=== PATIENT | male | born 1970 | race Caucasian/White ===

== ENCOUNTER 2017-08-26 10:58 | Emergency (ER) | payer OTHER, SELFPAY ==
[2017-08-26 11:01] VITALS: BP 143/86; PULSE 76; RESP 15; TEMP 36.8; O2SAT 96; BMI 33.1
--- NOTE | 2017-08-26 11:15 | EKG12_ITS ---
Test Reason : CP Blood Pressure : / mmHG Vent. Rate : 074 BPM Atrial Rate : 074 BPM P-R Int : 150 ms QRS Dur : 082 ms QT Int : 376 ms P-R-T Axes : 052 017 025 degrees QTc Int : 417 ms Normal sinus rhythm Normal ECG Confirmed by RENAE CALIXTO ([id number]), technical editor VIVIAN YAO ([id number] on 08/30/2017 1:42:37 PM Referred By: AFUA/LATRICE Confirmed By:RENAE CALIXTO
--- NOTE | 2017-08-26 11:15 | RAD_ITS ---
STUDY: X-RAY CHEST REASON FOR EXAM: Male, 47 years old. Chest pain since this morning. TECHNIQUE: PA and lateral views. COMPARISON: None. FINDINGS: The lungs are clear and expanded. There is no demonstrated pleural abnormality. Normal size heart. Normal mediastinum and cory. Normal visualized pulmonary arteries. Normal visualized aortic arch and descending thoracic aorta. Normal visualized thoracic spine. Normal visualized ribs, clavicles, and shoulders. There is no demonstrated abnormality of the visualized soft tissue structures of the upper abdomen. RAD/Chest PA and Lateral IMPRESSION: Normal x-ray examination of the chest. Electronically Signed: Parish Adames MD at 11:54 EDT , Service support ,
--- NOTE | 2017-08-26 11:18 | ED.DCSUM_ITS ---
- ER Visit Summary Date of Service: 08/26/17 Chief Complaint: Sharp anterior left chest pain History of Present Illness: The patient is a 47 M who was at work when he developed sharp anterior left chest pain that lasted 5 minutes that may or may not admit associated shortness of breath. No other associated symptoms. No radiation. No prior history of chest pain or heart problems. He has no history of PE or DVT or any risk factors. He denies any leg pain, swelling discoloration. 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 He does have history of hypertension, obstructive sleep apnea and was a smoker until one year ago. Physical Examination: Vital signs are remarkable for an elevated blood pressure 143/86. He appears in no distress. HEENT is unremarkable. Heart is regular without murmur, gallop or rub. S1 and S2 are normal. Lungs are clear to auscultation with good movement of air bilaterally. Abdomen soft nontender normal bowel sounds. There is no asymmetry, swelling, discoloration, leg vein distention, palpable cords or tenderness along the distribution of the deep venous system. Neuro exam is nonfocal. Tinel's test was negative bilaterally. Phalen's test was positive for numbness bilaterally. 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 This is been a problem for the last 1-2 months. Test Results: EKG revealed a sinus rhythm rate is 74. The EKG is normal. IA interval normal. QRS duration normal. There is no ischemic changes noted. Two -view chest x-ray interpreted by me as negative. Cardiac silhouette is normal. Mediastinum is normal. There is no abnormality of the lung parenchyma. There is no abnormality of the bone/osseous structures. There is no evidence of hiatal hernia. Troponin is less than 0.015. Emergency Department Course and Treatment: To evaluate patient's transient left sided anterior chest pain and EKG was obtained to evaluate for any evidence of ischemia. Chest x-ray to evaluate for evidence of pneumothorax or pulmonary pathology. Troponin for risk stratification using heart score. Treatment Plan: Heart score is 2 which is low risk. Patient presents with very atypical chest discomfort. Since it was transient plan is to discharge to home and follow-up with primary care physician. Disposition: Discharged to home with appropriate home-going instructions. Cock- up splint for right and left wrist to be worn at night Impression: 1. Left-sided chest pain unknown etiology 2. Carpal tunnel syndrome right and left initial encounter This note was generated with [employer] dictation software. It may contain incorrect words, spelling, and punctuation that were not noted in review of the chart prior to signing ED Disposition - Plan for ED Patient: Disposition: Home or Assisted Living Chief Complaint: Chest Pain Instructions: ED Chest Pain Atypical Unkn Cause, ED Carpal Tunnel Referrals: Contreras Bird MD [Primary Care Provider] - 1 Week if not improving Additional Instructions: Wear cockup splints at night. Take either 4 Advil every 8 hours for the next 5- 7 days or 2 Aleve every 12 hours for the next 5-7 days. If you are still experiencing tingling in your fingers follow-up with your doctor for further testing and treatment.
[2017-08-26 13:05] VITALS: BP 130/75; PULSE 74; RESP 20; O2SAT 97
== END 2017-08-26 13:06 | disposition home or self-care (01) ==
PROVIDERS: Emergency Provider Emergency Medicine; Family Provider Family Medicine; PCP Family Medicine
DX: R07.9 Chest pain, unspecified (principal); G56.03 Carpal tunnel syndrome, bilateral upper limbs; I10 Essential (primary) hypertension; G47.33 Obstructive sleep apnea (adult) (pediatric); Z79.899 Other long term (current) drug therapy; Z87.891 Personal history of nicotine dependence
CPT/HCPCS: 71046; 84484; 93005; 99284

== ENCOUNTER 2018-01-04 01:56 | Emergency (ER) | payer OTHER, SELFPAY ==
[2018-01-04 01:56] VITALS: BP 145/94; PULSE 84; RESP 18; TEMP 37.1; O2SAT 96; BMI 34.8
--- NOTE | 2018-01-04 02:18 | ED.VISSUMM ---
- ER Visit Summary Date of Service: 01/04/18 Chief Complaint: Back pain History of Present Illness: The patient is a 47 M who presents with back pain. He does have a history of prior back problems with prior discectomy. He states he was picking up a heavy piece of metal at work which weighs about 150 pounds. He felt a pop in his left lower back and had sudden pain. He went back to work and attempted to lift another piece and his pain returned. This occurred about 2-3 hours before presentation. He has not yet taken any medications. He complains of some tingling going into the left buttock and leg but no pain radiating into the leg he denies any fevers abdominal pain urinary retention fecal incontinence. There was no fall. Physical Examination: Afebrile vitals stable Patient observed ambulating without difficulty Heart regular rate and rhythm Lungs clear Patient does have left lumbar paraspinal tenderness no midline tenderness Negative straight leg raise bilaterally Easily palpable and symmetric dorsalis pedis pulses 5 out of 5 strength with dorsiflexion, plantarflexion, extensor hallucis longus Test Results: Not indicated Emergency Department Course and Treatment: History and exam are consistent with lumbosacral strain. He was given naproxen here. He was given prescriptions for naproxen and [place]. He will follow-up with [facility]. He understands to return for new or worsening symptoms and was discharged home. Treatment Plan: [] Disposition: Discharge Impression: Lumbosacral strain This note was generated with [employer] dictation software. It may contain incorrect words, spelling, and punctuation that were not noted in review of the chart prior to signing ED Disposition - Plan for ED Patient: Chief Complaint: Back Referrals: Contreras Bird MD [Primary Care Provider] -
--- NOTE | 2018-01-04 02:21 | DCINST.ED_ITS ---
ED Disposition - Plan for ED Patient: Chief Complaint: Back Instructions: ED Sprain Strain Lumbar Prescriptions: Hydrocodone Bitart/Apap 5-325 [[place] 5MG-325MG] 1 tab PO Q6H PRN PRN 3 Days #10 tab PRN Reason: Pain Naproxen [Naprosyn] 500 mg PO BID #14 tab Referrals: Contreras Bird MD [Primary Care Provider] -
[2018-01-04] MEDS: Naproxen 500 MG Tablet PO (02:38)
[2018-01-04 02:47] VITALS: RESP 16
--- NOTE | 2018-01-04 02:50 | ED.RN ---
pt is discharged but [facility] is in the room with patient.
--- OUTSIDE RECORDS SUMMARY | 2018-03-01 10:46 | XMS RPT_ITS ---
:1970 Author Organization OH[facility] Care Team Providers Name Role Phone KIRSTIN COVINGTON) Attending Unavailable JIMENA REINA Referring Unavailable KIRSTIN COVINGTON) Attending Unavailable JIMENA REINA Referring Unavailable Matt Schwab Attending Unavailable Jimena Reina Primary Care Unavailable Jimena Reina Primary Care Unavailable Keith Alvarez Attending Unavailable PROBLEMS PROBLEMS DATE TYPE CONDITION / CODE ATTENDING STATUS SOURCE 01/04/2018 Unknown S39.012A - Keith Alvarez Active Carlene Strain of [facility] muscle, fascia [facility] and tendon of Repository lower back, initial encounter / S39.012A(ICD-10) PROCEDURES PROCEDURES No Procedure Records FoundRESULTS RESULTS PROGRESS Observed: 01/06/2018 Status: COMPLETED Source: [place] 2:28 PM [facility] HNO ID: [id number] Author: Korina Covington Service: (none) Author Type: Physician Consumer Product Advisor Type: Progress Notes Filed: 01/06/2018 3:44 PM Note Text: SUBJECTIVE: Chief Complaint: Sree Torres is a 47 year old male who presents for complete physical exam. New concerns today include CPAP concerns. Patient uses his cpap daily and notices improvement however, he would like a new mask. The one he currently has, he hasn't been able to fully adjust too and finds that he's getting a dry mouth/throat with it even though it has heated humidity. No other concerns today Doing well. HEALTH MAINTENANCE Exercises regularly Minimal exercise associated with work or ADL's TWO PNEUMOVAX 5 YEARS APART PRIOR TO AGE 64(1) due on 1988 ADULT PREVNAR-13 due on 1988 PAST MEDICAL HISTORY Diagnosis Date - Hypertension - Hypogonadism in male 03/06/2015 - Leukocytosis - Smoker 03/06/2015 Started at age 23 up to 1 1/2 PPD. As of 03/06/2015 smoking 3/4 PPD. PAST SURGICAL HISTORY Procedure Laterality Date - PAST SURGICAL HISTORY OF micro discectomy L5-S1 FAMILY HISTORY Problem Relation Age of Onset - Cancer Maternal Grandmother 60 ? - Cancer Maternal Grandfather 60 ? Social History Marital status: Spouse name: Years of education: Number of children: Social History Main Topics Smoking status: Former Smoker Packs/day: 1.00 Years: 20.00 Types: Cigarettes Quit date: 05/08/2016 Smokeless tobacco: Never Used Comment: Pt will occ have a cigarette. Alcohol use: No Drug use: No Sexual activity: Yes Partners with: Female Immunization History Administered Date(s) Administered Influenza Seasonal Inj Age 3+ 11/08/2015 Influenza Seasonal Inj Quadrivalent Age 3+ 03/06/2015 Tdap (Age 7+) 03/06/2015 ACTIVE PROBLEM LIST Hypogonadism in Male Smoker Well Adult Exam Muscle Cramps Dyslipidemia Leukocytosis Timothy (Obstructive Sleep Apnea) Essential Hypertension With Goal Blood Pressure Less Than 140/90 Elevated Lfts Hematuria Gerd Without Esophagitis Fatty Liver REVIEW OF SYSTEMS General: Denies fever, chills, night sweats, or changes in weight. Dermatologic: Denies any new skin conditions, rashes or changing moles. Eyes: Denies recent visual changes. ENT: Negative for hearing loss, tinnitus, frequent URI's, sinus trouble, persistent sore throat and hoarseness Respiratory: Denies any cough, dyspnea, or wheezing. Cardiovascular: Denies any chest pain with exertion or at rest, palpitations, syncope, or edema. Gastrointestinal: Denies any nausea, vomiting, abdominal pain, worsening heartburn, changes in bowel habit, Denies melena, Denies any rectal bleeding. Genitourinary: Denies Denies dysuria, frequency, urgency, incontinence, erectile dysfunction, and hematuria., Denies problems with urinary stream. Musculoskeletal: Denies any joint swelling, crepitus, joint pain, or loss of range of motion., Denies back pain. Neurologic: Denies any headaches, tremors, dizziness, vertigo, memory loss, confusion., Positive for left hand n/t Psychiatric: Denies any sleeping problems, history of abuse, marital discord., Denies any anxiety or depression. Hematologic/Lymphatic/Immunologic: Denies anemia, bruising, bleeding abnormalities, HIV risk factors Endocrine: Denies any heat or cold intolerance, polyuria or polydipsia. OBJECTIVE: PHYSICAL EXAMINATION: BP 122/78 (BP Site: Left Arm, BP Position: Sitting, BP Cuff Size: Large Adult) Pulse 68 Resp 14 Ht 189.9 cm (6' 2.75) Wt 121.1 kg (267 lb) BMI 33.60 kg/m? Last 4 Encounter Wt Readings: Date: Wt: 01/06/2018 121.1 kg (267 lb) 12/15/2017 122.9 kg (271 lb) 05/20/2017 123.8 kg (273 lb) 04/14/2016 119.3 kg (263 lb) GENERAL APPEARANCE Obese, well appearing, alert and in no acute distress SKIN: Dark mole low back just left lateral. Not uniform with rest of nevi. About 4mm in size. Borders are uniform and symmetric. Multiple skin tags on neck. HEAD: No significant findings. EYES: PERRLA, EOMI, Fundoscopic exam benign. EARS: external ears normal, canals clear, TM's normal NOSE/SINUSES: Nares normal. Septum midline. OROPHARYNX: Lips, mucosa, and tongue normal, teeth and gums normal and oropharynx normal. NECK: Supple, full range of motion, no lymphadenopathy, normal thyroid, no carotid bruits and no JVD BACK: Back symmetric, Normal curvature, ROM normal, No CVAT. LUNGS: clear to auscultation HEART: Normal PMI, Regular rate and rhythm, Normal heart sounds, S1 and S2 and No murmurs. ABDOMEN: Soft, Non-tender, No palpable masses, Normal bowel sounds, No abdominal bruits and No hepatosplenomegaly. EXTREMTIES: extremities normal, no deformities, no skin discoloration, no edema, extremity pulses equal and symmetric NEURO: Awake, alert and oriented x 3, Cranial nerves II-XII grossly intact, Reflexes symmetrical, Normal gait, No involuntary motions. DATA REVIEWED n/a ASSESSMENT/PLAN: 1. Well adult exam - ICD9: V70.0, ICD10: Z00.00 (primary diagnosis) - Recommended regular aerobic exercise. - Check labs as ordered at previous OV 2. Essential hypertension with goal blood pressure less than 140/90 - ICD9: 401.9, ICD10: I10 - good control - Continue current medication(s) - Recommended regular aerobic exercise. - Recommend home blood pressure monitoring, to bring results in on next visit - Goal of BP <130/80 3. Carpal tunnel syndrome, left - ICD9: 354.0, ICD10: G56.02 Discussed conservative options including bracing and use of NSAIDs prn. Would consider injection in future 4. Dyslipidemia - ICD9: 272.4, ICD10: E78.5 - to be determined upon return of lab results - Continue current therapy. 5. TIMOTHY (obstructive sleep apnea) - ICD9: 327.23, ICD10: G47.33 Stable Order for new mask given - COMPOUNDED PRESCRIPTION 6. Atypical nevi - ICD9: 216.9, ICD10: D22.9 With new recommendations of biopsying nevi that are not uniform with other nevi regardless of size, I discussed possible biopsy of nevi noticed on his left lower back. At this time patient would like to continue to monitor. Keep follow up as scheduled Return sooner as needed. ARIANNA VINSONOV Observed: 01/06/2018 Status: COMPLETED Source: [place] 2:20 PM [facility] REPOSITORY Office Visit (FAMPWS) SREE TORRES ([id number]) 1970 M Date Time Provider Department 01/06/18 2:20 PM ADRIAN COVINGTON) FAMMATHEW During your visit today, we recorded the following information about you: Pulse Respiration Blood pressure Weight 68/minute 14/minute 122/78 121.1 kg Height 1.899 m KIRSTIN COVINGTON PA-C 01/06/2018 3:44 PM Signed SUBJECTIVE: Chief Complaint: Sree Torres is a 47 year old male who presents for complete physical exam. New concerns today include CPAP concerns. Patient uses his cpap daily and notices improvement however, he would like a new mask. The one he currently has, he hasn't been able to fully adjust too and finds that he's getting a dry mouth/throat with it even though it has heated humidity. No other concerns today Doing well. HEALTH MAINTENANCE Exercises regularly Minimal exercise associated with work or ADL's TWO PNEUMOVAX 5 YEARS APART PRIOR TO AGE 65(1) due on 1988 ADULT PREVNAR-13 due on 1988 PAST MEDICAL HISTORY Diagnosis Date - Hypertension - Hypogonadism in male 03/06/2015 - Leukocytosis - Smoker 03/06/2015 Started at age 23 up to 1 02/08 PPD. As of 03/06/2015 smoking 3/4 PPD. PAST SURGICAL HISTORY Procedure Laterality Date - PAST SURGICAL HISTORY OF micro discectomy L5-S1 FAMILY HISTORY Problem Relation Age of Onset - Cancer Maternal Grandmother 60 ? - Cancer Maternal Grandfather 60 ? Social History Marital status: Spouse name: Years of education: Number of children: Social History Main Topics Smoking status: Former Smoker Packs/day: 1.00 Years: 20.00 Types: Cigarettes Quit date: 05/08/2016 Smokeless tobacco: Never Used Comment: Pt will occ have a cigarette. Alcohol use: No Drug use: No Sexual activity: Yes Partners with: Female Immunization History Administered Date(s) Administered Influenza Seasonal Inj Age 3+ 11/08/2015 Influenza Seasonal Inj Quadrivalent Age 3+ 03/06/2015 Tdap (Age 7+) 03/06/2015 ACTIVE PROBLEM LIST Hypogonadism in Male Smoker Well Adult Exam Muscle Cramps Dyslipidemia Leukocytosis Timothy (Obstructive Sleep Apnea) Essential Hypertension With Goal Blood Pressure Less Than 140/90 Elevated Lfts Hematuria Gerd Without Esophagitis Fatty Liver REVIEW OF SYSTEMS General: Denies fever, chills, night sweats, or changes in weight. Dermatologic: Denies any new skin conditions, rashes or changing moles. Eyes: Denies recent visual changes. ENT: Negative for hearing loss, tinnitus, frequent URI's, sinus trouble, persistent sore throat and hoarseness Respiratory: Denies any cough, dyspnea, or wheezing. Cardiovascular: Denies any chest pain with exertion or at rest, palpitations, syncope, or edema. Gastrointestinal: Denies any nausea, vomiting, abdominal pain, worsening heartburn, changes in bowel habit, Denies melena, Denies any rectal bleeding. Genitourinary: Denies Denies dysuria, frequency, urgency, incontinence, erectile dysfunction, and hematuria., Denies problems with urinary stream. Musculoskeletal: Denies any joint swelling, crepitus, joint pain, or loss of range of motion., Denies back pain. Neurologic: Denies any headaches, tremors, dizziness, vertigo, memory loss, confusion., Positive for left hand n/t Psychiatric: Denies any sleeping problems, history of abuse, marital discord., Denies any anxiety or depression. Hematologic/Lymphatic/Immunologic: Denies anemia, bruising, bleeding abnormalities, HIV risk factors Endocrine: Denies any heat or cold intolerance, polyuria or polydipsia. OBJECTIVE: PHYSICAL EXAMINATION: BP 122/78 (BP Site: Left Arm, BP Position: Sitting, BP Cuff Size: Large Adult) Pulse 68 Resp 14 Ht 189.9 cm (6' 2.75) Wt 121.1 kg (267 lb) BMI 33.60 kg/m? Last 4 Encounter Wt Readings: Date: Wt: 01/06/2018 121.1 kg (267 lb) 12/15/2017 122.9 kg (271 lb) 05/20/2017 123.8 kg (273 lb) 04/14/2016 119.3 kg (263 lb) GENERAL APPEARANCE Obese, well appearing, alert and in no acute distress SKIN: Dark mole low back just left lateral. Not uniform with rest of nevi. About 4mm in size. Borders are uniform and symmetric. Multiple skin tags on neck. HEAD: No significant findings. EYES: PERRLA, EOMI, Fundoscopic exam benign. EARS: external ears normal, canals clear, TM's normal NOSE/SINUSES: Nares normal. Septum midline. OROPHARYNX: Lips, mucosa, and tongue normal, teeth and gums normal and oropharynx normal. NECK: Supple, full range of motion, no lymphadenopathy, normal thyroid, no carotid bruits and no JVD BACK: Back symmetric, Normal curvature, ROM normal, No CVAT. LUNGS: clear to auscultation HEART: Normal PMI, Regular rate and rhythm, Normal heart sounds, S1 and S2 and No murmurs. ABDOMEN: Soft, Non-tender, No palpable masses, Normal bowel sounds, No abdominal bruits and No hepatosplenomegaly. EXTREMTIES: extremities normal, no deformities, no skin discoloration, no edema, extremity pulses equal and symmetric NEURO: Awake, alert and oriented x 3, Cranial nerves II-XII grossly intact, Reflexes symmetrical, Normal gait, No involuntary motions. DATA REVIEWED n/a ASSESSMENT/PLAN: 1. Well adult exam - ICD9: V70.0, ICD10: Z00.00 (primary diagnosis) - Recommended regular aerobic exercise. - Check labs as ordered at previous OV 2. Essential hypertension with goal blood pressure less than 140/90 - ICD9: 401.9, ICD10: I10 - good control - Continue current medication(s) - Recommended regular aerobic exercise. - Recommend home blood pressure monitoring, to bring results in on next visit - Goal of BP <130/80 3. Carpal tunnel syndrome, left - ICD9: 354.0, ICD10: G56.02 Discussed conservative options including bracing and use of NSAIDs prn. Would consider injection in future 4. Dyslipidemia - ICD9: 272.4, ICD10: E78.5 - to be determined upon return of lab results - Continue current therapy. 5. TIMOTHY (obstructive sleep apnea) - ICD9: 327.23, ICD10: G47.33 Stable Order for new mask given - COMPOUNDED PRESCRIPTION 6. Atypical nevi - ICD9: 216.9, ICD10: D22.9 With new recommendations of biopsying nevi that are not uniform with other nevi regardless of size, I discussed possible biopsy of nevi noticed on his left lower back. At this time patient would like to continue to monitor. Keep follow up as scheduled Return sooner as needed. ARIANNA VINSON PA-C 01/06/2018 2:52 PM Signed Please get fasting labs at earliest convenience. Follow up as scheduled. Sooner as needed. Referring Provider: JIMENA REINA [[id number]] Allergies As of Date: 01/06/2018 (No Known Allergies) Date Reviewed: 01/06/2018 Reviewed by: Adrian) Adria - Fully Assessed Reason for Visit: Physical [83] Primary Visit Diagnosis:Well adult exam [Z00.00] Other Visit Diagnoses:Essential hypertension with goal blood pressure less than 140/90 [I10] Carpal tunnel syndrome, left [G56.02] Dyslipidemia [E78.5] TIMOTHY (obstructive sleep apnea) [G47.33] Atypical nevi [D22.9] Order(s):COMPOUNDED PRESCRIPTIONcpap supplies: mask, tubing, hosesDisp: 1 EachRfl: 0 Prescriptions as of 01/06/2018 Sig: LISINOPRIL 20 MG TABLET Take 1 tablet by mouth once d* COMPOUNDED PRESCRIPTION CPAP unit and supplies at 15 * COMPOUNDED PRESCRIPTION cpap supplies: mask, tubing, * ONDANSETRON 4 MG DISINTEGRATI* Take 1 tablet by mouth every * BENZONATATE 100 MG CAPSULE Take 1 capsule by mouth three* KIGKTJIRZGHXC-KFCSYLOVTNOZV-R* Take 1 Dose by mouth as direc* RANITIDINE 150 MG TABLET Take 1 tablet by mouth twice * SYRINGE WITH NEEDLE 3 ML 20 G* 0.5 mL every Tuesday. VARENICLINE 0.5 MG (11)-1 MG * Take one 0.5mg tablet by mout* VARENICLINE 1 MG TABLET Take 1 tablet by mouth twice * Problem List As Of Date 01/06/2018 Noted Resolved Hypogonadism in male [E29.1] INVALID FOR* Smoker [F17.200] INVALID FOR* More... Well adult exam [Z00.00] INVALID FOR* More... Muscle cramps [R25.2] INVALID FOR* Dyslipidemia [E78.5] INVALID FOR* Leukocytosis [D72.829] INVALID FOR* More... TIMOTHY (obstructive sleep apnea) [G47.33] INVALID FOR* More... Essential hypertension with goal blood pressure*INVALID FOR* Elevated LFTs [R94.5] INVALID FOR* Hematuria [R31.9] INVALID FOR* GERD without esophagitis [K21.9] INVALID FOR* Fatty liver [K76.0] INVALID FOR* Atypical nevi [D22.9] INVALID FOR* Other instructions from your clinician: Please get fasting labs at earliest convenience. Follow up as scheduled. Sooner as needed. Prescriptions ordered this encounter Disp Refills Start End COMPOUNDED PRESCRIPTION 1 Ea* 0 01/06/2018 Class: Print RX Sig: cpap supplies: mask, tubing, hoses Encounter Status:Closed by KIRSTIN PEDERSON on 01/06/18 DISCHARGE INSTRUCTION Observed: 01/04/2018 Status: F Source: [place] 2:21 AM [facility] HOSPITAL REPOSITORY [facility] Medical Records Department [address] [place] [address] Discharge Instruction 01/04/18219 MR#: [id number] Acct: [id number] Name: SREE TORRES Rep #: [id number] : 1970 47 From: Keith Alvarez MD PCP: Jimena Reina MD Status: PRE ER ED Disposition - Plan for ED Patient: Chief Complaint: Back Instructions: ED Sprain Strain Lumbar Prescriptions: Hydrocodone Bitart/Apap 5-325 [[place] 5MG-325MG] 1 tab PO Q6H PRN PRN 3 Days #10 tab PRN Reason: Pain Naproxen [Naprosyn] 500 mg PO BID #14 tab Referrals: Jimena Reina MD [Primary Care Provider] - What to do if you have Problems For any increased pain, shortness of breath, bleeding, nausea or vomiting, chest pain, or any unexpected problems, contact your Primary Care Provider. Call [facility] ([phone]) or report to the closest Emergency Room. Call 911 if necessary. 01/04/18220 <Electronically signed by Keith Alvarez MD> Date Keith Alvarez MD Cosigner Signature (If Indicated): Date CC: Jimena Reina MD EMERGENCY DEPARTMENT Observed: 01/04/2018 Status: F Source: [place]E SUMMARY 2:20 AM [facility] Medical Records Department [address] [place] [address] Emergency Department Summary 01/04/18217 MR#: [id number] Acct: [id number] Name: SREE TORRES Rep #: [id number] : 1970 47 From: Keith Alvarez MD PCP: Jimena Reina MD Status: PRE ER - ER Visit Summary Date of Service: 01/04/18 Chief Complaint: Back pain History of Present Illness: The patient is a 47 M who presents with back pain. He does have a history of prior back problems with prior discectomy. He states he was picking up a heavy piece of metal at work which weighs about 150 pounds. He felt a pop in his left lower back and had sudden pain. He went back to work and attempted to lift another piece and his pain returned. This occurred about 2-3 hours before presentation. He has not yet taken any medications. He complains of some tingling going into the left buttock and leg but no pain radiating into the leg he denies any fevers abdominal pain urinary retention fecal incontinence. There was no fall. Physical Examination: Afebrile vitals stable Patient observed ambulating without difficulty Heart regular rate and rhythm Lungs clear Patient does have left lumbar paraspinal tenderness no midline tenderness Negative straight leg raise bilaterally Easily palpable and symmetric dorsalis pedis pulses 5 out of 5 strength with dorsiflexion, plantarflexion, extensor hallucis longus Test Results: Not indicated Emergency Department Course and Treatment: History and exam are consistent with lumbosacral strain. He was given naproxen here. He was given prescriptions for naproxen and [place]. He will follow-up with [facility]. He understands to return for new or worsening symptoms and was discharged home. Treatment Plan: [] Disposition: Discharge Impression: Lumbosacral strain This note was generated with [employer] dictation software. It may contain incorrect words, spelling, and punctuation that were not noted in review of the chart prior to signing ED Disposition - Plan for ED Patient: Chief Complaint: Back Referrals: Jimena Reina MD [Primary Care Provider] - What to do if you have Problems For any increased pain, shortness of breath, bleeding, nausea or vomiting, chest pain, or any unexpected problems, contact your Primary Care Provider. Call [facility] ([phone]) or report to the closest Emergency Room. Call 911 if necessary. 01/04/18 0220 <Electronically signed by Keith Alvarez MD> Date Keith Alvarez MD Cosigner Signature (If Indicated): Date CC: Jimena Reina MD PROGRESS Observed: 12/15/2017 Status: COMPLETED Source: [place]MINE 12:[address] [facility] REPOSITORY HNO ID: [id number] Author: Christina Hernandez Service: (none) Author Type: Nurse Practitioner Type: Progress Notes Filed: 12/15/2017 12:44 PM Note Text: Subjective HPI Pt presents with c/o 8 hour hx nasal congestion, occasional dry, nonproductive cough, sneezing, nausea and one episode of vomiting and diarrhea this am. Denies fever, chills, dyspnea, abd pain. Decreased appetite this afternoon. Has been drinking fluids without issues. Has not taken any OTC medications. Called off work this am d/t above sx and is required to have work excuse letter. Review of Systems Constitutional: Negative for chills and fever. HENT: Positive for congestion. Negative for ear discharge, ear pain, sinus pain, sore throat and tinnitus. Respiratory: Positive for cough. Negative for sputum production, shortness of breath and wheezing. Cardiovascular: Negative for chest pain. Gastrointestinal: Positive for diarrhea, nausea and vomiting. Negative for abdominal pain, blood in stool and constipation. Skin: Negative for rash. Neurological: Negative for headaches. Objective Physical Exam Constitutional: He is oriented to person, place, and time and well-developed, well-nourished, and in no distress. No distress. HENT: Head: Normocephalic. Right Ear: Hearing, tympanic membrane, external ear and ear canal normal. Left Ear: Hearing, tympanic membrane, external ear and ear canal normal. Nose: Nose normal. Right sinus exhibits no maxillary sinus tenderness and no frontal sinus tenderness. Left sinus exhibits no maxillary sinus tenderness and no frontal sinus tenderness. Mouth/Throat: Uvula is midline, oropharynx is clear and moist and mucous membranes are normal. No oropharyngeal exudate, posterior oropharyngeal edema, posterior oropharyngeal erythema or tonsillar abscesses. Eyes: Pupils are equal, round, and reactive to light. Conjunctivae are normal. Right eye exhibits no discharge. Left eye exhibits no discharge. Neck: Neck supple. Cardiovascular: Normal rate, regular rhythm and normal heart sounds. Exam reveals no gallop and no friction rub. No murmur heard. Pulmonary/Chest: Effort normal and breath sounds normal. No accessory muscle usage. No tachypnea. No respiratory distress. He has no decreased breath sounds (CTA, good air movement throughout, no cough noted during exam.). He has no wheezes. He has no rhonchi. He has no rales. Abdominal: Soft. Bowel sounds are normal. Lymphadenopathy: He has no cervical adenopathy. Neurological: He is alert and oriented to person, place, and time. Skin: Skin is warm. He is not diaphoretic. BP 110/70 Pulse 72 Temp 36.3 ?C (97.4 ?F) (Left Tympanic) Resp 16 Wt 122.9 kg (271 lb) BMI 33.87 kg/m? .Patient presents with: Nasal Congestion Nausea AND Vomiting PAST MEDICAL HISTORY Diagnosis Date - Hypertension - Hypogonadism in male 03/06/2015 - Leukocytosis - Smoker 03/06/2015 Started at age 23 up to 1 1/2 PPD. As of 03/06/2015 smoking 3/4 PPD. PAST SURGICAL HISTORY Procedure Laterality Date - PAST SURGICAL HISTORY OF micro discectomy L5-S1 ALLERGIES Patient has no known allergies. MEDICATIONS ranitidine (ZANTAC) 150 mg tablet Take 1 tablet by mouth twice daily. lisinopril (ZESTRIL, PRINIVIL) 20 mg tablet Take 1 tablet by mouth once daily. COMPOUNDED PRESCRIPTION CPAP unit and supplies at 15 cm H2O with humidification.Dx: G47.33 ondansetron orally disintegrating (ZOFRAN ODT) 4 mg disintegrating tablet Take 1 tablet by mouth every 8 hours as needed. benzonatate (TESSALON PERLE) 100 mg capsule Take 1 capsule by mouth three times daily as needed. Hderxohhskyyw-Gvkuqzcfxsnpp-NG (TYLENOL COLD HEAD CONGEST SEVR) 5-325-200 mg tab Take 1 Dose by mouth as directed. Syringe with Needle, Disp, (BD LUER-CHER SYRINGE) 3 mL 20 gauge x 1 syrg 0.5 mL every Tuesday. Varenicline (CHANTIX) 0.5 mg (11)- 1 mg (42) tablet Take one 0.5mg tablet by mouth once daily for 3 days, then 0.5mg tablet twice daily for 3 days, then 1mg tablet twice daily. varenicline (CHANTIX CONTINUING MONTH JANELLE) 1 mg tablet Take 1 tablet by mouth twice daily. FAMILY HISTORY Problem Relation Age of Onset - Cancer Maternal Grandmother 60 ? - Cancer Maternal Grandfather 60 ? Social History Substance Use Topics - Smoking status: Former Smoker Packs/day: 1.00 Years: 20.00 Types: Cigarettes Quit date: 05/08/2016 - Smokeless tobacco: Never Used Comment: Pt will occ have a cigarette. - Alcohol use No ASSESSMENT/PLAN: 1. Viral URI with cough - ICD9: 465.9, ICD10: J06.9, B97.89 (primary diagnosis) - Discussed viral etiology and rationale for treatment. - Symptomatic treatment with prn analgesia - Supportive care with fluids and rest - BENZONATATE 100 MG CAPSULE - DGRMOSXETFTZJ-HHQMAVUMUGMWR-JQJIJCMOURU 5 MG-325 MG-200 MG TABLET 2. Nausea - ICD9: 787.02, ICD10: R11.0 - ONDANSETRON 4 MG DISINTEGRATING TABLET The patient is instructed to return or seek emergency treatment if symptoms become worse or with any acute change in condition. The patient verbalizes understanding and is in agreement with plan of care. Christina Hernandez CNP CNOV Observed: 12/15/2017 Status: COMPLETED Source: [place] 12:15 PM [facility] REPOSITORY Office Visit (WSTR) SREE TORRES ([id number]) 1970 M Date Time Provider Department 12/15/17 12:15 PM CHRISTINA HERNANDEZ [facility] During your visit today, we recorded the following information about you: Temperature Pulse Respiration Blood pressure 97.4 degrees 72/minute 16/minute 110/70 Weight 122.9 kg Christina Hernandez APRN.CNP 12/15/2017 12:44 PM Signed Subjective HPI Pt presents with c/o 8 hour hx nasal congestion, occasional dry, nonproductive cough, sneezing, nausea and one episode of vomiting and diarrhea this am. Denies fever, chills, dyspnea, abd pain. Decreased appetite this afternoon. Has been drinking fluids without issues. Has not taken any OTC medications. Called off work this am d/t above sx and is required to have work excuse letter. Review of Systems Constitutional: Negative for chills and fever. HENT: Positive for congestion. Negative for ear discharge, ear pain, sinus pain, sore throat and tinnitus. Respiratory: Positive for cough. Negative for sputum production, shortness of breath and wheezing. Cardiovascular: Negative for chest pain. Gastrointestinal: Positive for diarrhea, nausea and vomiting. Negative for abdominal pain, blood in stool and constipation. Skin: Negative for rash. Neurological: Negative for headaches. Objective Physical Exam Constitutional: He is oriented to person, place, and time and well-developed, well-nourished, and in no distress. No distress. HENT: Head: Normocephalic. Right Ear: Hearing, tympanic membrane, external ear and ear canal normal. Left Ear: Hearing, tympanic membrane, external ear and ear canal normal. Nose: Nose normal. Right sinus exhibits no maxillary sinus tenderness and no frontal sinus tenderness. Left sinus exhibits no maxillary sinus tenderness and no frontal sinus tenderness. Mouth/Throat: Uvula is midline, oropharynx is clear and moist and mucous membranes are normal. No oropharyngeal exudate, posterior oropharyngeal edema, posterior oropharyngeal erythema or tonsillar abscesses. Eyes: Pupils are equal, round, and reactive to light. Conjunctivae are normal. Right eye exhibits no discharge. Left eye exhibits no discharge. Neck: Neck supple. Cardiovascular: Normal rate, regular rhythm and normal heart sounds. Exam reveals no gallop and no friction rub. No murmur heard. Pulmonary/Chest: Effort normal and breath sounds normal. No accessory muscle usage. No tachypnea. No respiratory distress. He has no decreased breath sounds (CTA, good air movement throughout, no cough noted during exam.). He has no wheezes. He has no rhonchi. He has no rales. Abdominal: Soft. Bowel sounds are normal. Lymphadenopathy: He has no cervical adenopathy. Neurological: He is alert and oriented to person, place, and time. Skin: Skin is warm. He is not diaphoretic. BP 110/70 Pulse 72 Temp 36.3 ?C (97.4 ?F) (Left Tympanic) Resp 16 Wt 122.9 kg (271 lb) BMI 33.87 kg/m? .Patient presents with: Nasal Congestion Nausea AND Vomiting PAST MEDICAL HISTORY Diagnosis Date - Hypertension - Hypogonadism in male 03/06/2015 - Leukocytosis - Smoker 03/06/2015 Started at age 23 up to 1 1/2 PPD. As of 03/06/2015 smoking 3/4 PPD. PAST SURGICAL HISTORY Procedure Laterality Date - PAST SURGICAL HISTORY OF micro discectomy L5-S1 ALLERGIES Patient has no known allergies. MEDICATIONS ranitidine (ZANTAC) 150 mg tablet Take 1 tablet by mouth twice daily. lisinopril (ZESTRIL, PRINIVIL) 20 mg tablet Take 1 tablet by mouth once daily. COMPOUNDED PRESCRIPTION CPAP unit and supplies at 15 cm H2O with humidification.Dx: G47.33 ondansetron orally disintegrating (ZOFRAN ODT) 4 mg disintegrating tablet Take 1 tablet by mouth every 8 hours as needed. benzonatate (TESSALON PERLE) 100 mg capsule Take 1 capsule by mouth three times daily as needed. Vehvbttyzwkgf-Arwdiczserqpc-DF (TYLENOL COLD HEAD CONGEST SEVR) 5-325-200 mg tab Take 1 Dose by mouth as directed. Syringe with Needle, Disp, (BD LUER-CHER SYRINGE) 3 mL 20 gauge x 1 syrg 0.5 mL every Tuesday. Varenicline (CHANTIX) 0.5 mg (11)- 1 mg (42) tablet Take one 0.5mg tablet by mouth once daily for 3 days, then 0.5mg tablet twice daily for 3 days, then 1mg tablet twice daily. varenicline (CHANTIX CONTINUING MONTH ) 1 mg tablet Take 1 tablet by mouth twice daily. FAMILY HISTORY Problem Relation Age of Onset - Cancer Maternal Grandmother 60 ? - Cancer Maternal Grandfather 60 ? Social History Substance Use Topics - Smoking status: Former Smoker Packs/day: 1.00 Years: 20.00 Types: Cigarettes Quit date: 05/08/2016 - Smokeless tobacco: Never Used Comment: Pt will occ have a cigarette. - Alcohol use No ASSESSMENT/PLAN: 1. Viral URI with cough - ICD9: 465.9, ICD10: J06.9, B97.89 (primary diagnosis) - Discussed viral etiology and rationale for treatment. - Symptomatic treatment with prn analgesia - Supportive care with fluids and rest - BENZONATATE 100 MG CAPSULE - ZJZANVFIJBRVB-SVXRQVHJIAXDR-APNHTURZPUC 5 MG-325 MG-200 MG TABLET 2. Nausea - ICD9: 787.02, ICD10: R11.0 - ONDANSETRON 4 MG DISINTEGRATING TABLET The patient is instructed to return or seek emergency treatment if symptoms become worse or with any acute change in condition. The patient verbalizes understanding and is in agreement with plan of care. Christina Hernandez CNP Referring Provider: SELF [200] Allergies As of Date: 12/15/2017 (No Known Allergies) Date Reviewed: 12/15/2017 Reviewed by: Barbara Peres Ma - Fully Assessed Reason for Visit: Nasal Congestion [235] Nausea AND Vomiting [237] Primary Visit Diagnosis:Viral URI with cough [J06.9, B97.89] Other Visit Diagnosis:Nausea [R11.0] Order(s):ondansetron orally disintegrating (ZOFRAN ODT) 4 mg disintegrating tabletTake 1 tablet by mouth every 8 hours as needed.Disp: 12 tabletRfl: 0 benzonatate (TESSALON PERLE) 100 mg capsuleTake 1 capsule by mouth three times daily as needed.Disp: 60 capsuleRfl: 0 Ddihuidiovjxa-Lngjqanfqxbjk-GU (TYLENOL COLD HEAD CONGEST SEVR) 5-325-200 mg tabTake 1 Dose by mouth as directed.Disp: 30 tabletRfl: 0 Prescriptions as of 12/15/2017 Sig: RANITIDINE 150 MG TABLET Take 1 tablet by mouth twice * LISINOPRIL 20 MG TABLET Take 1 tablet by mouth once d* COMPOUNDED PRESCRIPTION CPAP unit and supplies at 15 * ONDANSETRON 4 MG DISINTEGRATI* Take 1 tablet by mouth every * BENZONATATE 100 MG CAPSULE Take 1 capsule by mouth three* SCLJVHCISYKLM-HBAPDPEJPVSCR-A* Take 1 Dose by mouth as direc* SYRINGE WITH NEEDLE 3 ML 20 G* 0.5 mL every Tuesday. VARENICLINE 0.5 MG (11)-1 MG * Take one 0.5mg tablet by mout* VARENICLINE 1 MG TABLET Take 1 tablet by mouth twice * Problem List As Of Date 12/15/2017 Noted Resolved Hypogonadism in male [E29.1] INVALID FOR* Priority: B Smoker [F17.200] INVALID FOR* Priority: C More... Well adult exam [Z00.00] INVALID FOR* Priority: D More... Muscle cramps [R25.2] INVALID FOR* Dyslipidemia [E78.5] INVALID FOR* Priority: A Leukocytosis [D72.829] INVALID FOR* Priority: B More... TIMOTHY (obstructive sleep apnea) [G47.33] INVALID FOR* Priority: B More... Essential hypertension with goal blood pressure*INVALID FOR* Priority: A Elevated LFTs [R94.5] INVALID FOR* Hematuria [R31.9] INVALID FOR* GERD without esophagitis [K21.9] INVALID FOR* Priority: A Fatty liver [K76.0] INVALID FOR* Priority: A Prescriptions ordered this encounter Disp Refills Start End ONDANSETRON 4 MG DISINTEGRATING TABL* 12 t* 0 12/15/2017 12/15/2017 Route: ORAL Sig: Take 1 tablet by mouth every 8 hours as needed. VHXCBACLLZZRX-OVABBABULDGNU-NSDQODSJ* 30 t* 0 12/15/2017 12/15/2017 Route: ORAL Sig: Take 1 Dose by mouth as directed. BENZONATATE 100 MG CAPSULE 40 c* 0 12/15/2017 12/15/2017 Route: ORAL Sig: Take 1 capsule by mouth three times daily as needed. ONDANSETRON 4 MG DISINTEGRATING TABL* 12 t* 0 12/15/2017 12/15/2017 Route: ORAL Sig: Take 1 tablet by mouth every 8 hours as needed. DIMENJLZZFXOH-ZIBBRXEEMSJWH-LQHXKAAU* 30 t* 0 12/15/2017 12/15/2017 Route: ORAL Sig: Take 1 Dose by mouth as directed. BENZONATATE 100 MG CAPSULE 40 c* 0 12/15/2017 12/15/2017 Route: ORAL Sig: Take 1 capsule by mouth three times daily as needed. ONDANSETRON 4 MG DISINTEGRATING TABL* 12 t* 0 12/15/2017 Route: ORAL Sig: Take 1 tablet by mouth every 8 hours as needed. BENZONATATE 100 MG CAPSULE 60 c* 0 12/15/2017 Route: ORAL Sig: Take 1 capsule by mouth three times daily as needed. MJFMXNZMSWIYH-EXKUCLIFCRNRX-MATPVDEK* 30 t* 0 12/15/2017 Route: ORAL Sig: Take 1 Dose by mouth as directed. Medications Discontinued During This Encounter ondansetron orally disintegrating (Z* 12 t* 0 12/15/2017 12/15/2017 Route: ORAL Sig: Take 1 tablet by mouth every 8 hours as needed. Disc: Reason for discontinue is not on file. ondansetron orally disintegrating (Z* 12 t* 0 12/15/2017 12/15/2017 Route: ORAL Sig: Take 1 tablet by mouth every 8 hours as needed. Disc: Reason for discontinue is not on file. benzonatate (TESSALON PERLES) 100 mg* 40 c* 0 12/15/2017 12/15/2017 Route: ORAL Sig: Take 1 capsule by mouth three times daily as needed. Disc: Reason for discontinue is not on file. benzonatate (TESSALON PERLES) 100 mg* 40 c* 0 12/15/2017 12/15/2017 Route: ORAL Sig: Take 1 capsule by mouth three times daily as needed. Disc: Reason for discontinue is not on file. Vkwiusdlywyma-Cgaguvwsqfbuj-EO (TYLE* 30 t* 0 12/15/2017 12/15/2017 Route: ORAL Sig: Take 1 Dose by mouth as directed. Disc: Reason for discontinue is not on file. Mrrcfevqxjjof-Quqaldlamjccz-QG (TYLE* 30 t* 0 12/15/2017 12/15/2017 Route: ORAL Sig: Take 1 Dose by mouth as directed. Disc: Reason for discontinue is not on file. Letter Text Christina Hernandez APRN.CNP Urgent Care [address] [facility] [address] Dept: [phone] 12/15/2017 Sree Torres [address] [facility] [address] To Whom it May Concern: This is to certify that Sree Torres was seen at our office for medical care. If you have any questions please feel free to call. Sincerely: Christina Hernandez APRN.CNP Encounter Status:Closed by CHRISTINA HERNANDEZ CNP on 12/15/17 12 LEAD ELECTROCARDIOGRAM Observed: 08/30/2017 Status: F Source: [place] 1:43 PM [facility] Cardiovascular Services [address] [place] [address] 12 Lead EKG 08/26/17 1058 MR#: [id number] Acct: [id number] Name: SREE TORRES Rep #: [id number] : 1970 47 From: Jerrell Calixto MD Attending Dr: Status: DEP ER Ordering Dr: Matt Schwab MD Date: 08/26/17 Location: ED Sex: M C Admitted: Test Reason : CP Blood Pressure : / mmHG Vent. Rate : 074 BPM Atrial Rate : 074 BPM P-R Int : 150 ms QRS Dur : 082 ms QT Int : 376 ms P-R-T Axes : 052 017 025 degrees QTc Int : 417 ms Normal sinus rhythm Normal ECG Confirmed by JERRELL CALIXTO ([id number]), publication editor VIVIAN YAO ([id number]) on 08/30/2017 1:42:37 PM Referred By: JOSEPH Confirmed By:JERRELL CALIXTO 08/30/17 1342 Date Jerrell Calixto MD CC: Jimena Reina MD; Matt Schwab MD Signed EMERGENCY DEPARTMENT Observed: 08/26/2017 Status: F Source: [place] SUMMARY 12:21 PM [facility] Medical Records Department [address] [place] [address] Emergency Department Summary 08/26/17 1116 MR#: [id number] Acct: [id number] Name: SREE TORRES Rep #: [id number] : 1970 47 From: Matt Schwab MD PCP: Jimena Reina MD Status: REG ER - ER Visit Summary Date of Service: 08/26/17 Chief Complaint: Sharp anterior left chest pain History of Present Illness: The patient is a 47 M who was at work when he developed sharp anterior left chest pain that lasted 5 minutes that may or may not admit associated shortness of breath. No other associated symptoms. No radiation. No prior history of chest pain or heart problems. He has no history of PE or DVT or any risk factors. He denies any leg pain, swelling discoloration. 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 He does have history of hypertension, obstructive sleep apnea and was a smoker until one year ago. Physical Examination: Vital signs are remarkable for an elevated blood pressure 143/86. He appears in no distress. HEENT is unremarkable. Heart is regular without murmur, gallop or rub. S1 and S2 are normal. Lungs are clear to auscultation with good movement of air bilaterally. Abdomen soft nontender normal bowel sounds. There is no asymmetry, swelling, discoloration, leg vein distention, palpable cords or tenderness along the distribution of the deep venous system. Neuro exam is nonfocal. Tinel's test was negative bilaterally. Phalen's test was positive for numbness bilaterally. 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 This is been a problem for the last 1-2 months. Test Results: EKG revealed a sinus rhythm rate is 74. The EKG is normal. MD interval normal. QRS duration normal. There is no ischemic changes noted. Two-view chest x-ray interpreted by me as negative. Cardiac silhouette is normal. Mediastinum is normal. There is no abnormality of the lung parenchyma. There is no abnormality of the bone/osseous structures. There is no evidence of hiatal hernia. Troponin is less than 0.015. Emergency Department Course and Treatment: To evaluate patient's transient left sided anterior chest pain and EKG was obtained to evaluate for any evidence of ischemia. Chest x-ray to evaluate for evidence of pneumothorax or pulmonary pathology. Troponin for risk stratification using heart score. Treatment Plan: Heart score is 2 which is low risk. Patient presents with very atypical chest discomfort. Since it was transient plan is to discharge to home and follow-up with primary care physician. Disposition: Discharged to home with appropriate home-going instructions. Cock-up splint for right and left wrist to be worn at night Impression: 1. Left-sided chest pain unknown etiology 2. Carpal tunnel syndrome right and left initial encounter This note was generated with Iunika dictation software. It may contain incorrect words, spelling, and punctuation that were not noted in review of the chart prior to signing ED Disposition - Plan for ED Patient: Disposition: Home or Assisted Living Chief Complaint: Chest Pain Instructions: ED Chest Pain Atypical Unkn Cause, ED Carpal Tunnel Referrals: Jimena Reina MD [Primary Care Provider] - 1 Week if not improving Additional Instructions: Wear cockup splints at night. Take either 4 Advil every 8 hours for the next 5-7 days or 2 Aleve every 12 hours for the next 5-7 days. If you are still experiencing tingling in your fingers follow-up with your doctor for further testing and treatment. What to do if you have Problems For any increased pain, shortness of breath, bleeding, nausea or vomiting, chest pain, or any unexpected problems, contact your Primary Care Provider. Call [facility] ([phone]) or report to the closest Emergency Room. Call 911 if necessary. 08/26/17 1221 <Electronically signed by Matt Schwab MD> Date Matt Schwab MD Cosigner Signature (If Indicated): Date CC: Jimena Reina MD CHEST PA AND LATERAL Observed: 08/26/2017 Status: F Source: [place] 11:16 AM [facility] Imaging Services [address] [place] [address] Chest PA and Lateral MR#: [id number] Acct: [id number] Name: SREE TORRES Rep #: [id number] : 1970 M 47 From: Parish Adames MD PCP: Jimena Reina MD Status: REG ER Study: Chest PA and Lateral Date of Exam: 08/26/17 Exam# [id number] Ordering Dr: Matt Schwab MD STUDY: X-RAY CHEST REASON FOR EXAM: Male, 47 years old. Chest pain since this morning. TECHNIQUE: PA and lateral views. COMPARISON: None. FINDINGS: The lungs are clear and expanded. There is no demonstrated pleural abnormality. Normal size heart. Normal mediastinum and cory. Normal visualized pulmonary arteries. Normal visualized aortic arch and descending thoracic aorta. Normal visualized thoracic spine. Normal visualized ribs, clavicles, and shoulders. There is no demonstrated abnormality of the visualized soft tissue structures of the upper abdomen. RAD/Chest PA and Lateral IMPRESSION: Normal x-ray examination of the chest. Electronically Signed: Parish Adames MD at 11:54 EDT , Service support , CC: Jimena Reina MD; Matt Schwab MD Carpenter Assistant: Signed TROPONIN-I Collected: 08/26/2017 Status: F Source: [place] 11:02 AM [facility] TYPE CODE TESTS RESULT OUT OF RANGE REFERENCE UNITS LAB L501.4010 <0.045 ng/mL Normal < 0.015 TROPONIN-I Result Comment: TROPONIN-I EXPECTED VALUES <0.045 Negative 0.045 - 0.590 Consistent with Cardiac Damage > OR = 0.600 Critical Value Not every elevated troponin is indicative of TX. These values should be used with clinical judgement in examining the patient's clinical picture for diagnosis. To establish a diagnosis of TX versus myocardial injury, there must be a demonstrated rise and/or fall in the troponin values, in addition to ischemic symptoms, EKG changes, new regional wall motion abnormality, and/or angiographical evidence. PLEASE NOTE: REFERENCE RANGES EDITED 17 Performed By: #### L501.4010 #### [facility] [address] [place], [address] PROGRESS Observed: 05/20/2017 Status: COMPLETED Source: [place] 3:[address] [facility] REPOSITORY HNO ID: [id number] Author: Kirstin Covington ([place]) Service: (none) Author Type: Physician Consumer Product Advisor Type: Progress Notes Filed: 05/20/2017 3:28 PM Note Text: Chief Complaint Patient presents with: Recheck HPI Sree Torres is a 46 year old male who presents here today for Chronic Medical Conditions.. HTN: Mr. Torres indicates that he is feeling well and denies any symptoms referable to elevated blood pressure. Specifically denies headache, chest pain, palpitations, dyspnea and peripheral edema. Patient denies any side effects of his medication(s) and is compliant with their regimen. He does check BP's away from this office with average BP's in the 130/85 or lower. Sree gets minimal exercise. He watches his diet for sodium, low fat and low cholesterol generally not very much. Last 3 Encounter BP Readings: Date: BP: 05/20/2017 130/88 04/14/2016 130/84 06/19/2015 110/74 Last 3 Encounter Wt Readings: Date: Wt: 05/20/2017 123.8 kg (273 lb) 04/14/2016 119.3 kg (263 lb) 06/19/2015 117.9 kg (260 lb) Patient quit smoking last year but has since gained some weight. Is currently eating out daily due to current living situation in which kitchen is being remodeled and they are living with their son while looking for new home. GERD: Zantac works well. Takes it BID and when he misses a dose he does notice a difference. TIMOTHY: Has CPAP. Will be contacting [facility] for new equipment. S States he tries to sleep with it every night but some nights he will take it off in the middle of the night. Past medical history, appointments, medications, allergies reviewed. Previous Medical History PAST MEDICAL HISTORY Diagnosis Date - Hypertension - Hypogonadism in male 03/06/2015 - Leukocytosis - Smoker 03/06/2015 Started at age 23 up to 1 1/2 PPD. As of 03/06/2015 smoking 3/4 PPD. Previous Surgical History PAST SURGICAL HISTORY Procedure Laterality Date - PAST SURGICAL HISTORY OF micro discectomy L5-S1 Family History FAMILY HISTORY Problem Relation Age of Onset - Cancer Maternal Grandmother 60 ? - Cancer Maternal Grandfather 60 ? Patient Allergies ALLERGIES No Known Allergies Current Medications Current Outpatient Prescriptions on File Prior to Visit: ranitidine (ZANTAC) 150 mg tablet TAKE 1 TABLET BY MOUTH TWICE A DAY lisinopril (ZESTRIL, PRINIVIL) 20 mg tablet TAKE 1 TABLET EVERY DAY Syringe with Needle, Disp, (BD LUER-CHER SYRINGE) 3 mL 20 gauge x 1 syrg 0.5 mL every Tuesday. COMPOUNDED PRESCRIPTION CPAP unit and supplies at 15 cm H2O with humidification.Dx: G47.33 Varenicline (CHANTIX) 0.5 mg (11)- 1 mg (42) tablet Take one 0.5mg tablet by mouth once daily for 3 days, then 0.5mg tablet twice daily for 3 days, then 1mg tablet twice daily. varenicline (CHANTIX CONTINUING MONTH JANELLE) 1 mg tablet Take 1 tablet by mouth twice daily. No current facility-administered medications on file prior to visit. Social History Social History Marital status: Spouse name: Years of education: Number of children: Social History Main Topics Smoking status: Former Smoker Packs/day: 1.00 Years: 20.00 Types: Cigarettes Quit date: 04/23/2015 Smokeless status: Never Used Comment: Pt will occ have a cigarette. Alcohol use: No Drug use: No Sexual activity: Yes Partners with: Female Review of Symptoms REVIEW OF SYSTEMS GENERAL: No weight loss, malaise or fevers NECK: Negative for lumps, goiter, pain and significant neck swelling RESPIRATORY: Negative for cough, hemoptysis, wheezing, COPD, dyspnea or shortness of breath CARDIOVASCULAR: Negative for chest pain, leg swelling, CHF or palpitations GI: No nausea, vomiting, or diarrhea, No heartburn or reflux symptoms and no constipation or blood in the stool HEMATOLOGY/LYMPHOLOGY: Negative for prolonged bleeding, bruising easily or swollen nodes ENDOCRINE: Negative for cold or heat intolerance, polyuria, polydipsia and goiter NEURO: No history of headaches, syncope, paralysis, seizures or tremors EXAM: BP 130/88 (BP Site: Right Arm, BP Position: Sitting, BP Cuff Size: Large Adult) Pulse 72 Resp 14 Wt 123.8 kg (273 lb) BMI 34.12 kg/m2 General Appearance: Well appearing, alert, in no acute distress, well-hydrated, well nourished.. Neck: Supple, no adenopathy; thyroid symmetric, normal size, no bruits. Lungs: Lungs clear to auscultation. No wheezing, rhonchi, rales. Heart: RRR without murmur, gallop, or rubs. No ectopy. Extremities: No deformities, edema, skin discoloration, clubbing or cyanosis. Peripheral Pulses: Normal. Neuro: Reflexes equal b/l. Sensation intact. CN 2-12 grossly intact Health Maintenance List TWO PNEUMOVAX 5 YEARS APART PRIOR TO AGE 65(1) due on 1988 ADULT PREVNAR-13 due on 1988 INFLUENZA(Season Ended) due on 10/08/2017 DIABETES SCREEN due on 04/11/2019 LIPID SCREEN due on 04/10/2021 TETANUS due on 03/06/2025 ASSESSMENT/PLAN: 1. Essential hypertension with goal blood pressure less than 140/90 - ICD9: 401.9, ICD10: I10 (primary diagnosis) - good control - Continue current medication(s) - Recommended regular aerobic exercise. - Recommend home blood pressure monitoring, to bring results in on next visit - Goal of BP <130/80 - LISINOPRIL 20 MG TABLET - COMP METABOLIC PANEL - CBC + DIFF - URINALYSIS WITH MICROSCOPIC 2. GERD without esophagitis - ICD9: 530.81, ICD10: K21.9 - Continue treatment with Zantac 150 mg BID - RANITIDINE 150 MG TABLET - COMP METABOLIC PANEL 3. TIMOTHY (obstructive sleep apnea) - ICD9: 327.23, ICD10: G47.33 Stable. Patient will let us know if he needs orders for CPAP supplies once he talks to [facility] - COMP METABOLIC PANEL - CBC + DIFF 4. Dyslipidemia - ICD9: 272.4, ICD10: E78.5 - to be determined upon return of lab results - Encouraged following a low fat, low cholesterol diet. - COMP METABOLIC PANEL - LIPID PANEL BASIC 5. Fatty liver - ICD9: 571.8, ICD10: K76.0 See above - COMP METABOLIC PANEL - LIPID PANEL BASIC 6. Leukocytosis, unspecified type - ICD9: 288.60, ICD10: D72.829 Check: - COMP METABOLIC PANEL - CBC + DIFF Routine follow up in 6 months. Sooner as needed. EDDIE VINSON CNOV Observed: 05/20/2017 Status: COMPLETED Source: [place] 3:00 PM [facility] REPOSITORY Office Visit (FAMPWS) SREE TORRES ([id number]) 1970 M Date Time Provider Department 05/20/17 3:00 PM KIRSTIN COVINGTON ([place]) During your visit today, we recorded the following information about you: Pulse Respiration Blood pressure Weight 72/minute 14/minute 130/88 123.8 kg EDDIE VINSON 05/20/2017 3:28 PM Signed Chief Complaint Patient presents with: Recheck HPI Sree Torres is a 46 year old male who presents here today for Chronic Medical Conditions.. HTN: Mr. Torres indicates that he is feeling well and denies any symptoms referable to elevated blood pressure. Specifically denies headache, chest pain, palpitations, dyspnea and peripheral edema. Patient denies any side effects of his medication(s) and is compliant with their regimen. He does check BP's away from this office with average BP's in the 130/85 or lower. Sree gets minimal exercise. He watches his diet for sodium, low fat and low cholesterol generally not very much. Last 3 Encounter BP Readings: Date: BP: 05/20/2017 130/88 04/14/2016 130/84 06/19/2015 110/74 Last 3 Encounter Wt Readings: Date: Wt: 05/20/2017 123.8 kg (273 lb) 04/14/2016 119.3 kg (263 lb) 06/19/2015 117.9 kg (260 lb) Patient quit smoking last year but has since gained some weight. Is currently eating out daily due to current living situation in which kitchen is being remodeled and they are living with their son while looking for new home. GERD: Zantac works well. Takes it BID and when he misses a dose he does notice a difference. TIMOTHY: Has CPAP. Will be contacting [facility] for new equipment. S States he tries to sleep with it every night but some nights he will take it off in the middle of the night. Past medical history, appointments, medications, allergies reviewed. Previous Medical History PAST MEDICAL HISTORY Diagnosis Date - Hypertension - Hypogonadism in male 03/06/2015 - Leukocytosis - Smoker 03/06/2015 Started at age 23 up to 1 1 PPD. As of 03/06/2015 smoking 3/4 PPD. Previous Surgical History PAST SURGICAL HISTORY Procedure Laterality Date - PAST SURGICAL HISTORY OF micro discectomy L5-S1 Family History FAMILY HISTORY Problem Relation Age of Onset - Cancer Maternal Grandmother 60 ? - Cancer Maternal Grandfather 60 ? Patient Allergies ALLERGIES No Known Allergies Current Medications Current Outpatient Prescriptions on File Prior to Visit: ranitidine (ZANTAC) 150 mg tablet TAKE 1 TABLET BY MOUTH TWICE A DAY lisinopril (ZESTRIL, PRINIVIL) 20 mg tablet TAKE 1 TABLET EVERY DAY Syringe with Needle, Disp, (BD LUER-CHER SYRINGE) 3 mL 20 gauge x 1ANDquot; syrg 0.5 mL every Tuesday. COMPOUNDED PRESCRIPTION CPAP unit and supplies at 15 cm H2O with humidification.Dx: G47.33 Varenicline (CHANTIX) 0.5 mg (11)- 1 mg (42) tablet Take one 0.5mg tablet by mouth once daily for 3 days, then 0.5mg tablet twice daily for 3 days, then 1mg tablet twice daily. varenicline (CHANTIX CONTINUING MONTH JANELLE) 1 mg tablet Take 1 tablet by mouth twice daily. No current facility-administered medications on file prior to visit. Social History Social History Marital status: Spouse name: Years of education: Number of children: Social History Main Topics Smoking status: Former Smoker Packs/day: 1.00 Years: 20.00 Types: Cigarettes Quit date: 04/23/2015 Smokeless status: Never Used Comment: Pt will occ have a cigarette. Alcohol use: No Drug use: No Sexual activity: Yes Partners with: Female Review of Symptoms REVIEW OF SYSTEMS GENERAL: No weight loss, malaise or fevers NECK: Negative for lumps, goiter, pain and significant neck swelling RESPIRATORY: Negative for cough, hemoptysis, wheezing, COPD, dyspnea or shortness of breath CARDIOVASCULAR: Negative for chest pain, leg swelling, CHF or palpitations GI: No nausea, vomiting, or diarrhea, No heartburn or reflux symptoms and no constipation or blood in the stool HEMATOLOGY/LYMPHOLOGY: Negative for prolonged bleeding, bruising easily or swollen nodes ENDOCRINE: Negative for cold or heat intolerance, polyuria, polydipsia and goiter NEURO: No history of headaches, syncope, paralysis, seizures or tremors EXAM: BP 130/88 (BP Site: Right Arm, BP Position: Sitting, BP Cuff Size: Large Adult) Pulse 72 Resp 14 Wt 123.8 kg (273 lb) BMI 34.12 kg/m2 General Appearance: Well appearing, alert, in no acute distress, well-hydrated, well nourished.. Neck: Supple, no adenopathy; thyroid symmetric, normal size, no bruits. Lungs: Lungs clear to auscultation. No wheezing, rhonchi, rales. Heart: RRR without murmur, gallop, or rubs. No ectopy. Extremities: No deformities, edema, skin discoloration, clubbing or cyanosis. Peripheral Pulses: Normal. Neuro: Reflexes equal b/l. Sensation intact. CN 2-12 grossly intact Health Maintenance List TWO PNEUMOVAX 5 YEARS APART PRIOR TO AGE 65(1) due on 1988 ADULT PREVNAR-13 due on 1988 INFLUENZA(Season Ended) due on 10/08/2017 DIABETES SCREEN due on 04/11/2019 LIPID SCREEN due on 04/10/2021 TETANUS due on 03/06/2025 ASSESSMENT/PLAN: 1. Essential hypertension with goal blood pressure less than 140/90 - ICD9: 401.9, ICD10: I10 (primary diagnosis) - good control - Continue current medication(s) - Recommended regular aerobic exercise. - Recommend home blood pressure monitoring, to bring results in on next visit - Goal of BP ANDlt;130/80 - LISINOPRIL 20 MG TABLET - COMP METABOLIC PANEL - CBC + DIFF - URINALYSIS WITH MICROSCOPIC 2. GERD without esophagitis - ICD9: 530.81, ICD10: K21.9 - Continue treatment with Zantac 150 mg BID - RANITIDINE 150 MG TABLET - COMP METABOLIC PANEL 3. TIMOTHY (obstructive sleep apnea) - ICD9: 327.23, ICD10: G47.33 Stable. Patient will let us know if he needs orders for CPAP supplies once he talks to [facility] - COMP METABOLIC PANEL - CBC + DIFF 4. Dyslipidemia - ICD9: 272.4, ICD10: E78.5 - to be determined upon return of lab results - Encouraged following a low fat, low cholesterol diet. - COMP METABOLIC PANEL - LIPID PANEL BASIC 5. Fatty liver - ICD9: 571.8, ICD10: K76.0 See above - COMP METABOLIC PANEL - LIPID PANEL BASIC 6. Leukocytosis, unspecified type - ICD9: 288.60, ICD10: D72.829 Check: - COMP METABOLIC PANEL - CBC + DIFF Routine follow up in 6 months. Sooner as needed. EDDIE VINSON Referring Provider: JIMENA REINA [[id number]] Allergies As of Date: 05/20/2017 (No Known Allergies) Date Reviewed: 05/20/2017 Reviewed by: Kirstin Covington (Pa) - Fully Assessed Reason for Visit: Recheck [92] Primary Visit Diagnosis:Essential hypertension with goal blood pressure less than 140/90 [I10] Other Visit Diagnoses:GERD without esophagitis [K21.9] TIMOTHY (obstructive sleep apnea) [G47.33] Dyslipidemia [E78.5] Fatty liver [K76.0] Leukocytosis, unspecified type [D72.829] Order(s):ranitidine (ZANTAC) 150 mg tabletTake 1 tablet by mouth twice daily.Disp: 60 tabletRfl: 5 lisinopril (ZESTRIL, PRINIVIL) 20 mg tabletTake 1 tablet by mouth once daily.Disp: 90 tabletRfl: 3 COMP METABOLIC PANEL [SQCMP] Order #: [id number] FUTURE LIPID PANEL BASIC [SQLIPB] Order #: [id number] FUTURE CBC + DIFF [SQCBCDIF] Order #: [id number] FUTURE URINALYSIS WITH MICROSCOPIC [SQUAWMIC] Order #: [id number] FUTURE Prescriptions as of 05/20/2017 Sig: RANITIDINE 150 MG TABLET Take 1 tablet by mouth twice * LISINOPRIL 20 MG TABLET Take 1 tablet by mouth once d* SYRINGE WITH NEEDLE 3 ML 20 G* 0.5 mL every Tuesday. COMPOUNDED PRESCRIPTION CPAP unit and supplies at 15 * VARENICLINE 0.5 MG (11)-1 MG * Take one 0.5mg tablet by mout* VARENICLINE 1 MG TABLET Take 1 tablet by mouth twice * Problem List As Of Date 05/20/2017 Noted Resolved Hypogonadism in male [E29.1] INVALID FOR* Priority: B Smoker [F17.200] INVALID FOR* Priority: C More... Well adult exam [Z00.00] INVALID FOR* Priority: D More... Muscle cramps [R25.2] INVALID FOR* Dyslipidemia [E78.5] INVALID FOR* Priority: A Leukocytosis [D72.829] INVALID FOR* Priority: B More... TIMOTHY (obstructive sleep apnea) [G47.33] INVALID FOR* Priority: B More... Essential hypertension with goal blood pressure*INVALID FOR* Priority: A Elevated LFTs [R79.89] INVALID FOR* Hematuria [R31.9] INVALID FOR* GERD without esophagitis [K21.9] INVALID FOR* Priority: A Fatty liver [K76.0] INVALID FOR* Priority: A Prescriptions ordered this encounter Disp Refills Start End RANITIDINE 150 MG TABLET 60 t* 5 05/20/2017 Route: ORAL Sig: Take 1 tablet by mouth twice daily. LISINOPRIL 20 MG TABLET 90 t* 3 05/20/2017 Route: ORAL Sig: Take 1 tablet by mouth once daily. Medications Discontinued During This Encounter ranitidine (ZANTAC) 150 mg tablet 60 t* 5 10/06/2016 05/20/2017 Sig: TAKE 1 TABLET BY MOUTH TWICE A DAY Disc: Reason for discontinue is not on file. lisinopril (ZESTRIL, PRINIVIL) 20 mg* 90 t* 3 05/18/2016 05/20/2017 Sig: TAKE 1 TABLET EVERY DAY Disc: Reason for discontinue is not on file. Disposition: Return in about 6 months (around 11/19/2017). Follow-up and Disposition History Recorded Encounter Status:Closed by KIRSTIN COVINGTON on 05/20/17 ALLERGIES ALLERGIES DATE TYPE / CODE NAME / CODE REACTION SEVERITY SOURCE 01/04/2018 Drug No Known Unknown [facility] Allergy/416 Allergies/L28393 Hospital 104888(SNOM 0388(RXNORM) Repository ED CT) Drug NO KNOWN [facility] Class/37420 ALLERGIES [facility] [place] 1003(SNOMED Repository CT) ENCOUNTERS ENCOUNTERS ADMIT/DISCHARGE ACCOUNT ADMITTING ENCOUNTER LOCATION SOURCE NUMBER CLASS 01/06/2018/01/10/20 [id number] Ambulatory [address] Repository 01/04/2018/01/05/20 [id number] Emergency [address] ing:ED Repository 12/15/2017/12/17/19 [id number] Ambulatory [address] Repository 08/26/2017/08/27/19 [id number] Emergency [address] ing:ED Repository 05/20/2017/05/25/19 [id number] Ambulatory [address] Repository PAYERS PAYERS ENCOUNTER GUARANTOR PAYER SUBSCRIBER SOURCE 01/04/2018 SREE WOODS4 Primary SREE TORRESDOB: Carlene ASIF, Insurance:SELF INS [id number] [facility] [address]Lio: [facility]ly [facility] Number: Repository () [id number] Date:[id number] [facility]ER [facility] [address] [place] [address] 17414UO: 01/04/2018 Secondary NOT GIVENUNK [place] Insurance:SELF PAY [facility] Number: Effective Repository Date:2018-01-04 08/26/2017 SREE TORRES2564 Primary Insurance:UMR SREE ELLISB: Carlene ASIF EDI [id number] [facility] [address]Ght: Number: [facility] [id number] Repository () Date:[id number] [address] [address] [address]YV: 08/26/2017 Secondary NOT GIVENUNK [place] Insurance:SELF PAY [facility] Number: Effective Repository Date:2017-08-26
== END 2018-01-04 03:55 | disposition home or self-care (01) ==
LOC: ED 02:56
PROVIDERS: Emergency Provider Emergency Medicine; Family Provider Family Medicine; PCP Family Medicine
DX: S39.012A Strain of muscle, fascia and tendon of lower back, initial encounter (principal); R20.2 Paresthesia of skin; X50.0XXA Overexertion from strenuous movement or load, initial encounter; Y93.89 Activity, other specified; Y92.89 Other specified places as the place of occurrence of the external cause; Y99.0 Civilian activity done for income or pay; I10 Essential (primary) hypertension; Z79.899 Other long term (current) drug therapy
CPT/HCPCS: 99283

== ENCOUNTER 2018-06-30 19:02 | Emergency (ER) | payer OTHER, SELFPAY ==
[2018-06-30 19:03] VITALS: BP 162/91; PULSE 85; RESP 18; TEMP 36.2; O2SAT 96; BMI 30.7
--- NOTE | 2018-06-30 19:15 | RAD_ITS ---
STUDY: X-RAY - RIGHT ANKLE REASON FOR EXAM: Male, 48 years old. patient felt a pop in ankle while pushing a cart, states he now has numbness of toes TECHNIQUE: 3 view(s) of the ankle. COMPARISON: None. FINDINGS: Normal visualized distal tibia and fibula. Normal medial and lateral malleoli. Normal tibiotalar articulation and ankle mortise. Normal visualized talus and calcaneus. Enthesophyte is seen in association with the Achilles tendon insertion upon the posterior superior calcaneus. The visualized subtalar, talonavicular, calcaneocuboid and tarsal articulations are normal. There is no demonstrated fracture. The soft tissue structures are unremarkable. RAD/Ankle min 3 Views IMPRESSION: Normal x-ray examination of the ankle. No acute abnormality. Electronically Signed: Carissa Shelby MD at 19:44 EDT , Service support ,
--- NOTE | 2018-06-30 20:54 | ED.DCSUM_ITS ---
- ER Visit Summary Date of Service: 06/30/18 Chief Complaint: [Injury to right ankle] History of Present Illness: The patient is a 48 M [presents the emergency department with injury to the right ankle that occurred today while at work. Patient states that he was pushing a heavy cart when his right ankle popped. Patient is able to continue walking but developed aggressively worsening pain and discomfort. Patient has no medical history.] Physical Examination: [HEENT-PERRLA, EOMI. Cranial nerves II through XII grossly intact. TMs clear. Mucous membranes moist. No adenopathy. Cardiovascular-regular rate and rhythm without murmur or ectopy Lungs-clear to auscultation, chest wall stable without crepitus or subcu emphysema Abdomen-normoactive bowel sounds, soft, nontender, no rebound or rigidity, no peritoneal signs. Extremities-intact ?4, normal range of motion, normal pulses. Right ankle- patient has some soft tissue swelling to the mid Achilles tendon and tenderness to palpation of this area. There is no obvious defect that I can palpate. Patient has a normal Bañuelos's test. No real bony tenderness on exam.] Test Results: [X-rays of the right ankle were ordered by nursing via protocol which were normal.] Emergency Department Course and Treatment: [She was placed in a posterior splint and given crutches. Patient will be given work restrictions.] Treatment Plan: [She will be given referral to orthopedics for follow-up. Patient understands he may need further imaging such as MRI to evaluate the Achilles tendon fully. I suspect patient may have a partial tear in the tendon.] Disposition: [Discharged home in stable condition] Impression: [Right ankle sprain with Achilles tendon injury] This note was generated with [employer] dictation software. It may contain incorrect words, spelling, and punctuation that were not noted in review of the chart prior to signing ED Disposition - Plan for ED Patient: Referrals: Contreras Bird MD [Primary Care Provider] -
--- NOTE | 2018-06-30 20:54 | ED.DEP ---
ED Disposition - Plan for ED Patient: Instructions: Achilles Tendon Rupture Prescriptions: Hydrocodone Bitart/Apap 5-325 [[place] 5MG-325MG] 1 tab PO Q4H PRN PRN 2 Days #20 tab PRN Reason: Pain Referrals: Contreras Bird MD [Primary Care Provider] - Noé Carr DO [STAFF PHYSICIAN] - 3-5 Days
[2018-06-30] MEDS: HYDROcodone Bitartrate/Apap 5/325 Tablet PO ×2 (21:14→21:15)
[2018-06-30 21:25] VITALS: PULSE 80; RESP 18; O2SAT 97
== END 2018-06-30 21:26 | disposition home or self-care (01) ==
LOC: ED 20:29
PROVIDERS: Emergency Provider Emergency Medicine; Family Provider Family Medicine; PCP Family Medicine
DX: S93.401A Sprain of unspecified ligament of right ankle, initial encounter (principal); S86.001A Unspecified injury of right Achilles tendon, initial encounter; X50.9XXA Other and unspecified overexertion or strenuous movements or postures, initial encounter; Y93.9 Activity, unspecified; Y92.89 Other specified places as the place of occurrence of the external cause; Y99.0 Civilian activity done for income or pay; Z79.899 Other long term (current) drug therapy
CPT/HCPCS: 73610; 99284

== ENCOUNTER → 2019-02-01 16:25 | Outpatient (CLI) | payer OTHER, SELFPAY ==
[2019-02-01 16:10] VITALS: BMI 30.7
--- NOTE | 2019-02-01 16:28 | RAD_ITS ---
STUDY: X-RAY - LEFT FOOT CLINICAL: Male, 48 years old. Patient dropped something on foot. Foot and ankle pain. TECHNIQUE: 3 view(s) of the foot. COMPARISON: None. FINDINGS: Normal talus, calcaneus, and tarsal bones. Normal visualized subtalar, talonavicular, calcaneocuboid, tarsal and tarsometatarsal articulations. Normal metatarsi. Mild arthrosis of the MTP and IP joints. Hammertoe deformities. The soft tissue structures are unremarkable. RAD/Foot min 3 Views IMPRESSION: Osteoarthritic changes. No acute finding. Electronically Signed: Saroj Scherer MD at 16:55 EST , Service support ,
--- NOTE | 2019-02-01 16:28 | RAD_ITS ---
STUDY: X-RAY - LEFT ANKLE REASON FOR EXAM: Male, 48 years old. Trauma something on foot. Ankle and foot pain. TECHNIQUE: 3 view(s) of the ankle. COMPARISON: None. FINDINGS: Normal visualized distal tibia and fibula. Normal medial and lateral malleoli. Normal tibiotalar articulation and ankle mortise. Normal visualized talus and calcaneus. The visualized subtalar, talonavicular, calcaneocuboid and tarsal articulations are normal. The soft tissue structures are unremarkable. RAD/Ankle min 3 Views IMPRESSION: Normal x-ray examination of the ankle. Electronically Signed: Saroj Scherer MD at 16:54 EST , Service support ,
== END ==
PROVIDERS: Family Provider Family Medicine; PCP Family Medicine; Referring Provider Physician Assistant; Visit Provider Physician Assistant
DX: S99.912A Unspecified injury of left ankle, initial encounter (principal); S99.922A Unspecified injury of left foot, initial encounter
CPT/HCPCS: 73610; 73630

== ENCOUNTER → 2019-11-23 17:39 | Outpatient (CLI) | payer BC, SELFPAY ==
[2019-02-01 16:45] VITALS: BMI 30.7
== END ==
PROVIDERS: PCP Family Medicine
DX: Z20.828 Contact with and (suspected) exposure to other viral communicable diseases (principal); J06.9 Acute upper respiratory infection, unspecified
CPT/HCPCS: 87635; C9803; U0003

== ENCOUNTER → 2021-09-06 | Outpatient (CLI) | payer BC, SELFPAY | END | disposition home or self-care (01) | PROVIDERS: PCP Family Medicine; Visit Provider Physician Assistant | DX: J02.9 Acute pharyngitis, unspecified (principal) | CPT/HCPCS: 87081 ==

== ENCOUNTER 2023-08-18 22:46 | Emergency (ER) | payer OTHER, SELFPAY ==
[2023-08-18 22:47] VITALS: BP 149/87; PULSE 71; RESP 18; TEMP 36.1; O2SAT 98; BMI 32.8
--- NOTE | 2023-08-18 23:42 | RAD_ITS ---
INDICATION: laceration EXAMINATION/TECHNIQUE: X-RAY - LEFT XR Tibia/Fibula 2 Views COMPARISON: None. FINDINGS: No acute fracture or malalignment. No blastic or lytic lesions. Mild scattered degenerative changes. The soft tissues are unremarkable. RAD/Tibia & Fibula 2 Views IMPRESSION: No acute radiographic abnormalities. Electronically Signed: Diogenes Richardson MD at 1:41 EDT ,
[2023-08-19] MEDS: HYDROcodone Bitartrate/Apap 5/325 Tablet PO (00:26)
[2023-08-19] MEDS: Lidocaine 1% /Epi 1:100 (20ml) 20 ML Vial 30 ML INFILT (00:26)
--- NOTE | 2023-08-19 01:07 | EDS_ITS ---
HPI History of Present Illness Chief Complaint: Laceration Narrative Narrative: 53-year-old male with laceration to the left yao. He states that a metal object cut his yao while he was walking at work. Last tetanus 2 or 3 years ago. Patient able to ambulate. Patient unsure if the piece of metal hit bone. Denies any numbness or tingling. Bleeding was controlled at the scene. [facility] Medical History Shoulder pain Arthritis Hypertension Home Medications ?Medication ?Instructions ?Recorded ?Last Taken ?Type lisinopril 10 mg tablet 10 mg PO DAILY 08/26/17 08/26/17 History alprazolam 0.5 mg tablet 0.5 mg PO BID PRN PRN anxiety 08/18/23 Unknown History duloxetine 30 mg capsule,delayed 30 mg PO DAILY 08/18/23 Unknown History release omeprazole 20 mg capsule,delayed 20 mg PO DAILY 08/18/23 Unknown History release zolpidem 10 mg tablet 10 mg PO QHS PRN 08/18/23 Unknown History Allergy/AdvReac Type Severity Reaction Status Date / Time No Known Allergies Allergy Verified 08/18/23 22:47 Surgical History History of back surgery Social History Smoking Status: Current every day smoker tobacco type: cigarettes EXAM Physical Exam Const Vital Signs: 08/18/23 22:47 Temperature 97 F L Temperature Source Temporal Pulse Rate 71 Respiratory Rate 18 Blood Pressure 149/87 H Blood Pressure Mean 107 Pulse Ox 98 Oxygen Delivery Method Room Air HEENT Reports moist mucous membranes Eyes PERRL and EOMs intact bilaterally Neck supple Resp normal respiratory effort Cardio regular rate and regular rhythm GI Palpation: soft Narrative: Deferred Extremity normal to inspection Extremity Narrative: 5 cm linear laceration in the vertical lie overlying the tibia. Bleeding well- controlled. Neuro oriented x3 and CN's II-XII intact bilaterally Sensorium / Orientation: alert Motor Exam: strength 5/5 throughout Psych mental status grossly normal Attitude: No agitated MDM MDM MDM Narrative Medical decision making narrative: Patient sustained laceration. I obtained a x-ray of the tibia and on my interpretation is no acute bony involvement or fracture. Patient's wound was sutured. Please see procedure note. Patient tolerated procedure well. Worker's Comp. paperwork was filled out. Work restrictions were given. Wound care and return precautions discussed. Impression: 1. 5 cm left yao laceration Lab Data Attestation: I reviewed the patient's lab results. Procedures Lacerations left yao: Length: 2 in Depth: Skin Shape: Linear Prep: Sterile Conditions and Chlorhexadine Laceration repair: Lidocaine with epi (3cc) and Wound explored Irrigated (ml): 500 Number of Sutures/Venancio: 5 Suture Information: Simple Discharge Plan Triage Chief Complaint: Laceration ED Provider: Guillermo Melissa Dx/Rx/DC Orders Prescriptions: No Action lisinopril 10 MG tablet 10 mg PO DAILY omeprazole 20 mg capsule,delayed release(DR/EC) 20 mg PO DAILY zolpidem 10 mg tablet 10 mg PO QHS PRN alprazolam 0.5 mg tablet 0.5 mg PO BID PRN PRN (Reason: anxiety) duloxetine 30 mg capsule,delayed release(DR/EC) 30 mg PO DAILY Primary Care Provider: Allie Shields NP Referrals: Allie Shields NP, EDUCATION ADMINISTRATIVE ASSISTANT-C [Primary Care Provider] - Print Language: Lithuanian
[2023-08-19 01:34] VITALS: BP 128/93; PULSE 61; RESP 16; TEMP 37.1; O2SAT 97
== END 2023-08-19 01:35 | disposition home or self-care (01) ==
PROVIDERS: Emergency Provider Student in an Organized Health Care Education/Training Program; PCP Nurse Practitioner Family; Visit Provider Student in an Organized Health Care Education/Training Program
DX: S81.812A Laceration without foreign body, left lower leg, initial encounter (principal); W26.8XXA Contact with other sharp object(s), not elsewhere classified, initial encounter; Y99.0 Civilian activity done for income or pay; I10 Essential (primary) hypertension; F17.210 Nicotine dependence, cigarettes, uncomplicated; Z79.899 Other long term (current) drug therapy
CPT/HCPCS: 12002; 73590; 99282

== ENCOUNTER 2023-10-27 19:51 | Emergency (ER) | payer BC, OTHER, SELFPAY ==
[2023-10-27 19:52] VITALS: PULSE 82; RESP 18; TEMP 36.2; O2SAT 98; BMI 32.1
--- NOTE | 2023-10-27 19:56 | EKG12_ITS ---
Test Reason : DYSRHYTHMIA Blood Pressure : / mmHG Vent. Rate : 072 BPM Atrial Rate : 072 BPM P-R Int : 164 ms QRS Dur : 086 ms QT Int : 388 ms P-R-T Axes : 016 -20 015 degrees QTc Int : 424 ms Normal sinus rhythm Normal ECG Confirmed by Noé Sargent ([id number]), video news editor PAPI MARCUM ([id number]) on 10/31/2023 10:48:14 AM Referred By: Confirmed By:Noé Sargent
--- NOTE | 2023-10-27 19:57 | ED.RN ---
parag rt notified of ekg need.
--- NOTE | 2023-10-27 20:00 | RAD_ITS ---
STUDY: X-RAY - RIGHT ELBOW REASON FOR EXAM: Male, 53 years old. fall TECHNIQUE: 3 view(s) of the elbow. COMPARISON: None. FINDINGS: Normal visualized humerus, radius and ulna. Normal radiocapitellar and ulnotrochlear articulations. The soft tissue structures are unremarkable. RAD/Elbow min 3 Views IMPRESSION: Normal x-ray examination of the elbow. Electronically Signed: Contreras Soares MD at 20:36 EDT ,
[2023-10-27 21:13] VITALS: O2SAT 95
--- NOTE | 2023-10-27 21:47 | CT_ITS ---
STUDY: CT BRAIN WITHOUT CONTRAST REASON FOR EXAM: Male, 53 years old. SYNCOPE AT WORK RADIATION DOSAGE (If Supplied By Facility): CTDIvol = ( 44.99 ) mGy, DLP = ( 863.60 ) mGycm TECHNIQUE: Transaxial CT imaging of the brain was performed without administration of intravenous contrast material. Individualized dose optimization techniques were used for this CT. COMPARISON: No relevant priors. FINDINGS: Normal soft tissue structures. Normal calvarium. Normal size ventricles and extra-axial spaces for the patient''s age. Normal white matter tracts of the cerebral hemispheres. Normal basal ganglia and thalami. Normal brainstem. Normal cerebellum. There is no intracranial hemorrhage. There are no findings of an acute ischemic infarction. Normal visualized paranasal sinuses. CT/Brain/Head without Contrast IMPRESSION: Normal unenhanced CT scan of the brain. Electronically Signed: Contreras Soares MD at 22:34 EDT ,
--- NOTE | 2023-10-27 21:47 | CT_ITS ---
STUDY: CT CERVICAL SPINE WITHOUT CONTRAST REASON FOR EXAM: Male, 53 years old. [employer]NCOPE AT WORK RADIATION DOSAGE (If Supplied By Facility): CTDIvol = ( 28.99 ) mGy, DLP = ( 730.54 ) mGycm TECHNIQUE: High resolution transaxial imaging was performed without contrast material. Sagittal and coronal images were reconstructed. Individualized dose optimization techniques were used for this CT. COMPARISON: None FINDINGS: Normal craniovertebral junction. Normal anterior atlantoaxial articulation. Normal odontoid process. Straightening of normal lordotic curvature possibly due to muscle spasm or positioning artifact. Normal vertebral bodies and posterior osseous elements. C2-3: Normal endplates. Normal disc height and morphology. Normal central canal and intervertebral neuroforamina. C3-4: Normal endplates. Normal disc height and morphology. Normal central canal and intervertebral neuroforamina. C4-5: Minor anterior endplate spurring. Normal disc height and morphology. Normal central canal and intervertebral neuroforamina. C5-6: Minor anterior endplate spurring. Normal disc height and morphology. Normal central canal and intervertebral neuroforamina. C6-7: Normal endplates. Normal disc height and morphology. Normal central canal and intervertebral neuroforamina. C7-T1: Normal endplates. Normal disc height and morphology. Normal central canal and intervertebral neuroforamina. Normal visualized soft tissue structures. CT/Spine Cervical without Contras IMPRESSION: Early spondylotic changes. No acute fracture or other significant abnormality Electronically Signed: Contreras Soares MD at 22:36 EDT ,
--- NOTE | 2023-10-27 21:49 | EDS_ITS ---
HPI History of Present Illness Chief Complaint: Head Injury Narrative Narrative: Chief complaint and HPI: Head injury. 53-year-old male presents for evaluation of head injury after a mechanical fall at work. Patient states he was at work when he lost his balance, fell, and hit his head on a machine. He had LOC. He denies any vision changes, nausea, vomiting, chest pain, shortness of breath, abdominal pain. Patient endorses pain in his left elbow, left shoulder, and left scalp where he hit the machine. Has not ambulated since the fall. Denies any neck pain or numbness/tingling. Not on blood thinners. Review of systems: See HPI Medications: As listed on the chart Allergies: As listed on the chart PFSH: Per chart Vital signs: As listed on the chart. Reviewed. Physical exam: Gen: A&O x3, NAD Head: Normocephalic, small hematoma/ecchymosis to the left scalp Eyes: No sclera icterus, conjunctiva clear, PERRL, EOMI ENT: TMs clear BL, moist mucous membranes, no swelling/lacerations/blood in the mouth or the nares, No nasal septal hematoma, no facial tenderness Neck: Trachea midline, No JVD, Nontender CV: RRR, no murmurs, no chest wall TTP Resp: Lungs CTA BL, no w/r/c GI: Abd soft, non-distended, non-tender, no r/r/g Musc: Limited range of motion of the left shoulder secondary to pain, endorses pain with palpation of the left elbow, no obvious deformity, no spinal TTP, no mara step-offs Skin: Warm, dry Neuro: Alert, oriented, grossly intact, sensation intact, GCS 15 Psych: Cooperative, appropriate mood and affect [facility] Medical History (Updated 10/28/23 @ 00:[address] Tristin Giles, ) Shoulder pain Arthritis Hypertension Home Medications ?Medication ?Instructions ?Recorded ?Last Taken ?Type lisinopril 10 mg tablet 10 mg PO DAILY 08/26/17 08/26/17 History alprazolam 0.5 mg tablet 0.5 mg PO BID PRN PRN anxiety 08/18/23 Unknown History duloxetine 30 mg capsule,delayed 30 mg PO DAILY 08/18/23 Unknown History release omeprazole 20 mg capsule,delayed 20 mg PO DAILY 08/18/23 Unknown History release zolpidem 10 mg tablet 10 mg PO QHS PRN 08/18/23 Unknown History Allergy/AdvReac Type Severity Reaction Status Date / Time No Known Allergies Allergy Verified 10/27/23 19:55 Surgical History History of back surgery Social History Smoking Status: Current every day smoker tobacco type: cigarettes EXAM Physical Exam Const Vital Signs: 10/27/23 19:52 10/27/23 21:11 10/27/23 21:11 Temperature 97.1 F L Temperature Source Temporal Pulse Rate 82 Pulse Rate [Lying] Pulse Rate [Sitting (for 1 minute prior to obtaining)] Pulse Rate [Standing (for 1 minute prior to obtaining)] Respiratory Rate 18 Respiratory Effort Normal Respiratory Depth Respiratory Pattern Normal Blood Pressure Blood Pressure [Lying] Blood Pressure [Sitting (for 1 minute prior to obtaining)] Blood Pressure [Standing (for 1 minute prior to obtaining)] Blood Pressure Mean Blood Pressure Mean [Lying] Blood Pressure Mean [Sitting (for 1 minute prior to obtaining)] Blood Pressure Mean [Standing (for 1 minute prior to obtaining)] Pulse Ox 98 Oxygen Delivery Method Room Air Room Air 10/27/23 21:13 10/27/23 21:51 10/27/23 23:00 Temperature Temperature Source Pulse Rate 71 77 Pulse Rate [Lying] Pulse Rate [Sitting (for 1 minute prior to obtaining)] Pulse Rate [Standing (for 1 minute prior to obtaining)] Respiratory Rate 19 H 19 H Respiratory Effort Normal Respiratory Depth Normal Respiratory Pattern Normal Blood Pressure 131/79 H 139/94 H Blood Pressure [Lying] Blood Pressure [Sitting (for 1 minute prior to obtaining)] Blood Pressure [Standing (for 1 minute prior to obtaining)] Blood Pressure Mean 96 109 Blood Pressure Mean [Lying] Blood Pressure Mean [Sitting (for 1 minute prior to obtaining)] Blood Pressure Mean [Standing (for 1 minute prior to obtaining)] Pulse Ox 95 100 95 Oxygen Delivery Method Room Air Room Air Room Air 10/28/23 00:03 10/28/23 00:10 Temperature 98.4 F Temperature Source Pulse Rate 75 Pulse Rate [Lying] 77 Pulse Rate [Sitting (for 1 minute prior to obtaining)] 84 Pulse Rate [Standing (for 1 minute prior to obtaining)] 71 Respiratory Rate 18 Respiratory Effort Respiratory Depth Respiratory Pattern Blood Pressure 149/102 H Blood Pressure [Lying] 142/88 H Blood Pressure [Sitting (for 1 minute prior to obtaining)] 158/106 H Blood Pressure [Standing (for 1 minute prior to obtaining)] 149/102 H Blood Pressure Mean 117 Blood Pressure Mean [Lying] 106 Blood Pressure Mean [Sitting (for 1 minute prior to obtaining)] 123 Blood Pressure Mean [Standing (for 1 minute prior to obtaining)] 117 Pulse Ox 98 Oxygen Delivery Method MDM MDM MDM Narrative Medical decision making narrative: 53-year-old male presents for evaluation of head injury after a mechanical fall at work. He is using Worker's Comp. Patient had LOC. Complains of left shoulder as well as left elbow pain. GCS 15 and not on blood thinners. Differential diagnosis includes but is not limited to closed head injury, contusion, intracranial bleed, fracture, concussion. CT head and neck ordered given mechanism of fall and LOC. X-ray of the left elbow and shoulder ordered. 3 view x-ray of the elbow as well as 3 view x-ray of the shoulder without fracture or dislocation. This was interpreted by me, EM physician as well as radiology. CT of the head and C-spine without acute traumatic injury. Patient was able to ambulate in the emergency room without any difficulty. Patient was educated on his results and findings. He was educated that although there is no acute traumatic injury seen on imaging I cannot rule out a concussion. He was educated on concussion symptoms and told to monitor for these findings. He was educated that he needs to follow-up with our Worker's Comp. clinic. Patient is to refrain from operating heavy machinery or heights until medically cleared by the Worker's Comp. clinic as to decrease the chances of recurrent head trauma. He confirmed understanding of the plan. Motrin and Tylenol as needed for pain. EKG: Interpreted by me/EM physician: EKG shows normal sinus rhythm with a heart rate of 72. No acute ischemic changes. Diagnostic: Interpreted by me/EM physician: X-rays reviewed without fracture or dislocation. CT head without any acute traumatic injury. Impression: 1. Closed head injury 2. LOC 3. Left shoulder contusion 4. Left elbow contusion 5. Mechanical fall Radiography Diagnostic Testing: Clinical Impression(s) from Imaging Studies Elbow X-Ray 10/27/23 20:00 IMPRESSION: Normal x-ray examination of the elbow. Electronically Signed: Contreras Soares MD at 20:36 EDT , Brain CT 10/27/23 21:47 IMPRESSION: Normal unenhanced CT scan of the brain. Electronically Signed: Contreras Soares MD at 22:34 EDT , Cervical Spine CT 10/27/23 21:47 IMPRESSION: Early spondylotic changes. No acute fracture or other significant abnormality Electronically Signed: Contreras Soares MD at 22:36 EDT , Discharge Plan Triage Chief Complaint: Head Injury ED Provider: Tristin Giles Dx/Rx/DC Orders Clinical Impression: Closed head injury, Contusion of left shoulder, Contusion of left elbow Instructions: ED Concussion, ED Head Injury (Adult) Prescriptions: No Action lisinopril 10 MG tablet 10 mg PO DAILY omeprazole 20 mg capsule,delayed release(DR/EC) 20 mg PO DAILY zolpidem 10 mg tablet 10 mg PO QHS PRN alprazolam 0.5 mg tablet 0.5 mg PO BID PRN PRN (Reason: anxiety) duloxetine 30 mg capsule,delayed release(DR/EC) 30 mg PO DAILY Primary Care Provider: Allie Shields NP Referrals: [facility] [Group of Physicians] - 3-5 Days Allie Shields NP, [facility] [Primary Care Provider] - 3-5 Days Print Language: Mohawk Disposition Disposition: Home, Self Care Discharge Date/Time: 10/28/23 00:12
[2023-10-27 21:51] VITALS: BP 131/79; PULSE 71; RESP 19; O2SAT 100
--- NOTE | 2023-10-27 22:14 | RAD_ITS ---
STUDY: X-RAY - RIGHT SHOULDER REASON FOR EXAM: Male, 53 years old. FALL TECHNIQUE: 4 view(s) of the shoulder. COMPARISON: None. FINDINGS: Narrowed glenohumeral articulation. Narrowed acromioclavicular joint. Normal acromion. Normal humeral head and visualized proximal humerus. The soft tissue structures are unremarkable. Normal visualized pulmonary apex. RAD/Shoulder min 2 Views IMPRESSION: Degenerative changes. No acute fracture or dislocation. Electronically Signed: Contreras Soares MD at 22:37 EDT ,
[2023-10-27 23:00] VITALS: BP 139/94; PULSE 77; RESP 19; O2SAT 95
[2023-10-28 00:03] VITALS: BP 142/88; BP 149/102; BP 158/106; PULSE 71; PULSE 77; PULSE 84
[2023-10-28 00:10] VITALS: BP 149/102; PULSE 75; RESP 18; TEMP 36.9; O2SAT 98
== END 2023-10-28 00:12 | disposition home or self-care (01) ==
PROVIDERS: Emergency Provider Surgery; PCP Nurse Practitioner Family; Visit Provider Surgery
DX: S06.9X9A Unspecified intracranial injury with loss of consciousness of unspecified duration, initial encounter (principal); R40.2412 Glasgow coma scale score 13-15, at arrival to emergency department; S50.02XA Contusion of left elbow, initial encounter; S40.012A Contusion of left shoulder, initial encounter; W01.111A Fall on same level from slipping, tripping and stumbling with subsequent striking against power tool or machine, initial encounter; Y99.0 Civilian activity done for income or pay; I10 Essential (primary) hypertension; M19.90 Unspecified osteoarthritis, unspecified site; F17.210 Nicotine dependence, cigarettes, uncomplicated; Z79.899 Other long term (current) drug therapy
CPT/HCPCS: 70450; 72125; 73030; 73080; 93005; 99285

== ENCOUNTER 2024-01-16 07:27 | Inpatient (IN) | payer BC, SELFPAY ==
[2024-01-16] VITALS (8 sets, daily range): BP systolic 128–163; BP diastolic 76–102; PULSE 74–115; RESP 14–18; TEMP 36.7–37.2; O2SAT 96–99; BMI 32.6; BMI 32.3
--- NOTE | 2024-01-16 07:56 | CT_ITS ---
STUDY: CT ABDOMEN AND PELVIS WITH CONTRAST REASON FOR EXAM: Male, 53 years old. LLQ pain, -- dx descending diverticulitis 4 days ago RADIATION DOSAGE (If Supplied By Facility): CTDIvol = ( 15.23 ) mGy, DLP = ( 1277.06 ) mGycm TECHNIQUE: Transaxial images were obtained from the dome of the diaphragm to the symphysis pubis without oral contrast. IV 100mL Isovue-300 was administered. Sagittal and coronal images were reconstructed. Individualized dose optimization techniques were used for this CT. COMPARISON: None. FINDINGS: Mild degree of increased markings at the lung bases suggestive of bibasilar atelectasis. Minimal coronary artery calcification. There is decreased attenuation of the liver consistent with steatosis. Normal gallbladder and extrahepatic biliary system. Normal spleen. Normal pancreas. Normal bilateral adrenal glands. Normal right kidney. Normal left kidney. Normal visualized stomach. Normal small intestine. There are scattered colonic diverticula consistent with diverticulosis. Mild degree of the inflammatory changes in the descending colon. . Fluid is seen in the rectosigmoid junction. The appendix is visualized and appears normal. There is scattered atherosclerotic calcification of the abdominal aorta, without a demonstrated aneurysm. Normal inferior vena cava. Normal retroperitoneum. Normal urinary bladder. Normal abdominal wall. Disc space narrowing and degeneration at the L5-S1 level. CT/Abdomen/Pelvis W IV Cont ONLY IMPRESSION: Scattered sigmoid diverticula. Inflammatory changes surrounding the distal portion of the descending colon suggestive of mild diverticulitis. Fluid is seen within the rectosigmoid colon. Fatty infiltration of liver. Electronically Signed: Mario Molina MD at 9:17 EST ,
--- NOTE | 2024-01-16 07:58 | ED.VIS.GI ---
HPI HPI - GI History of Present Illness Chief Complaint: Abd Pain Informant: patient Narrative Narrative: 5 days left lower quadrant abdominal pain. Patient seen 4 days ago outside Emergency Department in [place] diagnosed with uncomplicated descending colon diverticulitis. He has been on cefdinir Flagyl for 4 days has been using his Percocet. Pain has been worsening, today bloody diarrhea. Nausea and vomiting due to pain. No fevers. This is his first bout of diverticulitis. He had a colonoscopy a year ago due to positive Cologuard had 3 polypectomies. Prior similar symptoms: Yes PFSH PFSH Medical History Contusion of right elbow Contusion of right shoulder Shoulder pain Arthritis Hypertension Home Medications ?Medication ?Instructions ?Recorded ?Last Taken ?Type alprazolam 0.5 mg tablet 0.5 mg PO BID PRN PRN anxiety 08/18/23 01/15/24 History duloxetine 30 mg capsule,delayed 30 mg PO DAILY 08/18/23 01/15/24 History release omeprazole 20 mg capsule,delayed 20 mg PO DAILY 08/18/23 01/15/24 History release cefdinir 300 mg capsule 300 mg PO BID 01/16/24 01/15/24 History lisinopril 20 mg tablet 20 mg PO DAILY 01/16/24 01/15/24 History meloxicam 15 mg tablet 15 mg PO DAILY 01/16/24 01/15/24 History metronidazole 500 mg tablet 500 mg PO Q8 01/16/24 01/15/24 History oxycodone-acetaminophen 5 mg-325 1 tab PO Q6H PRN PRN pain 01/16/24 01/15/24 History mg tablet trazodone 50 mg tablet 50 mg PO QHS 01/16/24 01/12/24 History Allergy/AdvReac Type Severity Reaction Status Date / Time No Known Allergies Allergy Verified 01/16/24 07:28 Surgical History History of back surgery Social History Smoking Status: Former smoker ROS ROS ED Constitutional Constitutional ED: Denies chills, fever(s) or sweats Eyes Eyes: Denies change in vision ENT ENT ED: Denies dysphagia or sore throat Cardiovascular Cardiovascular: Denies chest pain, leg edema, palpitations or racing heartbeat Respiratory/Chest Respiratory/Chest: Denies cough, dyspnea or dyspnea on exertion Gastrointestinal Gastrointestinal: Reports abdominal pain, diarrhea, nausea, vomiting and other Details: Bloody stools Genitourinary Genitourinary ED: Denies dysuria, hematuria or urinary frequency Musculoskeletal Musculoskeletal: Denies back pain, extremity pain or neck pain Integumentary Denies rash or wounds Neurologic Neurologic: Denies headache(s), paresthesias or weakness EXAM Physical Exam Const Vital Signs: 01/16/24 07:28 01/16/24 08:31 01/16/24 09:00 Temperature 98.4 F 98.4 F 98.2 F Temperature Source Temporal Oral Oral Pulse Rate 115 H 88 89 Respiratory Rate 18 18 16 Blood Pressure 138/102 H 163/78 H 160/76 H Blood Pressure Mean 114 106 104 Pulse Ox 98 98 98 Oxygen Delivery Method Room Air Room Air Room Air Positive well nourished and well developed Constitutional Narrative: Uncomfortable nontoxic General Appearance ED: well developed HEENT Reports dry mucous membranes normocephalic and atraumatic Mouth ED: Yes dry mucous membranes Mouth: dry mucous membranes Eyes EOMs intact bilaterally and conjunctivae normal General Eye ED: Yes normal appearance of both eyes Neck no lymphadenopathy and supple General: Negative for tenderness Chest Wall Chest: Negative for tenderness Resp normal respiratory effort and normal air movement Effort and Inspection: symmetric chest movement; Negative for respiratory distress Cardio regular rhythm and no murmurs Rate: tachycardic Peripheral Pulses: pulses 2+ throughout GI GI Narrative: Tender palpation left lower abdomen. Back/Spine no CVA tenderness and no thoracic nor lumbar tenderness Extremity normal to inspection General Extremety ED: Negative for edema or tenderness General Extremity: Negative for edema Neuro oriented x3 and no sensory deficits noted Sensorium / Orientation: awake and alert Skin no rashes or lesions noted and no wounds Sepsis Attestation Sepsis Attestation: Sepsis Ruled Out (lactic acid 1.9) MDM MDM MDM Narrative Medical decision making narrative: Interventions / MDM: Differential diagnosis: Diverticulitis, rectal bleed, will outpatient therapy, dehydration, electrolyte abnormalities Diagnosis considered but do not suspect: Complicated diverticulitis however CT normal. My EKG interpretation: N/A Imaging independently reviewed and interpreted by myself: CT abdomen pelvis IV contrast: Mild sigmoid diverticulitis no perforations or abscess. Also read by radiology. External documents reviewed: N/A Test considered but not ordered:N/A ED course: Known uncomplicated diverticulitis 4 days ago symptoms worsened with no bloody stools today. Will check labs, IV established for fluids nausea and pain control. Will reCTs to rule out any complications. 0840: White count returned at 21.6. Tachycardic. [address] is pending. I will add blood cultures. Known diverticulitis with potential complication. Zosyn IV ordered. 0900: Pain controlled at this time. Review of his MyChart labs his white count 19.44 days ago. Discussed with patient symptoms worsening with his antibiotics or for failing outpatient therapy. Awaiting final read of CT. Will plan on admission. Additional labs creatinine 1.46 today, from his my chart review was 1.2 to 4 days ago. Clinical dehydration with renal insufficiency. I discussed with hospitalist Dr. Anna Caputo for admission. Re-evaluation: stable Disposition discussed with patient/family/significant other: Patient significant other Case discussed with consulting clinician: Hospitalist This note was generated with CPXi dictation software. It may contain incorrect words, spelling, and punctuation that were not noted in checking the note before signing. Lab Data Attestation: I reviewed the patient's lab results. Labs: Laboratory Results - last 24 hr 01/16/24 07:54 WBC 21.6 H RBC 6.22 H Hgb 16.7 H Hct 49.9 MCV 80.2 MCH 26.8 L MCHC 33.5 RDW Std Deviation 39.0 RDW Coeff of Liz 13.6 Plt Count 394 MPV 9.8 Immature Gran % (Auto) 0.800 Neut % (Auto) 91.8 H Lymph % (Auto) 3.3 L Dodge % (Auto) 3.7 Eos % (Auto) 0.1 Baso % (Auto) 0.3 Absolute Neuts (auto) 19.8 H Absolute Lymphs (auto) 0.71 L Nucleated RBC % 0 PT 13.8 INR 1.1 APTT 23.7 L Sodium 141 Potassium 4.6 Chloride 107 Carbon Dioxide 26.0 Anion Gap 8 BUN 25 H Creatinine 1.46 H Estim Creat Clear Calc 82.45 Est GFR (MDRD) Af Amer 65 Est GFR (MDRD) Non-Af 53 L BUN/Creatinine Ratio 17.1 Glucose 158 H Lactic Acid 1.9 Calcium 9.9 Total Bilirubin 1.10 H AST 31 ALT 55 Alkaline Phosphatase 60 Total Protein 8.4 H Albumin 4.1 Globulin 4.3 H Albumin/Globulin Ratio 1.0 Radiography Diagnostic Testing: Clinical Impression(s) from Imaging Studies Abdomen/Pelvis CT 01/16/24 07:56 IMPRESSION: Scattered sigmoid diverticula. Inflammatory changes surrounding the distal portion of the descending colon suggestive of mild diverticulitis. Fluid is seen within the rectosigmoid colon. Fatty infiltration of liver. Electronically Signed: Mario Molina MD at 9:17 EST , Discharge Plan Dx/Rx/DC Orders Clinical Impression: Acute diverticulitis of intestine, Failure of outpatient treatment, Bloody stool, Dehydration, Acute renal insufficiency Disposition Disposition: Acute Care Hospital [facility] Discharge Date/Time: 01/16/24 10:06
[2024-01-16] MEDS: 0.9% Normal Saline (1000mL) 1,000 ML 999 ML IV (08:06)
[2024-01-16] MEDS: Ondansetron 4 MG/2 ML Vial IV (08:06)
[2024-01-16] MEDS: Morphine 4 MG/ML Syringe IV ×3 (08:07→21:59)
[2024-01-16 08:22] LABS: Absolute Lymphocyte Count 0.71 X10^3/uL (0.83-4.51); Absolute Neutrophil Count 19.8 X10^3/uL (2.0-7.7); Basophil# 0.06 X10^3/uL; Basophil% 0.3 % (0-1); Eosinophil# 0.03 X10^3/uL; Eosinophils% 0.1 % (0-5); Hematocrit 49.9 % (40-54); Hemoglobin 16.7 g/dL (13.0-16.5); Lymphocyte # 0.71 X10^3/ul (0.83-4.51); Lymphocyte % 3.3 % (19-41); Mean Corp Hgb Conc 33.5 g/dL (32-36); Mean Corpuscular Hgb 26.8 pg (27.0-32.0); Mean Corpuscular Volume 80.2 fL (80-94); Mean Platelet Vol. 9.8 fl (6.2-12.0); Monocyte% 3.7 % (0-10); NRBC Flagged by Analyzer 0 % (0-5); Neutrophil # 19.78 X10^3/uL (2.7-7.7); Neutrophil % 91.8 % (47-70); Platelet Count 394 K/mm3 (150-450); RBC Distribution Width CV 13.6 % (11.6-14.6); Red Blood Count 6.22 M/mm3 (4.6-6.2); White Blood Count 21.6 K/mm3 (4.4-11.0)
[2024-01-16 08:41] LABS: International Normalized Ratio 1.1; Prothrombin Time (Protime)PT. 13.8 SECONDS (11.7-14.9)
[2024-01-16 08:42] LABS: Partial Thromboplast Time 23.7 Seconds (24.1-36.2)
[2024-01-16 08:47] LABS: AST(SGOT) 31 U/L (15-37); Alanine Aminotransfer ALT/SGPT 55 U/L (16-61); Albumin, Serum 4.1 g/dL (3.2-5.0); Alkaline Phosphatase 60 U/L (45-117); Anion Gap 8 (5-15); BUN 25 mg/dL (7-18); BUN/Creat Ratio 17.1 RATIO (10-20); Calcium,Total 9.9 mg/dL (8.5-10.1); Chloride 107 mmol/L (98-107); Creatinine, Serum 1.46 mg/dL (0.70-1.30); EST Glomerular Filtration Rate 53 mL/min (>60); Est Glom Filt Rate - Afr Amer 65 mL/min (>60); Estimated Creatinine Clearance 82.45 ml/min; Globulin 4.3 g/dL (2.2-4.2); Glucose 158 mg/dL (74-106); Potassium 4.6 mmol/L (3.5-5.1); Protein, Total 8.4 g/dL (6.4-8.2); Sodium Level 141 mmol/L (136-145)
[2024-01-16 08:48] LABS: Lactic Acid 1.9 mmol/L (0.4-1.9)
[2024-01-16] MEDS: Piperacil/Tazobactam 4.5 GM in 0.9% Normal Saline (100mL MB+) 100 ML IV (09:06)
--- NOTE | 2024-01-16 09:47 | HP.PCM.HOS_ITS ---
HPI - General General Date of Admission: 01/16/24 Date of Service: 01/16/24 Chief Complaint: Abdominal Pain HPI Narrative GLENNY TORRES, is a 53 M who presented to the emergency department [facility] on 01/16/2024 with a chief complaint of left lower quadrant abdominal pain. Patient was seen 4 days ago at [facility] at which time he was diagnosed with uncomplicated descending colon diverticulitis and was placed on cefdinir and Flagyl. He has been compliant with his medication and using as needed Percocet for pain. 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 He denied chills but no fevers. He stated he would break out in sweats periodically. He had a colonoscopy done 1 to 2 years ago due to a positive Cologuard test and had 3 polypectomies. This is the first time he is ever had diverticulitis. Vital signs on presentation showed temperature of 98.4, heart rate 115, respiratory rate 18, blood pressure is 138/102 and pulse ox was 98% on room air. CBC showed a leukocytosis with a white count of 21.6, hemoglobin was elevated at 16.7 and platelet count was normal at this time. He had a marked left shift with a 91.8% neutrophilia. Coags were unremarkable. Chemistry panel consistent with SANDIP. Creatinine 1.46. He had mild hyperbilirubinemia with a bilirubin of 1.1 LFTs were otherwise unremarkable. CT of the abdomen pelvis showed scattered sigmoid diverticuli, inflammatory changes surrounding the distal portion of the descending colon suggestive of mild diverticulitis and fluid seen in the rectosigmoid colon as well as fatty infiltration. He was given IV antibiotics in the emergency department and request for admission was made. [facility] Medical History Contusion of right elbow Contusion of right shoulder Shoulder pain Arthritis Hypertension Home Medications ?Medication ?Instructions ?Recorded ?Last Taken ?Type alprazolam 0.5 mg tablet 0.5 mg PO BID PRN PRN anxiety 08/18/23 01/15/24 History duloxetine 30 mg capsule,delayed 30 mg PO DAILY 08/18/23 01/15/24 History release omeprazole 20 mg capsule,delayed 20 mg PO DAILY 08/18/23 01/15/24 History release cefdinir 300 mg capsule 300 mg PO BID 01/16/24 01/15/24 History lisinopril 20 mg tablet 20 mg PO DAILY 01/16/24 01/15/24 History meloxicam 15 mg tablet 15 mg PO DAILY 01/16/24 01/15/24 History metronidazole 500 mg tablet 500 mg PO Q8 01/16/24 01/15/24 History oxycodone-acetaminophen 5 mg-325 1 tab PO Q6H PRN PRN pain 01/16/24 01/15/24 History mg tablet trazodone 50 mg tablet 50 mg PO QHS 01/16/24 01/12/24 History Allergy/AdvReac Type Severity Reaction Status Date / Time No Known Allergies Allergy Verified 01/16/24 07:28 no significant family history Surgical History History of back surgery Social History (Updated 01/16/24 @ 18:[address] Anna Caputo DO) household members: spouse housing: house current occupational status: employed Smoking Status: Former smoker alcohol intake: never substance use type: does not use ROS Constitutional Constitutional: Reports anorexia and chills; Denies change in weight, fatigue, fever(s), malaise, night sweats, weakness or other Eyes Eyes: Denies blurry vision, change in eye color, change in vision, discharge from eye(s), double vision, erythema, eye pain, loss of vision or other ENT HEENT: Denies abnormal hearing, dysphagia, ear pain, epistaxis, headache(s), hearing loss, nasal congestion, nasal discharge, post nasal drip, sinus pressure, sore throat or other Cardiovascular Cardiovascular: Denies chest pain, claudication, dyspnea on exertion, edema, lightheadedness, orthopnea, palpitations, paroxysmal nocturnal dyspnea, rapid heart rate, syncope or other Respiratory/Chest Respiratory/Chest: Denies cough, dyspnea, excessive phlegm production, hemoptysis, productive cough, shortness of breath at rest, shortness of breath with exertion, wheezing or other Gastrointestinal Gastrointestinal: Reports abdominal pain, diarrhea, nausea and vomiting; Denies coffee ground emesis, constipation, dyspepsia, hematemesis, hematochezia, loose stools, melena or other Genitourinary Genitourinary: Denies burning urination, difficulty urinating, dysuria, hematuria, nocturia, urinary frequency, urinary hesitancy, urinary incontinence, urinary urgency or other Musculoskeletal Musculoskeletal: Denies arthralgias, back pain, joint pain, joint stiffness, joint swelling, myalgias, neck pain or other Neurologic Neurologic: Denies abnormal gait, abnormal speech, confusion, disequilibrium, dizziness, focal weakness, headache(s), numbness, paresthesias, seizure-like activity, seizures, syncope, tingling, tremor(s) or other Psychiatric Psychiatric: Denies anxiety, depression, homicidal ideation, suicidal ideation or other Endocrine Endocrinology: Denies change in body appearance, cold intolerance, excessive sweating, heat intolerance, polydipsia, polyuria or other Hematologic/Lymphatic Hematologic/Lymphatic: Denies anemia, easy bleeding, easy bruising, lymphadenopathy or other Allergic/Immunologic Allergic/Immunologic: Denies rhinitis, hives, eczemia, asthma or other Vital Signs Vital Signs Vital Signs: 01/16/24 07:28 01/16/24 08:31 01/16/24 09:00 Temperature 98.4 F 98.4 F 98.2 F Temperature Source Temporal Oral Oral Pulse Rate 115 H 88 89 Respiratory Rate 18 18 16 Blood Pressure 138/102 H 163/78 H 160/76 H Blood Pressure Mean 114 106 104 Pulse Ox 98 98 98 Oxygen Delivery Method Room Air Room Air Room Air Weight Weight: 121.744 kg Body Mass Index (BMI) 32.6 Physical Exam Const alert, oriented x3, no apparent distress and well nourished; Negative for average body habitus Constitutional Narrative: Obese, middle-aged, white male, sitting up in bed, appears comfortable currently, at bedside, nursing at bedside, does not appear toxic General Appearance: cooperative HEENT normocephalic, head/scalp atraumatic and hearing grossly normal bilaterally HEENT Narrative: Mallampati 3, mucous membranes appear to be slightly dry, no thrush Neck no lymphadenopathy and supple Neck Narrative: Trachea midline, no thyroid enlargement Resp normal respiratory effort, no retractions, no use of accessory muscles and clear to auscultation bilaterally Auscultation: Negative for rales, rhonchi or wheezes Cardio regular rate, regular rhythm, S1 normal heart sound, S2 normal heart sound, no murmurs, no rub, no gallops and no clicks GI normal to inspection, nondistended, normoactive bowel sounds and soft to palpation; Negative for non-tender GI Narrative: Tenderness in the left lower quadrant with no significant rebound tenderness or signs of peritonitis however he does have some guarding Extremity no clubbing, cyanosis or edema Extremity Narrative: 2+ pedal and radial pulses Neuro oriented x3, moves all extremities and no focal motor deficits Speech: speech normal Psych affect normal Psych Narrative: Very pleasant, interacts appropriately Results Lab / Micro Data 01/16/24 07:54 01/16/24 07:54 Labs: Laboratory Results - last 24 hr 01/16/24 07:54: WBC 21.6 H, RBC 6.22 H, Hgb 16.7 H, Hct 49.9, MCV 80.2, MCH 26.8 L, MCHC 33.5, RDW Std Deviation 39.0, RDW Coeff of Liz 13.6, Plt Count 394, MPV 9.8, Immature Gran % (Auto) 0.800, Neut % (Auto) 91.8 H, Lymph % (Auto) 3.3 L, [place] % (Auto) 3.7, Eos % (Auto) 0.1, Baso % (Auto) 0.3, Absolute Neuts (auto) 19.8 H, Absolute Lymphs (auto) 0.71 L, Nucleated RBC % 0, PT 13.8, INR 1.1, APTT 23.7 L, Sodium 141, Potassium 4.6, Chloride 107, Carbon Dioxide 26.0, Anion Gap 8, BUN 25 H, Creatinine 1.46 H, Estim Creat Clear Calc 82.45, Est GFR (MDRD) Af Amer 65, Est GFR (MDRD) Non-Af 53 L, BUN/Creatinine Ratio 17.1, Glucose 158 H, Lactic Acid 1.9, Calcium 9.9, Total Bilirubin 1.10 H, AST 31, ALT 55, Alkaline Phosphatase 60, Total Protein 8.4 H, Albumin 4.1, Globulin 4.3 H, Albumin/Globulin Ratio 1.0 Imaging Radiology Impression Abdomen/Pelvis CT 01/16/24 07:56 IMPRESSION: Scattered sigmoid diverticula. Inflammatory changes surrounding the distal portion of the descending colon suggestive of mild diverticulitis. Fluid is seen within the rectosigmoid colon. Fatty infiltration of liver. Electronically Signed: Mario Molina MD at 9:17 EST , Assessment & Plan Assessment/Plan (1) Acute diverticulitis: (2) Failure of outpatient treatment: (3) Elevated serum creatinine: (4) Leukocytosis: (5) Erythrocytosis: PLAN: Plan Acute descending colon diverticulitis with failure of outpatient treatment -Allow for clear liquid diet -IV fluids at 100 cc/h x 3 L -Antibiotics with Zosyn -As needed pain medication -As needed antiemetics Leukocytosis -Suspect some component of hemoconcentration as patient does appear to be dehydrated -Antibiotics as above -Repeat lab in a.m. Erythrocytosis -Highly suspect this is related to hemoconcentration -IV fluids as noted above -Repeat lab in a.m. Elevated serum creatinine -Highly suspect SANDIP but baseline is unknown -Serum creatinine admission was 1.46 -IV fluids as noted above -Hold home meloxicam -Repeat in a.m. Essential hypertension -Continue home lisinopril GERD -Continue home PPI Anxiety/depression -Continue home Xanax as needed -Continue home duloxetine History of tobacco abuse -Remote Obesity -Complicates treatment, prognosis, outcomes next-BMI 32.3 next-recommend weight loss DVT prophylaxis -Subcu Lovenox daily CODE STATUS -full code Charges/Coding Visit Charges Inpatient E&M: 45252 Init Hosp L2
[2024-01-16] MEDS: Lactated Ringers 1,000 ML 100 ML IV ×2 (10:24→21:08)
[2024-01-16] MEDS: Lisinopril 20 MG Tablet PO (10:50)
[2024-01-16] MEDS: Ketorolac 15 MG/ML Vial IV ×2 (10:51→17:08)
[2024-01-16] MEDS: Enoxaparin 40 MG/0.4 ML Syringe SC (11:13)
[2024-01-16] MEDS: DULoxetine Hcl 30 MG Capsule PO (11:13)
[2024-01-16] MEDS: 0.9% Saline Lock 10 ML Syringe IV ×2 (14:06→17:08)
[2024-01-16] MEDS: Piperacil/Tazobactam 3.375 GM in 0.9% Normal Saline (50mL MB+) 50 ML IV ×2 (14:07→21:55)
[2024-01-16] MEDS: traZODone 50 MG Tablet PO (21:55)
[2024-01-17] MEDS: Ketorolac 15 MG/ML Vial IV ×3 (00:01→10:51)
[2024-01-17] MEDS: Piperacil/Tazobactam 3.375 GM in 0.9% Normal Saline (50mL MB+) 50 ML IV ×3 (05:51→21:51)
[2024-01-17 05:57] VITALS: BP 116/68; PULSE 70; RESP 16; TEMP 36.7; O2SAT 96
[2024-01-17 07:30] LABS: Absolute Neutrophil Count 4.6 X10^3/uL (2.0-7.7); Basophil# 0.02 X10^3/uL; Basophil% 0.3 % (0-1); Eosinophil# 0.16 X10^3/uL; Eosinophils% 2.2 % (0-5); Hematocrit 42.5 % (40-54); Hemoglobin 13.7 g/dL (13.0-16.5); Lymphocyte % 16.7 % (19-41); Mean Corp Hgb Conc 32.2 g/dL (32-36); Mean Corpuscular Hgb 26.4 pg (27.0-32.0); Mean Corpuscular Volume 81.9 fL (80-94); Mean Platelet Vol. 9.5 fl (6.2-12.0); Monocyte# 1.23 X10^3/uL; Monocyte% 17.1 % (0-10); NRBC Flagged by Analyzer 0 % (0-5); Neutrophil # 4.55 X10^3/uL (2.7-7.7); Neutrophil % 63.3 % (47-70); Platelet Count 243 K/mm3 (150-450); RBC Distribution Width CV 13.9 % (11.6-14.6); RBC Distribution Width SD 40.9 fl (35.1-43.9); Red Blood Count 5.19 M/mm3 (4.6-6.2); White Blood Count 7.2 K/mm3 (4.4-11.0)
[2024-01-17 08:14] LABS: ALB/GLOB Ratio 0.9 RATIO (0.9-2.4); AST(SGOT) 30 U/L (15-37); Alanine Aminotransfer ALT/SGPT 45 U/L (16-61); Albumin, Serum 2.9 g/dL (3.2-5.0); Alkaline Phosphatase 41 U/L (45-117); Anion Gap 3 (5-15); BUN 23 mg/dL (7-18); BUN/Creat Ratio 18.5 RATIO (10-20); Calcium,Total 8.3 mg/dL (8.5-10.1); Chloride 108 mmol/L (98-107); Creatinine, Serum 1.24 mg/dL (0.70-1.30); EST Glomerular Filtration Rate 64 mL/min (>60); Est Glom Filt Rate - Afr Amer 78 mL/min (>60); Globulin 3.3 g/dL (2.2-4.2); Glucose 120 mg/dL (74-106); Magnesium 1.9 mg/dL (1.6-2.6); Potassium 3.9 mmol/L (3.5-5.1); Protein, Total 6.2 g/dL (6.4-8.2); Sodium Level 139 mmol/L (136-145)
[2024-01-17] MEDS: Lactated Ringers 1,000 ML 100 ML IV (08:42)
[2024-01-17] MEDS: 0.9% Saline Lock 10 ML Syringe IV ×2 (08:42→10:51)
[2024-01-17] MEDS: FLU VACC 2024-25(6MOS UP)/PF 45 MCG/0.5 ML SYRINGE IM (08:46)
[2024-01-17] MEDS: Pantoprazole Sodium 20 MG Tablet PO (08:48)
[2024-01-17] MEDS: DULoxetine Hcl 30 MG Capsule PO (08:48)
[2024-01-17] MEDS: Enoxaparin 40 MG/0.4 ML Syringe SC (08:48)
[2024-01-17] MEDS: Lisinopril 20 MG Tablet PO (08:48)
[2024-01-17 08:59] VITALS: BP 126/81; PULSE 62; RESP 14; TEMP 36.7; O2SAT 97
--- NOTE | 2024-01-17 12:40 | CASEMGMT ---
JOEL ALCARAZ Assessment: Face to Face with pt for initial transition planning/care coordination assessment. JOEL ALCARAZ introduced self and role at [facility], pt voices understanding and consents to assessment. Pt is A&O x4 and answers all questions appropriately at this time. Pt lying in bed in no distress. Care providers, pharmacy, and demographics verified/updated. 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 Pt reports he is I in ADLs/IADLs and denies concerns at home. Transportation: Pt drives self and denies concerns with transportation. DME:Denies HHC/SNF: Denies hx of Pt states no concerns with going home at time of dc. Pt states no further concerns/needs. CM to follow. Advised pt to ask CM if any further question/concerns/needs arise, voices understanding. Pt Goal: Home Plan: Home Asad MALDONADO CM
[2024-01-17 16:00] VITALS: BP 151/90; PULSE 71; RESP 14; TEMP 36.9; O2SAT 96
--- NOTE | 2024-01-17 17:44 | PCM.PN.HOSP ---
Reason for Visit Reason for Visit: Abdominal pain/nausea/vomiting/diarrhea Subjective Subjective Patient states he is feeling much better today. Much less tenderness in the left lower quadrant. Tolerating liquid without any difficulty and is willing to try regular food. We did discuss that if he continues to feel better today and tolerates regular diet without difficulty probable discharge home tomorrow with a change in his oral antibiotics to complete his course. Objective Data Objective Data Vital Signs: Vital Signs Temp Pulse Resp BP Pulse Ox O2 Del Method 98.1 F 62 14 126/81 H 97 Room Air 01/17/24 08:59 01/17/24 08:59 01/17/24 08:59 01/17/24 08:59 01/17/24 08:59 01/17/24 08:59 Oxygen Delivery Method Room Air Weight: 120.259 kg Body Mass Index (BMI) 32.3 Intake & Output: Intake and Output for Last 24 Hours 01/15/24 01/16/24 01/17/24 23:59 23:59 23:59 Intake Total 2150 / 2150 1900 / 1900 Balance 2150 / 2150 1900 / 1900 Lab / Micro Data 01/17/24 06:51 01/17/24 06:51 Labs: Laboratory Results - last 24 hr 01/17/24 06:51: WBC 7.2, RBC 5.19, Hgb 13.7, Hct 42.5, MCV 81.9, MCH 26.4 L, MCHC 32.2, RDW Std Deviation 40.9, RDW Coeff of Liz 13.9, Plt Count 243, MPV 9.5, Immature Gran % (Auto) 0.400, Neut % (Auto) 63.3, Lymph % (Auto) 16.7 L, [place] % (Auto) 17.1 H, Eos % (Auto) 2.2, Baso % (Auto) 0.3, Absolute Neuts (auto) 4.6, Absolute Lymphs (auto) 1.20, Nucleated RBC % 0, Sodium 139, Potassium 3.9, Chloride 108 H, Carbon Dioxide 28.0, Anion Gap 3 L, BUN 23 H, Creatinine 1.24, Estim Creat Clear Calc 96.50, Est GFR (MDRD) Af Amer 78, Est GFR (MDRD) Non-Af 64, BUN/Creatinine Ratio 18.5, Glucose 120 H, Calcium 8.3 L, Phosphorus 3.0, Magnesium 1.9, Total Bilirubin 0.80, AST 30, ALT 45, Alkaline Phosphatase 41 L, Total Protein 6.2 L, Albumin 2.9 L, Globulin 3.3, Albumin/Globulin Ratio 0.9 Physical Exam Const alert, oriented x3, no apparent distress, healthy appearing and well nourished; Negative for average body habitus Constitutional Narrative: Obese, middle-aged, white male, sitting up in bed, appears comfortable, nontoxic General Appearance: cooperative HEENT normocephalic, head/scalp atraumatic and hearing grossly normal bilaterally HEENT Narrative: Mallampati 3, no thrush Resp normal respiratory effort, no retractions, no use of accessory muscles and clear to auscultation bilaterally Auscultation: Negative for rales, rhonchi or wheezes Cardio regular rate, regular rhythm, S1 normal heart sound, S2 normal heart sound, no murmurs, no rub, no gallops and no clicks GI normal to inspection, nondistended, normoactive bowel sounds, soft to palpation and non-tender GI Narrative: Tenderness is markedly improved with no appreciable provocation of pain at this time Extremity no clubbing, cyanosis or edema Extremity Narrative: 2+ pedal and radial pulses Neuro oriented x3, moves all extremities and no focal motor deficits Speech: speech normal Psych affect normal Psych Narrative: Very pleasant, interacts appropriately Assessment & Plan Assessment/Plan (1) Acute diverticulitis: (2) Failure of outpatient treatment: (3) Elevated serum creatinine: (4) Leukocytosis: (5) Erythrocytosis: PLAN: Plan Acute descending colon diverticulitis with failure of outpatient treatment -Advance diet to regular food -No further need for IV fluids -Continue Zosyn -Continue as needed pain medication but transition from IV to oral -As needed antiemetics available next-patient seems to be clinically improving dramatically anticipate discharge tomorrow on oral antibiotics with Cipro and Flagyl Leukocytosis -Resolved Erythrocytosis -Resolved Elevated serum creatinine -Resolved Essential hypertension -Continue home lisinopril GERD -Continue home PPI Anxiety/depression -Continue home Xanax as needed -Continue home duloxetine History of tobacco abuse -Remote Obesity -Complicates treatment, prognosis, outcomes -BMI 32.3 -recommend weight loss DVT prophylaxis -Subcu Lovenox daily CODE STATUS -full code Charges/Coding Visit Charges Inpatient E&M: 06922 Subs Hosp L2
[2024-01-17] MEDS: traZODone 50 MG Tablet PO (20:18)
[2024-01-17 21:02] VITALS: BP 146/76; PULSE 65; RESP 16; TEMP 37.2; O2SAT 97
[2024-01-18 02:41] VITALS: BP 127/59; PULSE 64; RESP 16; TEMP 36.8; O2SAT 95
[2024-01-18] MEDS: Piperacil/Tazobactam 3.375 GM in 0.9% Normal Saline (50mL MB+) 50 ML IV (05:20)
[2024-01-18 08:14] VITALS: BP 129/91; PULSE 52; RESP 16; TEMP 37.1; O2SAT 96
[2024-01-18] MEDS: Enoxaparin 40 MG/0.4 ML Syringe SC (08:15)
[2024-01-18] MEDS: DULoxetine Hcl 30 MG Capsule PO (08:16)
[2024-01-18] MEDS: Pantoprazole Sodium 20 MG Tablet PO (08:16)
[2024-01-18] MEDS: Lisinopril 20 MG Tablet PO (08:16)
--- NOTE | 2024-01-18 08:43 | DS.PCM_ITS ---
Providers Date of Admission: 01/16/24 Date of Discharge: 01/18/24 Primary Care Physician: MARGARET Bragg Reason For Visit: ACUTE DIVERTICULITIS Diagnosis Discharge Diagnosis (1) Acute diverticulitis: Status: Acute Code(s): K57.92 - Diverticulitis of intestine, part unspecified, without perforation or abscess without bleeding (2) Failure of outpatient treatment: Status: Acute Code(s): Z78.9 - Other specified health status (3) Elevated serum creatinine: Status: Acute Code(s): R79.89 - Other specified abnormal findings of blood chemistry (4) Leukocytosis: Status: Acute Code(s): D72.829 - Elevated white blood cell count, unspecified (5) Erythrocytosis: Status: Acute Code(s): D75.1 - Secondary polycythemia Medications at Discharge Home Medications alprazolam 0.5 mg tablet 0.5 mg PO BID PRN PRN anxiety 08/18/23 duloxetine 30 mg capsule,delayed release 30 mg PO DAILY 08/18/23 omeprazole 20 mg capsule,delayed release 20 mg PO DAILY 08/18/23 lisinopril 20 mg tablet 20 mg PO DAILY 01/16/24 meloxicam 15 mg tablet 15 mg PO DAILY 01/16/24 oxycodone-acetaminophen 5 mg-325 mg tablet 1 tab PO Q6H PRN PRN pain 01/16/24 trazodone 50 mg tablet 50 mg PO QHS 01/16/24 ciprofloxacin HCl 500 mg tablet (Cipro) 500 mg PO BID #16 tabs 01/18/24 metronidazole 500 mg tablet 500 mg PO Q8 #24 tabs 01/18/24 Hospital Course Operations None Procedures - (CT abdomen pelvis) Summary of Care Provided Minutes Spent on Discharge: 30 Hospital Course: Mr. Torres is a 53 M who presented to the emergency department [facility] on 01/16/2024 with a chief complaint of left lower quadrant abdominal pain. Patient was seen 4 days ago at [facility] at which time he was diagnosed with uncomplicated descending colon diverticulitis and was placed on cefdinir and Flagyl. He has been compliant with his medication and using as needed Percocet for pain. 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 He denied chills but no fevers. He stated he would break out in sweats periodically. He had a colonoscopy done 1 to 2 years ago due to a positive Cologuard test and had 3 polypectomies. This is the first time he is ever had diverticulitis. Vital signs on presentation showed temperature of 98.4, heart rate 115, respiratory rate 18, blood pressure is 138/102 and pulse ox was 98% on room air. CBC showed a leukocytosis with a white count of 21.6, hemoglobin was elevated at 16.7 and platelet count was normal at this time. He had a marked left shift with a 91.8% neutrophilia. Coags were unremarkable. Chemistry panel consistent with SANDIP. Creatinine 1.46. He had mild hyperbilirubinemia with a bilirubin of 1.1 LFTs were otherwise unremarkable. CT of the abdomen pelvis showed scattered sigmoid diverticuli, inflammatory changes surrounding the distal portion of the descending colon suggestive of mild diverticulitis and fluid seen in the rectosigmoid colon as well as fatty infiltration. Since he had failed outpatient oral antibiotics admission was requested and he was started on IV antibiotics by the emergency department. He was admitted to the medical floor. Placed on clear liquid diet, IV fluids, antiemetics, as needed pain medication and Zosyn. 24 hours after admission he was feeling much better having decreased pain and resolution of his nausea and vomiting. He still reported he had some intermittent loose stool however it is different than previous. I suspect this may be antibiotic related. I do not have concern for C. difficile at this point. We advance his diet which he tolerated well and by the a.m. of 01/18/2024 he was feeling much better and anxious to go home. Given the fact he was having a significantly reduced pain with resolution of his nausea and vomiting and tolerating normal diet without difficulty we did discharge him. He will complete a total of a 10-day course of antibiotics and will be discharged on Cipro and Flagyl to complete antibiotic course. He already has a follow-up to schedule appointment with his primary care physician and encouraged him to keep this. No follow-up labs recommended at this point. Patient was able to be discharged home in stable condition on 01/18/2024. Prescription for antibiotics were sent to local pharmacy. Discharge diagnoses: Acute descending colon diverticulitis Failure of outpatient treatment Leukocytosis-resolved Erythrocytosis-resolved Elevated serum creatinine-resolved Essential hypertension GERD Anxiety Depression History of tobacco abuse Obesity Physical Exam Const alert, oriented x3, no apparent distress, no limitations, healthy appearing and well nourished; Negative for average body habitus Constitutional Narrative: Obese, middle-aged, white male, sitting up in bed, watching television, appears comfortable, nontoxic, nursing at bedside General Appearance: cooperative, comfortable, well kempt and well developed Orientation / Consciousness: awake, oriented to person, oriented to place and oriented to time Exam Limitations: no limitations Nutritional Appearance: obese HEENT normocephalic, head/scalp atraumatic, hearing grossly normal bilaterally and moist oral mucous membranes HEENT Narrative: Mallampati 3, no thrush Resp normal respiratory effort, no retractions, no use of accessory muscles and clear to auscultation bilaterally Auscultation: Negative for rales, rhonchi or wheezes Cardio regular rate, regular rhythm, S1 normal heart sound, S2 normal heart sound, no murmurs, no rub, no gallops and no clicks GI normal to inspection, nondistended, normoactive bowel sounds, soft to palpation and non-tender GI Narrative: Very minimal tenderness in the left lower quadrant with very minimal Angel Rito do not say anything provocation of pain with palpation Extremity no clubbing, cyanosis or edema Extremity Narrative: 2+ pedal and radial pulses Neuro oriented x3, moves all extremities and no focal motor deficits Speech: speech normal Psych affect normal Psych Narrative: Very pleasant, interacts appropriately Weight / BMI Weight Weight: 120.259 kg Body Mass Index (BMI) 32.3 ABG / Lab / Microbiology Data 01/17/24 06:51 01/17/24 06:51 Microbiology: Microbiology 01/16/24 08:50 Blood Culture (Wb) - Anticubital Left Blood Culture - Preliminary No growth in 48 hours. D/C Instructions Discharge Diet: [place] diet (Advance as tolerated) Discharge Activity: Return to Normal Activity Return to work on: 01/23/24 DC O2, CPAP, BIPAP Needs Additional Home O2 Discharge instructions: No DC home with Oxygen: No Meaningful Use Info Meaningful Use Meaningful Use Diagnoses (Choose all that apply): None applicable Ischemic Stroke Statin Dosing Therapy Reference: STATIN DOSE THERAPY REFERENCE: * Patients > 75 years receive moderate or high dose statin therapy. * Patients 75 years or YOUNGER should receive HIGH intensity statin dose unless contraindicated. You will be required to document reason for non-treatment if statin daily dose does not meet guidelines. HIGH DOSE STATIN THERAPY DAILY Atorvastatin > than or = to 40 mg Rosuvastatin > than or = to 20 mg Amlodipine + Atorvastatin > than or = to 2.5/40 mg Ezetimibe + Simvastatin 10/80 mg Simvastatin 80mg Discharge Plan Admission Admit Date/Time: 01/16/24 09:42 Primary Reason for Your Visit: Abdominal pain/vomiting/nausea/diarrhea Attending Provider: Anna Caputo Primary Care Provider: Allie Shields NP Instructions Forms: Work Excuse Patient Instructions: Diverticulosis and Diverticulitis, Diverticulitis Dc Discharge Orders/Prescriptions Prescriptions: New ciprofloxacin HCl [Cipro] 500 mg tablet 500 mg PO BID Qty: 16 0RF Continued omeprazole 20 mg capsule,delayed release(DR/EC) 20 mg PO DAILY alprazolam 0.5 mg tablet 0.5 mg PO BID PRN PRN (Reason: anxiety) duloxetine 30 mg capsule,delayed release(DR/EC) 30 mg PO DAILY trazodone 50 mg tablet 50 mg PO QHS meloxicam 15 mg tablet 15 mg PO DAILY lisinopril 20 mg tablet 20 mg PO DAILY oxycodone-acetaminophen 5-325 mg tablet 1 tab PO Q6H PRN PRN (Reason: pain) metronidazole 500 mg tablet 500 mg PO Q8 Qty: 24 0RF Discontinued cefdinir 300 mg capsule 300 mg PO BID Referrals / Follow Up: Allie Shields NP, [employer] [Primary Care Provider] - See Referral Note (As scheduled) Disposition Disposition (needs filled in before D/C Order can be placed): Home, Self Care Charges/Coding Visit Charges Inpatient E&M: 60898 Disch Hosp
[2024-01-18 11:00] VITALS: BP 133/84; PULSE 61; RESP 18; TEMP 36.8; O2SAT 98
== END 2024-01-18 11:05 | disposition home or self-care (01) | DRG 378 ==
LOC: ED 08:55 → MS3 10:08
PROVIDERS: Admitting Provider Internal Medicine; Emergency Provider Emergency Medicine; PCP Nurse Practitioner Family; Visit Provider Internal Medicine
DX: K57.31 Diverticulosis of large intestine without perforation or abscess with bleeding (principal); K52.1 Toxic gastroenteritis and colitis; I10 Essential (primary) hypertension; F32.A Depression, unspecified; E66.9 Obesity, unspecified; D72.829 Elevated white blood cell count, unspecified; K21.9 Gastro-esophageal reflux disease without esophagitis; E86.0 Dehydration; F41.9 Anxiety disorder, unspecified; D75.1 Secondary polycythemia; E80.7 Disorder of bilirubin metabolism, unspecified; R79.89 Other specified abnormal findings of blood chemistry; T36.95XA Adverse effect of unspecified systemic antibiotic, initial encounter; Z23 Encounter for immunization; Z68.32 Body mass index [BMI] 32.0-32.9, adult; Z79.1 Long term (current) use of non-steroidal anti-inflammatories (NSAID); Z79.899 Other long term (current) drug therapy; Z87.891 Personal history of nicotine dependence
CPT/HCPCS: 36415; 74177; 80053; 83605; 83735; 84100; 85025; 85610; 85730; 87040; 90656; 94668; 99284; J7030; J7050; J7120; Q9967; A4216; J2405

== ENCOUNTER 2024-09-18 22:28 | Emergency (ER) | payer BC, SELFPAY ==
[2024-09-18 22:28] VITALS: BP 128/114; PULSE 85; RESP 16; TEMP 37.4; O2SAT 95; BMI 31.1
[2024-09-18 22:46] VITALS: BP 134/65; PULSE 85; RESP 14; TEMP 37.1; O2SAT 94
--- OUTSIDE RECORDS SUMMARY | 2024-09-18 22:58 | XMS RPT_ITS | CCD ---
Author Organization [facility] Care Team Providers Care Manager Social Services Name Role Phone SYDNI, ELEAZAR E Unavailable Unavailable SYDNI, ELEAZAR E Unavailable Unavailable SYDNI, ELEAZAR E Unavailable Unavailable NO, DOCTOR ON Unavailable Unavailable NO, DOCTOR ON Unavailable Unavailable CHINCHILLA, JACOB C Unavailable Unavailable CHINCHILLA, JACOB C Unavailable Unavailable CHINCHILLA, JACOB C Unavailable Unavailable NO, DOCTOR ON Unavailable Unavailable Provider, None Primary Care Provider Unavailisak Oropeza SURGICAL PRODUCT SALES CONSULTANT.PHARMACIST AIDE, [facility] Primary Care Provider Dr. Contreras Bird Primary Care Provider Dr. Contreras Bird Referring Provider EDDIE Hebert Attending Provider Provider, None Primary Care Provider Unavailisak Oropeza SURGICAL PRODUCT SALES CONSULTANT.VICKEY, [facility] Primary Care Provider Johnna SURGICAL PRODUCT SALES CONSULTANT.[facility] Primary Care Provider Chelsey Oropezaah Primary Care Provider Johnna SURGICAL PRODUCT SALES CONSULTANT.[facility] Primary Care Provider BRYCE YAO Attending Unavailable DAYTON GAONA Primary Care Unavailisak Berg SURGICAL PRODUCT SALES CONSULTANT.PHARMACIST AIDE, Samina Aldana Unavailable Jose Kang DO Unavailable Jimenez SURGICAL PRODUCT SALES CONSULTANT-[facility] Primary Care Prov ider Stan Oropeza Primary Care Unavailable Anna Caputo Admitting Unavailable Anna Caputo Consulting Unavailable Anna Caputo Attending Unavailable JohnnaChelseyah Primary Care Unavailable Guillermo Melissa Attending Unavailable Johnna, Stan Primary Care Unavailable Tristni Giles Attending Unavailabl e Johnna, Stan Primary Care Unavailable Anna Caputo Attending Unavailable Anna Caputo Admitting Unavailable Johnna, Stan Primary Care Unavailable Johnna, Stan Referring Unavailable Eitan Beebe Attending Unavailable JOHNNA, STAN Primary Care Unavailable JOHNNA, STAN Attending Unavailable ADALBERTO GOMEZ Referring Unavailable JOHNNA, STAN Primary Care Unavailable ADALBERTO GOMEZ Attending Unavailable JOHNNA, STAN Primary Care Unavailable ADALBERTO GOMEZ Attending Unavailable ADALBERTO GOMEZ Referring Unavailable JOHNNA, STAN Primary Care Unavailable JOHNNA, STAN Attending Unavailable JOHNNA, STAN Primary Care Unavailable SAMINA BERG Attending Unavailabl e JOHNNA, STAN Primary Care Unavailable YOHANA CREWS Attending Unavailable JOHNNA, STAN Primary Care Unavailable YOHANA CREWS Attending Unavailable ESTEBANTOBENJA HELMA Referring Unavailable JOHNNA, STAN Primary Care Unavailable SAMINA BERG Attending Unavailabl e JOHNNA, STAN Primary Care Unavailable JOHNNA, STAN Primary Care Unavailable ADALBERTO GOMEZ Attending Unavailable JOHNNA, STAN Referring Unavailable JOHNNA, STAN Primary Care Unavailable JOHNNA, STAN Attending Unavailable SAMINA BERG Referring Unavailabl e JOHNNA, STAN Primary Care Unavailable SAMINA BERG Referring UnavailADALBERTO Coronel Attending Unavailable JOHNNA, STAN Primary Care Unavailable SAMINA BERG Referring Unavailabl e JOHNNA, STAN Primary Care Unavailable YOHANA CREWS Attending Unavailable DEVIN CREWSDRA Referring Unavailable JOHNNA, STAN Primary Care Unavailable YOHANA CREWS Attending Unavailable ESTEBANTODEVIN HELMDRA Referring Unavailable JOHNNA, STAN Primary Care Unavailable Medications Current Medications Medication Drug Class(es) Dates Sig (Normalized) Sig (Original) acetaminophen 500 mg oral tablet (8 sources) Start: 09-20-2022 End: 09-30-2022 take 2 tablets by mouth every six hours as needed for pain acetaminophen (Tylenol) 500 MG tablet Take 2 tablets (1,000 mg) by mouth every 6 hours as needed for mild pain (1-3) for up to 10 days. 30 tablet 0 09/20/2022 09/30/2022 Active Start: 09-19-2022 End: 09-20-2022 acetaminophen (Tylenol) tabl et 1,000 mg Start: 10-13-2021 End: 10-13-2021 acetaminophen (TYLENOL) tabl et 1,000 mg acetaminophen 325 mg / HYDROcodone bitartrate 7.5 mg oral tablet (6 sources) Opioid Agonist Start: 10-06-2023 End: 10-11-2023 take 1 tablet by mouth every six hours as needed for pain HYDROcodone-Acetaminophen (NORCO) 7.5-325 mg per tablet Indications: Injury of right shoulder, subsequent encounter , Acute pain of right shoulder Take 1 tablet by mouth every 6 hours as needed for pain for up to 5 days. 20 tablet 10/06/2023 10/11/2023 Active Start: 01-05-2023 End: 01-15-2023 take 1 tablet by mouth every six hours as needed for pain HYDROcodone-Acetaminophen (NORCO) 7.5-32 5 mg per tablet Indications: Neck pain on right side , Cervical radiculopathy , Insomnia secondary to chronic pain Take 1 tablet by mouth every 6 hours as needed for pain for up to 7 days. 28 tablet 01/05/2023 01/15/2023 Discontinued Start: 07-04-2018 End: 02-01-2019 Hydrocodone-Acetaminophen Di scontinued PO 27 05July 04, 2018 12:00am February 01, 2019 5:43pm Start: 06-30-2018 End: 07-02-2018 take 1 tablet by mouth every four hours as needed Hydrocodone-Acetaminophen Discontinued 1 TABLET PO EVERY 4 HOURS NEEDED 29 03June 30, 2018 12:00am July 02, 2018 12:07am Start: 01-04-2018 End: 01-07-2018 take 1 tablet by mouth every six hours as needed Hydrocodone-Acetaminophen Discontinued 1 TABLET PO EVERY 6 HOURS NEEDED 11 09January 04, 2018 1:00am January 07, 2018 1:14am Comment on above: Take 1 tablet by miladis every 6 hours as needed for pain for up to 7 days. acetaminophen 325 mg / oxyCODONE hydrochloride 5 mg oral tablet (10 sources) Opioid Agonist Start: 10-13-2021 End: 10-20-2021 oxyCODONE-acetaminoph en (PERCOCET) 5-325 MG per tablet Indications: Tarsal tunnel syndrome of right side Take 1 tablet by mouth every 6 hours as needed for Pain for up to 7 days. Intended supply: 7 days. Take lowest dose possible to manage pain 28 tablet 0 10/13/2021 10/20/2021 Active oxyCODONE-acetam inophen (Percocet) 5-325 MG tablet Active ALPRAZolam 0.5 mg oral tablet (20 sources) Benzodiazepine Start: 09-20-2022 End: 09-11-2024 take 1 tablet by mouth twice daily as needed ALPRAZolam (XANAX) 0.5 mg tablet Indications: Situational mixed anxiety and depressive disorder , Agoraphobia with panic attacks Take 1 tablet by mouth two times a day as needed for up to 90 days. 60 tablet 2 06/13/2024 09/11/2024 Active Start: 10-13-2021 ALPRAZolam (NI RAVAM) dissolvable tablet 0.25 mg Start: 07-01-2021 End: 07-31-2021 take 1 tablet by mouth twice daily as needed ALPRAZolam (XANAX) 0.5 mg tablet Indications: Situational mixed anxiety and depressive disorder Take 1 tablet by mouth twice daily as needed for up to 30 days. 60 tablet 1 07/01/2021 07/31/2021 Active Comment on above: Take 1 tablet by miladis th twice daily as needed for up to 30 days. Take 1 tablet by miladis th two times a day as needed for up to 30 days. aspirin 81 mg delayed release oral tablet (16 sources) Platelet Aggregation Inhibitor, Nonsteroidal Anti-inflammatory Drug Start: 10-14-19 End: 10-14-19 take 1 tablet by mouth once daily aspirin 81 MG EC tablet Take 1 tablet by mouth daily. 10/13/2021 Active azithromycin 250 mg oral tablet (1 source) Macrolide Antimicrobial Start: 09-07-19 take 2 tablets by mouth once daily, then take 1 tablet by mouth once daily Azithromycin Active 250 MG PO DAILY 12 17September 06, 2021 12:00am Take 2 tab P0 QD x 1 day then 1 tab PO QD x 9 days benzonatate 200 mg oral capsule (1 source) Non-narcotic Antitussive Start: 09-07-19 Benzonatate Active 200 MG PO 2 to 3 times per day 14 September 06, 2021 12:00am calcium chloride 0.0014 meq/ml / potassium chloride 0.004 meq/ml / sodium chloride 0.103 meq/ml / sodium lactate 0.028 meq/ml injectable solution (2 sources) Start: 10-14-19 lactated ringers infusion cefdinir 300 mg oral capsule (1 source) Cephalosporin Antibacterial Start: 01-12-20 End: 01-19-20 take 1 capsule by mouth twice daily cefdinir (OMNICEF) 300 mg capsule Take 1 capsule by mouth two times a day for 7 days. 14 capsule 01/12/2024 01/19/2024 Active cholecalciferol 0.05 mg oral capsule (20 sources) Vitamin D Start: 04-07-19 End: 04-06-19 take 1 capsule by mouth once daily Cholecalciferol, Vitamin D3, 50 mcg (2,000 unit) cap Indications: Vitamin D deficiency Take 1 capsule by mouth once daily. 90 capsule 3 04/07/2023 Active Comment on above: Take 1 capsule by [facility] once daily. COMPOUNDED PRESCRIPTION (4 sources) Start: 01-07-20 End: 07-02-19 COMPOUNDED PRESCRIPTION Indications: TIMOTHY (obstructive sleep apnea) cpap supplies: mask, tubing, hoses 1 Each 0 01/06/2018 07/01/2021 Discontinued Start: 01-06-2018 COMPOUNDED PRE SCRIPTION Indications: TIMOTHY (obstructive sleep apnea) cpap supplies: mask, tubing, hoses 1 Each 0 01/06/2018 Active Start: 04-24-2015 End: 07-01-2021 COMPOUNDED PRESCRIPTION CPAP unit and supplies at 15 cm H2O with humidification. Dx: G47.33 1 Device 0 04/24/2015 07/01/2021 Discontinued Start: 04-24-2015 COMPOUNDED PRE SCRIPTION CPAP unit and supplies at 15 cm H2O with humidification. Dx: G47.33 1 Device 0 04/24/2015 Active Comment on above: CPAP unit and suppli es at 15 cm H2O with humidification. Dx: G47.33 cpap supplies: mask, tubing, hoses cyclobenzaprine hydrochloride 10 mg oral tablet (5 sources) Muscle Relaxant Start: 024 End: take 1 tablet by mouth three times daily as needed for muscle spasms cyclobenzaprine (FLEXERIL) 10 mg tablet Indications: Injury of right shoulder, subsequent encounter , Acute pain of right shoulder Take 1 tablet by mouth three times a day as needed for muscle spasm. 30 tablet 1 10/06/2023 11/05/2023 Active diclofenac sodium 75 mg delayed release oral tablet (17 sources) Nonsteroidal Anti-inflammatory Drug Start: 025 End: take 1 tablet by mouth twice daily for pain diclofenac, EC, (VOLTAREN) 75 mg EC tablet Take 1 tablet by mouth two times a day. FOR PAIN 60 tablet 2 06/13/2024 09/11/2024 Active Start: 12-28-2022 End: 01-07-2023 Diclofenac Sodium (Voltaren) 1 % gel APPLY 2 G TOPICALLY 2 TIMES DAILY FOR 10 DAYS. 100 g 0 12/28/2022 01/07/2023 Active Start: 12-06-2022 End: 12-16-2022 Diclofenac Sodium (Voltaren) 1 % gel Indications: Right cervical radiculopathy Apply 2 g topically 2 times daily for 10 days. 40 g 0 12/06/2022 12/16/2022 Active 1 ml diphenhydrAMINE hydrochloride 50 mg/ml cartridge (1 source) Histamine-1 Receptor Antagonist Start: 10-13-2021 End: 10-13-2021 diphenhydrAMINE (BENADRYL) injection 12.5 mg ergocalciferol 1.25 mg oral capsule (3 sources) Provitamin D2 Compound Start: 12-06-2022 End: 01-11-2023 take 1 capsule by mouth every week ergocalciferol (Vitamin D2) 1.25 MG (80164 UT) capsule Indications: Vitamin D deficiency Take 1 capsule (1.25 mg) by mouth 1 (one) time per week for 6 doses. 6 capsule 0 12/06/2022 01/11/2023 Active etodolac 400 mg oral tablet (1 source) Nonsteroidal Anti-inflammatory Drug Start: 10-01-2023 End: 10-08-2023 take 1 tablet by mouth twice daily etodolac (Lodine) 400 mg tablet Indications: Shoulder injury, right, initial encounter Take 1 tablet (400 mg) by mouth 2 times a day for 7 days. 14 tablet 10/01/2023 10/08/2023 Active 2 ml fentaNYL 0.05 mg/ml injection (2 sources) Opioid Agonist Start: 10-13-2021 fentaNYL (SUBLIMAZE) injection 50 mcg Start: 10-13-2021 fentaNYL (SUBL IMAZE) injection 25 mcg labetalol (NORMODYNE;TRANDATE) injection 5 mg (1 source) Start: 10-13-2021 labetalol (NORMODYNE;TRANDATE) injection 5 mg lisinopril 20 mg oral tablet (20 sources) Angiotensin Converting Enzyme Inhibitor Start: 04-03-2021 End: 08-07-2024 lisinopril (ZESTRIL) 20 mg tablet Indications: HTN, goal below 130/80 , Essential hypertension with goal blood pressure less than 140/90 Take 1 tablet by mouth once daily. 90 tablet 1 02/09/2024 08/07/2024 Active Start: 08-26-2017 take 10 mg by mouth once daily Lisinopril Active 10 MG PO DAILY August 26, 2017 12:00am Comment on above: Take 1 tablet by miladis th once daily. TAKE 1 TABLET BY MILADIS TH EVERY DAY 1 ml LORazepam 2 mg/ml injection (1 source) Benzodiazepine Start: End: LORazepam (ATIVAN) injection 0.5 mg meloxicam 15 mg oral tablet (20 sources) Nonsteroidal Anti-inflammatory Drug Start: End: take 1 tablet by mouth once daily meloxicam (MOBIC) 15 mg tablet TAKE 1 TABLET BY MOUTH EVERY DAY 30 tablet 1 03/12/2024 05/28/2024 Discontinued 1 ml meperidine hydrochloride 25 mg/ml cartridge (1 source) Opioid Agonist Start: meperidine (DEMEROL) injection 12.5 mg metroNIDAZOLE 500 mg oral tablet (1 source) Nitroimidazole Antimicrobial Start: End: take 1 tablet by mouth every eight hours metroNIDAZOLE (FLAGYL) 500 mg tablet Take 1 tablet by mouth every 8 hours for 7 days. 21 tablet 01/12/2024 01/19/2024 Active omeprazole 20 mg delayed release oral capsule (20 sources) Proton Pump Inhibitor Start: End: take 1 capsule by mouth once daily, then take 1 capsule by mouth once daily before breakfast omeprazole (PRILOSEC) 20 mg capsule Indications: GERD without esophagitis Take 1 capsule by mouth once daily. TAKE 1 TABLET BY MOUTH DAILY BEFORE BREAKFAST. 1/2 HR BEFORE MEAL. 90 capsule 1 06/13/2024 Active Start: 02-10-2021 End: 08-15-2023 take 1 capsule by mouth once daily, then take 1 capsule by mouth once daily before breakfast omeprazole (PRILOSEC) 20 mg capsule Indications: GERD without esophagitis Take 1 capsule by mouth once daily. TAKE 1 TABLET BY MOUTH DAILY BEFORE BREAKFAST. 1/2 HR BEFORE MEAL. 90 capsule 1 08/17/2023 Active Comment on above: TAKE 1 TABLET BY MILADIS TH DAILY BEFORE BREAKFAST. 1/2 HR BEFORE MEAL. Take [address] [facility] once daily. TAKE 1 TABLET BY MOUTH DAILY BEFORE BREAKFAST. 1/2 HR BEFORE MEAL. 2 ml ondansetron 2 mg/ml injection (8 sources) Serotonin-3 Receptor Antagonist Start: 10-13-2021 End: 10-13-2021 ondansetron (ZOFRAN) injection 4 mg Start: 10-13-2021 End: 10-13-2022 take 1 tablet by mouth three times daily as needed for nausea ondansetron ODT (Zofran-ODT) 4 MG disintegrating tablet TAKE 1 TABLET BY MOUTH 3 TIMES DAILY NEEDED FOR NAUSEA OR VOMITING 21 tablet 0 10/13/2021 10/13/2022 Active 5 ml sodium chloride 9 mg/ml injection (9 sources) Start: 10-13-2021 sodium chlorid e flush 0.9 % injection 5-40 mL Start: 10-13-2021 sodium chlorid e flush 0.9 % injection 5-40 mL Start: 10-13-2021 sodium chlorid e flush 0.9 % injection 5-40 mL Start: 10-13-2021 0.9 % sodium c hloride bolus Start: 10-13-2021 0.9 % sodium c hloride infusion Start: 10-13-2021 sodium chlorid e flush 0.9 % injection 5-40 mL tiZANidine 2 mg oral tablet (9 sources) Central alpha-2 Adrenergic Agonist Start: 12-06-2022 End: 12-27-2022 take 1 tablet by mouth once daily tiZANidine (Zanaflex) 2 MG tablet Indications: Right cervical radiculopathy Take 1 tablet (2 mg) by mouth Nightly for 21 days. 21 tablet 12/06/2022 Active traZODone hydrochloride 50 mg oral tablet (20 sources) Serotonin Reuptake Inhibitor Start: 01-06-2024 End: 07-19-2024 traZODone (DESYREL) 50 mg tablet Indications: Insomnia secondary to chronic pain TAKE 2-3 TABLETS BY MOUTH NEEDED AT BEDTIME. 270 tablet 1 07/19/2024 Active Completed/Discontinued Medications Medication Drug Class(es) Dates Sig (Normalized) Sig (Original) betamethasone 3 mg/ml / betamethasone acetate 3 mg/ml injectable suspension (12 sources) Corticosteroid Start: 07-23-2024 End: 07-23-2024 betamethasone acetate-betamethason e sodium phosphate 6 mg injection (CELESTONE) Start: 07-23-2024 End: 07-23-2024 6 mg, Injection - FOR ORTHO USE ONLY, ONCE, 1 dose, Starting on Tue07/23/24 at 0814, Until Tue07/23/24 at 0814 Start: 05-28-2024 End: 05-28-2024 betamethasone acetate-betame thasone sodium phosphate 6 mg injection (CELESTONE) Start: 05-28-2024 End: 05-28-2024 6 mg, Injection - FOR ORTHO USE ONLY, ONCE, 1 dose, Starting on Tue05/28/24 at 0800, Until Tue05/28/24 at 0800 Start: 02-27-2024 End: 02-27-2024 betamethasone acetate-betame thasone sodium phosphate 6 mg injection (CELESTONE) Start: 02-27-2024 End: 02-27-2024 6 mg, Injection - FOR ORTHO USE ONLY, ONCE, 1 dose, Starting on 02/27/24 at 1019, Until Tue02/27/24 at 1019 Start: 12-19-2023 End: 12-19-2023 betamethasone acetate-betame thasone sodium phosphate 6 mg injection (CELESTONE) Start: 12-19-2023 End: 12-19-2023 6 mg, Injection - FOR ORTHO USE ONLY, ONCE, 1 dose, Starting on Tue12/19/23 at 0812, Until Tue12/19/23 at 0812 ceFAZolin 2000 mg injection (1 source) Cephalosporin Antibacterial Start: 10-13-2021 End: 10-13-2021 ceFAZolin (ANCEF) 2000 mg in dextrose 4 % 100 mL IVPB (premix) celecoxib 400 mg oral capsule (1 source) Nonsteroidal Anti-inflammatory Drug Start: 10-13-2021 End: 10-13-2021 celecoxib (CELEBREX) capsule 400 mg Start: 10-13-2021 End: 10-13-2021 celecoxib (CELEBREX) capsule 400 mg citric acid 75 mg/ml / magnesium oxide 21.9 mg/ml / picosulfate sodium 0.0625 mg/ml oral solution (9 sources) Calculi Dissolution Agent, Anti-coagulant Start: 08-17-2021 End: 09-20-2022 CLENPIQ 10 mg-3.5 gram -12 gram/160 mL soln Refer to instructions given by your provider. 320 mL 0 08/17/2021 09/20/2022 Discontinued Comment on above: Refer to instruction s given by your provider. DULoxetine 60 mg delayed release oral capsule (20 sources) Serotonin and Norepinephrine Reuptake Inhibitor Start: 10-06-2023 End: 02-09-2024 take 1 capsule by mouth once daily DULoxetine (CYMBALTA) 60 mg capsule Indications: Situational mixed anxiety and depressive disorder , Agoraphobia with panic attacks , Moderate episode of recurrent major depressive disorder (HCC) Take 1 capsule by mouth once daily. 30 capsule 2 10/06/2023 02/09/2024 Discontinued Start: 04-03-2021 End: 10-06-2023 take 1 capsule by mouth once daily DULoxetine (Cymbalta) [address] capsule Take 30 mg by mouth daily. 09/20/2022 Active Comment on above: Take 1 capsule by [facility] once daily. famotidine 20 mg oral tablet (1 source) Histamine-2 Receptor Antagonist Start: 10-13-2021 End: 10-13-2021 famotidine (PEPCID) tablet 20 mg Start: 10-13-2021 End: 10-13-2021 famotidine (PEPCID) tablet 2 0 mg 2 ml sodium hyaluronate 10 m g/ml prefilled syringe (6 sources) Start: 08-06-2024 End: 08-06-2024 sodium hyaluronate 20 mg injection (EUFLEXXA) Start: 08-06-2024 End: 08-06-2024 20 mg, Injection - FOR ORTHO USE ONLY, ONCE, 1 dose, Starting on Tue08/06/24 at 0750, Until Tue08/06/24 at 0750 Start: 07-30-2024 End: 07-30-2024 sodium hyaluronate 20 mg inj ection (EUFLEXXA) Start: 07-30-2024 End: 07-30-2024 20 mg, Injection - FOR ORTHO USE ONLY, ONCE, 1 dose, Starting on Tue07/30/24 at 1138, Until Tue07/30/24 at 1138 Start: 07-23-2024 End: 07-23-2024 sodium hyaluronate 20 mg inj ection (EUFLEXXA) Start: 07-23-2024 End: 07-23-2024 20 mg, Injection - FOR ORTHO USE ONLY, ONCE, 1 dose, Starting on Tue07/23/24 at 0814, Until Tue07/23/24 at 0814 1 ml ketorolac tromethamine 30 mg/ml injection (7 sources) Nonsteroidal Anti-inflammatory Drug, Cyclooxygenase Inhibitor Start: 10-01-2023 End: 10-01-2023 inject 15 mg by intramuscular injection once 15 mg, intramuscular, Once, On 10/01/23 at 1000, For 1 dose Start: 09-20-2022 End: 09-25-2022 take 1 tablet by mouth every six hours as needed for pain ketorolac (Toradol) 10 MG tablet Take 1 tablet (10 mg) by mouth every 6 hours as needed for moderate pain (4-6) for up to 5 days. 20 tablet 0 09/20/2022 09/25/2022 Active Start: 09-19-2022 End: 09-20-2022 ketorolac (Toradol) injectio n 30 mg 10 ml lidocaine hydrochloride 10 mg/ml injection (15 sources) Antiarrhythmic, Amide Local Anesthetic Start: 07-23-2024 End: 07-23-2024 lidocaine (PF) 10 mg/mL (1 %) 5 mL injection (XYLOCAINE) Start: 07-23-2024 End: 07-23-2024 5 mL, Injection - FOR ORTHO USE ONLY, ONCE, 1 dose, Starting on Tue07/23/24 at 0814, Until Tue07/23/24 at 0814 Start: 05-28-2024 End: 05-28-2024 lidocaine (PF) 10 mg/mL (1 % ) 5 mL injection (XYLOCAINE) Start: 05-28-2024 End: 05-28-2024 5 mL, Injection - FOR ORTHO USE ONLY, ONCE, 1 dose, Starting on Tue05/28/24 at 0800, Until Tue05/28/24 at 0800 Start: 02-27-2024 End: 02-27-2024 lidocaine (PF) 10 mg/mL (1 % ) 5 mL injection (XYLOCAINE) Start: 02-27-2024 End: 02-27-2024 5 mL, Injection - FOR ORTHO USE ONLY, ONCE, 1 dose, Starting on Tue02/27/24 at 1019, Until Tue02/27/24 at 1019 Start: 12-19-2023 End: 12-19-2023 lidocaine (PF) 10 mg/mL (1 % ) 5 mL injection (XYLOCAINE) Start: 12-19-2023 End: 12-19-2023 4 mL, Injection - FOR ORTHO USE ONLY, ONCE, 1 dose, Starting on Tue12/19/23 at 0812, Until Tue12/19/23 at 0812 Start: 09-19-2022 End: 09-20-2022 Lidocaine 4 % patch 1 patch Start: 10-13-2021 End: 10-13-2021 lidocaine 1 % injection 1 mL predniSONE 10 mg oral tablet (4 sources) Start: 01-05-2023 End: 01-14-2023 predniSONE (DELTASONE) 10 mg tablet Indications: Neck pain on right side , Cervical radiculopathy , Insomnia secondary to chronic pain Take 4 tabs daily for 3 days, then 2 tabs daily for 3 days, then 1 tab daily for 3 days with food. 21 tablet 01/05/2023 01/14/2023 Start: 04-03-2021 End: 10-05-2021 predniSONE (DELTASONE) 10 MG tablet TAKE 4 TABS DAILY FOR 3 DAYS, THEN 2 TABS DAILY FOR 3 DAYS, THEN 1 TAB DAILY FOR 3 DAYS WITH FOOD. 0 04/03/2021 10/05/2021 Discontinued (LIST CLEANUP) Comment on above: Take 4 tabs daily fo r 3 days, then 2 tabs daily for 3 days, then 1 tab daily for 3 days with food. sildenafil 20 mg oral tablet (15 sources) Phosphodiesterase 5 Inhibitor Start: 022 End: take 3 tablets by mouth every hour as needed sildenafil (REVATIO) 20 mg tablet Take 3 tablets by mouth one hour prior to sex as needed. 20 tablet 2 04/03/2021 09/20/2022 Discontinued Comment on above: Take [address] [facility] one hour prior to sex as needed. 1 ml triamcinolone acetonide 40 mg/ml injection (1 source) Corticosteroid Start: End: triamcinolone acetonide 40 mg injection (KeNALog 40) zolpidem tartrate 10 mg oral tablet (20 sources) gamma-Aminobutyric Acid-ergic Agonist Start: 025 End: take 1 tablet by mouth at bedtime as needed zolpidem (AMBIEN) 10 mg Indications: Insomnia secondary to chronic pain Take 1 tablet by mouth at bedtime as needed (insomnia) for up to 120 days. 30 tablet 3 06/13/2024 07/06/2024 Discontinued (Cost of medication) Start: 07-15-2023 End: 02-09-2024 take 1 tablet by mouth at bedtime as needed zolpidem (AMBIEN) 10 mg Indications: Insomnia secondary to chronic pain Take 1 tablet by mouth at bedtime as needed (insomnia) for up to 120 days. 30 tablet 3 10/06/2023 02/09/2024 Discontinued Start: 01-05-2023 End: 07-15-2023 take 1 tablet by mouth every 30 days at bedtime as needed zolpidem (AMBIEN) 10 mg Indications: Insomnia secondary to chronic pain Take 1 tablet by mouth at bedtime as needed (insomnia) for up to 30 days. 30 tablet 01/05/2023 01/15/2023 Discontinued Comment on above: Take 1 tablet by miladis th at bedtime as needed (insomnia) for up to 30 days. Problems Active Problems Problem Classification Problem Date Documented Da te Episodic/Chronic Adjustment disorders (20 sources) Mixed anxiety and depressive disorder; Translations: [Adjustment disorder with mixed anxiety and depressed mood] Onset: 0 09-12-2019 Chronic Anxiety disorders (9 sources) Agoraphobia with panic attacks; Translations: [Agoraphobia with panic disorder] Onset: 5 09-20-2022 Chronic Diseases of white blood cells (20 sources) Leukocytosis; Translations: [Elevated white blood cell count, unspecified] Onset: 6 02-02-2021 Chronic Disorders of lipid metabolism (20 sources) Dyslipidemia; Translations: [Hyperlipidemia, unspecified] Onset: 6 03-19-2015 Chronic Diverticulosis and diverticulitis (4 sources) Diverticulitis; Translations: [Diverticulitis of intestine, part unspecified, without perforation or abscess without bleeding] Onset: 4 01-20-2024 Chronic Esophageal disorders (20 sources) Gastroesophageal reflux disease without esophagitis; Translations: [Gastro-esophageal reflux disease without esophagitis] Onset: 7 04-14-2016 Chronic Essential hypertension (20 sources) Essential hypertension; Translations: [Essential (primary) hypertension] Onset: Chronic Fracture of lower limb (1 source) Closed fracture of second metatarsal bone; Translations: [Displaced fracture of second metatarsal bone, right foot, subsequent encounter for fracture with routine healing] 10-25-2022 Episodic Mood disorders (3 sources) Recurrent major depressive episodes, moderate ; Translations: [Major depressive disorder, recurrent, moderate] 10-06-2023 Chronic Nutritional deficiencies (6 sources) Vitamin D deficiency; Translations: [Vitamin D deficiency, unspecified] 12-06-2022 Chronic Osteoarthritis (5 sources) Unilateral post-traumatic osteoarthritis, left knee; Translations: [Osteoarthrosis, localized, secondary, lower leg] Onset: 5 05-28-2024 Chronic Other aftercare (1 source) Post-discharge follow-up; Translations: [Encounter for follow-up examination after completed treatment for conditions other than malignant neoplasm] 01-20-2024 Episodic Other connective tissue disease (2 sources) Chronic pain of right foot; Translations: [Pain in right foot] 09-20-2022 Episodic Other connective tissue disease (2 sources) Pain in right foot; Translations: [Pain in right foot] 12-06-2022 Episodic Other connective tissue disease (1 source) Spasm of cervical paraspinous muscle; Translations: [Other muscle spasm] 12-06-2022 Episodic Other endocrine disorders (20 sources) Male hypogonadism; Translations: [Testicular hypofunction] Onset: 6 03-14-2019 Chronic Other gastrointestinal disorders (2 sources) Stool DNA-based colorectal cancer screening positive; Translations: [Other fecal abnormalities] Episodic Other gastrointestinal disorders (1 source) Diarrhea; Translations: [Diarrhea, unspecified] 01-20-2024 Episodic Other hematologic conditions (1 source) Secondary polycythemia; Translations: [Secondary polycythemia] Onset: 4 Episodic Other injuries and conditions due to external causes (5 sources) Unspecified injury of right shoulder and upper arm, initial encounter; Translations: [Unspecified injury of right shoulder and upper arm, initial encounter] Onset: 7 Episodic Other injuries and conditions due to external causes (3 sources) Injury of right shoulder; Translations: [Unspecified injury of right shoulder and upper arm, subsequent encounter] 10-06-2023 Episodic Other injuries and conditions due to external causes (1 source) Unspecified injury of head, initial encounter; Translations: [Unspecified injury of head, initial encounter] Onset: 4 Episodic Other liver diseases (20 sources) Steatosis of liver; Translations: [Fatty (change of) liver, not elsewhere classified] Onset: 7 03-14-2019 Chronic Other nervous system disorders (20 sources) Right tarsal tunnel syndrome; Translations: [Tarsal tunnel syndrome, right lower limb] Onset: 2 04-17-2021 Chronic Other nervous system disorders (17 sources) Insomnia co-occurrent and due to medical condition; Translations: [Other chronic pain] 01-05-2023 Chronic Other nervous system disorders (1 source) Other chronic pain; Translations: [Insomnia secondary to chronic pain] Onset: 5 Chronic Other non-traumatic joint disorders (4 sources) Pain in right shoulder; Translations: [Pain in joint, shoulder region] 10-06-2023 Episodic Other non-traumatic joint disorders (2 sources) Disorder of shoulder; Translations: [Other specified joint disorders, unspecified shoulder] 12-19-2023 Episodic Other nutritional; endocrine; and metabolic disorders (20 sources) Obesity; Translations: [Obesity, unspecified] 04-22-2023 Chronic Residual codes; unclassified (20 sources) Obstructive sleep apnea syndrome; Translations: [Obstructive sleep apnea (adult) (pediatric)] Onset: 6 03-14-2019 Chronic Residual codes; unclassified (1 source) Insomnia due to medical condition; Translations: [Insomnia secondary to chronic pain] Onset: 5 Chronic Residual codes; unclassified (1 source) Other specified health status; Translations: [Other specified health status] Onset: 4 Episodic Spondylosis; intervertebral disc disorders; other back problems (5 sources) Right cervical root neuropathy; Translations: [Radiculopathy, cervical region] 12-06-2022 Episodic Sprains and strains (4 sources) Strain of muscle(s) and tendon(s) of the rotator cuff of right shoulder, initial encounter; Translations: [Rotator cuff (capsule) sprain] Onset: 5 11-08-2023 Episodic Past or Other Problems Problem Classification Problem Date Documented Da te Episodic/Chronic Genitourinary symptoms and ill-defined conditions (20 sources) Blood in urine; Translations: [Hematuria, unspecified] Onset: 04-14-2016 04-14-2016 Episodic Open wounds of extremities (1 source) Laceration without foreign body, left lower leg, initial encounter; Translations: [Laceration without foreign body, left lower leg, initial encounter] Onset: 09-12-2023 Episodic Other aftercare (1 source) Encounter for follow-up examination after completed treatment for conditions other than malignant neoplasm; Translations: [Hospital discharge follow-up] Onset: 01-20-2024 Episodic Other and unspecified benign neoplasm (20 sources) Dysplastic nevus of skin; Translations: [Melanocytic nevi, unspecified] Onset: 01-06-2018 01-06-2018 Episodic Other connective tissue disease (20 sources) Cramp; Translations: [Cramp and spasm] Onset: 03-06-2015 03-14-2019 Episodic Other gastrointestinal disorders (1 source) Diarrhea, unspecified; Translations: [Diarrhea, unspecified type] Onset: 01-20-2024 Episodic Other lower respiratory disease (12 sources) Cough; Translations: [Cough] Onset: 12-06-2022 12-06-2022 Episodic Other non-traumatic joint disorders (8 sources) Pain in left knee; Translations: [Pain in joint, lower leg] Onset: 02-23-2024 02-09-2024 Episodic Other screening for suspected conditions (not mental disorders or infectious disease) (20 sources) Other specified abnormal findings of blood chemistry; Translations: [Other abnormal blood chemistry] Onset: 04-14-2016 Resolved: 04-22-2023 03-14-2019 Episodic Other upper respiratory disease (12 sources) Nasal congestion; Translations: [Nasal congestion] Onset: 12-06-2022 12-06-2022 Episodic Other upper respiratory infections (14 sources) Pharyngitis; Translations: [Acute pharyngitis, unspecified] Onset: 12-06-2022 Episodic Screening and history of mental health and substance abuse codes (20 sources) Ex-smoker; Translations: [Personal history of nicotine dependence] Onset: 03-06-2015 03-14-2019 Episodic Superficial injury; contusion (15 sources) Contusion of left ankle; Translations: [Contusion of left ankle, initial encounter] Onset: 12-06-2022 12-06-2022 Episodic Results Test Name Value Interpretation Reference Range Facility [facility] 08-06-2024 CNOV Office Visit (DAHLIA ) SREE TORRES ([id number]) 1970 M Date Time Provider Department 08/06/24 7:30 AM YOHANA CREWS During your visit today, we recorded the following information about you: Lizbeth Porter MA 08/06/2024 7:50 AM Signed Patient presents with: Left Knee - Injections: Euflexxa injection # 3 left knee AMB ROOMING INTAKE FLOWSHEET DATA Patient denies any pain. Here for Euflexxa injection #3 left knee LOT # [id number] EXP 06/11/2025 BRANDON Mendoza Sondra, PA-C 08/06/2024 7:50 AM Signed Large Joint Arthro/Inj: L knee joint 08/06/2024 7:50 AM The procedure site was prepped in the usual sterile fashion. Site: L knee joint Medications: 20 mg sodium hyaluronate 10 mg/mL(mw 2.4 -3.6 million) Outcome: Tolerated well, no immediate complications Post-injection instructions were reviewed with the patient and the patient voiced understanding of these instructions. Informed Consent Consent Obtained: Verbal [place] Protocol A moment to CARE was completed. SIGN IN Sign in communication not applicable due to emergent procedure. Personnel directly involved with the procedure wore the appropriate PPE. Special Equipment: N/A Patient/Surrogate Stated/Verified: Patient name, Date of , Relevant allergies and Intended procedure TIME OUT Relevant labs, photos, and/or imaging studies have been reviewed. Consent documented and matches the intended procedure. Correct side/site marked and visible. Medications required for procedure verified. No fire risk assessment and interventions applicable. No implant(s) inserted. SIGN OUT No specimen collected. No post-procedure POC communication to the patient's multidisciplinary team (including the bedside nurse for hospitalized patients) applicable. Referring Provider: YOHANA CREWS [[id number]] Allergies As of Date: 08/06/2024 (No Known Allergies) Date Reviewed: 08/06/2024 Reviewed by: Lizbeth Porter MA - Fully Assessed Reason for Visit: Injections [199] Cmt: Euflexxa injection # 3 left knee Primary Visit Diagnosis:Post-traumati c osteoarthritis of left knee [M17.32] Order(s):Large Joint Arthro/Inj: L knee joint [UDY737] Order #: [id number] [] sodium hyaluronate 20 mg injection (EUFLEXXA)Disp: Rfl: Prescriptions as of 08/06/2024 - traZODone (DESYREL) 50 mg tablet TAKE 2-3 TABLETS BY MOUTH NEEDED AT BEDTIME. - ALPRAZolam (XANAX) 0.5 mg tablet Take 1 tablet by mouth two times a day as needed for up to 90 days. - omeprazole (PRILOSEC) 20 mg capsule Take 1 capsule by mouth once daily. TAKE 1 TABLET BY MOUTH DAILY BEFORE BREAKFAST. 1/2 HR BEFORE MEAL. - diclofenac, EC, (VOLTAREN) 75 mg EC tablet Take 1 tablet by mouth two times a day. FOR PAIN - lisinopril (ZESTRIL) 20 mg tablet Take 1 tablet by mouth once daily. - Cholecalciferol, Vitamin D3, 50 mcg (2,000 unit) cap Take 1 capsule by mouth once daily. Problem List As Of Date 08/06/2024 Noted Resolved Hypogonadism in male [E29.1] 03/06/2015 Ex-smoker [Z87.891] 03/06/2015 Well adult exam [Z00.00] 03/06/2015 04/22/2023 Muscle cramps [R25.2] 03/06/2015 Dyslipidemia [E78.5] 03/19/2015 Leukocytosis [D72.829] 03/19/2015 TIMOTHY (obstructive sleep apnea) [G47.33] 03/31/2015 Essential hypertension with goal blood pressure*06/19/2015 Elevated LFTs [R79.89] 04/14/2016 04/22/2023 Hematuria [R31.9] 04/14/2016 GERD without esophagitis [K21.9] 04/14/2016 Fatty liver [K76.0] 04/21/2016 Atypical nevi [D22.9] 01/06/2018 Encounter for screening for diabetes mellitus [*12/13/2018 Situational mixed anxiety and depressive disord*05/18/2019 Obese [E66.9] Prescriptions ordered this encounter Disp Refills Start End SODIUM HYALURONATE 10 MG/ML(MW 2.4-3* 08/06/2024 08/06/2024 Route: Inj-ORTHO Encounter Status:Closed by YOHANA CREWS on 08/06/24 [facility] Large Joint Arthro/Inj: L kn ee jointon 08-06-2024 Yohana Crews PA -C 08/06/2024 7:51 AM Large Joint Arthro/Inj: L knee joint 08/06/2024 7:50 AM The procedure site was prepped in the usual sterile fashion. Site: L knee joint Medications: 20 mg sodium hyaluronate 10 mg/mL(mw 2.4 -3.6 million) Outcome: Tolerated well, no immediate complications Post-injection instructions were reviewed with the patient and the patient voiced understanding of these instructions. Informed Consent Consent Obtained: Verbal [place] Protocol A moment to CARE was completed. SIGN IN Sign in communication not applicable due to emergent procedure. Personnel directly involved with the procedure wore the appropriate PPE. Special Equipment: N/A Patient/Surrogate Stated/Verified: Patient name, Date of , Relevant allergies and Intended procedure TIME OUT Relevant labs, photos, and/or imaging studies have been reviewed. Consent documented and matches the intended procedure. Correct side/site marked and visible. Medications required for procedure verified. No fire risk assessment and interventions applicable. No implant(s) inserted. SIGN OUT No specimen collected. No post-procedure POC communication to the patient's multidisciplinary team (including the bedside nurse for hospitalized patients) applicable. [facility] ic CNOVon 07-30-2024 CNOV Office Visit (ORTHWS ) SREE TORRES ([id number]) 1970 M Date Time Provider Department 07/30/24 11:45 AM YOHANA CREWS During your visit today, we recorded the following information about you: Gris Pina MA 07/30/2024 11:38 AM Signed AMB ROOMING INTAKE FLOWSHEET DATA Euflexxa injection # 2 into left knee. LOT # [id number] EXP 01/27/2025 BRANDON Moore Sondra, PA-C 07/30/2024 11:38 AM Signed Large Joint Arthro/Inj: L knee joint 07/30/2024 11:38 AM The procedure site was prepped in the usual sterile fashion. Site: L knee joint Medications: 20 mg sodium hyaluronate 10 mg/mL(mw 2.4 -3.6 million) Outcome: Tolerated well, no immediate complications Post-injection instructions were reviewed with the patient and the patient voiced understanding of these instructions. Informed Consent Consent Obtained: Verbal [place] Protocol A moment to CARE was completed. SIGN IN Sign in communication not applicable due to emergent procedure. Personnel directly involved with the procedure wore the appropriate PPE. Special Equipment: N/A Patient/Surrogate Stated/Verified: Patient name, Date of , Relevant allergies and Intended procedure TIME OUT Relevant labs, photos, and/or imaging studies have been reviewed. Consent documented and matches the intended procedure. Correct side/site marked and visible. Medications required for procedure verified. No fire risk assessment and interventions applicable. No implant(s) inserted. SIGN OUT No specimen collected. No post-procedure POC communication to the patient's multidisciplinary team (including the bedside nurse for hospitalized patients) applicable. Referring Provider: YOHANA CREWS [[id number]] Allergies As of Date: 07/30/2024 (No Known Allergies) Date Reviewed: 07/30/2024 Reviewed by: Gris Pina MA - Fully Assessed Reason for Visit: Injections [199] Primary Visit Diagnosis:Post-traumati c osteoarthritis of left knee [M17.32] Order(s):Large Joint Arthro/Inj: L knee joint [[id number]] Order #: [id number] [] sodium hyaluronate 20 mg injection (EUFLEXXA)Disp: Rfl: Prescriptions as of 07/30/2024 - traZODone (DESYREL) 50 mg tablet TAKE 2-3 TABLETS BY MOUTH NEEDED AT BEDTIME. - ALPRAZolam (XANAX) 0.5 mg tablet Take 1 tablet by mouth two times a day as needed for up to 90 days. - omeprazole (PRILOSEC) 20 mg capsule Take 1 capsule by mouth once daily. TAKE 1 TABLET BY MOUTH DAILY BEFORE BREAKFAST. 1/2 HR BEFORE MEAL. - diclofenac, EC, (VOLTAREN) 75 mg EC tablet Take 1 tablet by mouth two times a day. FOR PAIN - lisinopril (ZESTRIL) 20 mg tablet Take 1 tablet by mouth once daily. - Cholecalciferol, Vitamin D3, 50 mcg (2,000 unit) cap Take 1 capsule by mouth once daily. Problem List As Of Date 07/30/2024 Noted Resolved Hypogonadism in male [E29.1] 03/06/2015 Ex-smoker [Z87.891] 03/06/2015 Well adult exam [Z00.00] 03/06/2015 04/22/2023 Muscle cramps [R25.2] 03/06/2015 Dyslipidemia [E78.5] 03/19/2015 Leukocytosis [D72.829] 03/19/2015 TIMOTHY (obstructive sleep apnea) [G47.33] 03/31/2015 Essential hypertension with goal blood pressure*06/19/2015 Elevated LFTs [R79.89] 04/14/2016 04/22/2023 Hematuria [R31.9] 04/14/2016 GERD without esophagitis [K21.9] 04/14/2016 Fatty liver [K76.0] 04/21/2016 Atypical nevi [D22.9] 01/06/2018 Encounter for screening for diabetes mellitus [*12/13/2018 Situational mixed anxiety and depressive disord*05/18/2019 Obese [E66.9] Prescriptions ordered this encounter Disp Refills Start End SODIUM HYALURONATE 10 MG/ML(MW 2.4-3* 07/30/2024 07/30/2024 Route: Inj-ORTHO Encounter Status:Closed by YOHANA CREWS on 07/30/24 [facility] Large Joint Arthro/Inj: L kn ee jointon 07-30-2024 Yohana Crews PA -C 07/30/2024 11:38 AM Large Joint Arthro/Inj: L knee joint 07/30/2024 11:38 AM The procedure site was prepped in the usual sterile fashion. Site: L knee joint Medications: 20 mg sodium hyaluronate 10 mg/mL(mw 2.4 -3.6 million) Outcome: Tolerated well, no immediate complications Post-injection instructions were reviewed with the patient and the patient voiced understanding of these instructions. Informed Consent Consent Obtained: Verbal [place] Protocol A moment to CARE was completed. SIGN IN Sign in communication not applicable due to emergent procedure. Personnel directly involved with the procedure wore the appropriate PPE. Special Equipment: N/A Patient/Surrogate Stated/Verified: Patient name, Date of , Relevant allergies and Intended procedure TIME OUT Relevant labs, photos, and/or imaging studies have been reviewed. Consent documented and matches the intended procedure. Correct side/site marked and visible. Medications required for procedure verified. No fire risk assessment and interventions applicable. No implant(s) inserted. SIGN OUT No specimen collected. No post-procedure POC communication to the patient's multidisciplinary team (including the bedside nurse for hospitalized patients) applicable. [facility] ic CNOVon 07-23-2024 CNOV Office Visit (ORTHWS ) BRIANSREE Collins ([id number]) 1970 M Date Time Provider Department 07/23/24 7:30 AM YOHANA CREWS During your visit today, we recorded the following information about you: Lizbeth Porter MA 07/23/2024 8:15 AM Signed Patient presents with: Left Knee - Injections: Euflexxa injection left knee and wants injection Right shoulder AMB ROOMING INTAKE FLOWSHEET DATA Pain Pain Level: 4 Pain Location: Knee-Left Description: Aching, Throbbing Frequency: Intermittent Intervention/Comfort measure: Medication, Relaxation, Positioning Patient states he is taking Diclofenac for the pain and is helping. Here for Euflexxa injection # 1 left knee. Patient would like injection in his right shoulder today as well. LOT # [id number] EXP 01/27/25 BRANDON Mendoza Sondra, PA-C 07/23/2024 8:15 AM Signed Large Joint Arthro/Inj: L knee joint 07/23/2024 8:14 AM The procedure site was prepped in the usual sterile fashion. Site: L knee joint Medications: 20 mg sodium hyaluronate 10 mg/mL(mw 2.4 -3.6 million) Outcome: Tolerated well, no immediate complications Post-injection instructions were reviewed with the patient and the patient voiced understanding of these instructions. Informed Consent Consent Obtained: Verbal [place] Protocol A moment to CARE was completed. SIGN IN Sign in communication not applicable due to emergent procedure. Personnel directly involved with the procedure wore the appropriate PPE. Special Equipment: N/A Patient/Surrogate Stated/Verified: Patient name, Date of , Relevant allergies and Intended procedure TIME OUT Relevant labs, photos, and/or imaging studies have been reviewed. Consent documented and matches the intended procedure. Correct side/site marked and visible. Medications required for procedure verified. No fire risk assessment and interventions applicable. No implant(s) inserted. SIGN OUT No specimen collected. No post-procedure POC communication to the patient's multidisciplinary team (including the bedside nurse for hospitalized patients) applicable. Large Joint Arthro/Inj: R subacromial bursa 07/23/2024 8:14 AM The procedure site was prepped in the usual sterile fashion. Site: R subacromial bursa Medications: 6 mg betamethasone acetate-betamethasone sodium phosphate 6 mg/mL Anesthetics: 5 mL lidocaine (PF) 10 mg/mL (1 %) Outcome: Tolerated well, no immediate complications Post-injection instructions were reviewed with the patient and the patient voiced understanding of these instructions. Informed Consent Consent Obtained: Verbal [place] Protocol A moment to CARE was completed. SIGN IN Sign in communication not applicable due to emergent procedure. Personnel directly involved with the procedure wore the appropriate PPE. Special Equipment: N/A Patient/Surrogate Stated/Verified: Patient name, Date of , Relevant allergies and Intended procedure TIME OUT Relevant labs, photos, and/or imaging studies have been reviewed. Consent documented and matches the intended procedure. Correct side/site marked and visible. Medications required for procedure verified. No fire risk assessment and interventions applicable. No implant(s) inserted. SIGN OUT No specimen collected. All instruments, equipment, possible retained foreign bodies accounted for. No post-procedure POC communication to the patient's multidisciplinary team (including the bedside nurse for hospitalized patients) applicable. Referring Provider: YOHANA CREWS [[id number]] Allergies As of Date: 07/23/2024 (No Known Allergies) Date Reviewed: 06/13/2024 Reviewed by: Stan Oropeza APRN.PHARMACIST AIDE - Fully Assessed Reason for Visit: Injections [199] Cmt: Euflexxa injection left knee and wants injection Right shoulder Primary Visit Diagnosis:Traumatic tear of right rotator cuff, unspecified tear extent, initial encounter [S46.011A] Other Visit Diagnosis:Post-traumati c osteoarthritis of left knee [M17.32] Order(s):Large Joint Arthro/Inj: L knee joint [FCQ777] Order #: [id number] Large Joint Arthro/Inj: R subacromial bursa [RJC877] Order #: [id number] [] sodium hyaluronate 20 mg injection (EUFLEXXA)Disp: Rfl: [] betamethasone acetate-betamethasone sodium phosphate 6 mg injection (CELESTONE)Disp: Rfl: [] lidocaine (PF) 10 mg/mL (1 %) 5 mL injection (XYLOCAINE)Disp: Rfl: Prescriptions as of 07/23/2024 - traZODone (DESYREL) 50 mg tablet TAKE 2-3 TABLETS BY MOUTH NEEDED AT BEDTIME. - ALPRAZolam (XANAX) 0.5 mg tablet Take 1 tablet by mouth two times a day as needed for up to 90 days. - omeprazole (PRILOSEC) 20 mg capsule Take 1 capsule by mouth once daily. TAKE 1 TABLET BY MOUTH DAILY BEFORE BREAKFAST. 1/2 HR BEFORE MEAL. - diclofenac, EC, (VOLTAREN) 75 mg EC tablet Take 1 tablet by mouth two times a (more content not included)... Normal [facility] Large Joint Arthro/Inj: L kn ee jointon 07-23-2024 Yohana Crews PA -C 07/23/2024 8:15 AM Large Joint Arthro/Inj: L knee joint 07/23/2024 8:14 AM The procedure site was prepped in the usual sterile fashion. Site: L knee joint Medications: 20 mg sodium hyaluronate 10 mg/mL(mw 2.4 -3.6 million) Outcome: Tolerated well, no immediate complications Post-injection instructions were reviewed with the patient and the patient voiced understanding of these instructions. Informed Consent Consent Obtained: Verbal [place] Protocol A moment to CARE was completed. SIGN IN Sign in communication not applicable due to emergent procedure. Personnel directly involved with the procedure wore the appropriate PPE. Special Equipment: N/A Patient/Surrogate Stated/Verified: Patient name, Date of , Relevant allergies and Intended procedure TIME OUT Relevant labs, photos, and/or imaging studies have been reviewed. Consent documented and matches the intended procedure. Correct side/site marked and visible. Medications required for procedure verified. No fire risk assessment and interventions applicable. No implant(s) inserted. SIGN OUT No specimen collected. No post-procedure POC communication to the patient's multidisciplinary team (including the bedside nurse for hospitalized patients) applicable. [facility] Large Joint Arthro/Inj: R hernandez bacromial bursaon 07-23-2024 Yohana Crews PA -C 07/23/2024 8:15 AM Large Joint Arthro/Inj: R subacromial bursa 07/23/2024 8:14 AM The procedure site was prepped in the usual sterile fashion. Site: R subacromial bursa Medications: 6 mg betamethasone acetate-betamethasone sodium phosphate 6 mg/mL Anesthetics: 5 mL lidocaine (PF) 10 mg/mL (1 %) Outcome: Tolerated well, no immediate complications Post-injection instructions were reviewed with the patient and the patient voiced understanding of these instructions. Informed Consent Consent Obtained: Verbal [place] Protocol A moment to CARE was completed. SIGN IN Sign in communication not applicable due to emergent procedure. Personnel directly involved with the procedure wore the appropriate PPE. Special Equipment: N/A Patient/Surrogate Stated/Verified: Patient name, Date of , Relevant allergies and Intended procedure TIME OUT Relevant labs, photos, and/or imaging studies have been reviewed. Consent documented and matches the intended procedure. Correct side/site marked and visible. Medications required for procedure verified. No fire risk assessment and interventions applicable. No implant(s) inserted. SIGN OUT No specimen collected. All instruments, equipment, possible retained foreign bodies accounted for. No post-procedure POC communication to the patient's multidisciplinary team (including the bedside nurse for hospitalized patients) applicable. [facility] Jim 07-06-2024 CNPN Telephone (KATIEWS) SREE TORRES ([id number]) 1970 M Date Time Provider Department 07/06/24 JANETT PADGETT During your visit today, we recorded the following information about you: Allergies As of Date: 07/06/2024 (No Known Allergies) Date Reviewed: 06/13/2024 Reviewed by: Stan Oropeza APRN.PHARMACIST AIDE - Fully Assessed Visit Diagnosis:Insomnia secondary to chronic pain [G89.29, G47.01] Order(s):traZODone (DESYREL) 50 mg tabletTake 2-3 tablets as needed at bedtime.Disp: 90 tabletRfl: 1 Prescriptions as of 07/06/2024 - traZODone (DESYREL) 50 mg tablet Take 2-3 tablets as needed at bedtime. - ALPRAZolam (XANAX) 0.5 mg tablet Take 1 tablet by mouth two times a day as needed for up to 90 days. - omeprazole (PRILOSEC) 20 mg capsule Take 1 capsule by mouth once daily. TAKE 1 TABLET BY MOUTH DAILY BEFORE BREAKFAST. 1/2 HR BEFORE MEAL. - diclofenac, EC, (VOLTAREN) 75 mg EC tablet Take 1 tablet by mouth two times a day. FOR PAIN - lisinopril (ZESTRIL) 20 mg tablet Take 1 tablet by mouth once daily. - Cholecalciferol, Vitamin D3, 50 mcg (2,000 unit) cap Take 1 capsule by mouth once daily. Problem List As Of Date 07/06/2024 Noted Resolved Hypogonadism in male [E29.1] 03/06/2015 Ex-smoker [Z87.891] 03/06/2015 Well adult exam [Z00.00] 03/06/2015 04/22/2023 Muscle cramps [R25.2] 03/06/2015 Dyslipidemia [E78.5] 03/19/2015 Leukocytosis [D72.829] 03/19/2015 TIMOTHY (obstructive sleep apnea) [G47.33] 03/31/2015 Essential hypertension with goal blood pressure*06/19/2015 Elevated LFTs [R79.89] 04/14/2016 04/22/2023 Hematuria [R31.9] 04/14/2016 GERD without esophagitis [K21.9] 04/14/2016 Fatty liver [K76.0] 04/21/2016 Atypical nevi [D22.9] 01/06/2018 Encounter for screening for diabetes mellitus [*12/13/2018 Situational mixed anxiety and depressive disord*05/18/2019 Obese [E66.9] Prescriptions ordered this encounter Disp Refills Start End TRAZODONE 50 MG TABLET 90 t* 1 07/06/2024 Sig: Take 2-3 tablets as needed at bedtime. Medications Discontinued During This Encounter Prescriptions - zolpidem (AMBIEN) 10 mg (Discontinued) Take 1 tablet by mouth at bedtime as needed (insomnia) for up to 120 days. - traZODone (DESYREL) 50 mg tablet (Discontinued) Take 2-3 tablets as needed at bedtime. Encounter Status:Closed by JANETT PADGTET on 07/06/24 Normal [facility] CNOVon 06-13-2024 CNOV Office Visit (FAMPWS ) BRIANSREE Karina ([id number]) 1970 M Date Time Provider Department 06/13/24 7:40 AM STAN OROPEZA During your visit today, we recorded the following information about you: Pulse Blood pressure Weight 71/minute 118/76 125.4 kg Stan Oropeza APRN.PHARMACIST AIDE 06/13/2024 6:01 PM Signed 06/13/2024 Recording using [employer] software for draft documentation of the visit was discussed with the patient/authorized nutrition representative; all questions welcomed and answered. Patient/authorized nutrition representative agreed to proceed HPI: Sree is a 54-year-old male with a history of insomnia and knee pain, presenting for follow-up. Insomnia: - Currently taking trazodone 2-3 tablets nightly; reports drowsiness with 3 tablets. - Previously on Ambien; discontinued due to 's concerns. - Uses Xanax PRN to help calm down before sleep. - Describes sleep as broken, with frequent awakenings to use the bathroom and let dogs out. - Struggles to achieve 8 hours of uninterrupted sleep. 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 - Sleep disrupted on weekends due to family activities and work schedule. Knee Pain: - Diagnosed with a torn meniscus, arthritis under the patella, and scar tissue from a torn ACL and MCL. - Sree disagrees desires surgical intervention and requesting assistance to get the ball rolling with this. - Received three cortisone injections; first provided relief, but subsequent injections less effective. - Experiencing severe pain as cortisone effects wear off; describes pain as 15 on a scale of 1-10. - Insurance does not cover recommended gel injections; Sree concerned about managing pain between cortisone injections. - Pain interferes with sleep, especially when lying on the affected side. - Reports swelling and fluid buildup behind the knee. Depression and Anxiety: - Reports significant stress and anxiety related to home life and work. - Describes home environment as stressful due to relationship issues with . - Feels trapped in current living situation; reports frequent arguments and tension. - Uses Xanax to manage anxiety and help with sleep. - Expresses feelings of depression, describing life as work to live instead of living to work. PAST MEDICAL HISTORY Diagnosis Date Dyslipidemia 03/19/2015 Elevated LFTs 04/14/2016 Essential hypertension with goal blood pressure less than 140/90 06/19/2015 Ex-smoker 03/06/2015 Started at age 23 up to 1 02/08 PPD. Quit smoking May 08 2016 Fatty liver 04/21/2016 GERD without esophagitis 04/14/2016 Hypogonadism in male 03/06/2015 Leukocytosis Muscle cramps 03/06/2015 TIMOTHY (obstructive sleep apnea) 03/31/2015 Sleep study 03/2015: sever. Not able to tolerate CPAP Situational mixed anxiety and depressive disorder 05/18/2019 secodary to Covid 19 Current Outpatient Medications on File Prior to Visit Medication Sig traZODone (DESYREL) 50 mg tablet Take 2-3 tablets as needed at bedtime. lisinopril (ZESTRIL) 20 mg tablet Take 1 tablet by mouth once daily. Cholecalciferol, Vitamin D3, 50 mcg (2,000 unit) cap Take 1 capsule by mouth once daily. No current facility-administered medications on file prior to visit. Review of Systems: Constitutional: (+) sleep disturbance Musculoskeletal: (+) knee pain, (+) difficulty ambulating Psychiatric: (+) depressed mood, (+) anxiety Physical Exam: BP 118/76 (BP Site: Left Arm, BP Position: Sitting, BP Cuff Size: Large Adult) Pulse 71 Wt 125.4 kg (276 lb 6.4 oz) SpO2 98% BMI 34.55 kg/m? GENERAL: NAD, alert and oriented LUNGS: Clear to auscultation bilaterally, no wheezes/rhonchi/rales. HEART: Regular rate and rhythm, no murmurs. No ectopy. EXTREMITIES: Normal, no deformities, no skin discoloration, no edema. NEURO: Awake, alert and oriented x3, cranial nerves II-XII grossly intact, normal gait, no involuntary motions PSYCHIATRIC: pleasanat, cooperative, no SI/HI Diagnostics Reviewed: Imaging reviewed: - MRI of the knee: Torn meniscus, patellofemoral osteoarthritic changes, and scar tissue consistent with prior ACL and MCL tears. Assessment/Plan: 1. Situational mixed anxiety and depressive disorder (F43.23) 2. 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 - Continue Xanax as needed for acute anxiety management; prescription refilled. - Discussed potential benefits of Ambien for improved sleep quality; prescription initiated. - Scheduled follow-up in 4 months to reassess mental health status and medication efficacy. 3. GERD without esophagitis (K21.9) 4. 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 - Initiated (more content not included)... Normal [facility] SREE TORRES ([id number]) 1970 M Date Time Provider Department 06/04/24 YOHANA CREWS [facility] During your visit today, we recorded the following information about you: Molly Hagan MA 06/04/2024 10:24 AM Signed Additional Clinical Information Request Please reply all to this email Please provide the following information to facilitate or complete the prior authorization Clinical Information - See Comments Sign OV Notes Clarify Information Updated / Correct Insurance Updated diagnosis code on order and or office note Medical Necessity Not Met Per Payer Guidelines Payer Request Additional Information x Other (must complete Comment section) Patient Name: Sree torres Appt Date: HCPCS code(s) AND drug name(s): [id number] euflexxa Comments: Non covered service per payer Yohana Crwes PA-C 06/04/2024 10:44 AM Signed Can we please inform the patient that unfortunately it looks like his insurance does not cover viscosupplementation. Viktoriya Armenta, RN 06/04/2024 5:42 PM Signed Sade with [facility] Authorization Department called in and reports Pt called them and said the gel injections Ortho had order had been denied by his insurance. Sade said they hadn't received any forms at [facility] about this procedure. I let her know I would send providers office a message about this and gave her the phone number to call for Donna the financial planning consultant that had sent the Pt a message reporting that his procedure had been denied. Please call back and advise. Gris Pina MA 06/06/2024 9:38 AM Signed Patient has been notified as he sent in a [employer] message asking for appeal, which is not available as his plan does not cover the service for any member. His only option is to go through his pharmaceutical benefits, if he has any. Interview Rocket reply has been sent back to the patient about this. Allergies As of Date: 06/04/2024 (No Known Allergies) Date Reviewed: 05/28/2024 Reviewed by: Gris Pina MA - Fully Assessed Reason for Visit: Insurance Authorization [[id number]] Cmt: Prior Auth Denied: NonCovered Benefit (Drug Name) Prescriptions as of 06/06/2024 - diclofenac, EC, (VOLTAREN) 75 mg EC tablet Take 1 tablet by mouth two times a day. FOR PAIN - ALPRAZolam (XANAX) 0.5 mg tablet Take 1 tablet by mouth two times a day as needed for up to 30 days. - traZODone (DESYREL) 50 mg tablet Take 2-3 tablets as needed at bedtime. - lisinopril (ZESTRIL) 20 mg tablet Take 1 tablet by mouth once daily. - omeprazole (PRILOSEC) 20 mg capsule Take 1 capsule by mouth once daily. TAKE 1 TABLET BY MOUTH DAILY BEFORE BREAKFAST. 1/2 HR BEFORE MEAL. - Cholecalciferol, Vitamin D3, 50 mcg (2,000 unit) cap Take 1 capsule by mouth once daily. Problem List As Of Date 06/04/2024 Noted Resolved Hypogonadism in male [E29.1] 03/06/2015 Ex-smoker [Z87.891] 03/06/2015 Well adult exam [Z00.00] 03/06/2015 04/22/2023 Muscle cramps [R25.2] 03/06/2015 Dyslipidemia [E78.5] 03/19/2015 Leukocytosis [D72.829] 03/19/2015 TIMOTHY (obstructive sleep apnea) [G47.33] 03/31/2015 Essential hypertension with goal blood pressure*06/19/2015 Elevated LFTs [R79.89] 04/14/2016 04/22/2023 Hematuria [R31.9] 04/14/2016 GERD without esophagitis [K21.9] 04/14/2016 Fatty liver [K76.0] 04/21/2016 Atypical nevi [D22.9] 01/06/2018 Encounter for screening for diabetes mellitus [*12/13/2018 Situational mixed anxiety and depressive disord*05/18/2019 Obese [E66.9] Encounter Status:Closed by GRIS PINA on 06/06/24 [facility] 05-28-2024 CNOV Office Visit (DAHLIA ) SREE TORRES ([id number]) 1970 [place] Date Time Provider Department 05/28/24 7:30 AM YOHANA CREWS During your visit today, we recorded the following information about you: YovaniGris villalobos MA 05/28/2024 8:02 AM Signed AMB ROOMING INTAKE FLOWSHEET DATA Pain Pain Level: 9 Pain Location: Knee-Left Description: Aching, Burning, Sharp, Stabbing, Throbbing Duration Amount of Time: 24 Duration Units: Hours Frequency: Continuous Intervention/Comfort measure: Medication, Reposition, Relaxation, Positioning Yohana Crews PA-C 05/28/2024 8:02 AM Signed Yohana Crews PA-C Department of Orthopaedics [facility] [address] [facility] [address] Dept: [phone] Dept May 28, 2024 CHIEF COMPLAINT: Established Patient and Injections of the Left Knee. ASSESSMENT: M17.32 Post-traumatic osteoarthritis of left knee (primary encounter diagnosis) SUMMARY/PLAN: Patient presents for a repeat left knee corticosteroid injection, left knee injection was almost beneficial for the full 91 days. Patient does not believe that the meloxicam is beneficial, we discussed switching him to some diclofenac. He is also interested in trying viscosupplementation, we will submit a prior authorization. Large Joint Arthro/Inj: L knee joint 05/28/2024 8:00 AM The procedure site was prepped in the usual sterile fashion. Site: L knee joint Medications: 6 mg betamethasone acetate-betamethasone sodium phosphate 6 mg/mL Anesthetics: 5 mL lidocaine (PF) 10 mg/mL (1 %) Outcome: Tolerated well, no immediate complications Post-injection instructions were reviewed with the patient and the patient voiced understanding of these instructions. Informed Consent Consent Obtained: Verbal [place] Protocol A moment to CARE was completed. SIGN IN Sign in communication not applicable due to emergent procedure. Personnel directly involved with the procedure wore the appropriate PPE. Special Equipment: N/A Patient/Surrogate Stated/Verified: Patient name, Date of , Relevant allergies and Intended procedure TIME OUT Relevant labs, photos, and/or imaging studies have been reviewed. Consent documented and matches the intended procedure. Correct side/site marked and visible. Medications required for procedure verified. No fire risk assessment and interventions applicable. No implant(s) inserted. SIGN OUT No specimen collected. All instruments, equipment, possible retained foreign bodies accounted for. Rationale for Viscosupplementation: Initial Request As a part of a multimodal treatment plan, we are requesting authorization of hyaluronic acid viscosupplementation injections for the improvement of symptoms related to osteoarthritis. Authorization is being requested for treatment of the Left knee. Rationale for authorization of these injections is based on the following elements: Signs and Symptoms Length of symptoms > 3 months Pain interferes with ADLs? Yes Radiographic evidence of OA? Yes Previous Treatments Bracing attempted? No Formal Physical Therapy (PT)/ Home Exercise Program (HEP) attempted? Patient completed a comprehensive PT program with compliance to HEP NSAID medication attempted? Yes Corticosteroid injection attempted? Weight management attempted? No (Normal BMI) Patient is no longer symptomatic following the above treatments Requested Viscosupplementation Preferred product: Euflexxa Alternative product: Durolane or payor preferred Mr. Sree Torres was advised as to contrast therapies and/or to take analgesics/anti-inflamm atories as needed and all contraindications were reviewed. Supporting Information Below: Medications: Current Outpatient Medications Medication Sig ALPRAZolam (XANAX) 0.5 mg tablet Take 1 tablet by mouth two times a day as needed for up to 30 days. traZODone (DESYREL) 50 mg tablet Take 2-3 tablets as needed at bedtime. lisinopril (ZESTRIL) 20 mg tablet Take 1 tablet by mouth once daily. omeprazole (PRILOSEC) 20 mg capsule Take 1 capsule by mouth once daily. TAKE 1 TABLET BY MOUTH DAILY BEFORE BREAKFAST. 1/2 HR BEFORE MEAL. Cholecalciferol, Vitamin D3, 50 mcg (2,000 unit) cap Take 1 capsule by mouth once daily. diclofenac, EC, (VOLTAREN) 75 mg EC tablet Take 1 tablet by mouth two times a day. FOR PAIN No current facility-administered medications for this visit. Allergies: Patient has no known allergies. This note was partially generated using [employer] voice recognition system, and there may be some incorrect words, spellings, and punctuation that were not noted in checking the note before saving. EDDIE Ramirez-Polly Allergies As of Date: 05/28/2024 (No Known Allergies) Date Reviewed: 05/28/2024 Reviewed by: Gris Pina MA - Fully Assessed Reason for Visit: Established Patient [1 (more content not included)... Normal [facility] Large Joint Arthro/Inj: L kn ee jointon 05-28-2024 Yohana Crews PA -C 05/28/2024 8:02 AM Large Joint Arthro/Inj: L knee joint 05/28/2024 8:00 AM The procedure site was prepped in the usual sterile fashion. Site: L knee joint Medications: 6 mg betamethasone acetate-betamethasone sodium phosphate 6 mg/mL Anesthetics: 5 mL lidocaine (PF) 10 mg/mL (1 %) Outcome: Tolerated well, no immediate complications Post-injection instructions were reviewed with the patient and the patient voiced understanding of these instructions. Informed Consent Consent Obtained: Verbal [place] Protocol A moment to CARE was completed. SIGN IN Sign in communication not applicable due to emergent procedure. Personnel directly involved with the procedure wore the appropriate PPE. Special Equipment: N/A Patient/Surrogate Stated/Verified: Patient name, Date of , Relevant allergies and Intended procedure TIME OUT Relevant labs, photos, and/or imaging studies have been reviewed. Consent documented and matches the intended procedure. Correct side/site marked and visible. Medications required for procedure verified. No fire risk assessment and interventions applicable. No implant(s) inserted. SIGN OUT No specimen collected. All instruments, equipment, possible retained foreign bodies accounted for. [facility] 05-22-2024 36 Called and left a VM that he would need an updated appointment then can submit after that [address] 05-11-2024 36 Workers comp will ne ed current notes. Can someone make him an appt? Thanks [facility] 36 I see no record of orthotics being ordered in 2022, last available record of orthotics being submitted under [facility] claim is from 2021 (found through [facility] link in [email or web address]) through encounter on 05/29/21. I would assume [facility] would need another visit to approve orthotics since he has not been seen in over a year [address] 05-10-2024 36 I do not see a previ ous C9 for the insoles that this pt is asking for in his media. We havent seen this pt since 2022. Should I send a C9 for these? If so, is there a code or some sort of description I should put on the C9? [place] [address] 05-09-2024 36 Name of caller: Bran booth Contact phone number: [phone] Relationship to Patient: patient Provider: Practice: Ortho Chief Complaint/Reason for Call: Patient states he had insoles for his shoes ordered by [facility] last time he saw him and would like to know if he can get a new order for those due to his wearing out. Please advise Best time of day caller can be reached: Any Patient advised that office/PCP has 24-48 business hours to return their call: Yes Normal [facility] CNOVon 02-27-2024 CNOV Office Visit (ORTHWS ) SREE TORRES ([id number]) 1970 M Date Time Provider Department 02/27/24 9:15 AM ADALBERTO GOMEZ During your visit today, we recorded the following information about you: Adalberto Gomez MD 03/19/2024 12:47 PM Signed Adalberto Gomez MD Department of Orthopaedics Orthopaedics [address] [facility] [address] Dept: [phone] Dept February 27, 2024 CHIEF COMPLAINT: Established Patient and Pain of the Left Knee HPI Patient here today for left knee pain. Pain started a couple of weeks ago. He denies recent injury. 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 The right shoulder continues to give him some troubles. ASSESSMENT: M25.819 Shoulder impingement (primary encounter diagnosis) M25.562 Acute pain of left knee PLAN: Based on his MRI findings for the knee, he has a couple of different issues with the knee, yet he does not feel the need or wish to pursue any kind of surgical intervention at this time. He like to try a cortisone injection which we will provide him today. In addition, he would like a cortisone injection for the right shoulder as well. His injections for the shoulder did seem to help him back in December will continue observation for now. Future discussions if needed. OBJECTIVE: Mr. Sree Torres is a pleasant 53 year old in no apparent distress. Gen:There were no vitals taken for this visit. nl development, non obese, no deformities ENT: Normocephalic, normal hearing, moist mucosa CV: Pulses:Radial= 2+ and symmetric, capillary refill < 2 secs, no peripheral edema/varicosities Skin: no rash, bruising or lesions. Good turgor. Psych: cooperative and appropriate, alert and oriented x 3, good mood and affect. Musculoskeletal: Stable exam for both issues Large Joint Arthro/Inj: L knee joint Informed Consent Consent Obtained: Verbal [place] Protocol A moment to CARE was completed. SIGN IN Sign in communication not applicable due to emergent procedure. Personnel directly involved with the procedure wore the appropriate PPE. Special Equipment: N/A Patient/Surrogate Stated/Verified: Patient name, Date of , Relevant allergies and Intended procedure TIME OUT Relevant labs, photos, and/or imaging studies have been reviewed. Intended patient and procedure match the source document(s). Consent documented and matches the intended procedure. Correct side/site marked and visible. Medications required for procedure verified. No fire risk assessment and interventions applicable. No implant(s) inserted.02/27/2024 10:19 AM The procedure site was prepped in the usual sterile fashion. Site: L knee joint Medications: 6 mg betamethasone acetate-betamethasone sodium phosphate 6 mg/mL Anesthetics: 5 mL lidocaine (PF) 10 mg/mL (1 %) Outcome: Tolerated well, no immediate complications Post-injection instructions were reviewed with the patient and the patient voiced understanding of these instructions. SIGN OUT No specimen collected. No instruments, equipment or retained foreign bodies applicable. Post-procedure follow-up management communicated and Plan of Care Visit completed when applicable Large Joint Arthro/Inj: R subacromial bursa Informed Consent Consent Obtained: Verbal [place] Protocol A moment to CARE was completed. SIGN IN Sign in communication not applicable due to emergent procedure. Personnel directly involved with the procedure wore the appropriate PPE. Special Equipment: N/A Patient/Surrogate Stated/Verified: Patient name, Date of , Relevant allergies and Intended procedure TIME OUT Relevant labs, photos, and/or imaging studies have been reviewed. Intended patient and procedure match the source document(s). Consent documented and matches the intended procedure. Correct side/site marked and visible. Medications required for procedure verified. No fire risk assessment and interventions applicable. No implant(s) inserted.02/27/2024 10:19 AM The procedure site was prepped in the usual sterile fashion. Site: R subacromial bursa Medications: 6 mg betamethasone acetate-betamethasone sodium phosphate 6 mg/mL Anesthetics: 5 mL lidocaine (PF) 10 mg/mL (1 %) Outcome: Tolerated well, no immediate complications Post-injection instructions were reviewed with the patient and the patient voiced understanding of these instructions. SIGN OUT No specimen collected. No instruments, equipment or retained foreign bodies applicable. Post-procedure follow-up management communicated and Plan of Care Visit completed when applicable Imaging: IMPRESSION: MEDIAL MENISCUS TEAR. MILD TO MODERATE DEGENERATIVE CHONDRAL CHANGES. REMOTE MCL AND ACL INJURIES. Rotary Cutter Feeder: FRANCES Transcribe Date/Time: Feb 23 2024 10:02A Dictated by : BALAJI MENDES MD This examination was (more content not included)... Normal [facility] Large Joint Arthro/Inj: L kn ee jointon 02-27-2024 Adalberto Gomez MD 03/19/2024 12:47 PM Large Joint Arthro/Inj: L knee joint Informed Consent Consent Obtained: Verbal [place] Protocol A moment to CARE was completed. SIGN IN Sign in communication not applicable due to emergent procedure. Personnel directly involved with the procedure wore the appropriate PPE. Special Equipment: N/A Patient/Surrogate Stated/Verified: Patient name, Date of , Relevant allergies and Intended procedure TIME OUT Relevant labs, photos, and/or imaging studies have been reviewed. Intended patient and procedure match the source document(s). Consent documented and matches the intended procedure. Correct side/site marked and visible. Medications required for procedure verified. No fire risk assessment and interventions applicable. No implant(s) inserted.02/27/2024 10:19 AM The procedure site was prepped in the usual sterile fashion. Site: L knee joint Medications: 6 mg betamethasone acetate-betamethasone sodium phosphate 6 mg/mL Anesthetics: 5 mL lidocaine (PF) 10 mg/mL (1 %) Outcome: Tolerated well, no immediate complications Post-injection instructions were reviewed with the patient and the patient voiced understanding of these instructions. SIGN OUT No specimen collected. No instruments, equipment or retained foreign bodies applicable. Post-procedure follow-up management communicated and Plan of Care Visit completed when applicable [facility] Large Joint Arthro/Inj: R hernandez bacromial bursaon 02-27-2024 Adalberto Gomez MD 03/19/2024 12:47 PM Large Joint Arthro/Inj: R subacromial bursa Informed Consent Consent Obtained: Verbal [place] Protocol A moment to CARE was completed. SIGN IN Sign in communication not applicable due to emergent procedure. Personnel directly involved with the procedure wore the appropriate PPE. Special Equipment: N/A Patient/Surrogate Stated/Verified: Patient name, Date of , Relevant allergies and Intended procedure TIME OUT Relevant labs, photos, and/or imaging studies have been reviewed. Intended patient and procedure match the source document(s). Consent documented and matches the intended procedure. Correct side/site marked and visible. Medications required for procedure verified. No fire risk assessment and interventions applicable. No implant(s) inserted.02/27/2024 10:19 AM The procedure site was prepped in the usual sterile fashion. Site: R subacromial bursa Medications: 6 mg betamethasone acetate-betamethasone sodium phosphate 6 mg/mL Anesthetics: 5 mL lidocaine (PF) 10 mg/mL (1 %) Outcome: Tolerated well, no immediate complications Post-injection instructions were reviewed with the patient and the patient voiced understanding of these instructions. SIGN OUT No specimen collected. No instruments, equipment or retained foreign bodies applicable. Post-procedure follow-up management communicated and Plan of Care Visit completed when applicable [facility] XR KNEE 4V AP/PA BOTH+LAT/ME R LTon 02-27-2024 XR KNEE 4V AP/PA BOTH+LAT/HAIDER LT * * *Final Report* * * DATE OF EXAM: Feb 27 2024 8:57AM WRX [id number] - XR KNEE 4V AP/PA BOTH+LAT/HAIDER LT / PROCEDURE REASON: Left knee pain, unspecified chronicity * * * * Physician Interpretation * * * * EXAMINATION: XR KNEE 4V AP/PA BOTH+LAT/HAIDER LT PATIENT/TECHNOLOGIST PROVIDED HISTORY: PT STATES LEFT KNEE PAIN AND SWELLING. SEE MRI CLINICAL INFORMATION: 53 years old Male with Left knee pain, unspecified chronicity TECHNIQUE: XR KNEE 4V AP/PA BOTH+LAT/HAIDER LT Laterality: LEFT Number of different views (projections): 4 COMPARISON: Radiographs 02/20/2004, LEFT knee MR 02/23/2024 RESULT: No acute fracture. Joint spaces are maintained. Small joint effusion. IMPRESSION: No acute osseous abnormality. Rotary Cutter Feeder: FRANCES Transcribe Date/Time: Feb 29 2024 9:09A Dictated by : NENA DORANTES DO This examination was interpreted and the report reviewed and electronically signed by: NENA DORANTES DO on Feb 29 2024 9:11AM EST [id number] Normal [facility] Telephone (FAMPWS) SREE TORRES ([id number]) 1970 M Date Time Provider Department 02/23/24 [facility] During your visit today, we recorded the following information about you: Samina Berg APRN.PHARMACIST AIDE 02/23/2024 10:52 AM Signed Please call patient and let him know that MRI of knee does show meniscus tear with ACL and MCL injury. I see he has appointment with Ortho on Tuesday. Make sure he keeps this to. Thank you, Samina Berg APRN.Lizbeth Rocha LPN 02/23/2024 11:00 AM Signed Spoke with pt gave information provided. Pt voices understanding. Allergies As of Date: 02/23/2024 (No Known Allergies) Date Reviewed: 02/09/2024 Reviewed by: Samina Berg APRN.PHARMACIST AIDE - Fully Assessed Prescriptions as of 02/23/2024 - traZODone (DESYREL) 50 mg tablet Take 2-3 tablets as needed at bedtime. - lisinopril (ZESTRIL) 20 mg tablet Take 1 tablet by mouth once daily. - meloxicam (MOBIC) 15 mg tablet TAKE 1 TABLET BY MOUTH EVERY DAY - omeprazole (PRILOSEC) 20 mg capsule Take 1 capsule by mouth once daily. TAKE 1 TABLET BY MOUTH DAILY BEFORE BREAKFAST. 1/2 HR BEFORE MEAL. - Cholecalciferol, Vitamin D3, 50 mcg (2,000 unit) cap Take 1 capsule by mouth once daily. Problem List As Of Date 02/23/2024 Noted Resolved Hypogonadism in male [E29.1] 03/06/2015 Ex-smoker [Z87.891] 03/06/2015 Well adult exam [Z00.00] 03/06/2015 04/22/2023 Muscle cramps [R25.2] 03/06/2015 Dyslipidemia [E78.5] 03/19/2015 Leukocytosis [D72.829] 03/19/2015 TIMOTHY (obstructive sleep apnea) [G47.33] 03/31/2015 Essential hypertension with goal blood pressure*06/19/2015 Elevated LFTs [R79.89] 04/14/2016 04/22/2023 Hematuria [R31.9] 04/14/2016 GERD without esophagitis [K21.9] 04/14/2016 Fatty liver [K76.0] 04/21/2016 Atypical nevi [D22.9] 01/06/2018 Encounter for screening for diabetes mellitus [*12/13/2018 Situational mixed anxiety and depressive disord*05/18/2019 Obese [E66.9] Encounter Status:Closed by LIZBETH BEJARANO on 02/23/24 Normal [facility] MR Knee - left WO contraston 02-23-2024 IMPRESSION: MEDIAL MENISCUS TEAR. MILD TO MODERATE DEGENERATIVE CHONDRAL CHANGES. REMOTE MCL AND ACL INJURIES. Rotary Cutter Feeder: PSCB Transcribe Date/Time: Feb 23 2024 10:02A Dictated by : BALAJI MENDES MD This examination was interpreted and the report reviewed and electronically signed by: BALAJI MENDES MD on Feb 23 2024 10:13AM [facility] DIVISION OF RADIOLOGY * * *Final Report* * * DATE OF EXAM: Feb 23 2024 8:35AM [facility] 0212 - MRI KNEE WO IVCON LT / PROCEDURE REASON: Acute pain of left knee * * * * Physician Interpretation * * * * EXAMINATION: MRI LEFT KNEE WITHOUT CONTRAST CLINICAL HISTORY: Acute pain of left knee TECHNIQUE: Routine non-contrast MRI of the knee MQ: MRK_2B COMPARISON: None RESULT: MENISCI: Medial Meniscus: Tear complex but predominantly horizontal tearing in the posterior horn. Lateral Meniscus: Degenerative changes without a tear LIGAMENTS: ACL: Remote tear PCL: Intact MCL: Remote injury LCL Complex: Intact CARTILAGE: Medial Femoral Condyle: Moderate sized area(s) of predominantly low grade (less than 50% thickness) cartilage loss and or fissuring with smaller area(s) of high grade (greater than 50% thickness) cartilage loss and or fissuring Medial Tibial Plateau: Small area(s) of high grade (greater than 50% thickness) partial thickness cartilage loss and or fissuring Lateral Femoral Condyle: Small area(s) of low grade (less than 50% thickness) partial thickness cartilage loss and or fissuring Lateral Tibial Plateau: Moderate sized area(s) of predominantly low grade (less than 50% thickness) cartilage loss and or fissuring with smaller area(s) of high grade (greater than 50% thickness) cartilage loss and or fissuring Patella: Small area(s) of low grade (less than 50% thickness) partial thickness cartilage loss and or fissuring Trochlea: Small areas(s) of predominantly high grade (greater than 50% thickness) cartilage loss and or fissuring with smaller area(s) of full thickness cartilage loss and or fissuring TENDONS: The distal quadriceps and patellar tendons are intact. The popliteus tendon is intact. BONES AND MARROW: No evidence of fracture or bone marrow replacing process. MUSCLES: Muscle bulk and signal intensity are normal. JOINT FLUID AND SYNOVIUM: Moderate joint effusion. Mild synovitis. No Barbosa's cyst. OTHER: No other significant abnormality identified. Localizer images: Unremarkable. DIVISION OF RADIOLOGY Provider, [facility] - 02/23/2024 * * *Final Report* * * DATE OF EXAM: Feb 23 2024 8:35AM [facility] 0212 - MRI KNEE WO IVCON LT / PROCEDURE REASON: Acute pain of left knee * * * * Physician Interpretation * * * * EXAMINATION: MRI LEFT KNEE WITHOUT CONTRAST CLINICAL HISTORY: Acute pain of left knee TECHNIQUE: Routine non-contrast MRI of the knee MQ: MRK_2B COMPARISON: None RESULT: MENISCI: Medial Meniscus: Tear complex but predominantly horizontal tearing in the posterior horn. Lateral Meniscus: Degenerative changes without a tear LIGAMENTS: ACL: Remote tear PCL: Intact MCL: Remote injury LCL Complex: Intact CARTILAGE: Medial Femoral Condyle: Moderate sized area(s) of predominantly low grade (less than 50% thickness) cartilage loss and or fissuring with smaller area(s) of high grade (greater than 50% thickness) cartilage loss and or fissuring Medial Tibial Plateau: Small area(s) of high grade (greater than 50% thickness) partial thickness cartilage loss and or fissuring Lateral Femoral Condyle: Small area(s) of low grade (less than 50% thickness) partial thickness cartilage loss and or fissuring Lateral Tibial Plateau: Moderate sized area(s) of predominantly low grade (less than 50% thickness) cartilage loss and or fissuring with smaller area(s) of high grade (greater than 50% thickness) cartilage loss and or fissuring Patella: Small area(s) of low grade (less than 50% thickness) partial thickness cartilage loss and or fissuring Trochlea: Small areas(s) of predominantly high grade (greater than 50% thickness) cartilage loss and or fissuring with smaller area(s) of full thickness cartilage loss and or fissuring TENDONS: The distal quadriceps and patellar tendons are intact. The popliteus tendon is intact. BONES AND MARROW: No evidence of fracture or bone marrow replacing process. MUSCLES: Muscle bulk and signal intensity are normal. JOINT FLUID AND SYNOVIUM: Moderate joint effusion. Mild synovitis. No Barbosa's cyst. OTHER: No other significant abnormality identified. Localizer images: Unremarkable. IMPRESSION IMPRESSION: MEDIAL MENISCUS TEAR. MILD TO MODERATE DEGENERATIVE CHONDRAL CHANGES. REMOTE MCL AND ACL INJURIES. Rotary Cutter Feeder: FRANCES Transcribe Date/Time: Feb 23 2024 10:02A Dictated by : BALAJI MENDES MD This examination was interpreted and the report reviewed and electronically signed by: BALAJI MENDES MD on Feb 23 2024 10:13AM EST [facility] Radiology Study observation (narrative) [facility] MR Knee - left WO contrastOr dered By: [facility] Provider on 02-23-2024 [facility] MRI KNEE WO IVCON LTon 02-22 MRI KNEE WO IVCON LT * * *Final Report* * * DATE OF EXAM: Feb 23 2024 8:35AM [facility] 0212 - MRI KNEE WO SRINATH LT / PROCEDURE REASON: Acute pain of left knee * * * * Physician Interpretation * * * * EXAMINATION: MRI LEFT KNEE WITHOUT CONTRAST CLINICAL HISTORY: Acute pain of left knee TECHNIQUE: Routine non-contrast MRI of the knee MQ: MRK_2B COMPARISON: None RESULT: MENISCI: Medial Meniscus: Tear complex but predominantly horizontal tearing in the posterior horn. Lateral Meniscus: Degenerative changes without a tear LIGAMENTS: ACL: Remote tear PCL: Intact MCL: Remote injury LCL Complex: Intact CARTILAGE: Medial Femoral Condyle: Moderate sized area(s) of predominantly low grade (less than 50% thickness) cartilage loss and or fissuring with smaller area(s) of high grade (greater than 50% thickness) cartilage loss and or fissuring Medial Tibial Plateau: Small area(s) of high grade (greater than 50% thickness) partial thickness cartilage loss and or fissuring Lateral Femoral Condyle: Small area(s) of low grade (less than 50% thickness) partial thickness cartilage loss and or fissuring Lateral Tibial Plateau: Moderate sized area(s) of predominantly low grade (less than 50% thickness) cartilage loss and or fissuring with smaller area(s) of high grade (greater than 50% thickness) cartilage loss and or fissuring Patella: Small area(s) of low grade (less than 50% thickness) partial thickness cartilage loss and or fissuring Trochlea: Small areas(s) of predominantly high grade (greater than 50% thickness) cartilage loss and or fissuring with smaller area(s) of full thickness cartilage loss and or fissuring TENDONS: The distal quadriceps and patellar tendons are intact. The popliteus tendon is intact. BONES AND MARROW: No evidence of fracture or bone marrow replacing process. MUSCLES: Muscle bulk and signal intensity are normal. JOINT FLUID AND SYNOVIUM: Moderate joint effusion. Mild synovitis. No Barbosa's cyst. OTHER: No other significant abnormality identified. Localizer images: Unremarkable. IMPRESSION: MEDIAL MENISCUS TEAR. MILD TO MODERATE DEGENERATIVE CHONDRAL CHANGES. REMOTE MCL AND ACL INJURIES. Rotary Cutter Feeder: FRANCES Transcribe Date/Time: Feb 23 2024 10:02A Dictated by : BALAJI MENDES MD This examination was interpreted and the report reviewed and electronically signed by: BALAJI MENDES MD on Feb 23 2024 10:13AM EST [id number] Normal [facility] CNOVon 02-09-2024 CNOV Office Visit (FAMPWS ) SREE TORRES ([id number]) 1970 M Date Time Provider Department 02/09/24 8:20 AM SAMINA BERG FAMPWS During your visit today, we recorded the following information about you: Pulse Respiration Blood pressure Weight 64/minute 14/minute 122/64 122.1 kg Samina Berg APRN.PHARMACIST AIDE 02/09/2024 10:44 AM Signed Chief Complaint Patient presents with: f/up meds HPI Sree Karina Torres is a 53 year old male who presents here today for Above Complaints. Sree is an established patient of Arash Oropeza CNP. Concerns today... Sleep -- Was taking ambien for sleep disturbances but wanted to try to come off of this d/t it being a controlled substance and fear of getting addicted. Was started on trazodone 50 mg. Reports this does help some but not as well as ambien. Reports recently moved out and will be from her. Reports she was the one making him get off the ambien. Pt is hoping trazodone works but if not, willing to restart ambien if needed. Pt reports mood is stable despite big changes in relationship status. Not taking Cymbalta anymore -- feels good without this. Utilizing xanax prn as needed -- takes occasionally/rarely, does not need routinely or daily. Last refilled in November. Does report R knee pain restarting x 3 weeks. Gait instability intermittently. Reports hx of MCL/ACL tear back in his 20s. Had MRI and known tear but never had surgery to fix this d/t no insurance. Pain was minimal and bearable until recently. Asking to have this looked at again. No new injury or fall. No record of prior MRI of tear. Does not want to complete physical therapy, has done this in the past. No other concerns or complaints today. Past medical history, appointments, medications, allergies reviewed. Previous Medical History PAST MEDICAL HISTORY Diagnosis Date Dyslipidemia 03/19/2015 Elevated LFTs 04/14/2016 Essential hypertension with goal blood pressure less than 140/90 06/19/2015 Ex-smoker 03/06/2015 Started at age 23 up to 1 /2 PPD. Quit smoking May 08 2016 Fatty liver 04/21/2016 GERD without esophagitis 04/14/2016 Hypogonadism in male 03/06/2015 Leukocytosis Muscle cramps 03/06/2015 TIMOTHY (obstructive sleep apnea) 03/31/2015 Sleep study 03/2015: sever. Not able to tolerate CPAP Situational mixed anxiety and depressive disorder 05/18/2019 secodary to Covid 19 Previous Surgical History PAST SURGICAL HISTORY Procedure Laterality Date BACK SURGERY HX micro discectomy L5-S1 COLONOSCOPY 09/04/2021 repeat in 3 years FECAL OCCULT BLOOD TEST 09/12/2019 negative FOOT SURGERY HX Right Family History FAMILY HISTORY Problem Relation Age of Onset Hypertension Mother Diabetes Mother Psychiatry Mother rash and anxiety Cancer Maternal Grandmother 60 ? Cancer Maternal Grandfather 60 ? Alzheimer's Disease No Family History Colon Cancer No Family History Prostate Cancer No Family History Breast Cancer No Family History Ovarian cancer No Family History Coronary Artery Disease No Family History Kidney Disease No Family History Seizures No Family History Stroke No Family History Thyroid No Family History Anesthesia Problems No Family History Patient Allergies ALLERGIES No Known Allergies Current Medications Current Outpatient Medications on File Prior to Visit Medication Sig traZODone (DESYREL) 50 mg tablet Take 1 tablet by mouth daily at bedtime. meloxicam (MOBIC) 15 mg tablet TAKE 1 TABLET BY MOUTH EVERY DAY omeprazole (PRILOSEC) 20 mg capsule Take 1 capsule by mouth once daily. TAKE 1 TABLET BY MOUTH DAILY BEFORE BREAKFAST. 1/2 HR BEFORE MEAL. Cholecalciferol, Vitamin D3, 50 mcg (2,000 unit) cap Take 1 capsule by mouth once daily. DULoxetine (CYMBALTA) 60 mg capsule Take 1 capsule by mouth once daily. zolpidem (AMBIEN) 10 mg Take 1 tablet by mouth at bedtime as needed (insomnia) for up to 120 days. lisinopril (ZESTRIL) 20 mg tablet Take 1 tablet by mouth once daily. No current facility-administered medications on file prior to visit. Social History Social History Tobacco Use Smoking status: Former Current packs/day: 0.00 Average packs/day: 1 pack/day for 20.0 years (20.0 ttl pk-yrs) Types: Cigarettes Start date: 05/08/1996 Quit date: 05/08/2016 Years since quittin.7 Smokeless tobacco: Never Tobacco comments: none x 4 years Vaping Use Vaping status: Never Used Substance Use Topics Alcohol use: No Drug use: No REVIEW OF SYSTEMS: as above Reviewed relevant PMHx, PSHx, Social Hx, current medications and allergies. Review of Symptoms REVIEW OF SYSTEMS See HPI EXAM: BP 122/64 (BP Site: Left Arm, BP Position: Sitting, BP Cuff Size: Large Adult) Pulse 64 Resp 14 Wt 122.1 kg (269 lb 3.2 oz) BMI 33.65 kg/m? General Appearance: Well appearing, alert, in no acute distress, well-hydrated, well no (more content not included)... [facility] Tele[facility] (FAMMelinaWS) SREE TORRES ([id number]) 1970 M Date Time Provider Department 01/23/24 [facility] During your visit today, we recorded the following information about you: Samina Berg APRN.PHARMACIST AIDE 01/23/2024 7:57 AM Signed Please call patient and let him know that lab work results look good. WBC is back to normal and kidney function is WNL. Thank you, Samina Berg APRN.Lizbeth Rocha LPN 01/23/2024 9:07 AM Signed Left message to return call. Maria Luz Pham RN 01/23/2024 4:28 PM Signed Patient notified of results. Patient verbalizes understanding. Maria Luz Pham RN Allergies As of Date: 01/23/2024 (No Known Allergies) Date Reviewed: 01/20/2024 Reviewed by: Samina Berg APRN.PHARMACIST AIDE - Fully Assessed Reason for Visit: Results [95] Prescriptions as of 01/23/2024 - traZODone (DESYREL) 50 mg tablet Take 1 tablet by mouth daily at bedtime. - meloxicam (MOBIC) 15 mg tablet TAKE 1 TABLET BY MOUTH EVERY DAY - DULoxetine (CYMBALTA) 60 mg capsule Take 1 capsule by mouth once daily. - zolpidem (AMBIEN) 10 mg Take 1 tablet by mouth at bedtime as needed (insomnia) for up to 120 days. - omeprazole (PRILOSEC) 20 mg capsule Take 1 capsule by mouth once daily. TAKE 1 TABLET BY MOUTH DAILY BEFORE BREAKFAST. 1/2 HR BEFORE MEAL. - lisinopril (ZESTRIL) 20 mg tablet Take 1 tablet by mouth once daily. - Cholecalciferol, Vitamin D3, 50 mcg (2,000 unit) cap Take 1 capsule by mouth once daily. Problem List As Of Date 01/23/2024 Noted Resolved Hypogonadism in male [E29.1] 03/06/2015 Ex-smoker [Z87.891] 03/06/2015 Well adult exam [Z00.00] 03/06/2015 04/22/2023 Muscle cramps [R25.2] 03/06/2015 Dyslipidemia [E78.5] 03/19/2015 Leukocytosis [D72.829] 03/19/2015 TIMOTHY (obstructive sleep apnea) [G47.33] 03/31/2015 Essential hypertension with goal blood pressure*06/19/2015 Elevated LFTs [R79.89] 04/14/2016 04/22/2023 Hematuria [R31.9] 04/14/2016 GERD without esophagitis [K21.9] 04/14/2016 Fatty liver [K76.0] 04/21/2016 Atypical nevi [D22.9] 01/06/2018 Encounter for screening for diabetes mellitus [*12/13/2018 Situational mixed anxiety and depressive disord*05/18/2019 Obese [E66.9] Encounter Status:Closed by MARIA LUZ PHAM on 01/23/24 Normal [facility] Culture, Blood (WB)on 2023 CUB Blood cultures x2 fr om two different sites No growth in 5 days. Normal [facility] Comment on above: Performed By: #### M 200.1000 ####[facility] [id number] [place], [address] CBC W Auto Differential pane l (Bld)on 01-20-2024 Basophils (Bld) [#/Vol] 0.05 10*3/uL Normal <0.11 [facility] Comment on above: Order Comment: Speci men Type: BLOOD SPECIMENOrdering Facility: [facility] Address: [address] [place] [address] Performed By: #### 5 7021-8 ####[facility] LABCLIA [id number] [place] [address] [place] Basophils/100 WBC (Bld) 0.5 % Normal [facility] Comment on above: Order Comment: Speci men Type: BLOOD SPECIMENOrdering Facility: [facility] Address: [address] [place] [address] Performed By: #### 5 7021-8 ####[facility] LABCLIA [id number] [place] [address] [place] Differential cell count method Nom (Bld) Auto Normal [facility] Comment on above: Order Comment: Speci men Type: BLOOD SPECIMENOrdering Facility: [facility] Address: [address] [place] [address] Performed By: #### 5 7021-8 ####[facility] LABCLIA [id number] [place] [address] [place] Eosinophils (Bld) [#/Vol] 0.09 10*3/uL Normal <0.46 [facility] Comment on above: Order Comment: Speci men Type: BLOOD SPECIMENOrdering Facility: [facility] Address: [address] [place] [address] Performed By: #### 5 7021-8 ####[facility] LABCLIA [id number] [place] [address] [place] Eosinophils/100 WBC (Bld) 0.9 % Normal [facility] Comment on above: Order Comment: Speci men Type: BLOOD SPECIMENOrdering Facility: [facility] Address: [address] [place] [address] Performed By: #### 5 7021-8 ####[facility] LABIA [id number] [place] [address] [place] Erythrocyte distribution width (RBC) [Ratio] 13.6 % Normal 11.5-15.0 [facility] Comment on above: Order Comment: Speci men Type: BLOOD SPECIMENOrdering Facility: [facility] Address: [address] [place] [address] Performed By: #### 5 7021-8 ####[facility] LABIA [id number] [place] [address] [place] Hematocrit (Bld) [Volume fraction] 50.9 % Normal 39.0-51.0 [facility] Comment on above: Order Comment: Speci men Type: BLOOD SPECIMENOrdering Facility: [facility] Address: [address] [place] [address] Performed By: #### 5 7021-8 ####[facility] LABIA [id number] [place] [address] [place] Hemoglobin (Bld) [Mass/Vol] 16.2 g/dL Normal 13.0-17.0 [facility] Comment on above: Order Comment: Speci men Type: BLOOD SPECIMENOrdering Facility: [facility] Address: [address] [place] [address] Performed By: #### 5 7021-8 ####[facility] LABCLIA [id number] [place] [address] [place] Immature granulocytes (Bld) [#/Vol] 0.03 10*3/uL Normal <0.10 [facility] Comment on above: Order Comment: Speci men Type: BLOOD SPECIMENOrdering Facility: [facility] Address: [address] [place] [address] Performed By: #### 5 7021-8 ####[facility] LABCLIA [id number] [place] [address] [place] Immature granulocytes/100 WBC (Bld) 0.3 % Normal [facility] Comment on above: Order Comment: Speci men Type: BLOOD SPECIMENOrdering Facility: [facility] Address: [address] [place] [address] Performed By: #### 5 7021-8 ####[facility] LABCLIA [id number] [place] [address] [place] Lymphocytes (Bld) [#/Vol] 2.00 10*3/uL Normal 1.00-4.00 [facility] Comment on above: Order Comment: Speci men Type: BLOOD SPECIMENOrdering Facility: [facility] Address: [address] [place] [address] Performed By: #### 5 7021-8 ####[facility] LABCLIA [id number] [place] [address] [place] Lymphocytes/100 WBC (Bld) 21.0 % Normal [facility] Comment on above: Order Comment: Speci men Type: BLOOD SPECIMENOrdering Facility: [facility] Address: [address] [place] [address] Performed By: #### 5 7021-8 ####[facility] LABCLIA [id number] [place] [address] [place] MCH (RBC) [Entitic mass] 26.0 pg Normal 26.0-34.0 [facility] Comment on above: Order Comment: Speci men Type: BLOOD SPECIMENOrdering Facility: [facility] Address: [address] [place] [address] Performed By: #### 5 7021-8 ####[facility] LABCLIA [id number] [place] [address] [place] MCHC (RBC) [Mass/Vol] 31.8 g/dL Normal 30.5-36.0 [facility] Comment on above: Order Comment: Speci men Type: BLOOD SPECIMENOrdering Facility: [facility] Address: [address] [place] [address] Performed By: #### 5 7021-8 ####[facility] LABCLIA [id number] [place] [address] [place] MCV (RBC) [Entitic vol] 81.8 fL Normal 80.0-100.0 [facility] Comment on above: Order Comment: Speci men Type: BLOOD SPECIMENOrdering Facility: [facility] Address: [address] [place] [address] Performed By: #### 5 7021-8 ####[facility] LABIA [id number] [place] [address] [place] Monocytes (Bld) [#/Vol] 0.77 10*3/uL Normal <0.87 [facility] Comment on above: Order Comment: Speci men Type: BLOOD SPECIMENOrdering Facility: [facility] Address: [address] [place] [address] Performed By: #### 5 7021-8 ####[facility] LABIA [id number] [place] [address] [place] Monocytes/100 WBC (Bld) 8.1 % Normal [facility] Comment on above: Order Comment: Speci men Type: BLOOD SPECIMENOrdering Facility: [facility] Address: [address] [place] [address] Performed By: #### 5 7021-8 ####[facility] LABCLIA [id number] [place] [address] [place] Neutrophils (Bld) [#/Vol] 6.57 10*3/uL Normal 1.45-7.50 [facility] Comment on above: Order Comment: Speci men Type: BLOOD SPECIMENOrdering Facility: [facility] Address: [address] [place] [address] Performed By: #### 5 7021-8 ####[facility] LABIA [id number] [place] [address] [place] Neutrophils/100 WBC (Bld) 69.2 % Normal [facility] Comment on above: Order Comment: Speci men Type: BLOOD SPECIMENOrdering Facility: [facility] Address: [address] [place] [address] Performed By: #### 5 7021-8 ####[facility] LABIA [id number] [place] [address] [place] Nucleated RBC (Bld) [#/Vol] 10*3/uL Normal <0.01 [facility] Comment on above: Order Comment: Speci men Type: BLOOD SPECIMENOrdering Facility: [facility] Address: [address] [place] [address] Performed By: #### 5 7021-8 ####[facility] LABIA [id number] [place] [address] [place] Nucleated RBC/100 WBC (Bld) [Ratio] 0.0 /[address] [facility] Comment on above: Order Comment: Speci men Type: BLOOD SPECIMENOrdering Facility: [facility] Address: [address] [place] [address] Performed By: #### 5 7021-8 ####[facility] LABIA [id number] [place] [address] [place] Platelet mean volume (Bld) [Entitic vol] 9.6 fL Normal 9.0-12.7 [facility] Comment on above: Order Comment: Speci men Type: BLOOD SPECIMENOrdering Facility: [facility] Address: [address] [place] [address] Performed By: #### 5 7021-8 ####[facility] LABIA [id number] [place] [address] [place] Platelets (Bld) [#/Vol] 330 10*3/uL Normal 150-400 [facility] Comment on above: Order Comment: Speci men Type: BLOOD SPECIMENOrdering Facility: [facility] Address: [address] [place] [address] Performed By: #### 5 7021-8 ####[facility] LABIA [id number] [place] [address] [place] RBC (Bld) [#/Vol] 6.22 10*6/uL High 4.20-6.00 [facility] Comment on above: Order Comment: Speci men Type: BLOOD SPECIMENOrdering Facility: [facility] Address: [address] [place] [address] Performed By: #### 5 7021-8 ####[facility] [id number] [place] [address] [place] WBC (Bld) [#/Vol] 9.51 10*3/uL Normal 3.70-11.00 [facility] Comment on above: Order Comment: Speci men Type: BLOOD SPECIMENOrdering Facility: [facility] Address: [address] [place] [address] Performed By: #### 5 7021-8 ####[facility] [id number] [place] [address] [place] CNOVon 01-20-2024 CNOV Office Visit (FAMPWS ) SREE TORRES ([id number]) 1970 M Date Time Provider Department 01/20/24 8:00 AM SAMINA BERG During your visit today, we recorded the following information about you: Pulse Blood pressure Weight 61/minute 140/80 119.8 kg Samina Berg APRN.CNP 01/20/2024 8:48 AM Signed Chief Complaint Patient presents with: diverticulitis hospt, f/up HPI Sree Torres is a 53 year old male who presents here today for Above Complaints. Sree is an established patient of Arash Oropeza CNP. Concerns today... Hospital follow-up -- Was first seen in [facility] ER on 01/11 d/t L flank pain. CT had showed diverticulitis. Pt sent home on PO flagyl and cefdinir. Given percocet as needed for significant pain. A few days later, pt then went to [facility] ER on 01/15 d/t worsen LLQ pain, n/v, and bloody diarrhea. Lab work showed SANDIP. Repeat CT scan showed mild diverticulitis remained. Pt was then admitted for IV antibotic regimen d/t failed PO regimen. After one day on IV antibiotics, symptoms resolved. Pt was then discharged home on 01/17 with Cipro and Flagyl. WBC 21.6 while in the hospital. In office today... Pt reports feeling much better than ER visits. Very scared/nervous to eat much food d/t concern that pain is going to return. When he does eat, food goes right through him. Still having diarrhea with very bad odor. Taking antibiotic as prescribed, has 6 days left. Returning back to work on Tuesday. May need [facility] paperwork filled out for the week he was having symptoms and hospitalized. Increase stressors d/t discussions with about her leaving him/moving out. Managing/handling this well for the time being. Past medical history, appointments, medications, allergies reviewed. Previous Medical History PAST MEDICAL HISTORY Diagnosis Date Dyslipidemia 03/19/2015 Elevated LFTs 04/14/2016 Essential hypertension with goal blood pressure less than 140/90 06/19/2015 Ex-smoker 03/06/2015 Started at age 23 up to 1 02/08 PPD. Quit smoking May 08 2016 Fatty liver 04/21/2016 GERD without esophagitis 04/14/2016 Hypogonadism in male 03/06/2015 Leukocytosis Muscle cramps 03/06/2015 TIMOTHY (obstructive sleep apnea) 03/31/2015 Sleep study 03/2015: sever. Not able to tolerate CPAP Situational mixed anxiety and depressive disorder 05/18/2019 secodary to Covid 19 Previous Surgical History PAST SURGICAL HISTORY Procedure Laterality Date BACK SURGERY HX micro discectomy L5-S1 COLONOSCOPY 09/04/2021 repeat in 3 years FECAL OCCULT BLOOD TEST 09/12/2019 negative FOOT SURGERY HX Right Family History FAMILY HISTORY Problem Relation Age of Onset Hypertension Mother Diabetes Mother Psychiatry Mother rash and anxiety Cancer Maternal Grandmother 60 ? Cancer Maternal Grandfather 60 ? Alzheimer's Disease No Family History Colon Cancer No Family History Prostate Cancer No Family History Breast Cancer No Family History Ovarian cancer No Family History Coronary Artery Disease No Family History Kidney Disease No Family History Seizures No Family History Stroke No Family History Thyroid No Family History Anesthesia Problems No Family History Patient Allergies ALLERGIES No Known Allergies Current Medications Current Outpatient Medications on File Prior to Visit Medication Sig traZODone (DESYREL) 50 mg tablet Take 1 tablet by mouth daily at bedtime. meloxicam (MOBIC) 15 mg tablet TAKE 1 TABLET BY MOUTH EVERY DAY DULoxetine (CYMBALTA) 60 mg capsule Take 1 capsule by mouth once daily. zolpidem (AMBIEN) 10 mg Take 1 tablet by mouth at bedtime as needed (insomnia) for up to 120 days. omeprazole (PRILOSEC) 20 mg capsule Take 1 capsule by mouth once daily. TAKE 1 TABLET BY MOUTH DAILY BEFORE BREAKFAST. 1/2 HR BEFORE MEAL. lisinopril (ZESTRIL) 20 mg tablet Take 1 tablet by mouth once daily. Cholecalciferol, Vitamin D3, 50 mcg (2,000 unit) cap Take 1 capsule by mouth once daily. No current facility-administered medications on file prior to visit. Social History Social History Tobacco Use Smoking status: Former Current packs/day: 0.00 Average packs/day: 1 pack/day for 20.0 years (20.0 ttl pk-yrs) Types: Cigarettes Start date: 05/08/1996 Quit date: 05/08/2016 Years since quittin.7 Smokeless tobacco: Never Tobacco comments: none x 4 years Vaping Use Vaping status: Never Used Substance Use Topics Alcohol use: No Drug use: No REVIEW OF SYSTEMS: as above Reviewed relevant PMHx, PSHx, Social Hx, current medications and allergies. Review of Symptoms REVIEW OF SYSTEMS See HPI. EXAM: BP 140/80 (BP Site: Left Arm, BP Position: Sitting, BP Cuff Size: Large Adult) Pulse 61 Wt 119.8 kg (264 lb 3.2 oz) SpO2 98% BMI 33.02 kg/m? General Appearance: Well appearing, alert, in no acute distress, well-hydrated, well nourished.. (more content not included)... Normal [facility] Comprehensive metabolic 2000 panelon 01-20-2024 Albumin [Mass/Vol] 4.4 g/dL Normal 3.9-4.9 [facility] Comment on above: Order Comment: Speci men Type: BLOOD SPECIMENOrdering Facility: [facility] Address: [address] [place] [address] Performed By: #### 2 4323-8 ####[facility] LABIA [id number] [place] [address] [place] ALP [Catalytic activity/Vol] 56 U/L Normal 38-113 [facility] Comment on above: Order Comment: Speci men Type: BLOOD SPECIMENOrdering Facility: [facility] Address: [address] [place] [address] Performed By: #### 2 4323-8 ####[facility] LABCLIA [id number] [place] [address] [place] ALT [Catalytic activity/Vol] 76 U/L High 10-54 [facility] Comment on above: Order Comment: Speci men Type: BLOOD SPECIMENOrdering Facility: [facility] Address: [address] [place] [address] Performed By: #### 2 4323-8 ####[facility] LABIA [id number] [place] [address] [place] Anion gap [Moles/Vol] 11 mmol/L Normal 8-15 [facility] Comment on above: Order Comment: Speci men Type: BLOOD SPECIMENOrdering Facility: [facility] Address: [address] [place] [address] Performed By: #### 2 4323-8 ####[facility] LABCLIA [id number] [place] [address] [place] AST [Catalytic activity/Vol] 60 U/L High 14-40 [facility] Comment on above: Order Comment: Speci men Type: BLOOD SPECIMENOrdering Facility: [facility] Address: [address] [place] [address] Performed By: #### 2 4323-8 ####[facility] LABCLIA [id number] [place] [address] [place] Bilirubin [Mass/Vol] 0.4 mg/dL Normal 0.2-1.3 [facility] Comment on above: Order Comment: Speci men Type: BLOOD SPECIMENOrdering Facility: [facility] Address: [address] [place] [address] Performed By: #### 2 4323-8 ####[facility] LABCLIA [id number] [place] [address] [place] Calcium [Mass/Vol] 9.6 mg/dL Normal 8.5-10.2 [facility] Comment on above: Order Comment: Speci men Type: BLOOD SPECIMENOrdering Facility: [facility] Address: [address] [place] [address] Performed By: #### 2 4323-8 ####[facility] LABCLIA [id number] [place] [address] [place] Chloride [Moles/Vol] 102 mmol/L Normal 98-107 [facility] Comment on above: Order Comment: Speci men Type: BLOOD SPECIMENOrdering Facility: [facility] Address: [address] [place] [address] Performed By: #### 2 4323-8 ####[facility] LABCLIA [id number] [place] [address] [place] CO2 [Moles/Vol] 27 mmol/L Normal 22-30 [facility] Comment on above: Order Comment: Speci men Type: BLOOD SPECIMENOrdering Facility: [facility] Address: [address] [place] [address] Performed By: #### 2 4323-8 ####[facility] LABIA [id number] [place] [address] [place] Creatinine [Mass/Vol] 1.19 mg/dL Normal 0.73-1.22 [facility] Comment on above: Order Comment: Speci men Type: BLOOD SPECIMENOrdering Facility: [facility] Address: [address] [place] [address] Performed By: #### 2 4323-8 ####[facility] LABIA [id number] [place] [address] [place] Creatinine and Glomerular filtration rate.predicted panel (S/P/Bld) 73 mL/min/1.73m??? Normal >=60 [facility] Comment on above: Order Comment: Speci men Type: BLOOD SPECIMENOrdering Facility: [facility] Address: [address] [place] [address] Result Comment: Veronika mated Glomerular Filtration Rate (eGFR) is calculated using the 2020 CKD-EPI creatinine equation. This equation utilizes serum creatinine, sex, and age as parameters. The creatinine assay has traceable calibration to isotope dilution-mass spectrometry. Refer to KDIGO guidelines for clinical interpretation. In patients with unstable renal function, e.g. those with acute kidney injury, the eGFR may not accurately reflect actual GFR. Performed By: #### 2 4323-8 ####[facility] LABIA [id number] [place] [address] [place] Glucose [Mass/Vol] 115 mg/dL High 74-99 [facility] Comment on above: Order Comment: Speci men Type: BLOOD SPECIMENOrdering Facility: [facility] Address: [address] [place] [address] Result Comment: The [place] [employer] (ADA) provides guidance for cutoff values for fasting glucose and random glucose. The ADA defines fasting as no caloric intake for at least 8 hours. Fasting plasma glucose results between 100 to 125 mg/dL indicate increased risk for diabetes (prediabetes). Fasting plasma glucose results greater than or equal to 126 mg/dL meet the criteria for diagnosis of diabetes. In the absence of unequivocal hyperglycemia, results should be confirmed by repeat testing. In a patient with classic symptoms of hyperglycemia or hyperglycemic crisis, random plasma glucose results greater than or equal to 200 mg/dL meet the criteria for diagnosis of diabetes. Reference: Standards of Medical Care in Diabetes 2016, [place] [employer]. Diabetes Care. 2016.39(Suppl 1). Performed By: #### 2 4323-8 ####[facility] LABCLIA [id number] [place] [address] [place] Potassium [Moles/Vol] 4.9 mmol/L Normal 3.7-5.1 [facility] Comment on above: Order Comment: Speci men Type: BLOOD SPECIMENOrdering Facility: [facility] Address: [address] [place] [address] Performed By: #### 2 4323-8 ####[facility] LABCLIA [id number] [place] [address] [place] Protein [Mass/Vol] 7.9 g/dL Normal 6.3-8.0 [facility] Comment on above: Order Comment: Speci men Type: BLOOD SPECIMENOrdering Facility: [facility] Address: [address] [place] [address] Performed By: #### 2 4323-8 ####[facility] LABCLIA [id number] [place] [address] [place] Sodium [Moles/Vol] 140 mmol/L Normal 136-144 [facility] Comment on above: Order Comment: Speci men Type: BLOOD SPECIMENOrdering Facility: [facility] Address: [address] [place] [address] Performed By: #### 2 4323-8 ####[facility] LABCLIA [id number] [address] [address] [place] Urea nitrogen [Mass/Vol] 18 mg/dL Normal 9-24 [facility] Comment on above: Order Comment: Speci men Type: BLOOD SPECIMENOrdering Facility: [facility] Address: [address] [place] [address] Performed By: #### 2 4323-8 ####[facility] LABCLIA [id number] [place] [id number] [place] CBC W/Diff, Automatedon 12-1 0-2023 Absolute Lymph 1.20 X10 3/uL Normal 0.83-4.51 [facility] Comment on above: Performed By: #### L 100.0100, L500.4050, L501.5200, L501.2300 #### [facility] [address] [place], [address] Absolute Neut 4.6 X10 3/uL Normal 2.0-7.7 [facility] Comment on above: Performed By: #### L 100.0100, L500.4050, L501.5200, L501.2300 #### [facility] [address] [place], [address] Basophils/100 WBC (Bld) 0.3 % Normal 0-1 [facility] Comment on above: Performed By: #### L 100.0100, L500.4050, L501.5200, L501.2300 #### [facility] [address] [place], [address] Eosinophils/100 WBC (Bld) 2.2 % Normal 0-5 [facility] Comment on above: Performed By: #### L 100.0100, L500.4050, L501.5200, L501.2300 #### [facility] [address] [place], [address] Erythrocyte distribution width (RBC) [Ratio] 13.9 % Normal 11.6-14.6 [facility] Comment on above: Performed By: #### L 100.0100, L500.4050, L501.5200, L501.2300 #### [facility] [address] [place], [address] Hematocrit (Bld) [Volume fraction] 42.5 % Normal 40-54 [facility] Comment on above: Performed By: #### L 100.0100, L500.4050, L501.5200, L501.2300 #### [facility] [address] [place], [address] Hemoglobin (Bld) [Mass/Vol] 13.7 g/dL Normal 13.0-16.5 [facility] Comment on above: Performed By: #### L 100.0100, L500.4050, L501.5200, L501.2300 #### [facility] [address] [place], [address] IG% 0.400 Normal 0.0-0.9 [facility] Comment on above: Result Comment: IG% - Immature Granulocytes (promyelocytes, myelocytes and metamyelocytes) > 1% indicates that a LEFT SHIFT is Present. Performed By: #### L 100.0100, L500.4050, L501.5200, L501.2300 #### [facility] [address] [place], [address] Lymphocytes/100 WBC (Bld) 16.7 % Low 19-41 [facility] Comment on above: Performed By: #### L 100.0100, L500.4050, L501.5200, L501.2300 #### [facility] [address] [place], [address] MCH (RBC) [Entitic mass] 26.4 pg Low 27.0-32.0 [facility] Comment on above: Performed By: #### L 100.0100, L500.4050, L501.5200, L501.2300 #### [facility] [address] [place], [address] MCHC (RBC) [Mass/Vol] 32.2 g/dL Normal 32-36 [facility] Comment on above: Performed By: #### L 100.0100, L500.4050, L501.5200, L501.2300 #### [facility] [address] [place], [address] MCV (RBC) [Entitic vol] 81.9 fL Normal 80-94 [facility] Comment on above: Performed By: #### L 100.0100, L500.4050, L501.5200, L501.2300 #### [facility] [address] [place], [address] Monocytes/100 WBC (Bld) 17.1 % High 0-10 [facility] Comment on above: Performed By: #### L 100.0100, L500.4050, L501.5200, L501.2300 #### [facility] [address] [place], [address] Neutrophils/100 WBC (Bld) 63.3 % Normal 47-70 [facility] Comment on above: Performed By: #### L 100.0100, L500.4050, L501.5200, L501.2300 #### [facility] [address] [place], [address] Nucleated RBC (Bld) [#/Vol] 0 10*3/uL Normal 0-5 [facility] Comment on above: Performed By: #### L 100.0100, L500.4050, L501.5200, L501.2300 #### [facility] [address] [place], [address] Platelet mean volume (Bld) [Entitic vol] 9.5 fL Normal 6.2-12.0 [facility] Comment on above: Performed By: #### L 100.0100, L500.4050, L501.5200, L501.2300 #### [facility] [address] [place], [address] Platelets (Bld) [#/Vol] 243 10*3/uL Normal 150-450 [facility] Comment on above: Performed By: #### L 100.0100, L500.4050, L501.5200, L501.2300 #### [facility] [address] [place], [address] RBC (Bld) [#/Vol] 5.19 10*6/uL Normal 4.6-6.2 [facility] Comment on above: Performed By: #### L 100.0100, L500.4050, L501.5200, L501.2300 #### [facility] [address] [place], [address] RDW SD 40.9 fl Normal 35.1-43.9 [facility] Comment on above: Performed By: #### L 100.0100, L500.4050, L501.5200, L501.2300 #### [facility] [address] [place], [address] WBC (Bld) [#/Vol] 7.2 10*3/uL Normal 4.4-11.0 [facility] Comment on above: Performed By: #### L 100.0100, L500.4050, L501.5200, L501.2300 #### [facility] [address] [place], [address] Comprehensive Metabolic Prof ilon 01-17-2024 Albumin [Mass/Vol] 2.9 g/dL Low 3.2-5.0 [facility] Comment on above: Performed By: #### L 100.0100, L500.4050, L501.5200, L501.2300 #### [facility] [address] [place], [address] Albumin/Globulin [Mass ratio] 0.9 {ratio} Normal 0.9-2.4 [facility] Comment on above: Performed By: #### L 100.0100, L500.4050, L501.5200, L501.2300 #### [facility] [address] [place], [address] ALK P 41 U/L Low 45-117 [facility] Comment on above: Performed By: #### L 100.0100, L500.4050, L501.5200, L501.2300 #### [facility] [address] [place], [address] ALT [Catalytic activity/Vol] 45 U/L Normal 16-61 [facility] Comment on above: Performed By: #### L 100.0100, L500.4050, L501.5200, L501.2300 #### [facility] [address] [place], [address] AST [Catalytic activity/Vol] 30 U/L Normal 15-37 [facility] Comment on above: Performed By: #### L 100.0100, L500.4050, L501.5200, L501.2300 #### [facility] [address] [place], [address] Bilirubin [Mass/Vol] 0.80 mg/dL Normal 0.20-1.00 [facility] Comment on above: Result Comment: For patients on eltrombopag therapy, use of Dimension [place] TBIL is not recommended. Performed By: #### L 100.0100, L500.4050, L501.5200, L501.2300 #### [facility] [address] [place], [address] BUN/CRE 18.5 RATIO Normal 10-20 [facility] Comment on above: Performed By: #### L 100.0100, L500.4050, L501.5200, L501.2300 #### [facility] [address] [place], [address] CA,Total 8.3 mg/dL Low 8.5-10.1 [facility] Comment on above: Performed By: #### L 100.0100, L500.4050, L501.5200, L501.2300 #### [facility] [address] [place], [address] Chloride [Moles/Vol] 108 mmol/L High 98-107 [facility] Comment on above: Performed By: #### L 100.0100, L500.4050, L501.5200, L501.2300 #### [facility] [address] [place], [address] CO2 [Moles/Vol] 28.0 mmol/L Normal 21.0-32.0 [facility] Comment on above: Performed By: #### L 100.0100, L500.4050, L501.5200, L501.2300 #### [facility] [address] [place], [address] Creatinine [Mass/Vol] 1.24 mg/dL Normal 0.70-1.30 [facility] Comment on above: Result Comment: The validity of the calculated GFR GFRAA in patients over 70 years has not been determined. Clinical correlation is essential. Performed By: #### L 100.0100, L500.4050, L501.5200, L501.2300 #### [facility] [address] [place], [address] ECRCL 96.50 ml/min Normal [facility] Comment on above: Performed By: #### L 100.0100, L500.4050, L501.5200, L501.2300 #### [facility] [address] [place], [address] EST GFR - AA 78 mL/min Normal >60 [facility] Comment on above: Result Comment: Afri can [place] GFR Calc Performed By: #### L 100.0100, L500.4050, L501.5200, L501.2300 #### [facility] [address] [place], [address] GAP 3 Low 5-15 [facility] Comment on above: Performed By: #### L 100.0100, L500.4050, L501.5200, L501.2300 #### [facility] [address] [place], [address] GFR/1.73 sq M.predicted among non-blacks MDRD (S/P/Bld) [Vol rate/Area] 64 mL/min/{1.73_m2} Normal >60 [facility] [facility] Comment on above: Result Comment: Non- GFR Calc Performed By: #### L 100.0100, L500.4050, L501.5200, L501.2300 #### [facility] [address] [place], [address] Globulin (S) [Mass/Vol] 3.3 g/dL Normal 2.2-4.2 [facility] Comment on above: Performed By: #### L 100.0100, L500.4050, L501.5200, L501.2300 #### [facility] [address] [place], [address] Glucose [Mass/Vol] 120 mg/dL High 74-106 [facility] Comment on above: Result Comment: Fast ing Glucose result from 100 to 125 mg/dL suggests IMPAIRED HOMEOSTASIS per A.D.A. criteria. Performed By: #### L 100.0100, L500.4050, L501.5200, L501.2300 #### [facility] [address] [place], [address] Potassium [Moles/Vol] 3.9 mmol/L Normal 3.5-5.1 [facility] Comment on above: Performed By: #### L 100.0100, L500.4050, L501.5200, L501.2300 #### [facility] [address] [place], [address] Sodium [Moles/Vol] 139 mmol/L Normal 136-145 [facility] Comment on above: Performed By: #### L 100.0100, L500.4050, L501.5200, L501.2300 #### [facility] [address] [place], [address] T PROT 6.2 g/dL Low 6.4-8.2 [facility] Comment on above: Performed By: #### L 100.0100, L500.4050, L501.5200, L501.2300 #### [facility] [address] [place], [address] Urea nitrogen [Mass/Vol] 23 mg/dL High 7-18 [facility] Comment on above: Performed By: #### L 100.0100, L500.4050, L501.5200, L501.2300 #### [facility] [address] [place], [address] Magnesiumon 01-17-2024 Magnesium [Mass/Vol] 1.9 mg/dL Normal 1.6-2.6 [facility] Comment on above: Performed By: #### L 100.0100, L500.4050, L501.5200, L501.2300 #### [facility] [address] [place], [address] Phosphoruson 01-17-2024 Phosphate [Mass/Vol] 3.0 mg/dL Normal 2.5-4.9 [facility] Comment on above: Performed By: #### L 100.0100, L500.4050, L501.5200, L501.2300 #### [facility] [address] [place], [address] Abdomen/Pelvis W IV Cont ONL Yon 01-16-2024 Abdomen/Pelvis W IV Cont ONLY [facility] [address] [address] Abdomen/Pelvis W IV Cont ONLY MR#: [id number] Acct: [id number] Name: SREE TORRES Rep #: [id number] : 1970 M 53 From: Mario collins MD PCP: MARGARET Bragg Status: REG ER Study: Abdomen/Pelvis W IV Cont ONLY Date of Exam: Exam# [id number] Ordering Dr: [place] [id number] STUDY: CT ABDOMEN AND PELVIS WITH CONTRAST REASON FOR EXAM: Male, 53 years old. LLQ pain, -- dx descending diverticulitis 4 days ago RADIATION DOSAGE (If Supplied By Facility): CTDIvol = ( 15.23 ) mGy, DLP = ( 1277.06 ) mGycm TECHNIQUE: Transaxial images were obtained from the dome of the diaphragm to the symphysis pubis without oral contrast. IV 100mL Isovue-300 was administered. Sagittal and coronal images were reconstructed. Individualized dose optimization techniques were used for this CT. COMPARISON: None. FINDINGS: Mild degree of increased markings at the lung bases suggestive of bibasilar atelectasis. Minimal coronary artery calcification. There is decreased attenuation of the liver consistent with steatosis. Normal gallbladder and extrahepatic biliary system. Normal spleen. Normal pancreas. Normal bilateral adrenal glands. Normal right kidney. Normal left kidney. Normal visualized stomach. Normal small intestine. There are scattered colonic diverticula consistent with diverticulosis. Mild degree of the inflammatory changes in the descending colon. . Fluid is seen in the rectosigmoid junction. The appendix is visualized and appears normal. There is scattered atherosclerotic calcification of the abdominal aorta, without a demonstrated aneurysm. Normal inferior vena cava. Normal retroperitoneum. Normal urinary bladder. Normal abdominal wall. Disc space narrowing and degeneration at the L5-S1 level. CT/Abdomen/Pelvis W IV Cont ONLY IMPRESSION: Scattered sigmoid diverticula. Inflammatory changes surrounding the distal portion of the descending colon suggestive of mild diverticulitis. Fluid is seen within the rectosigmoid colon. Fatty infiltration of liver. Electronically Signed: Mario Molina MD at 9:17 EST , CC: MARGARET Oropeza; Dr. Juan Luis Sweeney DO [employer] Feeder: Signed Normal [facility] CBC W/Diff, Automatedon 12-0 Absolute Lymph 0.71 X10 3/uL Low 0.83-4.51 [facility] Comment on above: Performed By: #### L 100.0100 #### [facility] [address] [place], [address] Absolute Neut 19.8 X10 3/uL High 2.0-7.7 [facility] Comment on above: Performed By: #### L 100.0100 #### [facility] [address] [place], [address] Basophils/100 WBC (Bld) 0.3 % Normal 0-1 [facility] Comment on above: Performed By: #### L 100.0100 #### [facility] [address] [place], [address] Eosinophils/100 WBC (Bld) 0.1 % Normal 0-5 [facility] Comment on above: Performed By: #### L 100.0100 #### [facility] [address] [place], [address] Erythrocyte distribution width (RBC) [Ratio] 13.6 % Normal 11.6-14.6 [facility] Comment on above: Performed By: #### L 100.0100 #### [facility] [address] [place], [address] Hematocrit (Bld) [Volume fraction] 49.9 % Normal 40-54 [facility] Comment on above: Performed By: #### L 100.0100 #### [facility] [address] [place], [address] Hemoglobin (Bld) [Mass/Vol] 16.7 g/dL High 13.0-16.5 [facility] Comment on above: Performed By: #### L 100.0100 #### [facility] [address] [place], [address] IG% 0.800 Normal 0.0-0.9 [facility] Comment on above: Result Comment: IG% - Immature Granulocytes (promyelocytes, myelocytes and metamyelocytes) > 1% indicates that a LEFT SHIFT is Present. Performed By: #### L 100.0100 #### [facility] [address] [place], [address] Lymphocytes/100 WBC (Bld) 3.3 % Low 19-41 [facility] Comment on above: Performed By: #### L 100.0100 #### [facility] [address] [place], [address] MCH (RBC) [Entitic mass] 26.8 pg Low 27.0-32.0 [facility] Comment on above: Performed By: #### L 100.0100 #### [facility] [address] [place], [address] MCHC (RBC) [Mass/Vol] 33.5 g/dL Normal 32-36 [facility] Comment on above: Performed By: #### L 100.0100 #### [facility] [address] [place], [address] MCV (RBC) [Entitic vol] 80.2 fL Normal 80-94 [facility] Comment on above: Performed By: #### L 100.0100 #### [facility] [address] [place], [address] Monocytes/100 WBC (Bld) 3.7 % Normal 0-10 [facility] Comment on above: Performed By: #### L 100.0100 #### [facility] [address] [place], [address] Neutrophils/100 WBC (Bld) 91.8 % High 47-70 [facility] Comment on above: Performed By: #### L 100.0100 #### [facility] [address] [place], [address] Nucleated RBC (Bld) [#/Vol] 0 10*3/uL Normal 0-5 [facility] Comment on above: Performed By: #### L 100.0100 #### [facility] [address] [place], [address] Platelet mean volume (Bld) [Entitic vol] 9.8 fL Normal 6.2-12.0 [facility] Comment on above: Performed By: #### L 100.0100 #### [facility] [address] [place], [address] Platelets (Bld) [#/Vol] 394 10*3/uL Normal 150-450 [facility] Comment on above: Performed By: #### L 100.0100 #### [facility] [address] [place], [address] RBC (Bld) [#/Vol] 6.22 10*6/uL High 4.6-6.2 [facility] Comment on above: Performed By: #### L 100.0100 #### [facility] [address] [place], [address] RDW SD 39.0 fl Normal 35.1-43.9 [facility] Comment on above: Performed By: #### L 100.0100 #### [facility] [address] [place], [address] WBC (Bld) [#/Vol] 21.6 10*3/uL High 4.4-11.0 [facility] Comment on above: Performed By: #### L 100.0100 #### [facility] [address] [place], [address] Comprehensive Metabolic Prof ilon 01-16-2024 Albumin [Mass/Vol] 4.1 g/dL Normal 3.2-5.0 [facility] Comment on above: Performed By: #### L 503.6005, L300.4310, L300.3900, L500.4050 ####[facility] [address] [place], [address] Albumin/Globulin [Mass ratio] 1.0 {ratio} Normal 0.9-2.4 [facility] Comment on above: Performed By: #### L 503.6005, L300.4310, L300.3900, L500.4050 ####[facility] [address] [place], [address] ALK P 60 U/L Normal 45-117 [facility] Comment on above: Performed By: #### L 503.6005, L300.4310, L300.3900, L500.4050 ####[facility] [address] [place], [address] ALT [Catalytic activity/Vol] 55 U/L Normal 16-61 [facility] Comment on above: Performed By: #### L 503.6005, L300.4310, L300.3900, L500.4050 ####[facility] [address] [place], [address] AST [Catalytic activity/Vol] 31 U/L Normal 15-37 [facility] Comment on above: Performed By: #### L 503.6005, L300.4310, L300.3900, L500.4050 ####[facility] [address] [place], [address] Bilirubin [Mass/Vol] 1.10 mg/dL High 0.20-1.00 [facility] Comment on above: Result Comment: For patients on eltrombopag therapy, use of Dimension [place] TBIL is not recommended. Performed By: #### L 503.6005, L300.4310, L300.3900, L500.4050 ####[facility] [address] [place], [address] BUN/CRE 17.1 RATIO Normal 10-20 [facility] Comment on above: Performed By: #### L 503.6005, L300.4310, L300.3900, L500.4050 ####[facility] [address] [place], [address] CA,Total 9.9 mg/dL Normal 8.5-10.1 [facility] Comment on above: Performed By: #### L 503.6005, L300.4310, L300.3900, L500.4050 ####[facility] [address] [place], [address] Chloride [Moles/Vol] 107 mmol/L Normal 98-107 [facility] Comment on above: Performed By: #### L 503.6005, L300.4310, L300.3900, L500.4050 ####[facility] [address] [place], [address] CO2 [Moles/Vol] 26.0 mmol/L Normal 21.0-32.0 [facility] Comment on above: Performed By: #### L 503.6005, L300.4310, L300.3900, L500.4050 ####[facility] [address] [place], [address] Creatinine [Mass/Vol] 1.46 mg/dL High 0.70-1.30 [facility] Comment on above: Result Comment: The validity of the calculated GFR GFRAA in patients over 70 years has not been determined. Clinical correlation is essential. Performed By: #### L 503.6005, L300.4310, L300.3900, L500.4050 ####[facility] [address] [place], [address] ECRCL 82.45 ml/min Normal [facility] Comment on above: Performed By: #### L 503.6005, L300.4310, L300.3900, L500.4050 ####[facility] [address] [place], [address] EST GFR - AA 65 mL/min Normal >60 [facility] Comment on above: Result Comment: Afri can [place] GFR Calc Performed By: #### L 503.6005, L300.4310, L300.3900, L500.4050 ####[facility] [address] [place], [address] GAP 8 Normal 5-15 [facility] Comment on above: Performed By: #### L 503.6005, L300.4310, L300.3900, L500.4050 ####[facility] [address] [place], [address] GFR/1.73 sq M.predicted among non-blacks MDRD (S/P/Bld) [Vol rate/Area] 53 mL/min/{1.73_m2} Low >60 [facility] Comment on above: Result Comment: Non- GFR Calc Performed By: #### L 503.6005, L300.4310, L300.3900, L500.4050 ####[facility] [address] [place], [address] Globulin (S) [Mass/Vol] 4.3 g/dL High 2.2-4.2 [facility] Comment on above: Performed By: #### L 503.6005, L300.4310, L300.3900, L500.4050 ####[facility] [address] [place], [address] Glucose [Mass/Vol] 158 mg/dL High 74-106 [facility] Comment on above: Result Comment: Fast ing Glucose result greater than or equal to 126 mg/dL suggests DIABETES MELLITUS per A.D.A. criteria. Performed By: #### L 503.6005, L300.4310, L300.3900, L500.4050 ####[facility] [address] [place], [address] Potassium [Moles/Vol] 4.6 mmol/L Normal 3.5-5.1 [facility] Comment on above: Performed By: #### L 503.6005, L300.4310, L300.3900, L500.4050 ####[facility] [address] [place], [address] Sodium [Moles/Vol] 141 mmol/L Normal 136-145 [facility] Comment on above: Performed By: #### L 503.6005, L300.4310, L300.3900, L500.4050 ####[facility] [address] [place], [address] T PROT 8.4 g/dL High 6.4-8.2 [facility] Comment on above: Performed By: #### L 503.6005, L300.4310, L300.3900, L500.4050 ####[facility] [address] [place], [address] Urea nitrogen [Mass/Vol] 25 mg/dL High 7-18 [facility] Comment on above: Performed By: #### L 503.9918, L300.4310, L300.3900, L500.4050 ####[facility] [address] [place], [address] Emergency Department Summary on 01-16-2024 Emergency Department Summary [facility] Medical Records Department [address] [place] [address] Emergency Department Summary 01/16/24 MR#: [id number] Acct: [id number] Name: SREE TORRES Rep #: [id number] : 1970 53 From: Juan Luis Groves PCP: MARGARET Bragg Status:ADM IN [place] [facility] [id number] HPI HPI - GI History of Present Illness Chief Complaint: Abd Pain Informant: patient Narrative Narrative: 5 days left lower quadrant abdominal pain. Patient seen 4 days ago outside Emergency Department in [place] diagnosed with uncomplicated descending colon diverticulitis. He has been on cefdinir Flagyl for 4 days has been using his Percocet. Pain has been worsening, today bloody diarrhea. Nausea and vomiting due to pain. No fevers. This is his first bout of diverticulitis. He had a colonoscopy a year ago due to positive Cologuard had 3 polypectomies. Prior similar symptoms: Yes PFSH PFSH Medical History Contusion of right elbow Contusion of right shoulder Shoulder pain Arthritis Hypertension Home Medications ???Medication ???Instructions ???Recorded ???Last Taken ???Type alprazolam 0.5 mg tablet 0.5 mg PO BID PRN PRN anxiety 08/18/23 01/15/24 History duloxetine 30 mg capsule,delayed 30 mg PO DAILY 08/18/23 01/15/24 History release omeprazole 20 mg capsule,delayed 20 mg PO DAILY 08/18/23 01/15/24 History release cefdinir 300 mg capsule 300 mg PO BID 01/16/24 01/15/24 History lisinopril 20 mg tablet 20 mg PO DAILY 01/16/24 01/15/24 History meloxicam 15 mg tablet 15 mg PO DAILY 01/16/24 01/15/24 History metronidazole 500 mg tablet 500 mg PO Q8 01/16/24 01/15/24 History oxycodone-acetaminophen 5 mg-325 1 tab PO Q6H PRN PRN pain 01/16/24 01/15/24 History mg tablet trazodone 50 mg tablet 50 mg PO QHS 01/16/24 01/12/24 History Allergy/AdvReac Type Severity Reaction Status Date / Time No Known Allergies Allergy Verified 01/16/24 07:28 Surgical History History of back surgery Social History Smoking Status: Former smoker ROS ROS ED Constitutional Constitutional ED: Denies chills, fever(s) or sweats Eyes Eyes: Denies change in vision ENT ENT ED: Denies dysphagia or sore throat Cardiovascular Cardiovascular: Denies chest pain, leg edema, palpitations or racing heartbeat Respiratory/Chest Respiratory/Chest: Denies cough, dyspnea or dyspnea on exertion Gastrointestinal Gastrointestinal: Reports abdominal pain, diarrhea, nausea, vomiting and other Details: Bloody stools Genitourinary Genitourinary ED: Denies dysuria, hematuria or urinary frequency Musculoskeletal Musculoskeletal: Denies back pain, extremity pain or neck pain Integumentary Denies rash or wounds Neurologic Neurologic: Denies headache(s), paresthesias or weakness EXAM Physical Exam Const Vital Signs: 01/16/24 07:28 01/16/24 08:31 01/16/24 09:00 Temperature 98.4 F 98.4 F 98.2 F Temperature Source Temporal Oral Oral Pulse Rate 115 H 88 89 Respiratory Rate 18 18 16 Blood Pressure 138/102 H 163/78 H 160/76 H Blood Pressure Mean 114 106 104 Pulse Ox 98 98 98 Oxygen Delivery Method Room Air Room Air Room Air Positive well nourished and well developed Constitutional Narrative: Uncomfortable nontoxic General Appearance ED: well developed HEENT Reports dry mucous membranes normocephalic and atraumatic Mouth ED: Yes dry mucous membranes Mouth: dry mucous membranes Eyes EOMs intact bilaterally and conjunctivae normal General Eye ED: Yes normal appearance of both eyes Neck no lymphadenopathy and supple General: Negative for tenderness Chest Wall Chest: Negative for tenderness Resp normal respiratory effort and normal air movement Effort and Inspection: symmetric chest movement; Negative for respiratory distress Cardio regular rhythm and no murmurs Rate: tachycardic Peripheral Pulses: pulses 2+ throughout GI GI Narrative: Tender palpation left lower abdomen. Back/Spine no CVA tenderness and no thoracic nor lumbar tenderness Extremity normal to inspection General Extremety ED: Negative for edema or tenderness General Extremity: Negative for edema Neuro oriented x3 and no sensory deficits noted Sensorium / Orientation: awake and alert Skin no rashes or lesions noted and no wounds Sepsis Attestation Sepsis Attestation: Sepsis Ruled Out (lactic acid 1.9) MDM MDM MDM Narrative Medical decision making narrative: Interventions / MDM: Differential diagnosis: Diverticulitis, rectal bleed, will outpatient therapy, dehydration, electrolyte abnormalities Diagnosis considered but do not suspect: Complicated diverticulitis however CT normal. (more content not included)... Normal [facility] H AND P Exam - [facility] 01-16-2024 H&P Exam - Hospitalist [facility] Medical Records Department [address] [place] [address] H P Exam - Hospitalist 01/16/24 0947 MR#: [id number] Acct: [id number] Name: SREE TORRES Rep #: [id number] : 1970 53 From: Anna Caputo DO PCP: MARGARET Bragg Status:ADM IN [place] [facility] [id number] HPI - General General Date of Admission: 01/16/24 Date of Service: 01/16/24 Chief Complaint: Abdominal Pain HPI Narrative SREE TORRES, is a 53 M who presented to the emergency department [facility] on 01/16/2024 with a chief complaint of left lower quadrant abdominal pain. Patient was seen 4 days ago at [facility] at which time he was diagnosed with uncomplicated descending colon diverticulitis and was placed on cefdinir and Flagyl. He has been compliant with his medication and using as needed Percocet for pain. 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 He denied chills but no fevers. He stated he would break out in sweats periodically. He had a colonoscopy done 1 to 2 years ago due to a positive Cologuard test and had 3 polypectomies. This is the first time he is ever had diverticulitis. Vital signs on presentation showed temperature of 98.4, heart rate 115, respiratory rate 18, blood pressure is 138/102 and pulse ox was 98% on room air. CBC showed a leukocytosis with a white count of 21.6, hemoglobin was elevated at 16.7 and platelet count was normal at this time. He had a marked left shift with a 91.8% neutrophilia. Coags were unremarkable. Chemistry panel consistent with SANDIP. Creatinine 1.46. He had mild hyperbilirubinemia with a bilirubin of 1.1 LFTs were otherwise unremarkable. CT of the abdomen pelvis showed scattered sigmoid diverticuli, inflammatory changes surrounding the distal portion of the descending colon suggestive of mild diverticulitis and fluid seen in the rectosigmoid colon as well as fatty infiltration. He was given IV antibiotics in the emergency department and request for admission was made. [facility] Medical History Contusion of right elbow Contusion of right shoulder Shoulder pain Arthritis Hypertension Home Medications ???Medication ???Instructions ???Recorded ???Last Taken ???Type alprazolam 0.5 mg tablet 0.5 mg PO BID PRN PRN anxiety 08/18/23 01/15/24 History duloxetine 30 mg capsule,delayed 30 mg PO DAILY 08/18/23 01/15/24 History release omeprazole 20 mg capsule,delayed 20 mg PO DAILY 08/18/23 01/15/24 History release cefdinir 300 mg capsule 300 mg PO BID 01/16/24 01/15/24 History lisinopril 20 mg tablet 20 mg PO DAILY 01/16/24 01/15/24 History meloxicam 15 mg tablet 15 mg PO DAILY 01/16/24 01/15/24 History metronidazole 500 mg tablet 500 mg PO Q8 01/16/24 01/15/24 History oxycodone-acetaminophen 5 mg-325 1 tab PO Q6H PRN PRN pain 01/16/24 01/15/24 History mg tablet trazodone 50 mg tablet 50 mg PO QHS 01/16/24 01/12/24 History Allergy/AdvReac Type Severity Reaction Status Date / Time No Known Allergies Allergy Verified 01/16/24 07:28 no significant family history Surgical History History of back surgery Social History (Updated 01/16/24 @ 18:[address] Anna Caputo DO) household members: spouse housing: house current occupational status: employed Smoking Status: Former smoker alcohol intake: never substance use type: does not use ROS Constitutional Constitutional: Reports anorexia and chills; Denies change in weight, fatigue, fever(s), malaise, night sweats, weakness or other Eyes Eyes: Denies blurry vision, change in eye color, change in vision, discharge from eye(s), double vision, erythema, eye pain, loss of vision or other ENT HEENT: Denies abnormal hearing, dysphagia, ear pain, epistaxis, headache(s), hearing loss, nasal congestion, nasal discharge, post nasal drip, sinus pressure, sore throat or other Cardiovascular Cardiovascular: Denies chest pain, claudication, dyspnea on exertion, edema, lightheadedness, orthopnea, palpitations, paroxysmal nocturnal dyspnea, rapid heart rate, syncope or other Respiratory/Chest Respiratory/Chest: Denies cough, dyspnea, excessive phlegm production, hemoptysis, productive cough, shortness of breath at rest, shortness of breath with exertion, wheezing or other Gastrointestinal Gastrointestinal: Reports abdominal pain, diarrhea, nausea and vomiting; Denies coffee ground emesis, constipation, dyspepsia, hematemesis, hematochezia, loose stools, melena or other Genitourinary Genitourinary: Denies burning urination, difficulty urinating, dysuria, hematuria, nocturia, urinary frequency, urinary hesitancy, urinary incontinence, urinary urgency or other Musculoskeletal Musculoskeletal: Denies arth (more content not included)... Normal [facility] Lactic Acidon 01-16-2024 Lactate [Moles/Vol] 1.9 mmol/L Normal 0.4-1.9 [facility] Comment on above: Order Comment: Y Performed By: #### L 503.8175, L300.4310, L300.3900, L500.4050 ####[facility] [address] [place], [address] Partial Thromboplast Timeon 01-16-2024 aPTT Coag (Bld) [Time] 23.7 s Low 24.1-36.2 [facility] Comment on above: Performed By: #### L 503.6005, L300.4310, L300.3900, L500.4050 ####[facility] [address] [place], [place], [address] Prothrombin Time w/INRon INR Coag (PPP) [Relative time] 1.1 {INR} Normal [facility] Comment on above: Performed By: #### L 503.6005, L300.4310, L300.3900, L500.4050 #### [facility] [address] [place], [address] PT Coag (PPP) [Time] 13.8 s Normal 11.7-14.9 [facility] Comment on above: Performed By: #### L 503.6005, L300.4310, L300.3900, L500.4050 #### [facility] [address] [place], [place], [id number] CNOVon 12-19-2023 CNOV Office Visit (DAHLIA ) SREE TORRES ([id number]) 1970 M Date Time Provider Department 12/19/23 8:00 AM ADALBERTO GOMEZ During your visit today, we recorded the following information about you: Adalberto Gomez MD 12/19/2023 8:13 AM Signed Adalberto Gomez MD Department of Orthopaedics Orthopaedics [address] [facility] [address] Dept: [phone] Dept December 19, 2023 CHIEF COMPLAINT: Established Patient and Injections of the Right Shoulder HPI Patient here today for 5 weeks 6 days post visit right rotator cuff tear. Injection into right shoulder. ASSESSMENT: M25.819 Shoulder impingement (primary encounter diagnosis) M25.511 Acute pain of right shoulder PLAN: Pt presents today for cortisone injection(s) for the right shoulder after we reviewed his MRI findings on the phone last week. No surgical tear in the shoulder. Large Joint Arthro/Inj: R glenohumeral Informed Consent Consent Obtained: Verbal [place] Protocol A moment to CARE was completed. SIGN IN Personnel directly involved with the procedure wore the appropriate PPE. Special Equipment: N/A Patient/Surrogate Stated/Verified: Patient name, Date of , Relevant allergies and Intended procedure TIME OUT Intended patient and procedure match the source document(s). Consent documented and matches the intended procedure. Relevant labs, photos, and/or imaging studies have been reviewed. Correct side/site marked and visible. Medications required for procedure verified. No fire risk assessment and interventions applicable. No implant(s) inserted. 12/19/2023 8:12 AM The procedure site was prepped in the usual sterile fashion. Site: R glenohumeral Medications: 6 mg betamethasone acetate-betamethasone sodium phosphate 6 mg/mL Anesthetics: 4 mL lidocaine (PF) 10 mg/mL (1 %) Outcome: Tolerated well, no immediate complications Post-injection instructions were reviewed with the patient and the patient voiced understanding of these instructions. SIGN OUT No specimen collected. No instruments, equipment or retained foreign bodies applicable. Post-procedure follow-up management communicated and Plan of Care Visit completed when applicable Large Joint Arthro/Inj: R subacromial bursa Informed Consent Consent Obtained: Verbal [place] Protocol A moment to CARE was completed. SIGN IN Sign in communication not applicable due to emergent procedure. Personnel directly involved with the procedure wore the appropriate PPE. Special Equipment: N/A Patient/Surrogate Stated/Verified: Patient name, Date of , Relevant allergies and Intended procedure TIME OUT Intended patient and procedure match the source document(s). Consent documented and matches the intended procedure. Relevant labs, photos, and/or imaging studies have been reviewed. Correct side/site marked and visible. Medications required for procedure verified. No fire risk assessment and interventions applicable. No implant(s) inserted. 12/19/2023 8:12 AM The procedure site was prepped in the usual sterile fashion. Site: R subacromial bursa Medications: 6 mg betamethasone acetate-betamethasone sodium phosphate 6 mg/mL Anesthetics: 5 mL lidocaine (PF) 10 mg/mL (1 %) Outcome: Tolerated well, no immediate complications Post-injection instructions were reviewed with the patient and the patient voiced understanding of these instructions. SIGN OUT No specimen collected. No instruments, equipment or retained foreign bodies applicable. Post-procedure follow-up management communicated and Plan of Care Visit completed when applicable Supporting Subjective Information Below: Past Surgical History: PAST SURGICAL HISTORY Procedure Laterality Date BACK SURGERY HX micro discectomy L5-S1 COLONOSCOPY 09/04/2021 repeat in 3 years FECAL OCCULT BLOOD TEST 09/12/2019 negative FOOT SURGERY HX Right Medications: Current Outpatient Medications Medication Sig meloxicam (MOBIC) 15 mg tablet Take 1 tablet by mouth once daily. DULoxetine (CYMBALTA) 60 mg capsule Take 1 capsule by mouth once daily. zolpidem (AMBIEN) 10 mg Take 1 tablet by mouth at bedtime as needed (insomnia) for up to 120 days. omeprazole (PRILOSEC) 20 mg capsule Take 1 capsule by mouth once daily. TAKE 1 TABLET BY MOUTH DAILY BEFORE BREAKFAST. 1/2 HR BEFORE MEAL. lisinopril (ZESTRIL) 20 mg tablet Take 1 tablet by mouth once daily. Cholecalciferol, Vitamin D3, 50 mcg (2,000 unit) cap Take 1 capsule by mouth once daily. No current facility-administered medications for this visit. Allergies: Patient has no known allergies. ROS: General (negative for fatigue, malaise, weight loss/gain) HEENT (negative for headache, earache, recent vision changes, sinus pain, sore throat) Respiratory (no recent shortness of breath, hemoptysis) CV (negative f (more content not included)... Normal [facility] Large Joint Arthro/Inj: R mickey quesada 12-19-2023 Adalberto Gomez MD 12/19/2023 8:13 AM Large Joint Arthro/Inj: R glenohumeral Informed Consent Consent Obtained: Verbal [place] Protocol A moment to CARE was completed. SIGN IN Personnel directly involved with the procedure wore the appropriate PPE. Special Equipment: N/A Patient/Surrogate Stated/Verified: Patient name, Date of , Relevant allergies and Intended procedure TIME OUT Intended patient and procedure match the source document(s). Consent documented and matches the intended procedure. Relevant labs, photos, and/or imaging studies have been reviewed. Correct side/site marked and visible. Medications required for procedure verified. No fire risk assessment and interventions applicable. No implant(s) inserted. 12/19/2023 8:12 AM The procedure site was prepped in the usual sterile fashion. Site: R glenohumeral Medications: 6 mg betamethasone acetate-betamethasone sodium phosphate 6 mg/mL Anesthetics: 4 mL lidocaine (PF) 10 mg/mL (1 %) Outcome: Tolerated well, no immediate complications Post-injection instructions were reviewed with the patient and the patient voiced understanding of these instructions. SIGN OUT No specimen collected. No instruments, equipment or retained foreign bodies applicable. Post-procedure follow-up management communicated and Plan of Care Visit completed when applicable [facility] Large Joint Arthro/Inj: R hernandez bacromial bursaon 12-19-2023 Adalberto Gomez MD 12/19/2023 8:13 AM Large Joint Arthro/Inj: R subacromial bursa Informed Consent Consent Obtained: Verbal [place] Protocol A moment to CARE was completed. SIGN IN Sign in communication not applicable due to emergent procedure. Personnel directly involved with the procedure wore the appropriate PPE. Special Equipment: N/A Patient/Surrogate Stated/Verified: Patient name, Date of , Relevant allergies and Intended procedure TIME OUT Intended patient and procedure match the source document(s). Consent documented and matches the intended procedure. Relevant labs, photos, and/or imaging studies have been reviewed. Correct side/site marked and visible. Medications required for procedure verified. No fire risk assessment and interventions applicable. No implant(s) inserted. 12/19/2023 8:12 AM The procedure site was prepped in the usual sterile fashion. Site: R subacromial bursa Medications: 6 mg betamethasone acetate-betamethasone sodium phosphate 6 mg/mL Anesthetics: 5 mL lidocaine (PF) 10 mg/mL (1 %) Outcome: Tolerated well, no immediate complications Post-injection instructions were reviewed with the patient and the patient voiced understanding of these instructions. SIGN OUT No specimen collected. No instruments, equipment or retained foreign bodies applicable. Post-procedure follow-up management communicated and Plan of Care Visit completed when applicable [facility] CNPNon 11-29-2023 CNPN Telephone (ORTHWS) SREE TORRES ([id number]) 1970 M Date Time Provider Department 11/29/23 ADALBERTO GOMEZ During your visit today, we recorded the following information about you: Gris Pina MA 11/29/2023 4:33 PM Signed Patient called in asking if Dr. Gomez was able to review his MRI images of the right shoulder? Patient also concerned that he had to pay a $50 copay when he did virtual appointment with Dr. Gomez on 11/24/2023 and nothing really was done at the virtual appointment because the images could not be viewed. He is asking for a phone call so that he does not have to pay another $50 copay. Patient can be reached back at [phone]. Gris Pina MA 11/30/2023 1:16 PM Signed Adalberto Gomez MD You; [facility]opa[facility] Pool23 minutes ago (12:46 PM) Yes, any correspondence can be done over the phone. A $50 copay for that is ridiculous. I'll call him to discuss things as soon as we get his radiology report. I am able to see the MRI now, so that is good. Gris Bowden MA 11/30/2023 1:16 PM Signed I called and left a detailed message for the patient with the message below. Patient did mention to me yesterday that he had a copy of the report so I asked him to drop that off in the office or fax a copy over for Dr. Gomez to review it. Gladis Olivares LPN 12/02/2023 2:55 PM Signed Patient called in to let you know he had the radiology report faxed over and if you need anything else feel free to call him. NIKKI Vences Amy M MA 12/05/2023 8:43 AM Signed No report received in office. I called and left another message for the patient with that information. Asked him to stop by the office and drop off a copy of those results. Lizbeth Porter MA 12/06/2023 9:16 AM Signed Received MRI results Gris Pina MA 12/07/2023 10:35 AM Signed Results scanned into the chart under scanned documents. Please contact the patient. Gris Pina MA 12/13/2023 8:12 AM Signed Patient called in asking for results again. 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 Gris Pina MA 12/13/2023 8:33 AM Signed Patient has spoke with physician and he has been scheduled to come to the office on 12/19/2023 at 8 am for bilateral shoulder injections. Allergies As of Date: 11/29/2023 (No Known Allergies) Date Reviewed: 11/08/2023 Reviewed by: Adalberto Gomez MD - Fully Assessed Reason for Visit: Results - Mri [[id number]] Prescriptions as of 12/13/2023 - meloxicam (MOBIC) 15 mg tablet Take 1 tablet by mouth once daily. - DULoxetine (CYMBALTA) 60 mg capsule Take 1 capsule by mouth once daily. - zolpidem (AMBIEN) 10 mg Take 1 tablet by mouth at bedtime as needed (insomnia) for up to 120 days. - omeprazole (PRILOSEC) 20 mg capsule Take 1 capsule by mouth once daily. TAKE 1 TABLET BY MOUTH DAILY BEFORE BREAKFAST. 1/2 HR BEFORE MEAL. - lisinopril (ZESTRIL) 20 mg tablet Take 1 tablet by mouth once daily. - Cholecalciferol, Vitamin D3, 50 mcg (2,000 unit) cap Take 1 capsule by mouth once daily. Problem List As Of Date 11/29/2023 Noted Resolved Hypogonadism in male [E29.1] 03/06/2015 Ex-smoker [Z87.891] 03/06/2015 Well adult exam [Z00.00] 03/06/2015 04/22/2023 Muscle cramps [R25.2] 03/06/2015 Dyslipidemia [E78.5] 03/19/2015 Leukocytosis [D72.829] 03/19/2015 TIMOTHY (obstructive sleep apnea) [G47.33] 03/31/2015 Essential hypertension with goal blood pressure*06/19/2015 Elevated LFTs [R79.89] 04/14/2016 04/22/2023 Hematuria [R31.9] 04/14/2016 GERD without esophagitis [K21.9] 04/14/2016 Fatty liver [K76.0] 04/21/2016 Atypical nevi [D22.9] 01/06/2018 Encounter for screening for diabetes mellitus [*12/13/2018 Situational mixed anxiety and depressive disord*05/18/2019 Obese [E66.9] Encounter Status:Closed by GLADIS OLIVARES on 12/02/23 [facility] CNOVon 11-08-2023 CNOV Office Visit (ORMDNA ) SREE TORRES ([id number]) 1970 M Date Time Provider Department 11/08/23 9:00 AM ADALBERTO GOMEZ During your visit today, we recorded the following information about you: Adalberto Gomez MD 11/08/2023 10:03 AM Signed Adalberto Gomez MD Department of Orthopaedics Orthopaedics [address] [place] [address] Dept: [phone] November 08, 2023 CHIEF COMPLAINT: New and Pain of the Right Shoulder and Referred by Stan Oropeza HPI Patient here for evaluation right shoulder pain. 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 Then 2 weeks ago he tripped over a cart and landed on his right shoulder. He is having difficulty raising his arm upward and behind his back. He sleeps with his arms above head and has been unable to due to the pain. 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 Taking Aspirin for the pain and does not help. He did have x-ray done at on 10/01/23. ASSESSMENT: S46.011A Traumatic tear of right rotator cuff, unspecified tear extent, initial encounter (primary encounter diagnosis) M25.511 Acute pain of right shoulder PLAN: With not 1 but 2 acute injuries to the right shoulder, functional weakness in the arm, pain not controlled by some prescription medications, I recommend an MRI to evaluate his rotator cuff. Certainly, physical therapy program would be indicated if no cuff damage, though with his young age and weakness in the arm, evaluation of the rotator cuff would be most appropriate at this time. FOLLOW UP INSTRUCTIONS: See him back after imaging and formulate further plan of care at that time. OBJECTIVE: Mr. Sree Torres is a pleasant 53 year old in no apparent distress. Gen:There were no vitals taken for this visit. nl development, non obese, no deformities ENT: Normocephalic, normal hearing, moist mucosa CV: Pulses:Radial= 2+ and symmetric, capillary refill < 2 secs, no peripheral edema/varicosities Skin: no rash, bruising or lesions. Good turgor. Psych: cooperative and appropriate, alert and oriented x 3, good mood and affect. Musculoskeletal: Supple range of motion of the cervical spine without pain. Spurling signs are negative. No atrophy of the deltoid and shoulder musculature. Right shoulder is nontender to palpation over the SC joint, clavicle and AC joint. No tenderness to palpation over the posterior shoulder, positive tenderness palpation over the anterior lateral corner of the shoulder and greater tuberosity. Nonpainful at the bicipital groove and coracoid. Active range of motion is 160 degrees of forward elevation with increased pain from 90-1 20, 50 degrees external rotation, and internal rotation to the low lumbar spine. Passive range of motion is symmetrical, limited by pain, respectively. No laxity with anterior and posterior stress. Positive Neer and Cooley impingement signs. 3+/5 strength with supraspinatus, 4/5 infraspinatus and 5/5 subscapularis. Sensation is intact in the axillary, radial, median and ulnar nerve distribution IMAGIN views right shoulder from an outside facility report no acute injury, no arthritic changes. Recommendation for MRI to evaluate for internal derangement if clinically correlated. Supporting Subjective Information Below: Past Medical History: PAST MEDICAL HISTORY Diagnosis Date Dyslipidemia 03/19/2015 Elevated LFTs 04/14/2016 Essential hypertension with goal blood pressure less than 140/90 06/19/2015 Ex-smoker 03/06/2015 Started at age 23 up to 1 1/2 PPD. Quit smoking May 08 2016 Fatty liver 04/21/2016 GERD without esophagitis 04/14/2016 Hypogonadism in male 03/06/2015 Leukocytosis Muscle cramps 03/06/2015 TIMOTHY (obstructive sleep apnea) 03/31/2015 Sleep study 03/2015: sever. Not able to tolerate CPAP Situational mixed anxiety and depressive disorder 05/18/2019 secodary to Covid 19 Past Surgical History: PAST SURGICAL HISTORY Procedure Laterality Date BACK SURGERY HX micro discectomy L5-S1 COLONOSCOPY 09/04/2021 repeat in 3 years FECAL OCCULT BLOOD TEST 09/12/2019 negative FOOT SURGERY HX Right Family History: FAMILY HISTORY Problem Relation Age of Onset Hypertension Mother Diabetes Mother Psychiatry Mother rash and anxiety Cancer Maternal Grandmother 60 ? Cancer Maternal Grandfather 60 ? Alzheimer's Disease No Family History Colon Cancer No Family History Prostate Cancer No Family History Breast Cancer No Family History Ovarian cancer No Family History Coronary Artery Disease No Family History Kidney Disease No Family History Seizures No Family History Stroke No Family History Thyroid No Family History Anesthesia Problems No Family History Social History: Social History Tobacco Use Smoking status: Former Current packs/day: (more content not included)... Normal [facility] 11-04-2023 [facility] SREE [facility]ORRES ([id number]) 1970 M Date Time Provider Department 11/04/23 [facility] During your visit today, we recorded the following information about you: Stan Oropeza APRN.CNP 11/04/2023 1:07 PM Signed Please assist patient to schedule with Dr. Gomez for his shoulder. He was scheduled previously but unable to make the appointment. Stan Oropeza APRN.VICKEY Allergies As of Date: 11/04/2023 (No Known Allergies) Date Reviewed: 11/02/2023 Reviewed by: Stan Oropeza APRN.VICKEY - Fully Assessed Reason for Visit: Appointment [[id number]] Prescriptions as of 11/10/2023 - meloxicam (MOBIC) 15 mg tablet Take 1 tablet by mouth once daily. - DULoxetine (CYMBALTA) 60 mg capsule Take 1 capsule by mouth once daily. - zolpidem (AMBIEN) 10 mg Take 1 tablet by mouth at bedtime as needed (insomnia) for up to 120 days. - omeprazole (PRILOSEC) 20 mg capsule Take 1 capsule by mouth once daily. TAKE 1 TABLET BY MOUTH DAILY BEFORE BREAKFAST. 1/2 HR BEFORE MEAL. - lisinopril (ZESTRIL) 20 mg tablet Take 1 tablet by mouth once daily. - Cholecalciferol, Vitamin D3, 50 mcg (2,000 unit) cap Take 1 capsule by mouth once daily. Problem List As Of Date 11/04/2023 Noted Resolved Hypogonadism in male [E29.1] 03/06/2015 Ex-smoker [Z87.891] 03/06/2015 Well adult exam [Z00.00] 03/06/2015 04/22/2023 Muscle cramps [R25.2] 03/06/2015 Dyslipidemia [E78.5] 03/19/2015 Leukocytosis [D72.829] 03/19/2015 TIMOTHY (obstructive sleep apnea) [G47.33] 03/31/2015 Essential hypertension with goal blood pressure*06/19/2015 Elevated LFTs [R79.89] 04/14/2016 04/22/2023 Hematuria [R31.9] 04/14/2016 GERD without esophagitis [K21.9] 04/14/2016 Fatty liver [K76.0] 04/21/2016 Atypical nevi [D22.9] 01/06/2018 Encounter for screening for diabetes mellitus [*12/13/2018 Situational mixed anxiety and depressive disord*05/18/2019 Obese [E66.9] Encounter Status:Closed by STAN OROPEZA on 11/10/23 [facility] CNOVon 11-02-2023 CNOV Office Visit (FAMPWS ) SREE TORRES ([id number]) 1970 M Date Time Provider Department 11/02/23 7:20 AM [facility]OPE[facility] During your visit today, we recorded the following information about you: Pulse Respiration Blood pressure Weight 68/minute 16/minute 126/80 121.7 kg Stan Oropeza APRN.PHARMACIST AIDE 11/04/2023 1:07 PM Signed Chief Complaint Patient presents with: Follow Up: Injury of right shoulder, Needs sooner appt with ortho, anxiety. HPI Sree Torres is a 53 year old male who presents here today for Above Complaints.. Right shoulder-needs to get in with ortho and having difficulty getting scheduled. Requesting some assistance. Fall at work on 10/26. [place] a little lightheaded, turned around and tripped over a skid, fell on his right side, hit his head, was knocked out-unknown how long. Was taken to [facility] via squad. Dx with concussion. Suspected dehydration. Is currently on a paid suspension from work due to + drug test for either the Xanax or [place]. Saw grandkids while he has been off work over the weekend and they've commented how much better he has been and available he's been. Knows things are going to get worse when he goes back. Past medical history, appointments, medications, allergies reviewed. Previous Medical History PAST MEDICAL HISTORY Diagnosis Date Dyslipidemia 03/19/2015 Elevated LFTs 04/14/2016 Essential hypertension with goal blood pressure less than 140/90 06/19/2015 Ex-smoker 03/06/2015 Started at age 23 up to 1 02/08 PPD. Quit smoking May 08 2016 Fatty liver 04/21/2016 GERD without esophagitis 04/14/2016 Hypogonadism in male 03/06/2015 Leukocytosis Muscle cramps 03/06/2015 TIMOTHY (obstructive sleep apnea) 03/31/2015 Sleep study 03/2015: sever. Not able to tolerate CPAP Situational mixed anxiety and depressive disorder 05/18/2019 secodary to Covid 19 Previous Surgical History PAST SURGICAL HISTORY Procedure Laterality Date BACK SURGERY HX micro discectomy L5-S1 COLONOSCOPY 09/04/2021 repeat in 3 years FECAL OCCULT BLOOD TEST 09/12/2019 negative FOOT SURGERY HX Right Family History FAMILY HISTORY Problem Relation Age of Onset Diabetes Mother Psychiatry Mother rash and anxiety Cancer Maternal Grandmother 60 ? Cancer Maternal Grandfather 60 ? Alzheimer's Disease No Family History Colon Cancer No Family History Prostate Cancer No Family History Breast Cancer No Family History Ovarian cancer No Family History Coronary Artery Disease No Family History Hypertension No Family History Hyperlipidemia No Family History Kidney Disease No Family History Seizures No Family History Stroke No Family History Thyroid No Family History Anesthesia Problems No Family History Patient Allergies ALLERGIES No Known Allergies Current Medications Current Outpatient Medications on File Prior to Visit Medication Sig ALPRAZolam (XANAX) 0.5 mg tablet Take 1 tablet by mouth two times a day as needed for up to 30 days. cyclobenzaprine (FLEXERIL) 10 mg tablet Take 1 tablet by mouth three times a day as needed for muscle spasm. DULoxetine (CYMBALTA) 60 mg capsule Take 1 capsule by mouth once daily. zolpidem (AMBIEN) 10 mg Take 1 tablet by mouth at bedtime as needed (insomnia) for up to 120 days. omeprazole (PRILOSEC) 20 mg capsule Take 1 capsule by mouth once daily. TAKE 1 TABLET BY MOUTH DAILY BEFORE BREAKFAST. 1/2 HR BEFORE MEAL. lisinopril (ZESTRIL) 20 mg tablet Take 1 tablet by mouth once daily. Cholecalciferol, Vitamin D3, 50 mcg (2,000 unit) cap Take 1 capsule by mouth once daily. No current facility-administered medications on file prior to visit. Social History Social History Tobacco Use Smoking status: Former Current packs/day: 0.00 Average packs/day: 1 pack/day for 20.0 years (20.0 ttl pk-yrs) Types: Cigarettes Start date: 05/08/1996 Quit date: 05/08/2016 Years since quittin.4 Smokeless tobacco: Never Tobacco comments: none x 4 years Vaping Use Vaping status: Never Used Substance Use Topics Alcohol use: No Drug use: No Review of Symptoms REVIEW OF SYSTEMS See HPI, otherwise negative EXAM: BP 126/80 (BP Site: Left Arm, BP Position: Sitting, BP Cuff Size: Regular Adult) Pulse 68 Resp 16 Wt 121.7 kg (268 lb 4.8 oz) SpO2 97% BMI 32.66 kg/m? General Appearance: Well appearing, alert, in no acute distress, well-hydrated, well nourished.. Lungs: Lungs clear to auscultation. No wheezing, rhonchi, rales.. Heart: RRR without murmur, gallop, or rubs. No ectopy. Psychiatric: pleasant, cooperative. Health Maintenance List Lung Cancer Screening Never done Shingrix Vaccine(1 of 2) Never done Covid-19 Vaccine(2023- season) due on 10/09/2023 Influenza Vaccine(1) due on 10/09/2023 Hepatitis B Vaccine(1 of 3 - 19+ 3-dose series) due on 04/01/2024 HIV Screening due on 04/01/2024 Colorectal (more content not included)... Normal [facility] Urgent Care Visit Reporton 0 10-31-2023 Urgent Care Visit Report [facility] [address] [place] [address] OFFICE VISIT Date of Service: 10/31/23 MR#: [id number] Acct: [id number] Name: SREE TORRES Rep #: [id number] : 1970 Provider: EDDIE Chew Age/Sex: 53/M Location: [email or web address] Status: Signed Intake Vital Signs 10/27/23 19:52 10/31/23 08:13 Height 6 ft 4 in 6 ft 4 in Weight: 264 lb BMI 32.1 BP 148/86 H Blood Pressure Location Lt brachial Position Sitting Respiration 16 Pulse 79 Pulse Source Monitor Temp 98.0 F Temp Source Temporal Pulse Oximetry (%) 97 Oxygen Delivery Method room air Intake Visit Reasons: 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/ 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 Chief Complaint: 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 Accompanied by: Self Is patient in pain?: No Allergies No Known Allergies Allergy (Verified 10/31/23 08:14) Medications ???Medication ???Instructions ???Recorded ???Confirmed ???Type lisinopril 10 mg tablet 10 mg PO DAILY 08/26/17 10/31/23 History alprazolam 0.5 mg tablet 0.5 mg PO BID PRN PRN anxiety 08/18/23 10/31/23 History duloxetine 30 mg capsule,delayed 30 mg PO DAILY 08/18/23 10/31/23 History release omeprazole 20 mg capsule,delayed 20 mg PO DAILY 08/18/23 10/31/23 History release zolpidem 10 mg tablet 10 mg PO QHS PRN 08/18/23 10/31/23 History [facility] Medical History (Updated 10/31/23 @ 11:21 by Eitan MORGAN, PA) Contusion of right elbow Contusion of right shoulder Shoulder pain Arthritis Hypertension Surgical History History of back surgery Social History Smoking Status: Current every day smoker tobacco type: cigarettes HPI HPI Chief Complaint: 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 Details: SREE TORRES, is a 53 M who presents to the office today for follow-up status post incident which occurred at work on 10/27/2023. Patient reported to [facility] ED on date of injury, stating position change caused him to become lightheaded and dizzy therefore tripping over a pallet after the fact. Head and neck CT as well as right shoulder/elbow x-rays were all unremarkable he was treated and released the same day. Patient notes since the date of the injury his headache has continued to improve without recurring LOC and right shoulder/elbow have improved as well, noting no loss of range of motion or sensation or strength at injury sites or distal to describing only mild tolerable aching discomfort of the same. He has been working without restrictions without difficulty. No other complaints at this time. ROS Const Constitutional: No other (As above) Exam Const General: cooperative, healthy appearing and no acute distress Orientation: alert and awake [facility] Head: normal to inspection, no palpable skull fracture and normocephalic Ears: hearing grossly normal bilaterally, external ears normal, TM's normal bilaterally and EAC's normal Nose: external nose normal and no nasal discharge Face and sinus: normal facial exam and face symmetric Neck Neck: normal visual inspection, full ROM and no meningeal signs Chest Chest palpation inspection: normal inspection of the chest Resp Effort Inspection: normal respiratory effort and able to speak in complete sentences Cardio Rate: regular rate Pulses: radial pulses present Skin General: no rashes or lesions noted Neuro General: patient alert, patient awake and patient oriented x3 Cognition: normal cognition Speech: speech normal Extrem General: normal to inspection, full ROM (Right shoulder and right elbow) and capillary refill normal Psych Appearance: grossly normal Mental Status: mental status grossly normal Mood: congruent mood Affect: normal affect Speech and Movement: speech and movement normal Attitude: cooperative Coding Level of Care Code Off vis,est,level 2 Diagnoses Closed head injury S09.90XA Contusion of right shoulder S40.011A Contusion of right elbow S50.01XA Assessment and Plan Assessment and Plan (1) Closed head injury: Status: Acute (2) Contusion of right shoulder: Status: Acute (3) Contusion of right elbow: Status: Acute Plan: Considering the incident as described however think this is likely not work-related. Patient states he has been working without restrictions and is tolerating well, therefore released at this time and recommend following up ease PCP should symptoms recur, or ED sooner should symptoms only worsen or any other concerns develop. Patient states acknowledging understanding all the above. This note was generated with [employer] dictation software. It may contain incorrect words, spelling, and punctuation that were not noted in checking the note before signing. 10/31/23 1123 Date ____ (more content not included)... Normal [facility] 10-28-2023 [facility] Telephone (KATIEWS) SREE TORRES ([id number]) 1970 M Date Time Provider Department 10/28/23 STAN OROPEZA [facility] During your visit today, we recorded the following information about you: Zelda Macias RN 10/28/2023 10:19 AM Signed Spouse calls to report that patient had an ER visit last night after getting dizzy at work and tripping over a skid. Patient was seen at [facility] ER. She reports he has a concussion. Spouse reports that she is concerned that patients depression is worsening. Patient has reported to her that he feels like he is in a very dark place. She is aware of recent appointment and medication changes and wanted to let Lydia know of her concerns since appointment she feels that patient is in an even darker place with work and home life. She reports that patient is currently sleeping but it was ok to leave a message for patient to call back and speak to a nurse for further information as he will get message when he wakes. Message left for patient to follow up on symptoms and medications as ordered at appointment. Patient scheduled to see Lydia on 11/08/2023 for 1 month follow up previously. Has sooner availability if patient desires. JOEL Cárdenas Sherrie, RN 10/28/2023 11:24 AM Signed Patient calling in. ER Follow-Up appt made for patient for 11/03/23 with Stan, as patient prefers to see her only. 11/08/23 appt cancelled. Patient denies any current concerns, questions or needs. Will send this encounter to Stan for update. JOEL Ramsey Rebekah, APRN.VICKEY 10/28/2023 11:52 AM Signed Noted, thank you. Stan Oropeza APRN.VICKEY Allergies As of Date: 10/28/2023 (No Known Allergies) Date Reviewed: 10/06/2023 Reviewed by: Stan Oropeza APRN.PHARMACIST AIDE - Fully Assessed Reason for Visit: Patient Update [1234] Prescriptions as of 10/28/2023 - ALPRAZolam (XANAX) 0.5 mg tablet Take 1 tablet by mouth two times a day as needed for up to 30 days. - cyclobenzaprine (FLEXERIL) 10 mg tablet Take 1 tablet by mouth three times a day as needed for muscle spasm. - DULoxetine (CYMBALTA) 60 mg capsule Take 1 capsule by mouth once daily. - zolpidem (AMBIEN) 10 mg Take 1 tablet by mouth at bedtime as needed (insomnia) for up to 120 days. - omeprazole (PRILOSEC) 20 mg capsule Take 1 capsule by mouth once daily. TAKE 1 TABLET BY MOUTH DAILY BEFORE BREAKFAST. 1/2 HR BEFORE MEAL. - lisinopril (ZESTRIL) 20 mg tablet Take 1 tablet by mouth once daily. - Cholecalciferol, Vitamin D3, 50 mcg (2,000 unit) cap Take 1 capsule by mouth once daily. Problem List As Of Date 10/28/2023 Noted Resolved Hypogonadism in male [E29.1] 03/06/2015 Ex-smoker [Z87.891] 03/06/2015 Well adult exam [Z00.00] 03/06/2015 04/22/2023 Muscle cramps [R25.2] 03/06/2015 Dyslipidemia [E78.5] 03/19/2015 Leukocytosis [D72.829] 03/19/2015 TIMOTHY (obstructive sleep apnea) [G47.33] 03/31/2015 Essential hypertension with goal blood pressure*06/19/2015 Elevated LFTs [R79.89] 04/14/2016 04/22/2023 Hematuria [R31.9] 04/14/2016 GERD without esophagitis [K21.9] 04/14/2016 Fatty liver [K76.0] 04/21/2016 Atypical nevi [D22.9] 01/06/2018 Encounter for screening for diabetes mellitus [*12/13/2018 Situational mixed anxiety and depressive disord*05/18/2019 Obese [E66.9] Encounter Status:Closed by STAN OROPEZA on 10/28/23 Normal [facility] 12 Lead EKGon 10-27-2023 12 Lead EKG [facility] Cardiovascular Services [address] [place] [address] 12 Lead EKG 10/27/232055 MR#: [id number] Acct: [id number] Name: SREE TORRES Rep #: [id number] : 1970 53 From: Balaji Sargent MD Attending Dr: Status: DEP ER Ordering Dr: Tristin Giles DO Date: 4 Location: ED Sex: M C Admitted: Test Reason : DYSRHYTHMIA Blood Pressure : / mmHG Vent. Rate : 072 BPM Atrial Rate : 072 BPM P-R Int : 164 ms QRS Dur : 086 ms QT Int : 388 ms P-R-T Axes : 016 -20 015 degrees QTc Int : 424 ms Normal sinus rhythm Normal ECG Confirmed by Balaji Sargent ([id number]), publications editor VIKTORIYA MARCUM ([id number]) on 10/31/2023 10:48:14 AM Referred By: Confirmed By:Balaji Sargent 10/31/23 1048 Date Balaji Sargent MD CC: SOLE LAYER-C Stan Oropeza; Dr. Tristin Giles DO Signed Normal [facility] Brain/Head without Contrasto n 10-27-2023 Brain/Head without Contrast [facility] Imaging Services [address] [place], [place] [address] [address] Brain/Head without Contrast MR#: [id number] Acct: [id number] Name: SREE TORRES Rep #: [id number] : 1970 M 53 From: Contreras Soares MD PCP: MARGARET Bragg Status: DEP ER Study: Brain/Head without Contrast Date of Exam: 10/08 10/31 Exam# [id number] Ordering Dr: [place] [id number] STUDY: CT BRAIN WITHOUT CONTRAST REASON FOR EXAM: Male, 53 years old. SYNCOPE AT WORK RADIATION DOSAGE (If Supplied By Facility): CTDIvol = ( 44.99 ) mGy, DLP = ( 863.60 ) mGycm TECHNIQUE: Transaxial CT imaging of the brain was performed without administration of intravenous contrast material. Individualized dose optimization techniques were used for this CT. COMPARISON: No relevant priors. FINDINGS: Normal soft tissue structures. Normal calvarium. Normal size ventricles and extra-axial spaces for the patient''s age. Normal white matter tracts of the cerebral hemispheres. Normal basal ganglia and thalami. Normal brainstem. Normal cerebellum. There is no intracranial hemorrhage. There are no findings of an acute ischemic infarction. Normal visualized paranasal sinuses. CT/Brain/Head without Contrast IMPRESSION: Normal unenhanced CT scan of the brain. Electronically Signed: Contreras Soares MD at 22:34 EDT , CC: MARGARET Oropeza; Dr. Tristin Giles DO Rotary Cutter Feeder: Signed Normal [facility] Elbow min 3 Viewson 10-27-19 Elbow min 3 Views [facility] Imaging Services [address] [place] [address] [id number] Elbow min 3 Views MR#: [id number] Acct: [id number] Name: SREE TORRES Rep #: [id number] : 1970 M 53 From: Contreras Soares MD PCP: MARGARET Bragg Status: PRE ER Study: Elbow min 3 Views Date of Exam: 10/27/23 Exam# [id number] Ordering Dr: Harjit Coy [id number] STUDY: X-RAY - RIGHT ELBOW REASON FOR EXAM: Male, 53 years old. fall TECHNIQUE: 3 view(s) of the elbow. COMPARISON: None. FINDINGS: Normal visualized humerus, radius and ulna. Normal radiocapitellar and ulnotrochlear articulations. The soft tissue structures are unremarkable. RAD/Elbow min 3 Views IMPRESSION: Normal x-ray examination of the elbow. Electronically Signed: Contreras Soares MD at 20:36 EDT , CC: MARGARET Oropeza; ED PHYSICIAN PROVIDER Rotary Cutter Feeder: Signed Normal [facility] Emergency Department Summary on 10-27-2023 Emergency Department Summary [facility] Medical Records Department [address] [place] [address] Emergency Department Summary 10/27/23 MR#: [id number] Acct: [id number] Name: SREE TORRES Rep #: [id number] : 1970 53 From: Tristin Giles DO PCP: MARGARET Bragg Status:DEP ER Location: ED HPI History of Present Illness Chief Complaint: Head Injury Narrative Narrative: Chief complaint and HPI: Head injury. 53-year-old male presents for evaluation of head injury after a mechanical fall at work. Patient states he was at work when he lost his balance, fell, and hit his head on a machine. He had LOC. He denies any vision changes, nausea, vomiting, chest pain, shortness of breath, abdominal pain. Patient endorses pain in his left elbow, left shoulder, and left scalp where he hit the machine. Has not ambulated since the fall. Denies any neck pain or numbness/tingling. Not on blood thinners. Review of systems: See HPI Medications: As listed on the chart Allergies: As listed on the chart PFSH: Per chart Vital signs: As listed on the chart. Reviewed. Physical exam: Gen: A O x3, NAD Head: Normocephalic, small hematoma/ecchymosis to the left scalp Eyes: No sclera icterus, conjunctiva clear, PERRL, EOMI ENT: TMs clear BL, moist mucous membranes, no swelling/lacerations/bl ood in the mouth or the nares, No nasal septal hematoma, no facial tenderness Neck: Trachea midline, No JVD, Nontender CV: RRR, no murmurs, no chest wall TTP Resp: Lungs CTA BL, no w/r/c GI: Abd soft, non-distended, non-tender, no r/r/g Musc: Limited range of motion of the left shoulder secondary to pain, endorses pain with palpation of the left elbow, no obvious deformity, no spinal TTP, no mara step-offs Skin: Warm, dry Neuro: Alert, oriented, grossly intact, sensation intact, GCS 15 Psych: Cooperative, appropriate mood and affect [facility] Medical History (Updated 10/28/23 @ 00:[address] Tristin Giles, DO) Shoulder pain Arthritis Hypertension Home Medications ???Medication ???Instructions ???Recorded ???Last Taken ???Type lisinopril 10 mg tablet 10 mg PO DAILY 08/26/17 08/26/17 History alprazolam 0.5 mg tablet 0.5 mg PO BID PRN PRN anxiety 08/18/23 Unknown History duloxetine 30 mg capsule,delayed 30 mg PO DAILY 08/18/23 Unknown History release omeprazole 20 mg capsule,delayed 20 mg PO DAILY 08/18/23 Unknown History release zolpidem 10 mg tablet 10 mg PO QHS PRN 08/18/23 Unknown History Allergy/AdvReac Type Severity Reaction Status Date / Time No Known Allergies Allergy Verified 10/27/23 19:55 Surgical History History of back surgery Social History Smoking Status: Current every day smoker tobacco type: cigarettes EXAM Physical Exam Const Vital Signs: 10/27/23 19:52 10/27/23 21:11 10/27/23 21:11 Temperature 97.1 F L Temperature Source Temporal Pulse Rate 82 Pulse Rate [Lying] Pulse Rate [Sitting (for 1 minute prior to obtaining)] Pulse Rate [Standing (for 1 minute prior to obtaining)] Respiratory Rate 18 Respiratory Effort Normal Respiratory Depth Respiratory Pattern Normal Blood Pressure Blood Pressure [Lying] Blood Pressure [Sitting (for 1 minute prior to obtaining)] Blood Pressure [Standing (for 1 minute prior to obtaining)] Blood Pressure Mean Blood Pressure Mean [Lying] Blood Pressure Mean [Sitting (for 1 minute prior to obtaining)] Blood Pressure Mean [Standing (for 1 minute prior to obtaining)] Pulse Ox 98 Oxygen Delivery Method Room Air Room Air 10/27/23 21:13 10/27/23 21:51 10/27/23 23:00 Temperature Temperature Source Pulse Rate 71 77 Pulse Rate [Lying] Pulse Rate [Sitting (for 1 minute prior to obtaining)] Pulse Rate [Standing (for 1 minute prior to obtaining)] Respiratory Rate 19 H 19 H Respiratory Effort Normal Respiratory Depth Normal Respiratory Pattern Normal Blood Pressure 131/79 H 139/94 H Blood Pressure [Lying] Blood Pressure [Sitting (for 1 minute prior to obtaining)] Blood Pressure [Standing (for 1 minute prior to obtaining)] Blood Pressure Mean 96 109 Blood Pressure Mean [Lying] Blood Pressure Mean [Sitting (for 1 minute prior to obtaining)] Blood Pressure Mean [Standing (for 1 minute prior to obtaining)] Pulse Ox 95 100 95 Oxygen Delivery Method Room Air Room Air Room Air 10/28/23 00:03 10/28/23 00:10 Temperature 98.4 F Temperature Source Pulse Rate 75 Pulse Rate [Lying] 77 Pulse Rate [Sitting (for 1 minute prior to obtaining)] 84 Pulse Rate [Standing (for 1 minute prior to obtaining)] 71 Respiratory Rate 18 Respiratory Effort Respiratory Depth Res (more content not included)... Normal [facility] Shoulder min 2 Viewson 10-26 Shoulder min 2 Views [facility] Imaging Services [address] [place] [address] Shoulder min 2 Views MR#: [id number] Acct: [id number] Name: SREE TORRES Rep #: [id number] : 1970 M 53 From: Contreras Soares MD PCP: MARGARET Bragg Status: [facility] Study: Shoulder min 2 Views Date of Exam: 10/27/23 Exam# [id number] Ordering Dr: [place] [id number] STUDY: X-RAY - RIGHT SHOULDER REASON FOR EXAM: Male, 53 years old. FALL TECHNIQUE: 4 view(s) of the shoulder. COMPARISON: None. FINDINGS: Narrowed glenohumeral articulation. Narrowed acromioclavicular joint. Normal acromion. Normal humeral head and visualized proximal humerus. The soft tissue structures are unremarkable. Normal visualized pulmonary apex. RAD/Shoulder min 2 Views IMPRESSION: Degenerative changes. No acute fracture or dislocation. Electronically Signed: Contreras Soares MD at 22:37 EDT Reading Location ID and State: [facility] [place] Tel , Service support , CC: SOLE LAYERAlan Oropeza; Dr. Tristin Giles DO Rotary Cutter Feeder: Signed Normal [facility] Spine Cervical without Contr ason 10-27-2023 Spine Cervical without Contras [facility] Imaging Services [address] [place], [place] [address] Spine Cervical without Contras MR#: [id number] Acct: [id number] Name: SREE TORRES Rep #: [id number] : 1970 M 53 From: Contreras Soares MD PCP: MARGARET Bragg Status: DEP ER Study: Spine Cervical without Contras Date of Exam: 0 10/27/23 Exam# [id number] Ordering Dr: [place] [id number] STUDY: CT CERVICAL SPINE WITHOUT CONTRAST REASON FOR EXAM: Male, 53 years old. [employer]NCOPE AT WORK RADIATION DOSAGE (If Supplied By Facility): CTDIvol = ( 28.99 ) mGy, DLP = ( 730.54 ) mGycm TECHNIQUE: High resolution transaxial imaging was performed without contrast material. Sagittal and coronal images were reconstructed. Individualized dose optimization techniques were used for this CT. COMPARISON: None FINDINGS: Normal craniovertebral junction. Normal anterior atlantoaxial articulation. Normal odontoid process. Straightening of normal lordotic curvature possibly due to muscle spasm or positioning artifact. Normal vertebral bodies and posterior osseous elements. C2-3: Normal endplates. Normal disc height and morphology. Normal central canal and intervertebral neuroforamina. C3-4: Normal endplates. Normal disc height and morphology. Normal central canal and intervertebral neuroforamina. C4-5: Minor anterior endplate spurring. Normal disc height and morphology. Normal central canal and intervertebral neuroforamina. C5-6: Minor anterior endplate spurring. Normal disc height and morphology. Normal central canal and intervertebral neuroforamina. C6-7: Normal endplates. Normal disc height and morphology. Normal central canal and intervertebral neuroforamina. C7-T1: Normal endplates. Normal disc height and morphology. Normal central canal and intervertebral neuroforamina. Normal visualized soft tissue structures. CT/Spine Cervical without Contras IMPRESSION: Early spondylotic changes. No acute fracture or other significant abnormality Electronically Signed: Contreras Soares MD at 22:36 EDT , CC: MARGARET Oropeza; Dr. Tristin Giles DO Rotary Cutter Feeder: Signed [facility] 10-20-2023 [facility] Telephone (DAHLIA) SREE TORRES ([id number]) 1970 M Date Time Provider Department 10/20/23 ADALBERTO GOMEZ During your visit today, we recorded the following information about you: Lizbeth Poretr MA 10/20/2023 5:08 PM Signed Patient has appointment with Dr. Gomez on Tuesday 10/24 at the [place] office. Patient had x-rays done at on 09/30. Left message for patient to get a copy of x-rays on a CD to bring to appointment. Patient is to call the office if any questions. Lizbeth Porter MA 10/25/2023 7:37 AM Signed Patient canceled appointment and did not reschedule. Allergies As of Date: 10/20/2023 (No Known Allergies) Date Reviewed: 10/06/2023 Reviewed by: Stan Oropeza APRN.PHARMACIST AIDE - Fully Assessed Reason for Visit: Chart prep - X-rays [Other] Prescriptions as of 10/25/2023 - ALPRAZolam (XANAX) 0.5 mg tablet Take 1 tablet by mouth two times a day as needed for up to 30 days. - cyclobenzaprine (FLEXERIL) 10 mg tablet Take 1 tablet by mouth three times a day as needed for muscle spasm. - DULoxetine (CYMBALTA) 60 mg capsule Take 1 capsule by mouth once daily. - zolpidem (AMBIEN) 10 mg Take 1 tablet by mouth at bedtime as needed (insomnia) for up to 120 days. - omeprazole (PRILOSEC) 20 mg capsule Take 1 capsule by mouth once daily. TAKE 1 TABLET BY MOUTH DAILY BEFORE BREAKFAST. 1/2 HR BEFORE MEAL. - lisinopril (ZESTRIL) 20 mg tablet Take 1 tablet by mouth once daily. - Cholecalciferol, Vitamin D3, 50 mcg (2,000 unit) cap Take 1 capsule by mouth once daily. Problem List As Of Date 10/20/2023 Noted Resolved Hypogonadism in male [E29.1] 03/06/2015 Ex-smoker [Z87.891] 03/06/2015 Well adult exam [Z00.00] 03/06/2015 04/22/2023 Muscle cramps [R25.2] 03/06/2015 Dyslipidemia [E78.5] 03/19/2015 Leukocytosis [D72.829] 03/19/2015 TIMOTHY (obstructive sleep apnea) [G47.33] 03/31/2015 Essential hypertension with goal blood pressure*06/19/2015 Elevated LFTs [R79.89] 04/14/2016 04/22/2023 Hematuria [R31.9] 04/14/2016 GERD without esophagitis [K21.9] 04/14/2016 Fatty liver [K76.0] 04/21/2016 Atypical nevi [D22.9] 01/06/2018 Encounter for screening for diabetes mellitus [*12/13/2018 Situational mixed anxiety and depressive disord*05/18/2019 Obese [E66.9] Encounter Status:Closed by LIZBETH PORTER on 10/25/23 [facility] CNOVon 10-06-2023 CNOV Office Visit (FAMPWS ) SREE TORRES ([id number]) 1970 M Date Time Provider Department 10/06/23 7:20 AM STAN OROPEZA During your visit today, we recorded the following information about you: Pulse Respiration Blood pressure Weight 70/minute 16/minute 122/78 121.4 kg Stan Oropeza, KVNG.PHARMACIST AIDE 10/06/2023 4:19 PM Signed Chief Complaint Patient presents with: Depression: Discuss med options Pain (Shoulder Pain): R x 1 week due to injury. Was seen in ER 09/30 and was told to follow up with ortho for possible torn rotator cuff. ELIANE Balbuena Karina Torres is a 53 year old male who presents here today for Above Complaints.. 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 Does have some occasional thoughts that things would be better of not being here-but more just frustrated and depressed, would never do anything about it. This is affecting his relationship with his . Has panic attacks when getting ready to go to work. Cymbalta-hasn't helped at all. 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 [place] the pain immediately, but over the next 2 days got pretty severe. Ended up going to [facility]-they did an xray-was told no bone issues. Was given shot of Toradol. Gave him an NSAID for pain. Pain is slightly better but still very painful. ROM is terrible, can't lift anything. Is left handed. Difficulty sleeping r/t the pain-already has some sleeping issues anyway-Ambien has been helping-is not dependent on it-but wondering if possibly could be increased. Past medical history, appointments, medications, allergies reviewed. Previous Medical History PAST MEDICAL HISTORY 03/19/2015: Dyslipidemia 04/14/2016: Elevated LFTs 06/19/2015: Essential hypertension with goal blood pressure less than 140/90 03/06/2015: Ex-smoker Comment: Started at age 23 up to 1 02/08 PPD. Quit smoking May 08 2016 04/21/2016: Fatty liver 04/14/2016: GERD without esophagitis 03/06/2015: Hypogonadism in male No date: Leukocytosis 03/06/2015: Muscle cramps 03/31/2015: TIMOTHY (obstructive sleep apnea) Comment: Sleep study 03/2015: sever. Not able to tolerate CPAP 05/18/2019: Situational mixed anxiety and depressive disorder Comment: secodary to Covid 19 Previous Surgical History PAST SURGICAL HISTORY No date: BACK SURGERY HX Comment: micro discectomy L5-S1 09/04/2021: COLONOSCOPY Comment: repeat in 3 years 09/12/2019: FECAL OCCULT BLOOD TEST Comment: negative No date: FOOT SURGERY HX; Right Family History FAMILY HISTORY Problem Relation Age of Onset Diabetes Mother Psychiatry Mother rash and anxiety Cancer Maternal Grandmother 60 ? Cancer Maternal Grandfather 60 ? Alzheimer's Disease No Family History Colon Cancer No Family History Prostate Cancer No Family History Breast Cancer No Family History Ovarian cancer No Family History Coronary Artery Disease No Family History Hypertension No Family History Hyperlipidemia No Family History Kidney Disease No Family History Seizures No Family History Stroke No Family History Thyroid No Family History Anesthesia Problems No Family History Patient Allergies ALLERGIES No Known Allergies Current Medications Current Outpatient Medications on File Prior to Visit Medication Sig omeprazole (PRILOSEC) 20 mg capsule Take 1 capsule by mouth once daily. TAKE 1 TABLET BY MOUTH DAILY BEFORE BREAKFAST. 1/2 HR BEFORE MEAL. lisinopril (ZESTRIL) 20 mg tablet Take 1 tablet by mouth once daily. zolpidem (AMBIEN) 10 mg Take 1 tablet by mouth at bedtime as needed (insomnia) for up to 120 days. Cholecalciferol, Vitamin D3, 50 mcg (2,000 unit) cap Take 1 capsule by mouth once daily. DULoxetine (CYMBALTA) 30 mg capsule Take 1 capsule by mouth once daily. No current facility-administered medications on file prior to visit. Social History Social History Tobacco Use Smoking status: Former Current packs/day: 0.00 Average packs/day: 1 pack/day for 20.0 years (20.0 ttl pk-yrs) Types: Cigarettes Start date: 05/08/1996 Quit date: 05/08/2016 Years since quittin.4 Smokeless tobacco: Never Tobacco comments: none x 4 years Vaping Use Vaping status: Never Used Substance Use Topics Alcohol use: No Drug use: No Review of Symptoms REVIEW OF SYSTEMS See HPI, otherwise negative EXAM: BP 122/78 (BP Site: Left Arm, BP Position: Sitting, BP Cuff Size: Regular Adult) Pulse 70 Resp 16 Wt 121.4 kg (267 lb 9.6 oz) SpO2 97% BMI 32.57 kg/m? General Appearance: Well appearing, alert, in no acute distress, well-hydrated, well nourished.. Lungs: Lungs clear to auscultation. No wheezing, rhonchi, rales.. Heart: RRR without murmur, gallop, or rubs. No ectopy. Musculoskeletal: right shoulder with decrea (more content not included)... Normal [facility] XR SHOULDER RIGHT 2+ VIEWSon 10-01-2023 XR SHOULDER RIGHT 2+ VIEWS STUDY: Shoulder Radiographs; 10/01/2023 10:12 AM INDICATION: Right shoulder pain/injury. COMPARISON: None. ACCESSION NUMBER(S): [id number] ORDERING CLINICIAN: BRYCE YAO TECHNIQUE: Five view(s) of the right shoulder. FINDINGS: There is no displaced fracture. The alignment is anatomic. No soft tissue abnormality is seen. IMPRESSION: Normal study. Internal derangement should be excluded on the basis of MRI. Signed by Benny Andre M.D. [facility] XR Shoulder - right 2 Viewso n 10-01-2023 Normal study. Clipper Automatic al derangement should be excluded on the basis of MRI. Signed by Benny Andre M.D. TELERADIOLOGY STUDY: Shoulder Radiographs; 10/01/2023 10:12 AM INDICATION: Right shoulder pain/injury. COMPARISON: None. ACCESSION NUMBER(S): [id number] ORDERING CLINICIAN: BRYCE YAO TECHNIQUE: Five view(s) of the right shoulder. FINDINGS: There is no displaced fracture. The alignment is anatomic. No soft tissue abnormality is seen. TELERADIOLOGY Benny Andre MD - 10/01/2023 STUDY: Shoulder Radiographs; 10/01/2023 10:12 AM INDICATION: Right shoulder pain/injury. COMPARISON: None. ACCESSION NUMBER(S): [id number] ORDERING CLINICIAN: BRYCE YAO TECHNIQUE: Five view(s) of the right shoulder. FINDINGS: There is no displaced fracture. The alignment is anatomic. No soft tissue abnormality is seen. IMPRESSION: Normal study. Internal derangement should be excluded on the basis of MRI. Signed by Benny Andre M.D. [facility] Work Phone: Radiology Study observation (narrative) [facility] Work Phone: XR Shoulder - right 2 ViewsO rdered By: Benny Andre on 10-01-2023 [facility] Work Phone: Emergency Department Summary on 08-19-2023 Emergency Department Summary [facility] Medical Records Department [address] [place] [address] Emergency Department Summary 08/19/23 MR#: [id number] Acct: [id number] Name: SREE TORRES Rep #: [id number] : 1970 53 From: Guillermo Melissa DO PCP: MARGARET Bragg Status:REG ER Location: ED HPI History of Present Illness Chief Complaint: Laceration Narrative Narrative: 53-year-old male with laceration to the left yao. He states that a metal object cut his yao while he was walking at work. Last tetanus 2 or 3 years ago. Patient able to ambulate. Patient unsure if the piece of metal hit bone. Denies any numbness or tingling. Bleeding was controlled at the scene. [facility] Medical History Shoulder pain Arthritis Hypertension Home Medications ???Medication ???Instructions ???Recorded ???Last Taken ???Type lisinopril 10 mg tablet 10 mg PO DAILY 08/26/17 08/26/17 History alprazolam 0.5 mg tablet 0.5 mg PO BID PRN PRN anxiety 08/18/23 Unknown History duloxetine 30 mg capsule,delayed 30 mg PO DAILY 08/18/23 Unknown History release omeprazole 20 mg capsule,delayed 20 mg PO DAILY 08/18/23 Unknown History release zolpidem 10 mg tablet 10 mg PO QHS PRN 08/18/23 Unknown History Allergy/AdvReac Type Severity Reaction Status Date / Time No Known Allergies Allergy Verified 08/18/23 22:47 Surgical History History of back surgery Social History Smoking Status: Current every day smoker tobacco type: cigarettes EXAM Physical Exam Const Vital Signs: 08/18/23 22:47 Temperature 97 F L Temperature Source Temporal Pulse Rate 71 Respiratory Rate 18 Blood Pressure 149/87 H Blood Pressure Mean 107 Pulse Ox 98 Oxygen Delivery Method Room Air HEENT Reports moist mucous membranes Eyes PERRL and EOMs intact bilaterally Neck supple Resp normal respiratory effort Cardio regular rate and regular rhythm GI Palpation: soft Narrative: Deferred Extremity normal to inspection Extremity Narrative: 5 cm linear laceration in the vertical lie overlying the tibia. Bleeding well-controlled. Neuro oriented x3 and CN's II-XII intact bilaterally Sensorium / Orientation: alert Motor Exam: strength 5/5 throughout Psych mental status grossly normal Attitude: No agitated MDM MDM MDM Narrative Medical decision making narrative: Patient sustained laceration. I obtained a x-ray of the tibia and on my interpretation is no acute bony involvement or fracture. Patient's wound was sutured. Please see procedure note. Patient tolerated procedure well. Worker's Comp. paperwork was filled out. Work restrictions were given. Wound care and return precautions discussed. Impression: 1. 5 cm left yao laceration Lab Data Attestation: I reviewed the patient's lab results. Procedures Lacerations left yao: Length: 2 in Depth: Skin Shape: Linear Prep: Sterile Conditions and Chlorhexadine Laceration repair: Lidocaine with epi (3cc) and Wound explored Irrigated (ml): 500 Number of Sutures/Venancio: 5 Suture Information: Simple Discharge Plan Triage Chief Complaint: Laceration ED Provider: Guillermo Melissa Dx/Rx/DC Orders Prescriptions: No Action lisinopril 10 MG tablet 10 mg PO DAILY omeprazole 20 mg capsule,delayed release(DR/EC) 20 mg PO DAILY zolpidem 10 mg tablet 10 mg PO QHS PRN alprazolam 0.5 mg tablet 0.5 mg PO BID PRN PRN (Reason: anxiety) duloxetine 30 mg capsule,delayed release(DR/EC) 30 mg PO DAILY Primary Care Provider: Stan Oropeza NP Referrals: Stan Oropeza NP, [facility] [Primary Care Provider] - Print Language: Romansh What to do if you have Problems For any increased pain, shortness of breath, bleeding, nausea or vomiting, chest pain, or any unexpected problems, contact your Primary Care Provider. Call [facility] ([phone]) or report to the closest Emergency Room. Call 911 if necessary. 08/19/23 0111 Cosigner Signature (if applicable): CC: [facility] Stan Oropeza Signed Normal [facility] Tibia Fibula 2 Viewson 08-17 Tibia Fibula 2 Views [facility] Imaging Services [address] [place] [id number] Tibia Fibula 2 Views MR#: [id number] Acct: [id number] Name: SREE TORRES Rep #: [id number] : 1970 M 53 From: Diogenes valdes MD PCP: MARGARET Bragg Status: DEP ER Study: Tibia Fibula 2 Views Date of Exam: 08/18/23 Exam# [id number] Ordering [place]: [place] [id number] INDICATION: laceration EXAMINATION/TECHNIQUE: X-RAY - LEFT XR Tibia/Fibula 2 Views COMPARISON: None. FINDINGS: No acute fracture or malalignment. No blastic or lytic lesions. Mild scattered degenerative changes. The soft tissues are unremarkable. RAD/Tibia Fibula 2 Views IMPRESSION: No acute radiographic abnormalities. Electronically Signed: Diogenes Richardson MD at 1:41 EDT , CC: MARGARET Oropeza; Dr. Guillermo Melissa DO Rotary Cutter Feeder: Signed Normal [facility] XR Cervical spine AP and Lat eral and obliqueon 01-07-2023 IMPRESSION: No fract ure or malalignment Rotary Cutter Feeder: [facility] Transcribe Date/Time: Jan 07 2023 8:18A Dictated by : DAVIDA NEWELL MD This examination was interpreted and the report reviewed and electronically signed by: DAVIDA NEWELL MD on Jan 07 2023 8:20AM [facility] DIVISION OF RADIOLOGY * * *Final Report* * * DATE OF EXAM: Jan 05 2023 9:16AM WOX [id number] - XR CERVICAL 4V AP/LAT/OBL / PROCEDURE REASON: multiple diagnoses * * * * Physician Interpretation * * * * X-ray cervical spine, AP, lateral and oblique views Indication: Neck pain Counting reference: Craniocervical junction Anatomic variant: None There is normal architecture and mineralization of the bones. No fracture is visualized. There is good alignment of the vertebrae. There is no prevertebral soft tissue swelling. DIVISION OF RADIOLOGY Provider, [facility] - 01/07/2023 * * *Final Report* * * DATE OF EXAM: Jan 05 2023 9:16AM WOX [id number] - XR CERVICAL 4V AP/LAT/OBL / PROCEDURE REASON: multiple diagnoses * * * * Physician Interpretation * * * * X-ray cervical spine, AP, lateral and oblique views Indication: Neck pain Counting reference: Craniocervical junction Anatomic variant: None There is normal architecture and mineralization of the bones. No fracture is visualized. There is good alignment of the vertebrae. There is no prevertebral soft tissue swelling. IMPRESSION IMPRESSION: No fracture or malalignment [facility] C[facility] Transcribe Date/Time: Jan 07 2023 8:18A Dictated by : DAVIDA NEWELL MD This examination was interpreted and the report reviewed and electronically signed by: DAVIDA NEWELL MD on Jan 07 2023 8:20AM [facility] XR Cervical spine AP and Lat eral and obliqueOrdered By: [facility]cf Provider on 01-07-2023 [facility] XR Cervical spine AP and Lat eral and obliqueon 01-05-2023 Radiology Study observation (narrative) [facility] XR Cervical spine 2 or 3 Vie wson 12-06-2022 Imaging Result: X-rays of the cervical spine were reviewed with the patient. The x-rays showed 5 weightbearing lumbar vertebrae significant degenerative changes noted. Scant vascular calcifications noted on the AP of the C-spine. [facility] Radiology Study observation (narrative) [facility] XR Foot - right 3 Viewson 3 weightbearing view s of the right foot were obtained in the office today. A healing stress fracture is noted through the metatarsal shaft area. [facility] Radiology Study observation (narrative) [facility] XR Foot - right 3 Viewson Negative examination of the foot. Report Dictated on Electronically Signed By: Gilmer Avendaño DO Electronically Signed Date/Time: 09/19/2022 11:53 PM EDT [facility] EMERGENCY DEPARTMENT RADIOLOGY SYSTEM Patient Name: SREE TORRES : 1970 Exam Date/Time: 09/19/2022 23:50 Procedure: XR FOOT 3+ VIEWS RIGHT Ordering Provider: ESTRADA JOSEPH Reason For Exam: FOOT PAIN RIGHT FOOT, 3 VIEWS: INDICATION: Right foot pain COMPARISON: 04/17/2021 Frontal, oblique and lateral views of the right foot were obtained. The bone density is within normal limits. No fracture or dislocation is noted. The joint spaces are within normal limits. There are no significant soft tissue abnormalities. [facility] Gilmer Avendaño DO - 09/19/2022 Patient Name: SREE TORRES : 1970 Exam Date/Time: 09/19/2022 23:50 Procedure: XR FOOT 3+ VIEWS RIGHT Ordering Provider: ESTRADA JOSEPH Reason For Exam: FOOT PAIN RIGHT FOOT, 3 VIEWS: INDICATION: Right foot pain COMPARISON: 04/17/2021 Frontal, oblique and lateral views of the right foot were obtained. The bone density is within normal limits. No fracture or dislocation is noted. The joint spaces are within normal limits. There are no significant soft tissue abnormalities. IMPRESSION: Negative examination of the foot. Report Dictated on Electronically Signed By: Gilmer Avendaño DO Electronically Signed Date/Time: 09/19/2022 11:53 PM EDT [employer] Radiology Study observation (narrative) [facility] XR Foot - right 3 ViewsOrder ed By: Gilmer Avendaño on 09-19-2022 [facility] Work Phone: OPERATIVE REPORTon 2 Ordered by an unspecified provider. [facility] Op Noteon 10-13-2021 Op Note Pre-operative Diagnosis: Right tarsal tunnel syndrome Post-operative Diagnosis: Same Procedure: Right tarsal tunnel release Components used: Not Applicable Anesthesia: General Surgeon: Frederick Assistants: Frida Agee Estimated Blood Loss: Minimal Complications: None Specimens: No Medications: Ancef 2 g IV and TXA 1 g IV Operative findings: The tarsal tunnel was found to be tight with compression of the neurovascular bundle. Once the entire tarsal tunnel was released from proximal to distal the nerve was fully visualized and was grossly normal. History of present illness: Sree is a 51 y.o. male who was found to have symptoms consistent with tarsal tunnel who also underwent a nerve conduction study which verified tarsal tunnel syndrome of the Right lower extremity. Given the patient's symptoms, his findings on exam and subsequent workup, he was felt to be a reasonable surgical candidate for tarsal tunnel release. The risks of the above mentioned procedure were discussed with Sree and despite the known risks he wish to proceed. Operative report: I met with Sree in the preoperative area prior to the procedure and discussed the surgical plan once again and answered all of his questions related to the procedure and the expected post-operative course. The risks of surgery were discussed including but not limited to the risks of medications given for surgery, the risk of blood loss during and after surgery that can lead to the need for blood products in certain situations, infection, damage to normal structures that can lead to residential problems of pain or dysfunction, wound healing complications, the possibility of nonunion, malunion and late or chronic pain were also discussed. In addition potentially life threatening complications at the time of surgery and after surgery were discussed including but not limited to deep vein thrombosis, pulmonary embolism, myocardial infarction, stroke and . I initialed his Right lower extremity and signed his consent form. Sree was then brought to the operating room and placed in the supine position on the Operating Room table. Care was taken to identify and pad all bony prominences. A general anesthetic was then given by the anesthesia staff and an endotracheal tube was placed by the anesthesia staff. At all times during the operative procedure the patient's head neck and airway were protected by the anesthesia staff. A tourniquet was applied to the Right proximal thigh over cast padding. Total tourniquet time was less than 30 minutes. The Right lower extremity was then prepped and draped in the usual orthopedic sterile fashion. A surgical timeout was then performed with the patient's identification, the procedure to be performed being reviewed, verification that the patient had received preoperative antibiotics, and verification of the correct surgical side. Everyone in the operating room stopped what they were doing in order to participate in the timeout. This timeout was performed by myself, the circulating room nurse and the anesthesia staff. The patient's ASA was verified by the nurse casting house laborer and the anesthesia staff. Fire risk was assessed. An Esmarch bandage was utilized to exsanguinate the Right lower extremity and the tourniquet was inflated. An incision was made overlying the tarsal tunnel just posterior to the flexor digitorum longus tendon sheath. The skin and subcutaneous tissues were divided and any crossing vessels were cauterized. The wound was deepened to the level of the tarsal tunnel. A small incision was made in the central portion of the tarsal tunnel using a 15 blade scalpel. Metzenbaum scissors were then used to spread underneath the tarsal tunnel to create a space such that release of the tunnel would not injure the underlying neurovascular structures. The Metzenbaum scissors were then used in a proximal direction to release the entire tarsal tunnel. This was performed until all tight portions of the tarsal tunnel were released. This extended above the ankle joint level. Dissection was then carried distally to the abductor hallucis muscle belly. This muscle belly was retracted in a plantar direction and the portion of the tarsal tunnel medial to the abductor hallucis muscle belly was released such that both the medial and lateral plantar nerves were well visualized coursing into the plantar aspect of the foot. The entire tarsal tunnel was then released. Palpation proximally and distally through the incision revealed no tight bands overlying the tarsal tunnel. The tourniquet was then released and any active bleeding was controlled using Bovie cautery. The wound was thoroughly irrigated with copious amounts of sterile saline. The subcutaneous tissues were then closed utilizing 2-0 Vicryl. The skin was then closed utilizing 3-0 nylon. Dry sterile dressings were then applied and a well-padded pos (more content not included)... Normal [facility] Basic Metabolic Panelon 08-03 18-2021 Anion gap [Moles/Vol] 9 mmol/L Normal 3-13 [facility] Comment on above: Performed By: #### B MP3 #### [address] [address] [place] [address] Calcium [Mass/Vol] 9.4 mg/dL Normal 8.4-10.4 [facility] Comment on above: Performed By: #### B MP3 #### [facility] [address] [place] [address] CO2 [Moles/Vol] 26 mmol/L Normal 22-30 [facility] Comment on above: Performed By: #### B MP3 #### [address] [address] Glucose [Mass/Vol] 89 mg/dL Normal 70-100 [facility] Comment on above: Performed By: #### B MP3 #### [facility] [address] [place] [address] Urea nitrogen [Mass/Vol] 19 mg/dL High 7-17 [facility] Comment on above: Performed By: #### B MP3 #### [facility] [address] [place] [address] Creatinine [Mass/Vol] 1.22 mg/dL Normal 0.52-1.25 [facility] Comment on above: Performed By: #### B MP3 #### [facility] [address] [place] [address] GFR/1.73 sq M.predicted among blacks MDRD (S/P/Bld) [Vol rate/Area] 78.3 mL/min/{1.73_m2} Normal >60 [facility] Comment on above: Performed By: #### B MP3 #### [facility] [address] [place] [address] GFR/1.73 sq M.predicted among non-blacks MDRD (S/P/Bld) [Vol rate/Area] 67.6 mL/min/{1.73_m2} Normal >60 [facility] Comment on above: Result Comment: KDIG O guidelines provide the following GFR categories: Stage GFR(ml/min/1.73 m2) Terms G1 >=90 Normal or high G2 60-89 Mildly decreased* G3a 45-59 Mildly to moderately decreased G3b 30-44 Moderately to severely decreased G4 15-29 Severely decreased G5 <15 Kidney failure *Relative to young adult level. In the absence of evidence of kidney damage, neither GFR category G1 nor G2 fulfill the criteria for CKD. The CKD-EPI equation is validated in individuals 18 years of age and older. Currently the best equation for estimating glomerular filtration rate (GFR) from serum creatinine in children is the Bedside Horne equation. It is less accurate in patients with extremes of muscle mass, restriction of dietary protein, ingestion of creatine, extra-renal metabolism of creatinine, or treatment with medications that affect renal tubular creatinine secretion. Performed By: #### B MP3 #### [address] [address] [place], [place] Potassium [Moles/Vol] 4.3 mmol/L Normal 3.5-5.1 [facility] Comment on above: Result Comment: Sltad htly hemolysed, interpret with caution. Performed By: #### B MP3 #### [facility] [address] [place] [address] Sodium [Moles/Vol] 142 mmol/L Normal 135-145 [facility] Comment on above: Performed By: #### B MP3 #### [facility] [address] [place] [address] Chloride [Moles/Vol] 107 mmol/L Normal 98-107 [facility] Comment on above: Performed By: #### B MP3 #### [address] [address] Anion gap [Moles/Vol] 9 mmol/L 3 - 13 mmol/L [facility] Calcium [Mass/Vol] 9.4 mg/dL 8.4 - 10. 4 mg/dL [facility] Chloride [Moles/Vol] 107 mmol/L 98 - 107 mmol/L [facility] CO2 [Moles/Vol] 26 mmol/L 22 - 30 mmol/L [facility] Creatinine [Mass/Vol] 1.22 mg/dL 0.52 - 1.25 mg/dL [facility] EGFR IF NonAfrican Grenadian 67.6 mL/min 60 - PINF mL/min [facility] Comment on above: KDIGO guidelines pro vide the following GFR categories: Stage GFR(ml/min/1.73 m2) Terms G1 >=90 Normal or high G2 60-89 Mildly decreased* G3a 45-59 Mildly to moderately decreased G3b 30-44 Moderately to severely decreased G4 15-29 Severely decreased G5 <15 Kidney failure *Relative to young adult level. In the absence of evidence of kidney damage, neither GFR category G1 nor G2 fulfill the criteria for CKD. The CKD-EPI equation is validated in individuals 18 years of age and older. Currently the best equation for estimating glomerular filtration rate (GFR) from serum creatinine in children is the Bedside Horne equation. It is less accurate in patients with extremes of muscle mass, restriction of dietary protein, ingestion of creatine, extra-renal metabolism of creatinine, or treatment with medications that affect renal tubular creatinine secretion. GFR/1.73 sq M.predicted among blacks MDRD (S/P/Bld) [Vol rate/Area] 78.3 mL/min/{1.73_m2} 60 - PINF mL/min [facility] Glucose [Mass/Vol] 89 mg/dL 70 - 100 mg/dL [facility] Interpretation and review of laboratory results Abnormal [facility] Potassium [Moles/Vol] 4.3 mmol/L 3.5 - 5.1 mmol/L [facility] Comment on above: Slightly hemolysed, interpret with caution. Sodium [Moles/Vol] 142 mmol/L 135 - 145 mmol/L [facility] Urea nitrogen (BldV) [Mass/Vol] 19 mg/dL High 7 - 17 mg/dL [facility] Test Performed by [address] [place] [address] [facility] Laboratory - Microbiology an d Antimicrobial susceptibilityon 09-06-2021 SARS-CoV-2 (COVID-19) RNA KIRTI+probe Ql (Unsp spec) Not detected [facility] Work Phone: S. pyogenes Ag IA Ql (Unsp spec) Negative [facility] Work Phone: No Panel Informationon 09-06 Influenza Types A,B Rapid (Clinic) Not detected [facility] Work Phone: ANES POSTPROC EVALon 022 ANES POSTPROC EVAL HNO ID: [id number] Author: Alverto Almendarez MD Service: Anesthesiology Author Type: Anesthesiologist Type: Anesthesia Postprocedure Evaluation Filed: 09/04/2021 8:55 AM Note Text: POST ANESTHESIA EVALUATION NOTE : 1970 Procedure Summary Date: 09/04/21 Room / Location: [facility] Endoscopy Anesthesia Start: 717 Anesthesia Stop: 747 Procedure: COLONOSCOPY DIAGNOSTIC Diagnosis: Positive colorectal cancer screening using Cologuard test (Cologuard Test Positive) Scheduled Providers: Kamaljit Teran MD; JOANNE Morgan Responsible Provider: Alverto Almendarez MD Anesthesia Type: MAC ASA Status: 3 Anesthesia Type: MAC Last Vitals Vitals Value Taken Time BP 131/78 09/04/21 0815 Temp 36.2 ?C (97.2 ?F) 09/04/21 0752 Pulse 60 09/04/21 0815 Resp 22 09/04/21 0815 SpO2 94 % 09/04/21 0815 Post Anesthesia Patient Status Patient Evaluation: PACU. PACU/ICU Patient Condition: stable. Anticipated Disposition: phase 2 then home. Neurological Status: aware and responsive. Pulmonary Status: breathing comfortably on room air Airway Control: returned to baseline unsupported. Cardiovascular Status: stable. Pain Management: clinically adequate - multimodal analgesia pain management approach Postoperative Hydration: acceptable. Intraoperative Events: no significant anesthesia events Recommendation: continue current plan of care. Anesthesia Observations No Documentation SIGNATURE: Alverto Almendarez MD PATIENT NAME: Sree Torres DATE: September 04, 2021 TIME: 8:55 AM CSN: [id number] Normal [facility] ANES PRE-OPon 09-04-2021 ANES PRE-OP HNO ID: [id number] Author: Alverto Almendarez MD Service: Anesthesiology Author Type: Anesthesiologist Type: Anesthesia Preprocedure Evaluation Filed: 09/04/2021 6:59 AM Note Text: ANESTHESIOLOGY DAY OF SURGERY NOTE : 1970 Procedure Information Date/Time: 09/04/21729 Scheduled providers: Kamaljit Teran MD; JOANNE Morgan Procedure: COLONOSCOPY DIAGNOSTIC Location: [facility] Endoscopy Estimated body mass index is 33.12 kg/m? as calculated from the following: Height as of 08/17/21: 190.5 cm (6' 3). Weight as of 08/17/21: 120.2 kg (265 lb). Most recent hematocrit and potassium results: Hematocrit 49.2 04/23/2021 Potassium 4.3 04/23/2021 Relevant Problems ANESTHESIA (+) TIMOTHY (obstructive sleep apnea) CARDIO (+) Essential hypertension with goal blood pressure less than 140/90 GI (+) GERD without esophagitis -RENAL (+) Fatty liver PULMONARY (+) TIMOTHY (obstructive sleep apnea) I - PHYSICAL EVALUATION AIRWAY Patient intubated: No. Tracheostomy tube not present Mallampati: II. TM distance: >3 FB. Neck ROM: full ROM without neurological symptoms. Mouth opening: adequate. DENTAL Dental findings: poor dentition. Additional exam findings: no II - ANESTHESIA PLAN ASA Score: 3 Anesthetic Plan: MAC NPO Status: adequate Monitoring plan: standard ASA. Postoperative analgesic plan: parenteral or oral opioids and multimodal analgesia. Patient / Surrogate agrees to blood products: blood products not planned Significant changes in the patient condition since the History and Physical, not otherwise documented in primary service progress note: no. Vitals Value Taken Time BP 133/82 09/04/21 0642 Pulse 66 09/04/21 0642 Resp 16 09/04/21 0642 Temp 36.2 ?C (97.2 ?F) 09/04/21 0642 SpO2 96 % 09/04/21 06 Outpatient Medications as of 09/04/2021 Medication Sig - lisinopril (ZESTRIL, PRINIVIL) 20 mg tablet TAKE 1 TABLET BY MOUTH EVERY DAY - CLENPIQ 10 mg-3.5 gram -12 gram/160 mL soln Refer to instructions given by your provider. - DULoxetine (CYMBALTA) 30 mg capsule Take 1 capsule by mouth once daily. - sildenafil (REVATIO) 20 mg tablet Take 3 tablets by mouth one hour prior to sex as needed. - omeprazole (PRILOSEC) 20 mg capsule TAKE 1 TABLET BY MOUTH DAILY BEFORE BREAKFAST. 1/2 HR BEFORE MEAL. Facility-Administered Medications as of 09/04/2021 Medication Dose Route Frequency - sodium chloride 0.9 % (flush) 2-10 mL (BD POSIFLUSH) 2-10 mL INTRAVENOUS q 12 H - lactated ringers iv infusion 30 mL/hr INTRAVENOUS CONTINUOUS I have interviewed and examined the patient. I have reviewed the medical record and/or the pre-anesthesia evaluation, pertinent labs, and test results. This contains updated information obtained within 48 hours of Surgery/Procedure. SIGNATURE: Alverto Almendarez MD PATIENT NAME: Sree Torres DATE: September 04, 2021 TIME: 6:59 AM CSN: [id number] Normal [facility] COLONOSCOPY DIAGNOSTICon [facility] Colonoscopyon 09-04-[address] [facility] Gastrointestinal Endoscopy Patient Name: Sree Torres Procedure Date: 09/04/2021 7:15 AM Date of : 1970 Admit Type: Outpatient Age: 51 Room: [facility] Gender: Male Note Status: Finalized Attending MD: Kamaljit Teran MD Procedure: Colonoscopy Indications: Positive Cologuard test Providers: Kamaljit Teran MD Patient Profile: This is a 51 year old male. Refer to note in patient chart for documentation of history and physical. Last Colonoscopy: none. The patient's first colonoscopy is today. Referring Physician: Lizbeth Ng MD (Referring MD) Medicines: Monitored Anesthesia Care Complications: No immediate complications. Requesting Provider: Procedure: Pre-Anesthesia Assessment: - Prior to the procedure, a History and Physical was performed, and patient medications and allergies were reviewed. The patient is competent. The risks and benefits of the procedure and the sedation options and risks were discussed with the patient. All questions were answered and informed consent was obtained. Patient identification and proposed procedure were verified by the physician, the nurse and the search advertising strategist in the procedure room. Mental Status Examination: alert and oriented. Airway Examination: normal oropharyngeal airway and neck mobility. Respiratory Examination: clear to auscultation. CV Examination: normal. Prophylactic Antibiotics: The patient does not require prophylactic antibiotics. Prior Anticoagulants: The patient has taken no previous anticoagulant or antiplatelet agents. ASA Grade Assessment: II - A patient with mild systemic disease. After reviewing the risks and benefits, the patient was deemed in satisfactory condition to undergo the procedure. The anesthesia plan was to use monitored anesthesia care (MAC). Immediately prior to administration of medications, the patient was re-assessed for adequacy to receive sedatives. The heart rate, respiratory rate, oxygen saturations, blood pressure, adequacy of pulmonary ventilation, and response to care were monitored throughout the procedure. The physical status of the patient was re-assessed after the procedure. After I obtained informed consent, the scope was passed under direct vision. Throughout the procedure, the patient's blood pressure, pulse, and oxygen saturations were monitored continuously. The Colonoscope was introduced through the anus and advanced to the cecum, identified by the appendiceal orifice, ileocecal valve and palpation. The colonoscopy was performed without difficulty. The patient tolerated the procedure well. The quality of the bowel preparation was good. Scope Withdrawal Time: 0 hours 12 minutes 25 seconds Moderate Sedation: MAC anesthesia was administered by the anesthesia team. Total Procedure Duration: 0 hours 17 minutes 0 seconds Findings: The perianal and digital rectal examinations were normal. A few small-mouthed diverticula were found in the entire colon. Three sessile polyps were found in the rectum, sigmoid colon and descending colon. The polyps were small in size. These polyps were removed with a cold snare. Resection and retrieval were complete. The exam was otherwise without abnormality on direct and retroflexion views. Impression: - Diverticulosis in the entire examined colon. - Three small polyps in the rectum, in the sigmoid colon and in the descending colon, removed with a cold snare. Resected and retrieved. - The examination was otherwise normal on direct and retroflexion views. Recommendation: - Discharge patient to home. - Resume previous diet. - Continue present medications. - Repeat colonoscopy for surveillance based on pathology results. - Telephone my office for pathology results in 2 weeks. - Patient has a contact number available for emergencies. The signs and symptoms of potential delayed complications were discussed with the patient. Return to normal activities tomorrow. Written discharge instructions were provided to the patient. - Resume anticoagulant at prior dose. Procedure Code(s): --- Professional --- 98524, Colonoscopy, flexible; with removal of tumor(s), polyp(s), or other lesion(s) by snare technique CPT copyright 2019 [employer]. All rights reserved. The codes documented in this report are preliminary and upon sprinkling system installer review may be revised to meet current compliance requirements. Attending Participation: I personally performed the entire procedure. Scope In: 7:27:12 AM Scope Out: 7:44:12 AM MD Kamaljit Sanders MD 09/04/2021 7:50:05 AM This report has been signed electronically by Kamaljit Teran MD Number of Addenda: 0 Note Initiated On: 09/04/2021 7:15 AM Estimated Blood Loss: Estimated blood loss: none. Normal [facility] HISTORY PHYSICALon HISTORY PHYSICAL HNO ID: [id number] Author: Kamaljit Teran MD Service: General Surgery Author Type: Physician Type: HANDP Filed: 09/04/2021 6:45 AM Note Text: HISTORY AND PHYSICAL ? Sree Collins Six 1970 ? REFERRING PHYSICIAN: Stan Oropeza APRN* ? CHIEF COMPLAINT: Consult (Colonoscopy, Positive Cologuard) ? HPI: The patient is a 51 year old male referred for endoscopy. Sree is found to be Cologard positive.. ? Sree has not undergone prior endoscopy. Patient notes no colon cancer in his immediate family ? The patient denies blood in his stools; he denies changes in bowel habits; he denies abdominal pain. He has known hemorrhoids. He notes occasional bright red blood on toilet paper. He states that he had hemorrhoid surgery about 8-9 years ago. ? ? PAST MEDICAL HISTORY Diagnosis Date - Dyslipidemia 03/19/2015 - Elevated LFTs 04/14/2016 - Essential hypertension with goal blood pressure less than 140/90 06/19/2015 - Ex-smoker 03/06/2015 ? Started at age 23 up to 1 02/08 PPD. Quit smoking May 08 2016 - Fatty liver 04/21/2016 - GERD without esophagitis 04/14/2016 - Hypogonadism in male 03/06/2015 - Leukocytosis ? - Muscle cramps 03/06/2015 - TIMOTHY (obstructive sleep apnea) 03/31/2015 ? Sleep study 03/2015: sever. Not able to tolerate CPAP - Situational mixed anxiety and depressive disorder 05/18/2019 ? secodary to Covid 19 ? PAST SURGICAL HISTORY Procedure Laterality Date - FECAL OCCULT BLOOD TEST ? 09/12/2019 ? negative - PAST SURGICAL HISTORY OF ? ? ? micro discectomy L5-S1 ? ? Current Outpatient Medications Medication Sig - lisinopril (ZESTRIL, PRINIVIL) 20 mg tablet TAKE 1 TABLET BY MOUTH EVERY DAY - DULoxetine (CYMBALTA) 30 mg capsule Take 1 capsule by mouth once daily. - omeprazole (PRILOSEC) 20 mg capsule TAKE 1 TABLET BY MOUTH DAILY BEFORE BREAKFAST. 1/2 HR BEFORE MEAL. - CLENPIQ 10 mg-3.5 gram -12 gram/160 mL soln Refer to instructions given by your provider. - sildenafil (REVATIO) 20 mg tablet Take 3 tablets by mouth one hour prior to sex as needed. ? ? ALLERGIES: Patient has no known allergies. ? PERSONAL HISTORY: Social History ? Tobacco Use - Smoking status: Former Smoker ? ? Packs/day: 1.00 ? ? Years: 20.00 ? ? Pack years: 20.00 ? ? Types: Cigarettes ? ? Quit date: 05/08/2016 ? ? Years since quittin.2 - Smokeless tobacco: Never Used - Tobacco comment: none x 4 years Vaping Use - Vaping Use: Never used Substance Use Topics - Alcohol use: No - Drug use: No ? FAMILY HISTORY Problem Relation Age of Onset - Diabetes Mother ? - Psychiatry Mother ? ? rash and anxiety - Cancer Maternal Grandmother 60 ? ? - Cancer Maternal Grandfather 60 ? ? - Alzheimer's Disease No Family History ? - Colon Cancer No Family History ? - Prostate Cancer No Family History ? - Breast Cancer No Family History ? - Ovarian cancer No Family History ? - Coronary Artery Disease No Family History ? - Hypertension No Family History ? - Hyperlipidemia No Family History ? - Kidney Disease No Family History ? - Seizures No Family History ? - Stroke No Family History ? - Thyroid No Family History ? The review of systems data was entered by the nurse and reviewed by me ? Nursing Notes: Shanika Bustamante 08/17/2021 8:04 AM Signed REVIEW OF SYSTEMS: General: The patient denies fatigue, denies weight loss, denies weight gain, denies feeling hot, and denies feelings of cold. Eyes: The patient denies glaucoma, denies eye injury/surgery, does not wear glasses or contacts. Ear/Nose/Throat: The patient denies allergies, denies hayfever, denies ear infections, and denies bloody noses. Cardiovascular: The patient denies chest pain, denies heart disease, NOTES high blood pressure,denies cardiac stent, denies prior heart attack, denies irregular heart beat, denies high cholesterol, denies poor circulation, denies heart failure, other cardiac issues, denies claudication, denies cold feet, denies peripheral arterial stent. Respiratory: The patient denies tuberculosis, denies pneumonia, denies frequent cough, denies pulmonary embolism, denies shortness of breath, and denies coughing up blood. Gastrointestinal: The patient denies difficulty swallowing, denies acid reflux, denies ulcers, denies vomiting, denies jaundice/hepatitis, denies gallbladder problems, denies black or tarry stools, denies hemorrhoids, denies bleeding from rectum, denies diverticulitis, denies constipation, denies diarrhea, denies loss of stool control, and denies hernias. Kidney/Bladder: The patient denies kidney stones, denies urine infections, and denies bloody urine. Skin: The patient denies a history of skin cancer, denies bleeding/changing moles, and denies a history of skin rash. Neurologic: The patient denies a history of epilepsy/convulsions, denies headaches, denies head/spinal injuries, and denies stroke/TIA. Psychiatric: The (more content not included)... Normal [facility] SURGICAL PATHOLOGYon 022 CASE REPORT Normal [facility] Comment on above: Order Comment: Speci men Type: TISSUE SPECIMEN Ordering Facility: [facility] Address: [address] [place] [id number] Result Comment: Surg [facility] Pathology Report Case: [id number] Authorizing Provider: Kamaljit Teran MD Collected: 09/04/2021 07:39 AM Ordering Location: [facility] Endoscopy Received: 09/04/2021 11:23 AM Pathologist: Thompson Garcia MD Specimens: A) - DESCENDING COLON POLYP B) - SIGMOID COLON POLYP, @20cm C) - RECTAL POLYP Performed By: #### S #### [facility] CLIA [id number] [address] [place] [address] FINAL DIAGNOSIS [facility] Comment on above: Order Comment: Speci men Type: TISSUE SPECIMEN Ordering Facility: [facility] Address: [address] [place] [address] Result Comment: A. C olon, descending polyp, biopsy: -Tubular adenoma. B. Colon, sigmoid polyp at 20 cm, biopsy: -Sessile serrated polyp. C. Rectum, polyp, biopsy: -Hyperplastic polyp with prolapse related change. Performed By: #### S #### [facility] CLIA [id number] [address] [place] [address] FINAL PERFORMING LAB Normal [facility] Comment on above: Order Comment: Speci men Type: TISSUE SPECIMEN Ordering Facility: [facility] Address: [address] [place] [address] Result Comment: Diag nostic interpretation performed at [facility], [address] [place] [address] CLIA# [id number] Wearing Apparel Assembler: Hadley Marcano M.D. Performed By: #### S #### [facility] CLIA [id number] [address] [place] [address] OF [facility] GROSS DESCRIPTION Normal [facility] Comment on above: Order Comment: Speci men Type: TISSUE SPECIMEN Ordering Facility: [facility] Address: [address] [place] [address] Result Comment: A. D ESCENDING COLON POLYP. Received in formalin is one piece of ayoub, soft tissue measuring 0.3 x 0.2 x 0.2 cm. Totally submitted in one cassette. B. SIGMOID COLON POLYP. Received in formalin is one piece of ayoub, soft tissue measuring 0.3 x 0.2 x 0.2 cm. Totally submitted in one cassette. C. RECTAL POLYP. Received in formalin is one piece of ayoub, soft tissue measuring 0.3 x 0.2 x 0.2 cm. Totally submitted in one cassette. Gross examination performed at [facility], [facility] [facility] [place] [address] TTN 09/04/2021 5:09 PM Performed By: #### S #### [facility] CLIA [id number] [facility] [place] [id number] [place] US ABD RT UPPER QUADRANTon 0 07-10-2021 [facility] ic CR Ankle 3+ Views Righton CR Ankle 3+ Views Right Patient Name: SREE TORRES Diagnostic Radiology ACCESSION EXAM DATE/TIME PROCEDURE ORDERING PROVIDER [id number] 04/17/2021 14:05 EST CR Ankle 3+ Views Right [id number] GABBIE STANLEY CPT code 69036 Reason For Exam (CR Ankle 3+ Views Right) pain Report EXAMINATION: Right ankle three views INDICATION: pain FINDINGS: No acute fracture or dislocation is demonstrated. The joint spaces are grossly maintained. Small enthesophyte present at the Achilles tendon insertion. Midfoot is grossly unremarkable. The soft tissues are grossly unremarkable. IMPRESSION: Grossly unremarkable study. Report Dictated on Final Dictating Physician: MD GOODRICH KRIKOR Signed Date and Time: 04/19/2021 9:31 am Signed by: MD GOODRICH KRIKOR Transcribed Date and Time: 04/19/2021 9:32 Normal [facility] CR Foot Complete 3+ Views [facility] 04-17-2021 CR Foot Complete 3+ Views Right Patient Name: SREE TORRES Diagnostic Radiology ACCESSION EXAM DATE/TIME PROCEDURE ORDERING PROVIDER [id number] 04/17/2021 14:05 EST CR Foot Complete 3+ [id number] DOSHI Views Right CPT code 84301 Reason For Exam (CR Foot Complete 3+ Views Right) pain Report RIGHT FOOT CLINICAL INDICATION: Pain Weight-bearing AP, lateral, and oblique plain film views of the right foot were obtained. COMPARISON: None. No fracture or dislocation of the right foot is identified. There is no abnormal soft tissue swelling or radiopaque foreign body seen. IMPRESSION: No fracture or dislocation of the right foot is identified. Report Dictated on Final Dictating Physician: MD YARBROUGH JONATHAN R Signed Date and Time: 04/19/2021 6:40 pm Signed by: MD YARBROUGH JONATHAN R Transcribed Date and Time: 04/19/2021 6:41 Normal [facility] EMERGENCY REPORTon 7 EMERGENCY REPORT [facility] EMERGENCY ROOM REPORT NAME NUMBER SEX AGE ADMIT DISC TYPE MED.RECORD# SIXSREE [id number] M [id number] 09/06/2016 09/06/2016 Johnna [id number] ROOM:ER DATE OF :1970 PHYSICIAN NO.: PHYSICIAN NAME: PHYSICIAN:JACOB CHINCHILLA CHIEF COMPLAINT: Right shoulder pain. HISTORY OF PRESENT ILLNESS: Patient states that he injured his shoulder last week at work. This occurred on the . 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 He states that, as he pulled a large board and went to lift it, he felt a sudden onset of pain in his right shoulder area, and it has been painful since. He was seen here at that time. Had an x-ray which was negative. Was placed in a sling. Was not given any time off work. He was taking ibuprofen. He went to work on Tuesday, the next day, and worked through it but had more pain by the end of the day. He did not work or use his arm much over the weekend, and, when he went to work today and tried to use it, he states that it was too painful to continue. Pain seems to be focused over the superior aspect of the right shoulder. It is there constantly, though significantly worse with shoulder movement such as shoulder abduction or external rotation. He initially had some tingling in his hand and fingers. That has resolved. He is having no other complaints. PAST MEDICAL HISTORY: Negative for any known medical problems. MEDICATIONS: He takes no medications. ALLERGIES: No allergies. SOCIAL HISTORY: He lives at home. He does not drink alcohol. This injury did occur at work. This is a Workman Comp. injury. PHYSICAL EXAMINATION: A 46-year-old big built white male, alert, appropriate, does not appear toxic or in any acute distress. His skin is pink, warm, and dry. Vital signs are essentially all normal, as noted on the chart. Examination is focused mostly to the right shoulder. He does not have any tenderness to his head or neck area. No back or chest wall tenderness. He does have some diffuse tenderness over the dorsum of the shoulder. It seems to be focused over the acromion and proximal humerus area. There is no bony crepitus, but he definitely has tenderness with palpation to that area. Abduction, particularly abduction against resistance, is really quite painful, and he really is only able to abduct his arm to about 45 degrees, beyond which it is too painful for him to do that. Does not seem to have any focal tenderness over the anterior aspect of the shoulder. No redness or bruising is noted. No crepitus with movement. Good peripheral pulses. Good capillary refill. DIAGNOSIS: Right shoulder injury. Right shoulder pain. He was initially diagnosed with an overuse syndrome, but, with the sudden onset of pain and his findings, I would be more concerned about a ligamentous sprain or a possible rotator cuff injury. PLAN/DISPOSITION: Recommend that he not proceed to use this shoulder at work. If there is sedentary activity that he can do, was okayed for that. I did give him a prescription for a short course of prednisone. Recommended referral to orthopaedist for further evaluation. D: JACOB CHINCHILLA TD: 09/06/2016 08:09:48 JOB #: [id number] BRAYAN Chinchilla M.D. EMERGENCY ROOM REPORT SREE TORRES 1 [facility] EMERGENCY ROOM REPORT NAME NUMBER SEX AGE ADMIT DISC TYPE MED.RECORD# SREE TORRES [id number] M 46 09/06/2016 09/06/2016 E.R. [id number] ROOM:ER DATE OF :1970 PHYSICIAN NO.: PHYSICIAN NAME: PHYSICIAN:JACOB CHINCHILLA Emergency Department 09/10/16 15:40 Transcribed by: MANUEL 09/06/2016 08:09:48 Copy for: AMOR Matias Copy for: NO DOCTOR ON ADMISSION SHEET EMERGENCY ROOM REPORT SREE TORRES 2 [facility] EMERGENCY REPORTon 7 EMERGENCY REPORT [facility] EMERGENCY ROOM REPORT NAME NUMBER SEX AGE ADMIT DISC TYPE MED.RECORD# SREE TORRES [id number] M 46 09/02/2016 EAilynRAilyn [id number] ROOM:ER DATE OF :1970 PHYSICIAN NO.:[id number] PHYSICIAN NAME: PHYSICIAN:ELEAZAR MONTANA HISTORY OF PRESENT ILLNESS: Patient came in complaining of shoulder injury. He started a new job yesterday and did a lot of lifting and twisting. He would sit sideways and then move from his . The boards weighed up to 30-40 pounds and he was twisting and lifting and complained of pain in his right shoulder. He is left-hand dominant. He has had numbness, actually tingling in his right hand on all his fingertips. He has good strength. REVIEW OF SYSTEMS: Eight systems reviewed, were negative, except as mentioned above. PHYSICAL EXAMINATION: He was afebrile. Blood pressure 143/97, pulse 80. Respirations 18, pulse ox 97% on room air. Head is normocephalic, atraumatic. Eyes: Pupils equal, round, active to light. Extraocular muscles intact. Nares are patent. Throat has adequate moisture. Uvula is midline. Neck is supple without petechiae or rash. Heart without murmur, S1 equals S2. No S3 or S4 appreciated. Lungs are clear to auscultation bilaterally. No rales, rhonchi, or retractions. Abdomen: Soft, nontender, nondistended. Skin is warm and dry. He has a negative pop can sign, but does have tenderness. He has tenderness on the superior aspect of the shoulder. He has no swelling, ecchymosis, or bruising. He had good internal range of motion. DIAGNOSTIC DATA: He had x-rays of the shoulder which were unremarkable. He is neurovascularly intact in his right shoulder. EMERGENCY DEPARTMENT COURSE AND TREATMENT: I will place him in sling. He can follow up on Tuesday for a recheck. His work restrictions are to take Motrin for pain and use his sling as needed. DIAGNOSIS: Acute right shoulder pain, overuse injury. D: ELEAZAR MONTANA TD: 09/02/2016 08:02:16 JOB #: [id number] Eleazar Montana D.O. Emergency Department 09/06/16 04:56 Transcribed by: MANUEL 09/02/2016 08:02:16 Copy for: SYDNI Watson III Copy for: NO DOCTOR ON ADMISSION SHEET EMERGENCY ROOM REPORT SREE TORRES Normal [facility] SHOULDER COMPLETE RTon 09-02 [facility] [address] [place] [address] Patient: SREE TORRES Phone#: : 1970 Age: 46 Gender: M Pt. Type: ER Account: [id number] Location: [facility] Ordering: ELEAZAR MONTANA Exam Date: 09/02/2016/7:29 Family Phys: Charge Code: 198429 Physician: Kleberg Order #: [id number] [id number] Dose#: PROCEDURE: X-RAY SHOULDER COMPLETE RT MIN 2 VIEWS COMPARISON: None. INDICATIONS: Right shoulder pain FINDINGS: BONES: Normal. No significant arthropathy or acute abnormality. SOFT TISSUES: Negative. No visible soft tissue swelling. EFFUSION: None visible. OTHER: Negative. CONCLUSION: No acute disease. Dictated by: Rafaela Nicholas MD on 09/02/2016 at 8:34 Approved by: Rafaela Nicholas MD on 09/02/2016 at 8:34 Normal [facility] Laboratory - Microbiology an d Antimicrobial susceptibility S. pyogenes Ag Ql (Throat) [facility] Work Phone: Vital Signs Date Time Vital Sign Value Performing Clinician Facility 06-13-2024 07:41-0400 Body mass index (BMI) [Ratio] 34.55 kg/m2 Stan Oropeza [employer] CONSULTANT.PHARMACIST AIDE Work Phone: [facility] 06-13-2024 07:41-0400 Body weight 125.37 kg Stan Oropeza APRN.PHARMACIST AIDE Work Phone: [facility] 06-13-2024 07:41-0400 Diastolic blood pressure 76 mm[Hg] Stan Oropeza APRN.PHARMACIST AIDE Work Phone: [facility] 06-13-2024 07:41-0400 Heart rate 71 /min Stan Oropeza SURGICAL PRODUCT SALES CONSULTANT.PHARMACIST AIDE Work Phone: [facility] 06-13-2024 07:41-0400 SaO2% (BldA) [Mass fraction] 98 % Stan Oropeza SURGICAL PRODUCT SALES CONSULTANT.PHARMACIST AIDE Work Phone: [facility] 06-13-2024 07:41-0400 Systolic blood pressure 118 mm[Hg] Stan Oropeza SURGICAL PRODUCT SALES CONSULTANT.PHARMACIST AIDE Work Phone: [facility] 02-09-2024 08:25-0500 Body mass index (BMI) [Ratio] 33.65 kg/m2 Samina Berg SURGICAL PRODUCT SALES CONSULTANT.PHARMACIST AIDE Work Phone: [facility] 02-09-2024 08:25-0500 Body weight 122.11 kg Samina Berg SURGICAL PRODUCT SALES CONSULTANT.PHARMACIST AIDE Work Phone: [facility] 02-09-2024 08:25-0500 Diastolic blood pressure 64 mm[Hg] Samina Berg SURGICAL PRODUCT SALES CONSULTANT.PHARMACIST AIDE Work Phone: [facility] 02-09-2024 08:25-0500 Heart rate 64 /min Samina Berg SURGICAL PRODUCT SALES CONSULTANT.PHARMACIST AIDE Work Phone: [facility] 02-09-2024 08:25-0500 Respiratory rate 14 /min Samina Berg SURGICAL PRODUCT SALES CONSULTANT.PHARMACIST AIDE Work Phone: [facility] 02-09-2024 08:25-0500 Systolic blood pressure 122 mm[Hg] Samina Berg SURGICAL PRODUCT SALES CONSULTANT.PHARMACIST AIDE Work Phone: [facility] 01-20-2024 08:11-0500 Body mass index (BMI) [Ratio] 33.02 kg/m2 Samina Berg SURGICAL PRODUCT SALES CONSULTANT.PHARMACIST AIDE Work Phone: [facility] 01-20-2024 08:11-0500 Body weight 119.84 kg Samina Berg SURGICAL PRODUCT SALES CONSULTANT.PHARMACIST AIDE Work Phone: [facility] 01-20-2024 08:11-0500 Diastolic blood pressure 80 mm[Hg] Samina Berg SURGICAL PRODUCT SALES CONSULTANT.PHARMACIST AIDE Work Phone: [facility] 01-20-2024 08:11-0500 Heart rate 61 /min Samina Berg SURGICAL PRODUCT SALES CONSULTANT.PHARMACIST AIDE Work Phone: [facility] 01-20-2024 08:11-0500 SaO2% (BldA) [Mass fraction] 98 % Samina Berg SURGICAL PRODUCT SALES CONSULTANT.PHARMACIST AIDE Work Phone: [facility] 01-20-2024 08:11-0500 Systolic blood pressure 140 mm[Hg] Samina Berg SURGICAL PRODUCT SALES CONSULTANT.PHARMACIST AIDE Work Phone: [facility] 11-02-2023 07:34-0400 Body mass index (BMI) [Ratio] 32.66 kg/m2 Stan Johnna SURGICAL PRODUCT SALES CONSULTANT.PHARMACIST AIDE Work Phone: [facility] 11-02-2023 07:34-0400 Body weight 121.7 kg Stan Johnna SURGICAL PRODUCT SALES CONSULTANT.PHARMACIST AIDE Work Phone: [facility] 11-02-2023 07:34-0400 Diastolic blood pressure 80 mm[Hg] Stan Johnna SURGICAL PRODUCT SALES CONSULTANT.PHARMACIST AIDE Work Phone: [facility] 11-02-2023 07:34-0400 Heart rate 68 /min Stan Johnna SURGICAL PRODUCT SALES CONSULTANT.PHARMACIST AIDE Work Phone: [facility] 11-02-2023 07:34-0400 Respiratory rate 16 /min Stan Johnna SURGICAL PRODUCT SALES CONSULTANT.PHARMACIST AIDE Work Phone: [facility] 11-02-2023 07:34-0400 SaO2% (BldA) [Mass fraction] 97 % Stan Johnna SURGICAL PRODUCT SALES CONSULTANT.PHARMACIST AIDE Work Phone: [facility] 11-02-2023 07:34-0400 Systolic blood pressure 126 mm[Hg] Stan Johnna SURGICAL PRODUCT SALES CONSULTANT.PHARMACIST AIDE Work Phone: [facility] 10-06-2023 07:33-0400 Body mass index (BMI) [Ratio] 32.57 kg/m2 Stan Johnna SURGICAL PRODUCT SALES CONSULTANT.PHARMACIST AIDE Work Phone: [facility] 10-06-2023 07:33-0400 Body weight 121.38 kg Stan Johnna SURGICAL PRODUCT SALES CONSULTANT.PHARMACIST AIDE Work Phone: [facility] 10-06-2023 07:33-0400 Diastolic blood pressure 78 mm[Hg] Stan Johnna SURGICAL PRODUCT SALES CONSULTANT.PHARMACIST AIDE Work Phone: [facility] 10-06-2023 07:33-0400 Heart rate 70 /min Stan Johnna SURGICAL PRODUCT SALES CONSULTANT.PHARMACIST AIDE Work Phone: [facility] 10-06-2023 07:33-0400 Respiratory rate 16 /min Stan Johnna SURGICAL PRODUCT SALES CONSULTANT.PHARMACIST AIDE Work Phone: [facility] 10-06-2023 07:33-0400 SaO2% (BldA) [Mass fraction] 97 % Stan Johnna SURGICAL PRODUCT SALES CONSULTANT.PHARMACIST AIDE Work Phone: [facility] 10-06-2023 07:33-0400 Systolic blood pressure 122 mm[Hg] Stan Johnna SURGICAL PRODUCT SALES CONSULTANT.PHARMACIST AIDE Work Phone: [facility] 10-01-2023 09:44-0400 Body height 193 cm Bryce Yao DO Work Phone: [facility] 10-01-2023 09:44-0400 Body mass index (BMI) [Ratio] 32.26 kg/m2 Bryce Yao DO Work Phone: [facility] 10-01-2023 09:44-0400 Body temperature 97.2 [degF] Bryce Yao DO Work Phone: [facility] 10-01-2023 09:44-0400 Body weight 120.2 kg Bryce Yao DO Work Phone: [facility] 10-01-2023 09:44-0400 Diastolic blood pressure 67 mm[Hg] Bryce Yao DO Work Phone: [facility] 10-01-2023 09:44-0400 Heart rate 68 /min Bryec Yao DO Work Phone: [facility] 10-01-2023 09:44-0400 Respiratory rate 20 /min Bryce Yao DO Work Phone: [facility] 10-01-2023 09:44-0400 SaO2% (BldA) [Mass fraction] 98 % Bryce Yao DO Work Phone: [facility] 10-01-2023 09:44-0400 Systolic blood pressure 142 mm[Hg] Bryce Yao DO Work Phone: [facility] 04-22-2023 08:37-0400 Body height 193 cm Pacc 1 Work Phone: [facility] 04-22-2023 08:37-0400 Body temperature 96.8 [degF] Pacc 1 Work Phone: [facility] 04-22-2023 08:37-0400 Body weight 120.66 kg Pacc 1 Work Phone: [facility] 04-22-2023 08:37-0400 Diastolic blood pressure 94 mm[Hg] Pacc 1 Work Phone: [facility] 04-22-2023 08:37-0400 Heart rate 100 /min Pacc 1 Work Phone: [facility] 04-22-2023 08:37-0400 Respiratory rate 16 /min Pacc 1 Work Phone: [facility] 04-22-2023 08:37-0400 SaO2% (BldA) [Mass fraction] 100 % Pacc 1 Work Phone: [facility] 04-22-2023 08:37-0400 Systolic blood pressure 152 mm[Hg] Pacc 1 Work Phone: [facility] 04-01-2023 07:59-0500 Body height 190 cm Stan Oropeza APRN.CNP Work Phone: [facility] 04-01-2023 07:59-0500 Body weight 120.93 kg Stna Johnna SURGICAL PRODUCT SALES CONSULTANT.PHARMACIST AIDE Work Phone: [facility] 04-01-2023 07:59-0500 Diastolic blood pressure 86 mm[Hg] Stan Johnna SURGICAL PRODUCT SALES CONSULTANT.PHARMACIST AIDE Work Phone: [facility] 04-01-2023 07:59-0500 Heart rate 89 /min Stan Johnna SURGICAL PRODUCT SALES CONSULTANT.PHARMACIST AIDE Work Phone: [facility] 04-01-2023 07:59-0500 Respiratory rate 16 /min Stan Johnna SURGICAL PRODUCT SALES CONSULTANT.PHARMACIST AIDE Work Phone: [facility] 04-01-2023 07:59-0500 SaO2% (BldA) [Mass fraction] 95 % Stan Johnna SURGICAL PRODUCT SALES CONSULTANT.PHARMACIST AIDE Work Phone: [facility] 04-01-2023 07:59-0500 Systolic blood pressure 140 mm[Hg] Stan Johnna SURGICAL PRODUCT SALES CONSULTANT.PHARMACIST AIDE Work Phone: [facility] 01-05-2023 07:54-0500 Body weight 124.56 kg Stan Johnna SURGICAL PRODUCT SALES CONSULTANT.PHARMACIST AIDE Work Phone: [facility] 01-05-2023 07:54-0500 Diastolic blood pressure 86 mm[Hg] Stan Johnna SURGICAL PRODUCT SALES CONSULTANT.PHARMACIST AIDE Work Phone: [facility] 01-05-2023 07:54-0500 Heart rate 75 /min Stan Johnna SURGICAL PRODUCT SALES CONSULTANT.PHARMACIST AIDE Work Phone: [facility] 01-05-2023 07:54-0500 Respiratory rate 16 /min Stan Johnna SURGICAL PRODUCT SALES CONSULTANT.PHARMACIST AIDE Work Phone: [facility] 01-05-2023 07:54-0500 SaO2% (BldA) [Mass fraction] 97 % Stan Johnna SURGICAL PRODUCT SALES CONSULTANT.PHARMACIST AIDE Work Phone: [facility] 01-05-2023 07:54-0500 Systolic blood pressure 144 mm[Hg] Stan Johnna SURGICAL PRODUCT SALES CONSULTANT.PHARMACIST AIDE Work Phone: [facility] 12-06-2022 09:21-0400 Body height 190.5 cm Alexandre Borjas MD Work Phone: [facility] 12-06-2022 09:21-0400 Body mass index (BMI) [Ratio] 33.12 kg/m2 Alexandre Borjas MD Work Phone: [facility] 12-06-2022 09:21-0400 Body weight 120.2 kg Alexandre Borjas MD Work Phone: [facility] 12-06-2022 08:52-0400 Body height 190.5 cm Contreras Barajas MD Work Phone: [facility] 12-06-2022 08:52-0400 Body mass index (BMI) [Ratio] 33.12 kg/m2 Contreras Barajas MD Work Phone: [facility] 12-06-2022 08:52-0400 Body weight 120.2 kg Contreras Barajas MD Work Phone: [facility] 10-25-2022 08:35-0400 Body height 190.5 cm Contreras Barajas MD Work Phone: [facility] 10-25-2022 08:35-0400 Body mass index (BMI) [Ratio] 33.12 kg/m2 Contreras Barajas MD Work Phone: [facility] 10-25-2022 08:35-0400 Body weight 120.2 kg Contreras Barjaas MD Work Phone: [facility] 10-25-2022 08:35-0400 Diastolic blood pressure 92 mm[Hg] Contreras Barajas MD Work Phone: [facility] 10-25-2022 08:35-0400 Heart rate 65 /min Contreras Barajas MD Work Phone: [facility] 10-25-2022 08:35-0400 Systolic blood pressure 152 mm[Hg] Contreras Barajas MD Work Phone: [facility] 09-20-2022 13:38-0400 Body weight 123.83 kg Samina Berg SURGICAL PRODUCT SALES CONSULTANT.PHARMACIST AIDE Work Phone: [facility] 09-20-2022 13:38-0400 Diastolic blood pressure 72 mm[Hg] Samina Berg SURGICAL PRODUCT SALES CONSULTANT.PHARMACIST AIDE Work Phone: [facility] 09-20-2022 13:38-0400 Heart rate 62 /min Samina Berg SURGICAL PRODUCT SALES CONSULTANT.PHARMACIST AIDE Work Phone: [facility] 09-20-2022 13:38-0400 Respiratory rate 16 /min Samina Berg SURGICAL PRODUCT SALES CONSULTANT.PHARMACIST AIDE Work Phone: [facility] 09-20-2022 13:38-0400 Systolic blood pressure 120 mm[Hg] Samina Breg SURGICAL PRODUCT SALES CONSULTANT.PHARMACIST AIDE Work Phone: [facility] 09-19-2022 23:26-0400 Body height 190.5 cm Alverto Estrada DO Work Phone: [facility] 09-19-2022 23:26-0400 Body mass index (BMI) [Ratio] 33.12 kg/m2 Alverto Estrada DO Work Phone: [facility] 09-19-2022 23:26-0400 Body temperature 98.49 [degF] Alverto Estrada DO Work Phone: [facility] 09-19-2022 23:26-0400 Body weight 120.2 kg Alverto Estrada DO Work Phone: [facility] 09-19-2022 23:26-0400 Diastolic blood pressure 92 mm[Hg] Alverto Estrada DO Work Phone: [facility] 09-19-2022 23:26-0400 Heart rate 76 /min Alverto Estrada DO Work Phone: [facility] 09-19-2022 23:26-0400 Respiratory rate 16 /min Alverto Estrada DO Work Phone: [facility] 09-19-2022 23:26-0400 SaO2% (BldA) [Mass fraction] 96 % Alverto Estrada DO Work Phone: [facility] 09-19-2022 23:26-0400 Systolic blood pressure 136 mm[Hg] Alverto Estrada Work Phone: [facility] 10-13-2021 18:30-0400 Diastolic blood pressure 68 mm[Hg] Contreras Barajas MD Work Phone: [facility] 10-13-2021 18:30-0400 Heart rate 70 /min Contreras Barajas MD Work Phone: [facility] 10-13-2021 18:30-0400 Respiratory rate 17 /min Contreras Barajas MD Work Phone: [facility] 10-13-2021 18:30-0400 Systolic blood pressure 122 mm[Hg] Contreras Barajas MD Work Phone: [facility] 10-13-2021 17:55-0400 SaO2% (BldA) [Mass fraction] 98 % Cnotreras Barajas MD Work Phone: [facility] 10-13-2021 16:34-0400 Body temperature 97.5 [degF] Contreras Barajas MD Work Phone: [facility] 10-13-2021 13:01-0400 Body height 190.5 cm Contreras Barajas MD Work Phone: [facility] 10-13-2021 13:01-0400 Body mass index (BMI) [Ratio] 32.37 kg/m2 Contreras Barajas MD Work Phone: [facility] 10-13-2021 13:01-0400 Body weight 117.48 kg Contreras Barajas MD Work Phone: [facility] 10-05-2021 09:43-0400 Body temperature 96.91 [degF] Contreras Barajas MD Work Phone: [facility] 10-05-2021 09:43-0400 Diastolic blood pressure 84 mm[Hg] Contreras Barajas MD Work Phone: [facility] 10-05-2021 09:43-0400 Heart rate 74 /min Contreras Barajas MD Work Phone: [facility] 10-05-2021 09:43-0400 SaO2% (BldA) [Mass fraction] 95 % Contreras Barajas MD Work Phone: [facility] 10-05-2021 09:43-0400 Systolic blood pressure 130 mm[Hg] Contreras Barajas MD Work Phone: [facility] 10-05-2021 09:30-0400 Body height 190.5 cm Contreras Barajas MD Work Phone: [facility] 10-05-2021 09:30-0400 Body mass index (BMI) [Ratio] 32.7 kg/m2 Contreras Barajas MD Work Phone: [facility] 10-05-2021 09:30-0400 Body weight 118.66 kg Contreras Barajas MD Work Phone: [facility] 09-06-2021 08:21-0400 Body temperature 97.9 [degF] Dr. Contreras Bird Work Phone: [facility] Work Phone: 09-06-2021 08:21-0400 Diastolic blood pressure 90 mm[Hg] Dr. Contreras Bird Work Phone: [facility] Work Phone: 09-06-2021 08:21-0400 Heart rate 91 /min Dr. Contreras Bird Work Phone: [facility] Work Phone: 09-06-2021 08:21-0400 Respiratory rate 16 /min Dr. Contreras Bird Work Phone: [facility] Work Phone: 09-06-2021 08:21-0400 SaO2% (BldA) [Mass fraction] 98 % Dr. Contreras Bird Work Phone: [facility] Work Phone: 09-06-2021 08:21-0400 Systolic blood pressure 130 mm[Hg] Dr. Contreras Bird Work Phone: [facility] Work Phone: 09-04-2021 08:15-0400 Diastolic blood pressure 78 mm[Hg] Kamaljit Teran MD Work Phone: [facility] 09-04-2021 08:15-0400 Heart rate 60 /min Kamaljit Teran MD Work Phone: [facility] 09-04-2021 08:15-0400 Respiratory rate 22 /min Kamaljit Teran MD Work Phone: [facility] 09-04-2021 08:15-0400 SaO2% (BldA) [Mass fraction] 94 % Kamaljit Trean MD Work Phone: [facility] 09-04-2021 08:15-0400 Systolic blood pressure 131 mm[Hg] Kamaljit Teran MD Work Phone: [facility] 09-04-2021 07:52-0400 Body temperature 97.2 [degF] Kamaljit Teran MD Work Phone: [facility] 08-17-2021 08:02-0400 Body height 190.5 cm Lizbeth Ng MD Work Phone: [facility] 08-17-2021 08:02-0400 Body temperature 97.2 [degF] Lizbeth Ng MD Work Phone: [facility] 08-17-2021 08:02-0400 Body weight 120.2 kg Lizbeth Ng MD Work Phone: [facility] 08-17-2021 08:02-0400 Diastolic blood pressure 86 mm[Hg] Lizbeth Ng MD Work Phone: [facility] 08-17-2021 08:02-0400 Heart rate 66 /min Lizbeth Ng MD Work Phone: [facility] 08-17-2021 08:02-0400 SaO2% (BldA) [Mass fraction] 96 % Lizbeth Ng MD Work Phone: [facility] 08-17-2021 08:02-0400 Systolic blood pressure 145 mm[Hg] Lizbeth Ng MD Work Phone: [facility] 07-01-2021 08:22-0400 Body weight 120.2 kg Stan Johnna SURGICAL PRODUCT SALES CONSULTANT.PHARMACIST AIDE Work Phone: [facility] 07-01-2021 08:22-0400 Diastolic blood pressure 82 mm[Hg] Stan Johnna SURGICAL PRODUCT SALES CONSULTANT.PHARMACIST AIDE Work Phone: [facility] 07-01-2021 08:22-0400 Heart rate 67 /min Stan Johnna SURGICAL PRODUCT SALES CONSULTANT.PHARMACIST AIDE Work Phone: [facility] 07-01-2021 08:22-0400 Respiratory rate 16 /min Stan Johnna SURGICAL PRODUCT SALES CONSULTANT.PHARMACIST AIDE Work Phone: [facility] 07-01-2021 08:22-0400 SaO2% (BldA) [Mass fraction] 97 % Stan Johnna SURGICAL PRODUCT SALES CONSULTANT.PHARMACIST AIDE Work Phone: [facility] 07-01-2021 08:22-0400 Systolic blood pressure 128 mm[Hg] Stan Johnna SURGICAL PRODUCT SALES CONSULTANT.PHARMACIST AIDE Work Phone: [facility] Encounters Encounter Date Encounter Type Care Provider Facility Start: 08-06-2024 End: 08-06-2024 Patient encounter procedure Yohana Vetovitz PA-C Work Phone: Orthopaedics Comment on above: Post-traumatic osteo arthritis of left knee (Primary Dx) Start: 08-06-2024 End: 08-06-2024 ambulatory YOHANA VETOVITZ Facility:[facility] Start: 07-30-2024 End: 07-30-2024 Patient encounter procedure Yohana Vetovitz PA-C Work Phone: Orthopaedics Comment on above: Post-traumatic osteo arthritis of left knee (Primary Dx) Start: 07-30-2024 End: 07-30-2024 ambulatory YOHANA VETOVITZ Facility:[facility] Start: 07-23-2024 End: 07-23-2024 Patient encounter procedure Yohana Vetovitz PA-C Work Phone: Orthopaedics Comment on above: Traumatic tear of ri ght rotator cuff, unspecified tear extent, initial encounter (Primary Dx); Post-traumatic osteoarthritis of left knee Start: 07-23-2024 End: 07-23-2024 ambulatory YOHANA CREWS Facility:[facility] Start: 07-18-2024 End: 07-19-2024 ambulatory [facility] Provider Family Medicine Rashel nelson Comment on above: Trazadone perscripti on Start: 07-12-2024 End: 07-17-2024 ambulatory Adalberto Gomez MD Work Phone: Orthopaedics Comment on above: Jell injection Start: 07-06-2024 End: 07-09-2024 Refill Janett Padgett APRN.PHARMACIST AIDE Work Phone: [facility] [place] Comment on above: Med Change Request Start: 07-06-2024 End: 07-06-2024 Telephone encounter Janett Padgett APRN.PHARMACIST AIDE Work Phone: [facility] [place] Start: 07-05-2024 End: 07-06-2024 ambulatory Stan Oropeza APRN.PHARMACIST AIDE Work Phone: [facility] [place] Comment on above: My medication Start: 06-13-2024 End: 06-13-2024 Office outpatient visit 40 minutes Stan Oropeza APRN.VICKEY Work Phone: [facility] [place] Comment on above: Situational mixed an xiety and depressive disorder (Primary Dx); Agoraphobia with panic attacks; GERD without esophagitis; Insomnia secondary to chronic pain; Chronic pain of left knee Start: 06-13-2024 End: 06-13-2024 ambulatory STAN OROPEZA Facility:[facility] Start: 06-04-2024 End: 06-06-2024 Telephone encounter Yohana Crews PA-C Work Phone: [id number] Comment on above: Insurance Authorizat ion (Prior Auth Denied: NonCovered Benefit (Drug Name)) Start: 05-31-2024 End: 06-15-2024 ambulatory Yohana Vetogarrett PA-C Work Phone: Orthopaedics Comment on above: Jell injection Start: 05-28-2024 End: 05-28-2024 Patient encounter procedure Yohana Whitmoreyuliana PA-C Work Phone: Orthopaedics Comment on above: Post-traumatic osteo arthritis of left knee (Primary Dx) Start: 05-28-2024 End: 05-28-2024 ambulatory YOHANA VETOVITZ Facility:[facility] Start: 05-21-2024 End: 05-21-2024 MC Get Medical Advice [facility] Provider Family Medicine Me edwards Comment on above: Refill for Xanax Start: 05-09-2024 End: 05-10-2024 Telephone encounter Contreras Barajas MD Work Phone: [facility] Orthopedics and Sports Medicine - [facility] Comment on above: Orders Start: 03-11-2024 End: 03-13-2024 ambulatory Stan Oropeza SURGICAL PRODUCT SALES CONSULTANT.PHARMACIST AIDE Work Phone: [facility] [place] Comment on above: Trazodone dosage inc rease Start: 03-11-2024 End: 03-12-2024 Refill Samina Berg APRN.PHARMACIST AIDE Work Phone: [facility] [place] Comment on above: Med Change Request Start: 03-10-2024 End: 03-12-2024 Refill Adalberto Gomez MD Work Phone: Orthopaedics Comment on above: Refill Request Start: 03-08-2024 End: 03-08-2024 Refill Samina Berg APRN.PHARMACIST AIDE Work Phone: [facility] [place] Comment on above: Med Change Request Start: 03-06-2024 End: 03-06-2024 Refill Samina Berg APRN.PHARMACIST AIDE Work Phone: [facility] [place] Comment on above: Med Change Request Start: 02-27-2024 End: 02-27-2024 Patient encounter procedure Adalberto Gomez MD Work Phone: Orthopaedics Comment on above: Shoulder impingement (Primary Dx); Acute pain of left knee Start: 02-27-2024 End: 02-27-2024 ambulatory SAMINA BERG Facility:[facility] Start: 02-27-2024 End: 02-27-2024 Subsequent hospital visit by physician Xr [facility] [place] Juarez Work Phone: Radiology Comment on above: Left knee pain, unsp ecified chronicity [M25.562] Start: 02-23-2024 End: 02-23-2024 Telephone encounter Samina Berg SURGICAL PRODUCT SALES CONSULTANT.PHARMACIST AIDE Work Phone: [facility] Start: 02-23-2024 End: 02-23-2024 ambulatory SAMINA BERG Facility:[facility] Start: 02-23-2024 End: 02-23-2024 Subsequent hospital visit by physician Mri [facility] (I-Stat/1.5t) Work Phone: Radiology Comment on above: Acute pain of left k nee [M25.562] Start: 02-21-2024 End: 02-21-2024 Orders Only Adalberto Gomez MD Work Phone: Orthopaedics Comment on above: Left knee pain, unsp ecified chronicity (Primary Dx) Start: 02-09-2024 End: 02-09-2024 ambulatory SAMINA BERG Facility:[facility] Start: 02-09-2024 End: 02-09-2024 Office outpatient visit 25 minutes Samina Berg SURGICAL PRODUCT SALES CONSULTANT.PHARMACIST AIDE Work Phone: [facility] Comment on above: Insomnia secondary t o chronic pain (Primary Dx); HTN, goal below 130/80; Acute pain of left knee; Situational mixed anxiety and depressive disorder; Essential hypertension with goal blood pressure less than 140/90 Start: 01-28-2024 End: 01-30-2024 Refill Samina Berg SURGICAL PRODUCT SALES CONSULTANT.PHARMACIST AIDE Work Phone: [facility] Comment on above: Med Change Request Start: 01-23-2024 End: 01-23-2024 Telephone encounter Samina Berg SURGICAL PRODUCT SALES CONSULTANT.PHARMACIST AIDE Work Phone: [facility] Comment on above: Results Start: 01-20-2024 End: 01-20-2024 Patient encounter procedure Samina Berg SURGICAL PRODUCT SALES CONSULTANT.PHARMACIST AIDE Work Phone: [facility] Comment on above: Hospital discharge f ollow-up (Primary Dx); Diverticulitis; Diarrhea, unspecified type; Situational mixed anxiety and depressive disorder Start: 01-20-2024 End: 01-20-2024 ambulatory SAMINA BERG Facility:[facility] Start: 01-18-2024 End: 01-18-2024 Refill Samina Berg SURGICAL PRODUCT SALES CONSULTANT.PHARMACIST AIDE Work Phone: [facility] Comment on above: Refill Request Start: 01-16-[address] [facility] Start: 01-16-2024 End: 01-18-2024 Evaluation and management of inpatient [facility] Facility:[facility] Start: 12-19-2023 End: 12-19-2023 Refill Adalberto Gomez MD Work Phone: Orthopaedics Comment on above: Refill Request Start: 12-19-2023 End: 12-19-2023 ambulatory ADALBERTO GOMEZ Facility:[facility] Start: 12-19-2023 End: 12-19-2023 Patient encounter procedure Adalberto Gomez MD Work Phone: Orthopaedics Comment on above: Shoulder impingement (Primary Dx); Acute pain of right shoulder Start: 11-29-2023 End: 12-02-2023 Telephone encounter Adalberto Gomez MD Work Phone: Orthopaedics Comment on above: Results - Mri Start: 11-24-2023 End: 11-24-2023 Telemedicine consultation with patient Adalberto Gomez MD Work Phone: Orthopaedics Start: 11-24-2023 End: 11-24-2023 ambulatory Adalberto Gomez MD Work Phone: Orthopaedics Comment on above: Acute pain of right shoulder (Primary Dx); Traumatic tear of right rotator cuff, unspecified tear extent, initial encounter Start: 11-22-2023 End: 11-23-2023 Refill Stan Oropeza SURGICAL PRODUCT SALES CONSULTANT.PHARMACIST AIDE Work Phone: [facility] Comment on above: Refill Request Start: 11-08-2023 End: 11-08-2023 ambulatory [facility] Facility:[facility] Start: 11-08-2023 End: 11-08-2023 Patient encounter procedure Adalberto Gomez MD Work Phone: Orthopaedics Comment on above: Traumatic tear of ri ght rotator cuff, unspecified tear extent, initial encounter (Primary Dx); Acute pain of right shoulder Start: 11-04-2023 End: 11-10-2023 Telephone encounter Stan Oropeza APRN.PHARMACIST AIDE Work Phone: [facility] Comment on above: Appointment Start: 11-02-2023 End: 11-02-2023 ambulatory [facility] Facility:[facility] Start: 11-02-2023 End: 11-02-2023 Office outpatient visit 40 minutes Stan Oropeza APRN.PHARMACIST AIDE Work Phone: [facility] Comment on above: Situational mixed an xiety and depressive disorder (Primary Dx); Agoraphobia with panic attacks; Moderate episode of recurrent major depressive disorder (HCC); Injury of right shoulder, subsequent encounter Start: 10-31-2023 End: 10-31-2023 ambulatory [facility] Facility:[facility] Start: 10-29-2023 End: 10-31-2023 Refill Stan Oropeza SURGICAL PRODUCT SALES CONSULTANT.PHARMACIST AIDE Work Phone: [facility] Comment on above: Med Change Request Start: 10-28-2023 End: 10-28-2023 Telephone encounter Stan Oropeza SURGICAL PRODUCT SALES CONSULTANT.PHARMACIST AIDE Work Phone: [facility] Comment on above: Patient Update Start: 10-27-2023 End: 10-28-2023 Emergency department patient visit Stan Oropeza Facility:[facility] Start: 10-20-2023 End: 10-25-2023 Telephone encounter Adalberto Gomez MD Work Phone: Orthopaedics Comment on above: Chart prep - X-rays Start: 10-06-2023 End: 10-06-2023 ambulatory [facility] Facility:[facility] Start: 10-06-2023 End: 10-06-2023 Patient encounter procedure Stan Oropeza SURGICAL PRODUCT SALES CONSULTANT.PHARMACIST AIDE Work Phone: [facility] Comment on above: Injury of right shou lder, subsequent encounter (Primary Dx); Acute pain of right shoulder; Situational mixed anxiety and depressive disorder; Agoraphobia with panic attacks; Moderate episode of recurrent major depressive disorder (HCC); Insomnia secondary to chronic pain Start: 10-01-2023 End: 10-01-2023 Emergency department patient visit [facility] Work Phone: Comment on above: Shoulder injury, rig ht, initial encounter (Primary Dx) Start: 09-24-2023 End: 09-26-2023 Refill Stan Johnna SURGICAL PRODUCT SALES CONSULTANT.PHARMACIST AIDE Work Phone: [facility] Comment on above: Refill Request Start: 08-18-2023 End: 08-19-2023 Emergency department patient visit Stan Oropeza Facility:[facility] Start: 08-15-2023 Refill Stanclifford Malcolmm an SURGICAL PRODUCT SALES CONSULTANT.PHARMACIST AIDE Work Phone: [facility] Comment on above: Refill Request Start: 07-15-2023 Refill Stan Dunham an SURGICAL PRODUCT SALES CONSULTANT.PHARMACIST AIDE Work Phone: [facility] Comment on above: Refill Request Start: 05-06-2023 ambulatory Saminathad Berg SURGICAL PRODUCT SALES CONSULTANT.PHARMACIST AIDE Work Phone: [facility] Comment on above: FMLA Start: 04-22-2023 End: 04-22-2023 PAT Pacc [facility] Work Phone: Pre Anesthesia Comment on above: Preoperative examina tion (Primary Dx); TIMOTHY (obstructive sleep apnea); Essential hypertension with goal blood pressure less than 140/90; GERD without esophagitis; Fatty liver; Leukocytosis, unspecified type; Situational mixed anxiety and depressive disorder; Dyslipidemia; Class 1 obesity with serious comorbidity and body mass index (BMI) of 32.0 to 32.9 in adult, unspecified obesity type Start: 04-22-2023 End: 04-22-2023 Preprocedural examination done [facility] [place] 1 Work Phone: [facility] Work Phone: Start: 04-07-2023 Telephone encounter Stan Barron APRN.CNP Work Phone: [facility] Comment on above: Results Start: 04-01-2023 End: 04-01-2023 Patient encounter procedure Stan Oropeza APRN.PHARMACIST AIDE Work Phone: [facility] Comment on above: Well adult exam ([facility] Dx); HTN, goal below 130/80; Insomnia secondary to chronic pain; Situational mixed anxiety and depressive disorder; Agoraphobia with panic attacks; GERD without esophagitis; Screening for diabetes mellitus; Vitamin D deficiency; Encounter for screening for lung cancer Start: 04-01-2023 End: 04-01-2023 Patient encounter status Stan Oropeza APRN.PHARMACIST AIDE Work Phone: [facility] Work Phone: Start: 03-29-2023 End: 03-29-2023 Patient encounter procedure Brian Elias MD Work Phone: Otolaryngology Comment on above: TIMOTHY (obstructive sle ep apnea) (Primary Dx) Start: 03-24-2023 Refill Stan hussein SURGICAL PRODUCT SALES CONSULTANT.PHARMACIST AIDE Work Phone: [facility] Comment on above: Refill Request Start: 03-22-2023 Telephone encounter Brian Elias MD Work Phone: [facility] [place] Start: 03-21-2023 ambulatory Brian Elias MD Work Phone: Otolaryngology Comment on above: Sleep study Start: 03-21-2023 E-mail encounter paul martínez caregiver Brian Elias MD Work Phone: [facility] Start: 01-05-2023 End: 01-05-2023 Subsequent hospital visit by physician Xr [facility] [place] Work Phone: Radiology Comment on above: Neck pain on right s angela [M54.2] Start: 01-05-2023 End: 01-05-2023 Patient encounter procedure Stan Oropeza MELBA Work Phone: [facility] [place] Comment on above: Neck pain on right s angela (Primary Dx); Cervical radiculopathy; Insomnia secondary to chronic pain; Agoraphobia with panic attacks; Situational mixed anxiety and depressive disorder; TIMOTHY (obstructive sleep apnea) Start: 12-28-2022 Refill Alexandre luke MD Work Phone: [facility] Orthopedics and Sports Medicine Start: 12-06-2022 Telephone encounter Contreras Barajas MD Work Phone: [facility] Comment on above: Medication Problem Start: 12-06-2022 End: 12-06-2022 Office outpatient new 45 minutes Alexandre Borjas MD Work Phone: [facility]ics [facility] Comment on above: Right cervical radic ulopathy (Primary Dx); Cervical paraspinal muscle spasm Start: 12-06-2022 End: 12-06-2022 Office outpatient visit 10 minutes Contreras Barajas MD Work Phone: [facility] Comment on above: Right foot pain; Vitamin D deficiency Start: 11-24-2022 Telephone encounter Contreras Barajas MD Work Phone: [facility] Comment on above: Dx Code Start: 10-25-2022 End: 10-25-2022 Office outpatient visit 15 minutes Contreras Barajas MD Work Phone: [facility] Comment on above: Closed displaced fra cture of second metatarsal bone of right foot with routine healing, subsequent encounter (Primary Dx); Tarsal tunnel syndrome of right side Start: 10-13-2022 End: 10-13-2022 Subsequent hospital visit by physician Contreras Barajas MD Work Phone: [facility] MRI Comment on above: Tarsal tunnel syndro me of right side Start: 10-04-2022 Telephone encounter Contreras Barajas MD Work Phone: [facility] Orthopedics [facility] Sports Medicine Start: 09-28-2022 Telephone encounter More Alvaradomaikel TAYLOR [facility]ics [facility] Medicine Start: 09-22-2022 ambulatory Samina Berg APRN.PHARMACIST AIDE Work Phone: Family Medicine [place] Comment on above: FMLA Paperwork Start: 09-20-2022 Telephone encounter Ana Lilia Mo severino [facility] Work Phone: Psychology Comment on above: bh consult Start: 09-20-2022 End: 09-20-2022 Patient encounter procedure Samina Berg SURGICAL PRODUCT SALES CONSULTANT.PHARMACIST AIDE Work Phone: [facility] Medicine [place] Comment on above: Situational mixed an xiety and depressive disorder (Primary Dx); Agoraphobia with panic attacks; Essential hypertension with goal blood pressure less than 140/90; GERD without esophagitis Start: 09-19-2022 End: 09-19-2022 Subsequent hospital visit by physician [facility] Xr Portable [facility] Radiology Comment on above: Arrived Start: 09-19-2022 End: 09-20-2022 Emergency department patient visit Alverto Estrada DO Work Phone: [facility] ED Comment on above: Chronic foot pain, r ight (Primary Dx) Start: 09-14-2022 ambulatory Stan hussein APRN.PHARMACIST AIDE Work Phone: Family Medicine [place] Comment on above: Paperwork Start: 12-27-2021 Refill Stan hussein APRN.PHARMACIST AIDE Work Phone: Family [facility] [place] Comment on above: Refill Request Start: 12-02-2021 Refill Stan hussein APRN.PHARMACIST AIDE Work Phone: Family Medicine [place] Comment on above: Refill Request Start: 10-13-2021 End: 10-13-2021 Subsequent hospital visit by physician Contreras Barajas MD Work Phone: [facility] General Surgery Comment on above: Tarsal tunnel syndro me of right side (Primary Dx) Start: 10-05-2021 End: 10-05-2021 Subsequent hospital visit by physician Contreras Barajas MD Work Phone: [facility] Pre-Admit Testing Comment on above: Arrived Start: 09-08-2021 Telephone encounter Lizbeth Carpenter MD Work Phone: General Surgery Comment on above: Results Start: 09-06-2021 End: 09-06-[address] Contreras Bird Work Phone: [facility], Specimen Start: 09-06-2021 End: 09-06-[address] Contreras Bird Work Phone: [facility] Start: 09-04-2021 End: 09-04-2021 Subsequent hospital visit by physician Kamaljit Teran MD Work Phone: [facility] Endoscopy Comment on above: Positive colorectal cancer screening using Cologuard test [R19.5] Start: 08-18-2021 Refill Stan hussein SURGICAL PRODUCT SALES CONSULTANT.PHARMACIST AIDE Work Phone: [facility] Comment on above: Refill Request Start: 08-17-2021 Telephone encounter Lizbeth Carpenter MD Work Phone: General Surgery Comment on above: 09/04/[address] Teran Start: 08-17-2021 End: 08-17-2021 Patient encounter procedure Lizbeth Ng MD Work Phone: General Surgery Comment on above: Positive colorectal cancer screening using Cologuard test (Primary Dx) Start: 07-22-2021 Telephone encounter Samina black SURGICAL PRODUCT SALES CONSULTANT.PHARMACIST AIDE Work Phone: [facility] Comment on above: Results Start: 07-13-2021 Telephone encounter Stan Barron SURGICAL PRODUCT SALES CONSULTANT.PHARMACIST AIDE Work Phone: [facility] Comment on above: Results Start: 07-10-2021 End: 07-10-2021 Subsequent hospital visit by physician [facility] Work Phone: Radiology Comment on above: Elevated LFTs [R79.8 9] Start: 07-02-2021 Telephone encounter Stan Barron PHARMACIST AIDE Work Phone: Family Medicine [place] Comment on above: Results Start: 07-01-2021 End: 07-01-2021 Patient encounter procedure Stan Oropeza PHARMACIST AIDE Work Phone: Family [facility] [place] Comment on above: Situational mixed an xiety and depressive disorder (Primary Dx); Leukocytosis, unspecified type; Elevated LFTs; Screening for colon cancer Start: 06-29-2021 Refill Stanclifford Dunham jovita CALDERON.PHARMACIST AIDE Work Phone: [facility] [place] Comment on above: Refill Request Start: 04-17-2021 End: 04-17-2021 Subsequent hospital visit by physician Gabbie MORGAN Work Phone: [facility] Radiology Start: 03-14-2019 Patient encounter status Chelsey Oropeza SURGICAL PRODUCT SALES CONSULTANT.PHARMACIST AIDE Work Phone: [facility] Work Phone: Start: 09-06-2016 End: 09-06-2016 Ambulatory [facility] Start: 09-02-2016 End: 09-02-2016 Emergency department patient visit ELEAZAR [place] [facility] Start: 03-06-2015 End: 04-22-2023 Patient encounter status Stan Oropeza KVNG.PHARMACIST AIDE Work Phone: [facility] Procedures Date Procedure Procedure Detail Performing Clinician Start: 08-06-2024 Arthrocentesis aspir &/inj major jt/bursa w/o us Yohana Crews PA-C Work Phone: Start: 07-30-2024 Arthrocentesis aspir &/inj major jt/bursa w/o us Yohana Crews PA-C Work Phone: Start: 07-23-2024 Arthrocentesis aspir &/inj major jt/bursa w/o us Yohana Vetovitz PA-C Work Phone: Start: 07-23-2024 Arthrocentesis aspir &/inj major jt/bursa w/o us Yohana Vetovitz PA-C Work Phone: Start: 05-28-2024 Arthrocentesis aspir &/inj major jt/bursa w/o us Yohana Vetovitz PA-C Work Phone: Start: 02-27-2024 End: 02-27-2024 Arthrocentesis aspir&/inj major jt/bursa w/o us Adalberto Gomez MD Work Phone: Start: 02-23-2024 Mri any jt lower ext rem w/o contrast sethl Samina Berg SURGICAL PRODUCT SALES CONSULTANT.PHARMACIST AIDE Work Phone: Start: 12-19-2023 End: 12-19-2023 Arthrocentesis aspir&/inj major jt/bursa w/o us Adalberto Gomez MD Work Phone: Start: 10-01-2023 Radex shoulder compl ete minimum 2 views Bryce Yao DO Work Phone: Start: 01-05-2023 Radex spine cervical 4 or 5 views Stan Oropeza SURGICAL PRODUCT SALES CONSULTANT.PHARMACIST AIDE Work Phone: Start: 12-06-2022 Radex spine cervical 2 or 3 views Alexandre Borjas MD Work Phone: Start: 10-25-2022 Radex foot complete minimum 3 views Contreras Barajas MD Work Phone: Start: 09-19-2022 Radex foot complete minimum 3 views Alverto Estrada DO Work Phone: Start: 10-13-2021 OPERATIVE REPORT Physic be Generic Start: 10-05-2021 Basic metabolic pane l calcium total Lance Villatoro SURGICAL PRODUCT SALES CONSULTANT - PHARMACIST AIDE Work Phone: Start: 10-05-2021 Ecg routine ecg w/le ast 12 lds w/i&r Lance Villatoro SURGICAL PRODUCT SALES CONSULTANT - PHARMACIST AIDE Work Phone: Start: 09-04-2021 Colonoscopy flx dx w /collj spec when pfrmd Lizbeth Ng MD Work Phone: Start: 09-04-2021 Colonoscopy Kamaljit triplett MD Work Phone: Start: 07-10-2021 Us abdominal real ti me w/image limited Stan Oropeza SURGICAL PRODUCT SALES CONSULTANT.PHARMACIST AIDE Work Phone: Start: 04-23-2021 Lipid 1996 panel - S saima or Plasma Stan Oropeza SURGICAL PRODUCT SALES CONSULTANT.PHARMACIST AIDE Work Phone: Streptococcus pyogen es Ag [Presence] in Throat Dr. Contreras Bird Work Phone: Plan of Treatment Date Care Activity Detail Author Start: 2044 RSV Immunization for Adults (1 - 1-dose 75+ series) RSV Immunization for Adults (1 - 1-dose 75+ series) [facility] Start: 09-05-2031 Screening for malign ant neoplasm of colon [facility] Start: 2029 RSV Immunization age d 60 or older (1 - 1-dose 60+ series) RSV Immunization aged 60 or older (1 - 1-dose 60+ series) [facility] Start: 01-19-2027 Diabetes Screening Diabetes Screenin [facility] Start: 01-11-2027 Diabetes Screening Diabetes Screenin [facility] Start: 09-04-2026 Screening for malign ant neoplasm of colon Sigmoidoscopy [facility] Start: 04-23-2026 Lipid 1996 panel - S saima or Plasma Lipid Screening [facility] Start: 04-23-2026 Lipid panel [facility] Start: 04-23-2026 LIPID SCREEN LIPID SCREEN [facility] Start: 04-06-2026 Diabetes mellitus screening Diabetes Screening [facility] Start: 04-06-2026 Diabetes Screening Diabetes Screenin g [facility] Start: 06-13-2025 Annual PCP Team Application Support Consultant meghana Disease Visit Annual PCP Team Chronic Disease Visit [facility] Start: 06-13-2025 BP Controlled (<130/80) BP Controlle d (<130/80) [facility] Start: 06-13-2025 zzBP Controlled (<130/80) (Retired) zzBP Controlled (<130/80) (Retired) [facility] Start: 03-06-2025 DTaP/Tdap/Td vaccine (2 - Td or Tdap) DTaP/Tdap/Td vaccine (2 - Td or Tdap) [facility] Start: 03-06-2025 DTaP/Tdap/Td Vaccine s (2 - Td or Tdap) DTaP/Tdap/Td Vaccines (2 - Td or Tdap) [facility] Start: 03-06-2025 Urine microalbumin profile [facility] Start: 02-08-2025 Annual PCP Team Application Support Consultant meghana Disease Visit Annual PCP Team Chronic Disease Visit [facility] Start: 02-08-2025 BP Controlled (<130/80) BP Controlle d (<130/80) [facility] Start: 02-08-2025 Covid-19 Vaccine ( season) Covid-19 Vaccine ( season) [facility] Comment on above: Postponed from 10/08 (Declined at this time) Start: 01-19-2025 Annual PCP Team Application Support Consultant meghana Disease Visit Annual PCP Team Chronic Disease Visit [facility] Start: 11-01-2024 Annual PCP Team Application Support Consultant meghana Disease Visit Annual PCP Team Chronic Disease Visit [facility] Start: 10-17-2024 End: 10-17-2024 Patient encounter procedure 10/17/2024 7:40 AM EDT Office Visit Family Medicine [place] [address] [place], [place] [id number] Stan Oropeza APRN.PHARMACIST AIDE [address] [facility] [address] 4 month follow up Family Medicine [place] Comment on above: 4 month follow up Start: 10-08-2024 Influenza vaccination Influenz a Vaccine (Season Ended) [facility] Start: 10-05-2024 Annual PCP Team Application Support Consultant meghana Disease Visit Annual PCP Team Chronic Disease Visit [facility] Start: 10-05-2024 BP Controlled (<130/80) BP Controlle d (<130/80) [facility] Start: 10-05-2024 Diabetes Screening Diabetes Screenin g [facility] Start: 09-04-2024 Colonoscopy COLONOSCOPY [facility] Start: 09-04-2024 COLORECTAL CANCER SCREENING COLORECTAL CANCER SCREENING [facility] Start: 09-04-2024 Screening for malign ant neoplasm of colon [facility] Start: 08-06-2024 End: 08-06-2024 Patient encounter procedure 08/06/2024 7:30 AM EDT Office Visit Orthopaedics [address] [place] [address] Yohana Crews PA-C [address] [place] [address] okay per nurse 730 Orthopaedics Comment on above: okay per nurse 730 Start: 07-30-2024 End: 07-30-2024 Patient encounter procedure 07/30/2024 11:45 AM EDT Office Visit Orthopaedics [address] [place] [address] Yohana Crews PA-C [address] [place], [place] [phone] Patient has been authorized for Euflexxa injections into the left knee until 01/06/2025. Orthopaedics Comment on above: Patient has been aut horized for Euflexxa injections into the left knee until 01/06/2025. Start: 07-23-2024 End: 07-23-2024 Patient encounter procedure 07/23/2024 7:30 AM EDT Office Visit Orthopaedics [address] [place] [address] Yohana Crews PA-C [address] [place], [place] [phone] okay per nurse 730 Orthopaedics Comment on above: okay per nurse 730 Start: 07-13-2024 COLOGUARD (FIT-DNA) COLOGUARD (FIT-D NA) [facility] Start: 07-13-2024 Screening for malign ant neoplasm of colon [facility] Start: 06-20-2024 End: 06-20-2024 Patient encounter procedure 06/20/2024 8:00 AM EDT Office Visit [facility]ics [facility] - [place] [address] [place] [id number] Contreras Barajas MD [address] [place] [address] [facility] - [place] Start: 06-13-2024 End: 06-13-2024 Patient encounter procedure 06/13/2024 7:40 AM EDT Office Visit Family [facility] [place] [address] [facility] [place] [address] Stan Oropeza APRN.PHARMACIST AIDE [address] [place] [address] Medication follow up Family Medicine [place] Comment on above: Medication follow up Start: 05-21-2024 End: 05-21-2024 Patient encounter procedure 05/21/2024 4:00 PM EDT Office Visit Orthopaedics [address] [place] [address] Adalberto Gomez MD [address] [place] [address] Injection in left knee for torn meniscus / MyChart request Orthopaedics Comment on above: Injection in left kn ee for torn meniscus / MyChart request Start: 04-23-2024 DIABETES SCREEN DIABETES SCREEN [facility] Start: 04-23-2024 Diabetes Screening Diabetes Screenin g [facility] Start: 04-01-2024 Annual PCP Team Application Support Consultant meghana Disease Visit Annual PCP Team Chronic Disease Visit [facility] Start: 04-01-2024 Covid-19 Vaccine () Covid-19 Vaccine () [facility] Comment on above: Postponed from 10/08 (Declined at this time) Start: 04-01-2024 Hepatitis B Vaccine (1 of 3 - 19+ 3-dose series) Hepatitis B Vaccine (1 of 3 - 19+ 3-dose series) [facility] Comment on above: Postponed from 06/12 (Declined at this time) Start: 04-01-2024 Hepatitis B Vaccine (1 of 3 - 3-dose series) Hepatitis B Vaccine (1 of 3 - 3-dose series) [facility] Comment on above: Postponed from 06/12 (Declined at this time) Start: 04-01-2024 HIV screening HIV Screening [facility] Comment on above: Postponed from 06/12 (Declined at this time) Start: 02-27-2024 End: 02-27-2024 Patient encounter procedure 02/27/2024 9:15 AM EST Office Visit Orthopaedics [address] [place] [address] Adalberto Gomez MD [address] [place] [address] Acute pain of left knee [M25.562] Orthopaedics Comment on above: Acute pain of left k nee [M25.562] Start: 02-23-2024 End: 02-23-2024 Patient encounter procedure 02/23/2024 8:00 AM EST Appointment Radiology [address] [place] [id number] Acute pain of left knee [M25.562] Radiology Comment on above: Acute pain of left k nee [M25.562] Start: 02-06-2024 End: 02-06-2024 Patient encounter procedure Family De[facility]re [facility] Comment on above: med follow up Start: 01-20-2024 End: 04-20-2024 CBC W Auto Differential panel - Blood [facility] Work Phone: Comment on above: Expected: 01/20/2024 , Expires: 04/20/2024 Start: 01-20-2024 End: 04-20-2024 Comprehensive metabolic 2000 panel - Serum or Plasma [facility] Comment on above: Expected: 01/20/2024 , Expires: 04/20/2024 Start: 01-19-2024 End: 01-19-2024 Patient encounter procedure 01/19/2024 8:40 AM EST Office Visit Family Medicine [place] [address] [place] [address] Stan Oropeza APRN.PHARMACIST AIDE [address] [place] [address] Diverticulitis I was diagnosed with Family [facility]pc[facility] Comment on above: Diverticulitis I was diagnosed with Start: 01-06-2024 Annual PCP Team Application Support Consultant meghana Disease Visit Annual PCP Team Chronic Disease Visit [facility] Start: 11-24-2023 End: 11-24-2023 Follow-up encounter 11/24/2023 10:00 AM EDT [facility] Orthopaedics [address] [place] [address] Adalberto Gomez MD [address] [facility] [address] follow up mri results Orthopaedics Comment on above: follow up mri result s Start: 11-08-2023 End: 11-08-2023 Patient encounter procedure Family De[facility]re Con[facility]pc[facility] Comment on above: 1 Month follow up Injury of right shou lder, subsequent encounter [S49.91XD] Start: 11-02-2023 End: 11-02-2023 Patient encounter procedure 11/02/2023 7:20 AM EDT Office Visit Family [facility]re [facility]pc[facility] [address] [facility] [place] [address] Stan Oropeza, SURGICAL PRODUCT SALES CONSULTANT.PHARMACIST AIDE [address] [place] [address] er follow up Family Deandre Concepcion Comment on above: er follow up Start: 10-25-2023 End: 10-25-2023 Patient encounter procedure 10/25/2023 9:15 AM EDT Office Visit Orthopaedics [address] [address] Adalberto Gomez MD [address] [place] [address] Injury of right shoulder, subsequent encounter [S49.91XD] Orthopaedics Comment on above: Injury of right shou lder, subsequent encounter [S49.91XD] Start: 10-09-2023 Covid-19 Vaccine () Covid-19 Vaccine () [facility] Start: 10-09-2023 Covid-19 Vaccine () Covid-19 Vaccine () [facility] Start: 10-09-2023 Influenza vaccination Influenza Vacc ine (#1) [facility] Start: 10-06-2023 End: 10-06-2023 Patient encounter procedure 10/06/2023 7:20 AM EDT Office Visit Family Medicine [place] [address] [facility], [place] [phone] Stan Oropeza APRN.PHARMACIST AIDE [address] [place], [place] [address] My depression, anxiety, panic attacks. Family Medicine [place] Comment on above: My depression, anxie ty, panic attacks. Start: 09-21-2023 ANNUAL PCP TEAM MAJOR ASSEMBLY INSPECTOR MEGHANA DISEASE VISIT ANNUAL PCP TEAM CHRONIC DISEASE VISIT [facility] Start: 09-21-2023 BP CONTROLLED (<130/80) BP CONTROLLE D (<130/80) [facility] Start: 09-21-2023 COVID-19 VACCINE (4 - Pfizer series) COVID-19 VACCINE (4 - Pfizer series) [facility] Comment on above: Postponed from 04/22 (Declined at this time) Start: 09-21-2023 SHINGRIX VACCINE (1 of 2) SHINGRIX VACCINE (1 of 2) [facility] Comment on above: Postponed from 06/12 (Declined at this time) Start: 08-14-2023 Diabetes mellitus screening Diabetes Screening [facility] Start: 04-01-2023 End: 07-01-2023 25-hydroxyvitamin D3 [Mass/volume] in Serum or Plasma VITAMIN D 25 HYDROXY Lab Routine Well adult exam Vitamin D deficiency Expected: 04/01/2023, Expires: 07/01/2023 [facility] Work Phone: Comment on above: Expected: 04/01/2023 , Expires: 07/01/2023 Start: 04-01-2023 End: 07-01-2023 CBC panel - Blood by Automated count CBC Lab Routine Well adult exam HTN, goal below 130/80 Screening for diabetes mellitus Expected: 04/01/2023, Expires: 07/01/2023 [facility] Work Phone: Comment on above: Expected: 04/01/2023 , Expires: 07/01/2023 Start: 04-01-2023 End: 07-01-2023 Comprehensive metabolic 2000 panel - Serum or Plasma COMP METABOLIC PANEL Lab Routine Well adult exam HTN, goal below 130/80 Screening for diabetes mellitus Expected: 04/01/2023, Expires: 07/01/2023 [facility] Work Phone: Comment on above: Expected: 04/01/2023 , Expires: 07/01/2023 Start: 04-01-2023 End: 07-01-2023 Hemoglobin A1c in Blood HGB A1C Lab Routine Well adult exam Screening for diabetes mellitus Expected: 04/01/2023, Expires: 07/01/2023 [facility] Work Phone: Comment on above: Expected: 04/01/2023 , Expires: 07/01/2023 Start: 01-06-2023 TWO PNEUMOVAX 5 YEAR S APART PRIOR TO AGE 65 (#2) TWO PNEUMOVAX 5 YEARS APART PRIOR TO AGE 64 (#2) [facility] Start: 12-06-2022 End: 12-07-2023 XR Foot - right 3 Views [facility] Work Phone: Comment on above: Expected: 12/06/2022 , Expires: 12/07/2023 Start: 12-06-2022 End: 12-06-2022 Patient encounter procedure 12/06/2022 8:30 AM EDT Office Visit [facility] [address] [place] [address] Contreras Barajas MD [address] [place] [address] [address] [place] [address] [facility] Start: 10-25-2022 End: 10-25-2022 Patient encounter procedure 10/25/2022 8:45 AM EDT Office Visit [facility] [address] [place] [address] Contreras Barajas MD [address] [facility] [address] [place], [place] [id number] [facility] Start: 10-15-2022 End: 10-15-2022 Patient encounter procedure 10/15/2022 3:15 PM EDT Office Visit [facility] [address] [place] [address] Contreras Barajas MD [address] [facility] [address] [place] [address] [facility] Start: 10-13-2022 End: 10-13-2022 Patient encounter procedure 10/13/2022 4:45 PM EDT Appointment [facility] [address] [place] [address] Contreras Barajas MD [address] [facility] [address] [place], [place] [id number] [facility] Start: 10-08-2022 COVID-19 Vaccine ( season) COVID-19 Vaccine () [facility] Start: 10-08-2022 Influenza vaccination C [facility] Start: 09-04-2022 Colonoscopy COLONOSCOPY [facility] Start: 07-01-2022 ANNUAL PCP TEAM MAJOR ASSEMBLY INSPECTOR MEGHANA DISEASE VISIT ANNUAL PCP TEAM CHRONIC DISEASE VISIT [facility] Start: 07-01-2022 HIV SCREENING HIV SCREENING [facility] Comment on above: Postponed from 06/12 (Declined at this time) Start: 07-01-2022 Influenza vaccination LUNG CANCER SC REENING [facility] Comment on above: Postponed from 06/12 (Declined at this time) Start: 04-03-2022 ANNUAL PCP TEAM MAJOR ASSEMBLY INSPECTOR MEGHANA DISEASE VISIT ANNUAL PCP TEAM CHRONIC DISEASE VISIT [facility] Start: 10-30-2021 End: 10-30-2021 Patient encounter procedure 10/30/2021 Office Visit Orthopedic Surgery Contreras Barajas MD [address] [facility] [address] [place], [place] [id number] [facility] [place] Start: 10-13-2021 End: 10-13-2021 Patient encounter procedure 10/13/2021 Appointment General Surgery Contreras Barajas MD [address] [facility] [address] [place], [place] [id number] [facility] General Surgery Start: 10-08-2021 Influenza vaccination C [facility] Start: 09-05-2021 COLORECTAL CANCER SCREENING COLORECTAL CANCER SCREENING [facility] Start: 07-14-2021 COLORECTAL CANCER SCREENING COLORECTAL CANCER SCREENING [facility] Start: 07-01-2021 End: 08-31-2021 HEPATIC FUNCTION PNL [facility] Work Phone: Comment on above: Expected: 07/01/2021 , Expires: 08/31/2021 Start: 06-25-2021 COVID-19 VACCINE (4 - Booster for Pfizer series) COVID-19 VACCINE (4 - Booster for Pfizer series) [facility] Start: 04-22-2021 COVID-19 VACCINE (4 - Booster for Pfizer series) COVID-19 VACCINE (4 - Booster for Pfizer series) [facility] Start: 04-22-2021 COVID-19 VACCINE (4 - Pfizer series) COVID-19 VACCINE (4 - Pfizer series) [facility] Start: 10-17-2020 COLORECTAL CANCER SCREENING COLORECTAL CANCER SCREENING [facility] Start: 10-17-2020 FECAL OCCULT BLOOD FECAL OCCULT BLOO D [facility] Start: 10-17-2020 Screening for malign ant neoplasm of colon Fecal Occult Blood [facility] Start: 10-08-2020 Influenza vaccination Flu vaccine (# 1) [facility] Start: 06-13-2019 Influenza vaccination LUNG CANCER SC REENING [facility] Start: 06-13-2019 Pneumococcal Vaccine : 50+ (1 of 1 - PCV) Pneumococcal Vaccine: 50+ (1 of 1 - PCV) [facility] Start: 06-13-2019 Pneumococcal Vaccine : 50+ Years (1 of 1 - PCV) Pneumococcal Vaccine: 50+ Years (1 of 1 - PCV) [facility] Start: 06-13-2019 Screening for malign ant neoplasm of lung [facility] Start: 06-13-2019 Shingles Vaccine (1 of 2) Shingles Vaccine (1 of 2) [facility] Start: 06-13-2019 SHINGRIX VACCINE (1 of 2) SHINGRIX VACCINE (1 of 2) [facility] Start: 06-13-2019 Zoster Vaccines (1 of 2) Zoste r Vaccines (1 of 2) [facility] Start: 2014 COLOGUARD (FIT-DNA) COLOGUARD (FIT-D NA) [facility] Start: 2014 Colonoscopy COLONOSCOPY [facility] Start: [address] COLONOGRAPHY [facility] Start: 2014 Prostate specific antigen measurement Prostate Cancer Screening Discussion [facility] Start: 2014 Screening for malign ant neoplasm of colon [facility] Start: 2014 SIGMOIDOSCOPY SIGMOIDOSCOPY [facility] Start: 2009 Lipid panel Lipid screen [facility] Start: 2004 Diabetes screen Diabetes screen [facility] Start: 1988 Hepatitis A Vaccines (1 of 2 - Risk 2-dose series) Hepatitis A Vaccines (1 of 2 - Risk 2-dose series) [facility] Start: 1988 Hepatitis B Vaccine (1 of 3 - 19+ 3-dose series) Hepatitis B Vaccine (1 of 3 - 19+ 3-dose series) [facility] Start: 1988 Hepatitis B Vaccines (1 of 3 - 19+ 3-dose series) Hepatitis B Vaccines (1 of 3 - 19+ 3-dose series) [facility] Start: 06-13-1987 BP CONTROLLED (<130/80) BP CONTROLLE D (<130/80) [facility] Start: 06-13-1987 Diabetes mellitus screening Diabetes Screening [facility] Start: 06-13-1987 Hepatitis C screening [facility] Start: 06-13-1987 HIV SCREENING HIV SCREENING [facility] Start: 06-13-1987 HIV screening HIV Screening [facility] Start: 1984 HIV screening HIV screen [facility] Start: 1981 Depression Monitoring Depression Mon itoring [facility] Start: 1981 Depression Screen Depression Screen [facility] Start: 1981 Depression Screening Depression Scre ening [facility] Start: 1981 Depresssion Monitoring Depresssion M onitoring [facility] Start: 1970 MMR Vaccines (1 of 1 - Standard series) MMR Vaccines (1 of 1 - Standard series) [facility] Start: 1969 Creatinine measurement Creatinine mo nitoring [facility] Start: 1969 HEPATITIS B (1 of 3 - 3-dose series) HEPATITIS B (1 of 3 - 3-dose series) [facility] Start: 1969 Hepatitis B Vaccine (1 of 3 - 3-dose series) Hepatitis B Vaccine (1 of 3 - 3-dose series) [facility] Start: 1969 Hepatitis B Vaccines (1 of 3 - 3-dose series) Hepatitis B Vaccines (1 of 3 - 3-dose series) [facility] Start: 1969 Hepatitis C screening Hepatitis C sc reen [facility] Start: 1969 HIV screening HIV Screening [facility] Start: 1969 Lipid panel Lipid Panel [facility] Start: 1969 Potassium monitoring Potassium monit oring [facility] Start: 1969 Screening for malign ant neoplasm of colon [facility] Start: 1969 Yearly Adult Physical Yearly Adult P [facility] Blood glucose - POCT Blood gluco se - POCT Point of Care Testing STAT As Needed until discontinued starting 10/13/2021 [facility] Work Phone: Comment on above: As Needed until disc ontinued starting 10/13/2021 Clostridioides diffi cile toxin genes [Presence] in Stool by KIRTI with probe detection C. DIFFICILE PCR Lab Routine Diverticulitis Diarrhea, unspecified type Hospital discharge follow-up Ordered: 01/20/2024 [facility] Comment on above: Ordered: 01/20/2024 COLOGUARD COLOGUARD Lab Ro utine Screening for colon cancer Ordered: 07/01/2021 [facility] Work Phone: Comment on above: Ordered: 07/01/2021 End: 08-17-2022 COLONOSCOPY DIAGNOSTIC COLONOSCOPY DIAGNOSTIC Endoscopy Routine Positive colorectal cancer screening using Cologuard test 1 Occurrences starting 08/17/2021 until 08/17/2022 [facility] Work Phone: Comment on above: 1 Occurrences starti ng 08/17/2021 until 08/17/2022 End: 10-13-2021 Creatinine [Mass/volume] in Serum or Plasma Creatinine, serum Lab STAT One Time for 1 Occurrences starting 10/13/2021 until 10/13/2021 [facility] Work Phone: Comment on above: One Time for 1 Occur rences starting 10/13/2021 until 10/13/2021 EKG 12 Lead EKG 12 Lead ECG Routine 10/05/2021 10:07 AM EDT [facility] Work Phone: End: 10-13-2021 INITIATE PACU OXYGEN THERAPY PROTOCOL Initiate PACU Oxygen Therapy Protocol Respiratory Care Routine Continuous until discontinued starting 10/13/2021 [facility] Comment on above: Continuous until dis continued starting 10/13/2021 End: 10-13-2021 Intermittent pulse oximetry Pulse Oximetry Spot Check Respiratory Care Routine One Time for 1 Occurrences starting 10/13/2021 until 10/13/2021 [facility] Work Phone: Comment on above: One Time for 1 Occur rences starting 10/13/2021 until 10/13/2021 End: 10-13-2022 MR Foot - right WO contrast [facility] [employer] Work Phone: Comment on above: Once for 1 Occurrenc es starting 10/13/2022 until 10/13/2022 End: 03-10-2025 MR Knee - left WO contrast MRI KNEE WO IVCON LEFT Radiology Routine Acute pain of left knee 1 Occurrences starting 02/09/2024 until 03/10/2025 [facility] Work Phone: Comment on above: 1 Occurrences starti ng 02/09/2024 until 03/10/2025 End: 12-07-2024 MR Shoulder - right WO contrast MRI SHOULDER WO IVCON RIGHT Radiology Routine Traumatic tear of right rotator cuff, unspecified tear extent, initial encounter Acute pain of right shoulder 1 Occurrences starting 11/08/2023 until 12/07/2024 [facility] Work Phone: Comment on above: 1 Occurrences starti ng 11/08/2023 until 12/07/2024 Nasal Cannula Oxygen Nasal Cannu la Oxygen Respiratory Care Routine As Needed until discontinued starting 10/13/2021 [employer] Work Phone: Comment on above: As Needed until disc ontinued starting 10/13/2021 Nasal Cannula Oxygen Nasal Cannu la Oxygen Respiratory Care Routine As Needed until discontinued starting 10/13/2021 [employer] Work Phone: Comment on above: As Needed until disc ontinued starting 10/13/2021 Nonrebreather mask oxygen Nonrebreather mask oxygen Respiratory Care Routine As Needed until discontinued starting 10/13/2021 [employer] Work Phone: Comment on above: As Needed until disc ontinued starting 10/13/2021 Nonrebreather mask oxygen Nonrebreather mask oxygen Respiratory Care Routine As Needed until discontinued starting 10/13/2021 [employer] Work Phone: Comment on above: As Needed until disc ontinued starting 10/13/2021 OUTSIDE PROCEDURE SCAN OUTSIDE P ROCEDURE SCAN Procedures Ordered: 10/12/2022 [facility] Comment on above: Ordered: 10/12/2022 Oxygen therapy [[facility] Data Set] Initiate Oxygen Therapy Protocol Respiratory Care Routine As Needed until discontinued starting 10/13/2021 [facility] Comment on above: As Needed until disc ontinued starting 10/13/2021 End: 10-13-2021 Potassium w/ Reflex to Magnesium Potassium w/ Reflex to Magnesium Lab Routine One Time for 1 Occurrences starting 10/13/2021 until 10/13/2021 [employer] Work Phone: Comment on above: One Time for 1 Occur rences starting 10/13/2021 until 10/13/2021 End: 10-13-2021 , urine POCT , urine POCT Point of Care Testing Routine One Time for 1 Occurrences starting 10/13/2021 until 10/13/2021 [employer] Work Phone: Comment on above: One Time for 1 Occur rences starting 10/13/2021 until 10/13/2021 End: 10-13-2021 Protime-INR Protime-INR Lab STAT One Time for 1 Occurrences starting 10/13/2021 until 10/13/2021 [facility] Work Phone: Comment on above: One Time for 1 Occur rences starting 10/13/2021 until 10/13/2021 End: 02-04-2024 Radex spine cervical 4 or 5 views XR CERV OTHER 4V AP/LAT/OBL Radiology Routine Neck pain on right side Cervical radiculopathy Insomnia secondary to chronic pain 1 Occurrences starting 01/05/2023 until 02/04/2024 [facility] Work Phone: Comment on above: 1 Occurrences starti ng 01/05/2023 until 02/04/2024 Radex spine cervical 4 or 5 views XR CERV OTHER 4V AP/LAT/OBL Radiology Routine Neck pain on right side Cervical radiculopathy Insomnia secondary to chronic pain 01/05/2023 9:16 AM EST [facility] Work Phone: Spirometry panel Incentive hellen metry Respiratory Care Routine Q1H PRN until discontinued starting 10/13/2021 [facility] Work Phone: Comment on above: Q1H PRN until discon tinued starting 10/13/2021 SURGICAL PATHOLOGY [facility] Work Phone: Comment on above: Release Upon Orderin g for 1 Occurrences starting 09/04/2021, 1 completed End: 08-01-2022 Us abdominal real time w/image limited US ABD RT UPPER QUADRANT Radiology Routine Elevated LFTs 1 Occurrences starting 07/02/2021 until 08/01/2022 [facility] Work Phone: Comment on above: 1 Occurrences starti ng 07/02/2021 until 08/01/2022 End: 04-17-2021 XR ANKLE RIGHT (MIN 3 VIEWS) [facility] Work Phone: Comment on above: Once for 1 Occurrenc es starting 04/17/2021 until 04/17/2021 End: 04-17-2021 XR FOOT RIGHT (MIN 3 VIEWS) [facility] Work Phone: Comment on above: Once for 1 Occurrenc es starting 04/17/2021 until 04/17/2021 End: 03-22-2025 XR Knee - left 4 Views XR KNEE GENERAL 4V AP BOTH/PA BOTH/LAT/MERC LEFT Radiology Routine Left knee pain, unspecified chronicity 1 Occurrences starting 02/21/2024 until 03/22/2025 [facility] Work Phone: Comment on above: 1 Occurrences starti ng 02/21/2024 until 03/22/2025 XR Knee - left 4 Views XR KNEE G ENERAL 4V AP BOTH/PA BOTH/LAT/MERC LEFT Radiology Routine Left knee pain, unspecified chronicity 02/27/2024 8:57 AM EST [facility] Work Phone: [facility] Immunizations Immunization Date Immunization Notes Care Provider [facility] 01-28-2023 influenza, injectabl e, quadrivalent, preservative free Brian Elias MD Work Phone: [facility] 01-28-2023 influenza virus vaccine, unspecified formulation Stan Johnna SURGICAL PRODUCT SALES CONSULTANT.PHARMACIST AIDE Work Phone: [facility] 12-11-2021 influenza, injectabl e, quadrivalent, contains preservative Stan Johnna SURGICAL PRODUCT SALES CONSULTANT.PHARMACIST AIDE Work Phone: [facility] 12-11-2021 Influenza, injectabl e, quadrivalent, preservative free Contreras Barajas MD Work Phone: [facility] 12-11-2021 influenza virus vaccine, unspecified formulation [facility] 02-25-2021 COVID-19 vaccine, ag e 12+ yr (PFIZER-BIONTCinemur - PURPLE TOP) Stanclifford aMlcolmman SURGICAL PRODUCT SALES CONSULTANT.PHARMACIST AIDE Work Phone: [facility] Work Phone: 07-16-2020 COVID-19 vaccine, ag e 12+ yr (PFIZER-BIONTECH - PURPLE TOP) Stan Johnna SURGICAL PRODUCT SALES CONSULTANT.PHARMACIST AIDE Work Phone: [facility] 06-25-2020 COVID-19 vaccine, ag e 12+ yr (PFIZER-BIONTECH - PURPLE TOP) Stan Johnna SURGICAL PRODUCT SALES CONSULTANT.PHARMACIST AIDE Work Phone: [facility] 11-07-2019 Seasonal, quadrivale nt, recombinant, injectable influenza vaccine, preservative free Contreras Barajas MD Work Phone: [facility] 10-26-2019 influenza virus vaccine, unspecified formulation Brian Elias MD Work Phone: [facility] 11-11-2017 Influenza, injectabl e, quadrivalent, preservative free Contreras Barajas MD Work Phone: [facility] 12-10-2015 Influenza, injectabl e, quadrivalent, preservative free Contreras Barajas MD Work Phone: [facility] 11-08-2015 influenza, seasonal, injectable Stan Johnna SURGICAL PRODUCT SALES CONSULTANT.PHARMACIST AIDE Work Phone: [facility] 03-06-2015 influenza, injectabl e, quadrivalent, contains preservative Stan Johnna SURGICAL PRODUCT SALES CONSULTANT.PHARMACIST AIDE Work Phone: [facility] Work Phone: 03-06-2015 Influenza, injectabl e, quadrivalent, preservative free Contreras Barajas MD Work Phone: [facility] 03-06-2015 tetanus toxoid, redu bayron diphtheria toxoid, and acellular pertussis vaccine, adsorbed Stan Johnna SURGICAL PRODUCT SALES CONSULTANT.[facility] Work Phone: [facility] Work Phone: Payers Date Payer Category Payer Self-pay [id number] 2023 Worker's Compensation [id number] 2019 Worker's Compensation [id number] 2019 Blue Cross Blue Shield BLUE CARD PPO OOS [id number] 2019 Unknown [employer] BLUE CARD PPO OOS [id number] [phone]- [phone] [place] [address] PPO [id number] 2018 Unknown GENERIC SELF-INS URED GENERIC SELF-INSURED [id number] 2018-Present [address] [place] [address] [id number] 2018 Unknown GENERIC SELF-INS URED GENERIC SELF-INSURED [id number] 2018-Present [address] [place] [address] [id number] 2018 Blue Cross Blue Shie Managed Care - O ANTHEM BLUE CROSS [id number] 2018 Unknown [id number] 2018 Unknown [id number] 1969 Unknown [id number] Unknown [facility] [id number] Unknown [id number] Unknown [id number] Unknown [id number] Unknown [id number] Unknown [id number] Unknown [id number] Unknown [id number] Social History Date Type Detail Facility Start: 04-17-2021 End: 10-06-2023 Tobacco smoking status MAIS Ex-smoker [employer] Phone: Start: 05-08-1996 End: 05-06-2017 History of tobacco use Current smoker [employer] Phone: Start: 04-17-2021 End: 10-06-2023 Tobacco use and exposure Smokeless tobacco non-user [employer] Phone: Start: 1970 Sex Assigned At Not on file [facility] Work Phone: Start: 06-21-2021 End: 10-01-2023 Exposure to SARS-CoV-2 (event) Not sure [facility] Start: 05-08-1996 End: 05-06-2017 History of tobacco use Cigarette Smoker [facility] Work Phone: Start: 05-02-2015 End: 09-17-2022 Cigarettes smoked current (pack per day) - Reported 1 [facility] Start: 04-03-2021 End: 08-06-2024 Alcohol intake Current non-drinker of alcohol (finding) [facility] Start: 07-10-2020 End: 04-03-2021 History SDOH Alcohol Frequency 1 [facility] Start: 07-10-2020 History SDOH Alcohol Std Drinks 98 [facility] Start: 07-10-2020 End: 04-03-2021 History SDOH Social Connections Phone 2 [facility] Start: 2019 End: 07-10-2020 History SDOH Social Connections Nondenominational 3 [facility] Start: 07-10-2020 History SDOH Social Connections Living 5 [facility] Start: 2019 Education 15 [facility] Start: 09-26-2020 Tobacco Comment none x 3 yrs [facility] Start: 1970 Sex Assigned At Male [facility] Start: 07-01-2021 End: 01-05-2023 Tobacco Comment none x 4 years [facility] Start: 09-06-2021 Tobacco smoking status MAIS Unknown if ever smoked [facility] Work Phone: Start: 10-05-2021 End: 12-06-2022 Alcohol intake Ex-drinker (finding) [facility] Work Phone: Start: 07-10-2020 End: 09-17-2022 Social connection and isolation panel [facility] Attends [employer] Not on file [facility] Do you belong to any clubs or organizations such as tenriism groups, unions, fraternal or athletic groups, or school groups? No [facility] Are you now , , , , never or living with a partner? [facility] How often to you hav e a drink containing alcohol? Never [facility] Do you feel stress - tense, restless, nervous, or anxious, or unable to sleep at night because your mind is troubled all the time - these days [OSQ] Very much [facility] (I/We) worried wheth er (my/our) food would run out before (I/we) got money to buy more. Never true [facility] Start: 2019 Gender identity Identifies as male gender (finding) [facility] Are you now , , , , never or living with a partner? [facility] How hard is it for y ou to pay for the very basics like food, housing, medical care, and heating Not very hard [facility] Start: 10-01-2023 Tobacco smoking status NHIS Never smoked tobacco [facility] Work Phone: Start: 09-07-2021 Sex Male (finding) [facility] Clinical Notes 04-14-2016 to 08-06-2024 Yohana Crews PA-C - 08/06/2024 7:50 AM Lizbeth Avila MA - 08/06/2024 7:36 AM EDTYohaan Crews PA-C - 07/30/2024 11:38 AM EDGris Pedroza MA - 07/30/2024 11:23 AM EDT Note Date & Type Note Facility 08-06-2024 Note HNO ID: [id number] Author: YOHANA CREWS PA-C Service: ? Author Type: Physician Photographic Press Screwmaker Type: Progress Notes Filed: 08/06/2024 07:50 Note Text: Large Joint Arthro/Inj: L knee joint 08/06/2024 7:50 AM The procedure site was prepped in the usual sterile fashion. Site: L knee joint Medications: 20 mg sodium hyaluronate 10 mg/mL(mw 2.4 -3.6 million) Outcome: Tolerated well, no immediate complications Post-injection instructions were reviewed with the patient and the patient voiced understanding of these instructions. Informed Consent Consent Obtained: Verbal [place] Protocol A moment to CARE was completed. SIGN IN Sign in communication not applicable due to emergent procedure. Personnel directly involved with the procedure wore the appropriate PPE. Special Equipment: N/A Patient/Surrogate Stated/Verified: Patient name, Date of , Relevant allergies and Intended procedure TIME OUT Relevant labs, photos, and/or imaging studies have been reviewed. Consent documented and matches the intended procedure. Correct side/site marked and visible. Medications required for procedure verified. No fire risk assessment and interventions applicable. No implant(s) inserted. SIGN OUT No specimen collected. No post-procedure POC communication to the patient's multidisciplinary team (including the bedside nurse for hospitalized patients) applicable. [facility] 08-06-2024 History of Present illness Narrative Associated Order(s): Large Joint Arthro/Inj: L knee joint Post-Procedure Diagnose(s): Post-traumatic osteoarthritis of left knee Large Joint Arthro/Inj: L knee joint 08/06/2024 7:50 AM The procedure site was prepped in the usual sterile fashion. Site: L knee joint Medications: 20 mg sodium hyaluronate 10 mg/mL(mw 2.4 -3.6 million) Outcome: Tolerated well, no immediate complications Post-injection instructions were reviewed with the patient and the patient voiced understanding of these instructions. Informed Consent Consent Obtained: Verbal [place] Protocol A moment to CARE was completed. SIGN IN Sign in communication not applicable due to emergent procedure. Personnel directly involved with the procedure wore the appropriate PPE. Special Equipment: N/A Patient/Surrogate Stated/Verified: Patient name, Date of , Relevant allergies and Intended procedure TIME OUT Relevant labs, photos, and/or imaging studies have been reviewed. Consent documented and matches the intended procedure. Correct side/site marked and visible. Medications required for procedure verified. No fire risk assessment and interventions applicable. No implant(s) inserted. SIGN OUT No specimen collected. No post-procedure POC communication to the patient's multidisciplinary team (including the bedside nurse for hospitalized patients) applicable. Patient presents with: Left Knee - Injections: Euflexxa injection # 3 left knee AMB ROOMING INTAKE FLOWSHEET DATA Patient denies any pain. Here for Euflexxa injection #3 left knee LOT # [id number] EXP 06/11/2025 Lizbeth Porter MA documented in this encounter [facility] 08-06-2024 Note HNO ID: [id number] Author: LIZBETH PORTER MA Service: ? Author Type: Bread Racker Type: Progress Notes Filed: 08/06/2024 07:50 Note Text: Patient presents with: Left Knee - Injections: Euflexxa injection # 3 left knee AMB ROOMING INTAKE FLOWSHEET DATA Patient denies any pain. Here for Euflexxa injection #3 left knee LOT # [id number] EXP 06/11/2025 Lizbeth Porter MA [facility] 07-30-2024 Note HNO ID: [id number] Author: YOHANA CREWS PA-C Service: ? Author Type: Physician Photographic Press Screwmaker Type: Progress Notes Filed: 07/30/2024 11:38 Note Text: Large Joint Arthro/Inj: L knee joint 07/30/2024 11:38 AM The procedure site was prepped in the usual sterile fashion. Site: L knee joint Medications: 20 mg sodium hyaluronate 10 mg/mL(mw 2.4 -3.6 million) Outcome: Tolerated well, no immediate complications Post-injection instructions were reviewed with the patient and the patient voiced understanding of these instructions. Informed Consent Consent Obtained: Verbal [place] Protocol A moment to CARE was completed. SIGN IN Sign in communication not applicable due to emergent procedure. Personnel directly involved with the procedure wore the appropriate PPE. Special Equipment: N/A Patient/Surrogate Stated/Verified: Patient name, Date of , Relevant allergies and Intended procedure TIME OUT Relevant labs, photos, and/or imaging studies have been reviewed. Consent documented and matches the intended procedure. Correct side/site marked and visible. Medications required for procedure verified. No fire risk assessment and interventions applicable. No implant(s) inserted. SIGN OUT No specimen collected. No post-procedure POC communication to the patient's multidisciplinary team (including the bedside nurse for hospitalized patients) applicable. [facility] 07-30-2024 History of Present illness Narrative Associated Order(s): Large Joint Arthro/Inj: L knee joint Post-Procedure Diagnose(s): Post-traumatic osteoarthritis of left knee Large Joint Arthro/Inj: L knee joint 07/30/2024 11:38 AM The procedure site was prepped in the usual sterile fashion. Site: L knee joint Medications: 20 mg sodium hyaluronate 10 mg/mL(mw 2.4 -3.6 million) Outcome: Tolerated well, no immediate complications Post-injection instructions were reviewed with the patient and the patient voiced understanding of these instructions. Informed Consent Consent Obtained: Verbal [place] Protocol A moment to CARE was completed. SIGN IN Sign in communication not applicable due to emergent procedure. Personnel directly involved with the procedure wore the appropriate PPE. Special Equipment: N/A Patient/Surrogate Stated/Verified: Patient name, Date of , Relevant allergies and Intended procedure TIME OUT Relevant labs, photos, and/or imaging studies have been reviewed. Consent documented and matches the intended procedure. Correct side/site marked and visible. Medications required for procedure verified. No fire risk assessment and interventions applicable. No implant(s) inserted. SIGN OUT No specimen collected. No post-procedure POC communication to the patient's multidisciplinary team (including the bedside nurse for hospitalized patients) applicable. AMB ROOMING INTAKE FLOWSHEET DATA Euflexxa injection # 2 into left knee. LOT # [id number] EXP 01/27/2025 Gris Pina MA documented in this encounter [facility] 07-30-2024 Note HNO ID: [id number] Author: GRIS PINA MA Service: ? Author Type: Bread Racker Type: Progress Notes Filed: 07/30/2024 11:38 Note Text: AMB ROOMING INTAKE FLOWSHEET DATA Euflexxa injection # 2 into left knee. LOT # [id number] EXP 01/27/2025 Gris Pina MA [facility] 07-23-2024 Note HNO ID: [id number] Author: YOHANA CREWS PA-C Service: ? Author Type: Physician Photographic Press Screwmaker Type: Progress Notes Filed: 07/23/2024 08:15 Note Text: Large Joint Arthro/Inj: L knee joint 07/23/2024 8:14 AM The procedure site was prepped in the usual sterile fashion. Site: L knee joint Medications: 20 mg sodium hyaluronate 10 mg/mL(mw 2.4 -3.6 million) Outcome: Tolerated well, no immediate complications Post-injection instructions were reviewed with the patient and the patient voiced understanding of these instructions. Informed Consent Consent Obtained: Verbal [place] Protocol A moment to CARE was completed. SIGN IN Sign in communication not applicable due to emergent procedure. Personnel directly involved with the procedure wore the appropriate PPE. Special Equipment: N/A Patient/Surrogate Stated/Verified: Patient name, Date of , Relevant allergies and Intended procedure TIME OUT Relevant labs, photos, and/or imaging studies have been reviewed. Consent documented and matches the intended procedure. Correct side/site marked and visible. Medications required for procedure verified. No fire risk assessment and interventions applicable. No implant(s) inserted. SIGN OUT No specimen collected. No post-procedure POC communication to the patient's multidisciplinary team (including the bedside nurse for hospitalized patients) applicable. Large Joint Arthro/Inj: R subacromial bursa 07/23/2024 8:14 AM The procedure site was prepped in the usual sterile fashion. Site: R subacromial bursa Medications: 6 mg betamethasone acetate-betamethasone sodium phosphate 6 mg/mL Anesthetics: 5 mL lidocaine (PF) 10 mg/mL (1 %) Outcome: Tolerated well, no immediate complications Post-injection instructions were reviewed with the patient and the patient voiced understanding of these instructions. Informed Consent Consent Obtained: Verbal [place] Protocol A moment to CARE was completed. SIGN IN Sign in communication not applicable due to emergent procedure. Personnel directly involved with the procedure wore the appropriate PPE. Special Equipment: N/A Patient/Surrogate Stated/Verified: Patient name, Date of , Relevant allergies and Intended procedure TIME OUT Relevant labs, photos, and/or imaging studies have been reviewed. Consent documented and matches the intended procedure. Correct side/site marked and visible. Medications required for procedure verified. No fire risk assessment and interventions applicable. No implant(s) inserted. SIGN OUT No specimen collected. All instruments, equipment, possible retained foreign bodies accounted for. No post-procedure POC communication to the patient's multidisciplinary team (including the bedside nurse for hospitalized patients) applicable. [facility] 07-23-2024 History of Present illness Narrative Associated Order(s): Large Joint Arthro/Inj: L knee joint; Large Joint Arthro/Inj: R subacromial bursa Post-Procedure Diagnose(s): Post-traumatic osteoarthritis of left knee; Traumatic tear of right rotator cuff, unspecified tear extent, initial encounter Large Joint Arthro/Inj: L knee joint 07/23/2024 8:14 AM The procedure site was prepped in the usual sterile fashion. Site: L knee joint Medications: 20 mg sodium hyaluronate 10 mg/mL(mw 2.4 -3.6 million) Outcome: Tolerated well, no immediate complications Post-injection instructions were reviewed with the patient and the patient voiced understanding of these instructions. Informed Consent Consent Obtained: Verbal [place] Protocol A moment to CARE was completed. SIGN IN Sign in communication not applicable due to emergent procedure. Personnel directly involved with the procedure wore the appropriate PPE. Special Equipment: N/A Patient/Surrogate Stated/Verified: Patient name, Date of , Relevant allergies and Intended procedure TIME OUT Relevant labs, photos, and/or imaging studies have been reviewed. Consent documented and matches the intended procedure. Correct side/site marked and visible. Medications required for procedure verified. No fire risk assessment and interventions applicable. No implant(s) inserted. SIGN OUT No specimen collected. No post-procedure POC communication to the patient's multidisciplinary team (including the bedside nurse for hospitalized patients) applicable. Large Joint Arthro/Inj: R subacromial bursa 07/23/2024 8:14 AM The procedure site was prepped in the usual sterile fashion. Site: R subacromial bursa Medications: 6 mg betamethasone acetate-betamethasone sodium phosphate 6 mg/mL Anesthetics: 5 mL lidocaine (PF) 10 mg/mL (1 %) Outcome: Tolerated well, no immediate complications Post-injection instructions were reviewed with the patient and the patient voiced understanding of these instructions. Informed Consent Consent Obtained: Verbal [place] Protocol A moment to CARE was completed. SIGN IN Sign in communication not applicable due to emergent procedure. Personnel directly involved with the procedure wore the appropriate PPE. Special Equipment: N/A Patient/Surrogate Stated/Verified: Patient name, Date of , Relevant allergies and Intended procedure TIME OUT Relevant labs, photos, and/or imaging studies have been reviewed. Consent documented and matches the intended procedure. Correct side/site marked and visible. Medications required for procedure verified. No fire risk assessment and interventions applicable. No implant(s) inserted. SIGN OUT No specimen collected. All instruments, equipment, possible retained foreign bodies accounted for. No post-procedure POC communication to the patient's multidisciplinary team (including the bedside nurse for hospitalized patients) applicable. Patient presents with: Left Knee - Injections: Euflexxa injection left knee and wants injection Right shoulder AMB ROOMING INTAKE FLOWSHEET DATA Pain Pain Level: 4 Pain Location: Knee-Left Description: Aching, Throbbing Frequency: Intermittent Intervention/Comfort measure: Medication, Relaxation, Positioning Patient states he is taking Diclofenac for the pain and is helping. Here for Euflexxa injection # 1 left knee. Patient would like injection in his right shoulder today as well. LOT # [id number] EXP 01/27/25 Lizbeth Porter MA documented in this encounter [facility] 07-23-2024 Note HNO ID: [id number] Author: LIZBETH PORTER MA Service: ? Author Type: Bread Racker Type: Progress Notes Filed: 07/23/2024 08:15 Note Text: Patient presents with: Left Knee - Injections: Euflexxa injection left knee and wants injection Right shoulder AMB ROOMING INTAKE FLOWSHEET DATA Pain Pain Level: 4 Pain Location: Knee-Left Description: Aching, Throbbing Frequency: Intermittent Intervention/Comfort measure: Medication, Relaxation, Positioning Patient states he is taking Diclofenac for the pain and is helping. Here for Euflexxa injection # 1 left knee. Patient would like injection in his right shoulder today as well. LOT # [id number] EXP 01/27/25 Lizbeth Porter MA [facility] 07-16-2024 Telephone encounter Note Patient has been authorized for Euflexxa injections into the left knee until 01/06/2025. [employer] message sent to the patient. [facility] 06-09-2025 Miscellaneous Notes Patient has been authorized for Euflexxa injections into the left knee until 01/06/2025. [employer] message sent to the patient. Patient called. Verified name and date of . States he has prior authorization approval letter on hand. He is okay to wait until mid-week next to see if clinic has received the approval of authorization. Vinita Lundberg LPN documented in this encounter [facility] 07-13-2024 Telephone encounter Note Patient called. Verified name and date of . States he has prior authorization approval letter on hand. He is okay to wait until mid-week next to see if clinic has received the approval of authorization. Vinita Lundberg LPN [facility] 07-09-2024 Telephone encounter Note Prescription Refill Information The patient has been identified by name and date of : Yes Caregiver verified no other encounters exist for this prescription request: Yes Caregiver confirmed with patient/requestor that no other refills are due, in the near future, with this provider at this time: Yes The last office visit in the department: 06/13/2024 Does the patient have a future office visit with this provider/department: Yes Requested Prescriptions Pending Prescriptions Disp Refills traZODone (DESYREL) 50 mg tablet [Pharmacy Med Name: TRAZODONE 50 MG TABLET] 90 tablet 1 Sig: TAKE 2-3 TABLETS BY MOUTH NEEDED AT BEDTIME. Lenore Gaffney MA July 09, 2024 3:12 PM [facility] 07-09-2024 Miscellaneous Notes Prescription Refill Information The patient has been identified by name and date of : Yes Caregiver verified no other encounters exist for this prescription request: Yes Caregiver confirmed with patient/requestor that no other refills are due, in the near future, with this provider at this time: Yes The last office visit in the department: 06/13/2024 Does the patient have a future office visit with this provider/department: Yes Requested Prescriptions Pending Prescriptions Disp Refills traZODone (DESYREL) 50 mg tablet [Pharmacy Med Name: TRAZODONE 50 MG TABLET] 90 tablet 1 Sig: TAKE 2-3 TABLETS BY MOUTH NEEDED AT BEDTIME. Lenore Gaffney MA July 09, 2024 3:12 PM documented in this encounter [facility] 06-13-2024 Note HNO ID: [id number] Author: STAN OROPEZA APRN.PHARMACIST AIDE Service: ? Author Type: Nurse Practitioner Type: Progress Notes Filed: 06/13/2024 18:01 Note Text: 06/13/2024 Recording using Fot[employer] software for draft documentation of the visit was discussed with the patient/authorized nutrition representative; all questions welcomed and answered. Patient/authorized nutrition representative agreed to proceed HPI: Sree is a 54-year-old male with a history of insomnia and knee pain, presenting for follow-up. Insomnia: - Currently taking trazodone 2-3 tablets nightly; reports drowsiness with 3 tablets. - Previously on Ambien; discontinued due to 's concerns. - Uses Xanax PRN to help calm down before sleep. - Describes sleep as broken, with frequent awakenings to use the bathroom and let dogs out. - Struggles to achieve 8 hours of uninterrupted sleep. 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 - Sleep disrupted on weekends due to family activities and work schedule. Knee Pain: - Diagnosed with a torn meniscus, arthritis under the patella, and scar tissue from a torn ACL and MCL. - Sree disagrees desires surgical intervention and requesting assistance to get the ball rolling with this. - Received three cortisone injections; first provided relief, but subsequent injections less effective. - Experiencing severe pain as cortisone effects wear off; describes pain as 15 on a scale of 1-10. - Insurance does not cover recommended gel injections; Sree concerned about managing pain between cortisone injections. - Pain interferes with sleep, especially when lying on the affected side. - Reports swelling and fluid buildup behind the knee. Depression and Anxiety: - Reports significant stress and anxiety related to home life and work. - Describes home environment as stressful due to relationship issues with . - Feels trapped in current living situation; reports frequent arguments and tension. - Uses Xanax to manage anxiety and help with sleep. - Expresses feelings of depression, describing life as work to live instead of living to work. PAST MEDICAL HISTORY Diagnosis Date Dyslipidemia 03/19/2015 Elevated LFTs 04/14/2016 Essential hypertension with goal blood pressure less than 140/90 06/19/2015 Ex-smoker 03/06/2015 Started at age 23 up to 1 02/08 PPD. Quit smoking May 08 2016 Fatty liver 04/21/2016 GERD without esophagitis 04/14/2016 Hypogonadism in male 03/06/2015 Leukocytosis Muscle cramps 03/06/2015 TIMOTHY (obstructive sleep apnea) 03/31/2015 Sleep study 03/2015: sever. Not able to tolerate CPAP Situational mixed anxiety and depressive disorder 05/18/2019 secodary to Covid 19 Current Outpatient Medications on File Prior to Visit Medication Sig traZODone (DESYREL) 50 mg tablet Take 2-3 tablets as needed at bedtime. lisinopril (ZESTRIL) 20 mg tablet Take 1 tablet by mouth once daily. Cholecalciferol, Vitamin D3, 50 mcg (2,000 unit) cap Take 1 capsule by mouth once daily. No current facility-administered medications on file prior to visit. Review of Systems: Constitutional: (+) sleep disturbance Musculoskeletal: (+) knee pain, (+) difficulty ambulating Psychiatric: (+) depressed mood, (+) anxiety Physical Exam: BP 118/76 (BP Site: Left Arm, BP Position: Sitting, BP Cuff Size: Large Adult) Pulse 71 Wt 125.4 kg (276 lb 6.4 oz) SpO2 98% BMI 34.55 kg/m? GENERAL: NAD, alert and oriented LUNGS: Clear to auscultation bilaterally, no wheezes/rhonchi/rales. HEART: Regular rate and rhythm, no murmurs. No ectopy. EXTREMITIES: Normal, no deformities, no skin discoloration, no edema. NEURO: Awake, alert and oriented x3, cranial nerves II-XII grossly intact, normal gait, no involuntary motions PSYCHIATRIC: pleasanat, cooperative, no SI/HI Diagnostics Reviewed: Imaging reviewed: - MRI of the knee: Torn meniscus, patellofemoral osteoarthritic changes, and scar tissue consistent with prior ACL and MCL tears. Assessment/Plan: 1. Situational mixed anxiety and depressive disorder (F43.23) 2. 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 - Continue Xanax as needed for acute anxiety management; prescription refilled. - Discussed potential benefits of Ambien for improved sleep quality; prescription initiated. - Scheduled follow-up in 4 months to reassess mental health status and medication efficacy. 3. GERD without esophagitis (K21.9) 4. 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 - Initiated Ambien for improved sleep quality; advised to hold trazodone while on Ambien. - Educated on the importance of consistent sleep hygiene practices. 5. Chronic pain of left knee (M25.562) - Chronic left knee pain due to torn meniscu (more content not included)... [facility] 06-13-2024 History of Present illness Narrative 06/13/2024 Recording using Fototw[employer] software for draft documentation of the visit was discussed with the patient/authorized nutrition representative; all questions welcomed and answered. Patient/authorized nutrition representative agreed to proceed HPI: Sree is a 54-year-old male with a history of insomnia and knee pain, presenting for follow-up. Insomnia: - Currently taking trazodone 2-3 tablets nightly; reports drowsiness with 3 tablets. - Previously on Ambien; discontinued due to 's concerns. - Uses Xanax PRN to help calm down before sleep. - Describes sleep as broken, with frequent awakenings to use the bathroom and let dogs out. - Struggles to achieve 8 hours of uninterrupted sleep. 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 - Sleep disrupted on weekends due to family activities and work schedule. Knee Pain: - Diagnosed with a torn meniscus, arthritis under the patella, and scar tissue from a torn ACL and MCL. - Sree disagrees desires surgical intervention and requesting assistance to get the ball rolling with this. - Received three cortisone injections; first provided relief, but subsequent injections less effective. - Experiencing severe pain as cortisone effects wear off; describes pain as 15 on a scale of 1-10. - Insurance does not cover recommended gel injections; Sree concerned about managing pain between cortisone injections. - Pain interferes with sleep, especially when lying on the affected side. - Reports swelling and fluid buildup behind the knee. Depression and Anxiety: - Reports significant stress and anxiety related to home life and work. - Describes home environment as stressful due to relationship issues with . - Feels trapped in current living situation; reports frequent arguments and tension. - Uses Xanax to manage anxiety and help with sleep. - Expresses feelings of depression, describing life as work to live instead of living to work. PAST MEDICAL HISTORY Diagnosis Date Dyslipidemia 03/19/2015 Elevated LFTs 04/14/2016 Essential hypertension with goal blood pressure less than 140/90 06/19/2015 Ex-smoker 03/06/2015 Started at age 23 up to 1 02/08 PPD. Quit smoking May 08 2016 Fatty liver 04/21/2016 GERD without esophagitis 04/14/2016 Hypogonadism in male 03/06/2015 Leukocytosis Muscle cramps 03/06/2015 TIMOTHY (obstructive sleep apnea) 03/31/2015 Sleep study 03/2015: sever. Not able to tolerate CPAP Situational mixed anxiety and depressive disorder 05/18/2019 secodary to Covid 19 Current Outpatient Medications on File Prior to Visit Medication Sig traZODone (DESYREL) 50 mg tablet Take 2-3 tablets as needed at bedtime. lisinopril (ZESTRIL) 20 mg tablet Take 1 tablet by mouth once daily. Cholecalciferol, Vitamin D3, 50 mcg (2,000 unit) cap Take 1 capsule by mouth once daily. No current facility-administered medications on file prior to visit. Review of Systems: Constitutional: (+) sleep disturbance Musculoskeletal: (+) knee pain, (+) difficulty ambulating Psychiatric: (+) depressed mood, (+) anxiety Physical Exam: BP 118/76 (BP Site: Left Arm, BP Position: Sitting, BP Cuff Size: Large Adult) Pulse 71 Wt 125.4 kg (276 lb 6.4 oz) SpO2 98% BMI 34.55 kg/m GENERAL: NAD, alert and oriented LUNGS: Clear to auscultation bilaterally, no wheezes/rhonchi/rales. HEART: Regular rate and rhythm, no murmurs. No ectopy. EXTREMITIES: Normal, no deformities, no skin discoloration, no edema. NEURO: Awake, alert and oriented x3, cranial nerves II-XII grossly intact, normal gait, no involuntary motions PSYCHIATRIC: pleasanat, cooperative, no SI/HI Diagnostics Reviewed: Imaging reviewed: - MRI of the knee: Torn meniscus, patellofemoral osteoarthritic changes, and scar tissue consistent with prior ACL and MCL tears. Assessment/Plan: 1. Situational mixed anxiety and depressive disorder (F43.23) 2. 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 - Continue Xanax as needed for acute anxiety management; prescription refilled. - Discussed potential benefits of Ambien for improved sleep quality; prescription initiated. - Scheduled follow-up in 4 months to reassess mental health status and medication efficacy. 3. GERD without esophagitis (K21.9) 4. 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 - Initiated Ambien for improved sleep quality; advised to hold trazodone while on Ambien. - Educated on the importance of consistent sleep hygiene practices. 5. Chronic pain of left knee (M25.562) - Chronic left knee pain due to torn meniscus, arthritis, and scar tissue from previous ACL and MCL injuries. - Patient has received three cortisone injections with diminishing efficacy. - Discussed potential surgical intervention; patient expressed interest in pursuing surgery. - Sent message to Dr. Gomez to inquire about surgical options and next steps. - Advised patient to contact prescription coverage provider regarding Uflexa injection coverage. - Will follow up with patient after receiving a response from Dr. Gomez. The patient indicates understanding of these issues and agrees with the plan. Red flag symptoms reviewed as needed. Follow up: Stan Oropeza APRN.[facility] PDMP website checked and validated. All prescriptions have been APPROPRIATELY filled. No suspicious activity was identified. 06/13/2024 by Stan Oropeza CNP. I spent a total of 50 minutes on the date of the service which included preparing to see the patient, [id number] patient care, completing clinical documentation, obtaining and/or reviewing separately obtained history, performing a medically appropriate examination, counseling and educating the patient/family/caregiver, and ordering medications, tests, or procedures. documented in this encounter [facility] 06-06-2024 Telephone encounter Note Patient has been notified as he sent in a [employer] message asking for appeal, which is not available as his plan does not cover the service for any member. His only option is to go through his pharmaceutical benefits, if he has any. Mychart reply has been sent back to the patient about this. [facility] 06-06-2024 Miscellaneous Notes Patient has been notified as he sent in a [employer] message asking for appeal, which is not available as his plan does not cover the service for any member. His only option is to go through his pharmaceutical benefits, if he has any. Mychart reply has been sent back to the patient about this. Sade with [facility] Authorization Department called in and reports Pt called them and said the gel injections Ortho had order had been denied by his insurance. Sade said they hadn't received any forms at [facility] about this procedure. I let her know I would send providers office a message about this and gave her the phone number to call for Donna the financial planning consultant that had sent the Pt a message reporting that his procedure had been denied. Please call back and advise. Can we please inform the patient that unfortunately it looks like his insurance does not cover viscosupplementation. Additional Clinical Information Request Please reply all to this email Please provide the following information to facilitate or complete the prior authorization Clinical Information - See Comments Sign OV Notes Clarify Information Updated / Correct Insurance Updated diagnosis code on order and or office note Medical Necessity Not Met Per Payer Guidelines Payer Request Additional Information x Other (must complete Comment section) Patient Name: Sree torres Appt Date: HCPCS code(s) & drug name(s): J7323 euflexxa Comments: Non covered service per payer documented in this encounter [facility] 06-04-2024 Telephone encounter Note Sade with [facility] Authorization Department called in and reports Pt called them and said the gel injections Ortho had order had been denied by his insurance. Sade said they hadn't received any forms at [facility] about this procedure. I let her know I would send providers office a message about this and gave her the phone number to call for Donna the financial planning consultant that had sent the Pt a message reporting that his procedure had been denied. Please call back and advise. [facility] 06-04-2024 Telephone encounter Note Can we please inform the patient that unfortunately it looks like his insurance does not cover viscosupplementation. [facility] 06-04-2024 Telephone encounter Note Additional Clinical Information Request Please reply all to this email Please provide the following information to facilitate or complete the prior authorization Clinical Information - See Comments Sign OV Notes Clarify Information Updated / Correct Insurance Updated diagnosis code on order and or office note Medical Necessity Not Met Per Payer Guidelines Payer Request Additional Information x Other (must complete Comment section) Patient Name: Sree torres Appt Date: HCPCS code(s) & drug name(s): J7323 euflexxa Comments: Non covered service per payer [facility] 05-28-2024 Note HNO ID: [id number] Author: YOHANA CREWS PA-C Service: ? Author Type: Physician Photographic Press Screwmaker Type: Progress Notes Filed: 05/28/2024 08:02 Note Text: Yohana Crews PA-C Department of Orthopaedics Orthopaedics [address] [facility] [address] Dept: [phone] Dept May 28, 2024 CHIEF COMPLAINT: Established Patient and Injections of the Left Knee. ASSESSMENT: M17.32 Post-traumatic osteoarthritis of left knee (primary encounter diagnosis) SUMMARY/PLAN: Patient presents for a repeat left knee corticosteroid injection, left knee injection was almost beneficial for the full 91 days. Patient does not believe that the meloxicam is beneficial, we discussed switching him to some diclofenac. He is also interested in trying viscosupplementation, we will submit a prior authorization. Large Joint Arthro/Inj: L knee joint 05/28/2024 8:00 AM The procedure site was prepped in the usual sterile fashion. Site: L knee joint Medications: 6 mg betamethasone acetate-betamethasone sodium phosphate 6 mg/mL Anesthetics: 5 mL lidocaine (PF) 10 mg/mL (1 %) Outcome: Tolerated well, no immediate complications Post-injection instructions were reviewed with the patient and the patient voiced understanding of these instructions. Informed Consent Consent Obtained: Verbal [place] Protocol A moment to CARE was completed. SIGN IN Sign in communication not applicable due to emergent procedure. Personnel directly involved with the procedure wore the appropriate PPE. Special Equipment: N/A Patient/Surrogate Stated/Verified: Patient name, Date of , Relevant allergies and Intended procedure TIME OUT Relevant labs, photos, and/or imaging studies have been reviewed. Consent documented and matches the intended procedure. Correct side/site marked and visible. Medications required for procedure verified. No fire risk assessment and interventions applicable. No implant(s) inserted. SIGN OUT No specimen collected. All instruments, equipment, possible retained foreign bodies accounted for. Rationale for Viscosupplementation: Initial Request As a part of a multimodal treatment plan, we are requesting authorization of hyaluronic acid viscosupplementation injections for the improvement of symptoms related to osteoarthritis. Authorization is being requested for treatment of the Left knee. Rationale for authorization of these injections is based on the following elements: Signs and Symptoms Length of symptoms > 3 months Pain interferes with ADLs? Yes Radiographic evidence of OA? Yes Previous Treatments Bracing attempted? No Formal Physical Therapy (PT)/ Home Exercise Program (HEP) attempted? Patient completed a comprehensive PT program with compliance to HEP NSAID medication attempted? Yes Corticosteroid injection attempted? Weight management attempted? No (Normal BMI) Patient is no longer symptomatic following the above treatments Requested Viscosupplementation Preferred product: Euflexxa Alternative product: Durolane or payor preferred Mr. Sree Torres was advised as to contrast therapies and/or to take analgesics/anti-inflammatories as needed and all contraindications were reviewed. Supporting Information Below: Medications: Current Outpatient Medications Medication Sig ALPRAZolam (XANAX) 0.5 mg tablet Take 1 tablet by mouth two times a day as needed for up to 30 days. traZODone (DESYREL) 50 mg tablet Take 2-3 tablets as needed at bedtime. lisinopril (ZESTRIL) 20 mg tablet Take 1 tablet by mouth once daily. omeprazole (PRILOSEC) 20 mg capsule Take 1 capsule by mouth once daily. TAKE 1 TABLET BY MOUTH DAILY BEFORE BREAKFAST. 1/2 HR BEFORE MEAL. Cholecalciferol, Vitamin D3, 50 mcg (2,000 unit) cap Take 1 capsule by mouth once daily. diclofenac, EC, (VOLTAREN) 75 mg EC tablet Take 1 tablet by mouth two times a day. FOR PAIN No current facility-administered medications for this visit. Allergies: Patient has no known allergies. This note was partially generated using [employer] voice recognition system, and there may be some incorrect words, spellings, and punctuation that were not noted in checking the note before saving. Yohana Crews PA-C [facility] 05-28-2024 History of Present illness Narrative Associated Order(s): Large Joint Arthro/Inj: L knee joint Post-Procedure Diagnose(s): Post-traumatic osteoarthritis of left knee Yohana Crews PA-C Department of Orthopaedics Orthopaedics [address] [place] [address] Dept: [phone] Dept May 28, 2024 CHIEF COMPLAINT: Established Patient and Injections of the Left Knee. ASSESSMENT: M17.32 Post-traumatic osteoarthritis of left knee (primary encounter diagnosis) SUMMARY/PLAN: Patient presents for a repeat left knee corticosteroid injection, left knee injection was almost beneficial for the full 91 days. Patient does not believe that the meloxicam is beneficial, we discussed switching him to some diclofenac. He is also interested in trying viscosupplementation, we will submit a prior authorization. Large Joint Arthro/Inj: L knee joint 05/28/2024 8:00 AM The procedure site was prepped in the usual sterile fashion. Site: L knee joint Medications: 6 mg betamethasone acetate-betamethasone sodium phosphate 6 mg/mL Anesthetics: 5 mL lidocaine (PF) 10 mg/mL (1 %) Outcome: Tolerated well, no immediate complications Post-injection instructions were reviewed with the patient and the patient voiced understanding of these instructions. Informed Consent Consent Obtained: Verbal [place] Protocol A moment to CARE was completed. SIGN IN Sign in communication not applicable due to emergent procedure. Personnel directly involved with the procedure wore the appropriate PPE. Special Equipment: N/A Patient/Surrogate Stated/Verified: Patient name, Date of , Relevant allergies and Intended procedure TIME OUT Relevant labs, photos, and/or imaging studies have been reviewed. Consent documented and matches the intended procedure. Correct side/site marked and visible. Medications required for procedure verified. No fire risk assessment and interventions applicable. No implant(s) inserted. SIGN OUT No specimen collected. All instruments, equipment, possible retained foreign bodies accounted for. Rationale for Viscosupplementation: Initial Request As a part of a multimodal treatment plan, we are requesting authorization of hyaluronic acid viscosupplementation injections for the improvement of symptoms related to osteoarthritis. Authorization is being requested for treatment of the Left knee. Rationale for authorization of these injections is based on the following elements: Signs and Symptoms Length of symptoms > 3 months Pain interferes with ADLs? Yes Radiographic evidence of OA? Yes Previous Treatments Bracing attempted? No Formal Physical Therapy (PT)/ Home Exercise Program (HEP) attempted? Patient completed a comprehensive PT program with compliance to HEP NSAID medication attempted? Yes Corticosteroid injection attempted? Weight management attempted? No (Normal BMI) Patient is no longer symptomatic following the above treatments Requested Viscosupplementation Preferred product: Euflexxa Alternative product: Durolane or payor preferred Mr. Sree Torres was advised as to contrast therapies and/or to take analgesics/anti-inflammatories as needed and all contraindications were reviewed. Supporting Information Below: Medications: Current Outpatient Medications Medication Sig ALPRAZolam (XANAX) 0.5 mg tablet Take 1 tablet by mouth two times a day as needed for up to 30 days. traZODone (DESYREL) 50 mg tablet Take 2-3 tablets as needed at bedtime. lisinopril (ZESTRIL) 20 mg tablet Take 1 tablet by mouth once daily. omeprazole (PRILOSEC) 20 mg capsule Take 1 capsule by mouth once daily. TAKE 1 TABLET BY MOUTH DAILY BEFORE BREAKFAST. 1/2 HR BEFORE MEAL. Cholecalciferol, Vitamin D3, 50 mcg (2,000 unit) cap Take 1 capsule by mouth once daily. diclofenac, EC, (VOLTAREN) 75 mg EC tablet Take 1 tablet by mouth two times a day. FOR PAIN No current facility-administered medications for this visit. Allergies: Patient has no known allergies. This note was partially generated using [employer] voice recognition system, and there may be some incorrect words, spellings, and punctuation that were not noted in checking the note before saving. Yohana Crews PA-C AMB ROOMING INTAKE FLOWSHEET DATA Pain Pain Level: 9 Pain Location: Knee-Left Description: Aching, Burning, Sharp, Stabbing, Throbbing Duration Amount of Time: 24 Duration Units: Hours Frequency: Continuous Intervention/Comfort measure: Medication, Reposition, Relaxation, Positioning documented in this encounter [facility] 05-28-2024 Note HNO ID: [id number] Author: GRIS PINA MA Service: ? Author Type: Bread Racker Type: Progress Notes Filed: 05/28/2024 08:02 Note Text: AMB ROOMING INTAKE FLOWSHEET DATA Pain Pain Level: 9 Pain Location: Knee-Left Description: Aching, Burning, Sharp, Stabbing, Throbbing Duration Amount of Time: 24 Duration Units: Hours Frequency: Continuous Intervention/Comfort measure: Medication, Reposition, Relaxation, Positioning [facility] 05-22-2024 Telephone encounter Note Called and left a VM that he would need an updated appointment then can submit after that [facility] 05-22-2024 Miscellaneous Notes Called and left a VM that he would need an updated appointment then can submit after that Workers comp will need current notes. Can someone make him an appt? Thanks Images from the original note were not included. I see no record of orthotics being ordered in 2022, last available record of orthotics being submitted under [facility] claim is from 2021 (found through [facility] link in epic) through encounter on 05/29/21. I would assume [facility] would need another visit to approve orthotics since he has not been seen in over a year I do not see a previous C9 for the insoles that this pt is asking for in his media. We havent seen this pt since 2022. Should I send a C9 for these? If so, is there a code or some sort of description I should put on the C9? Name of caller: Sree Contact phone number: [phone] Relationship to Patient: patient Provider: Practice: Ortho Chief Complaint/Reason for Call: Patient states he had insoles for his shoes ordered by [facility] last time he saw him and would like to know if he can get a new order for those due to his wearing out. Please advise Best time of day caller can be reached: Any Patient advised that office/PCP has 24-48 business hours to return their call: Yes documented in this encounter [facility] 05-21-2024 Telephone encounter Note PDMP website checked and validated. All prescriptions have been APPROPRIATELY filled. No suspicious activity was identified. 05/21/2024 by Samina Berg APRN.CNP The following approved medication requests have been transmitted electronically. Requested Prescriptions Signed Prescriptions Disp Refills ALPRAZolam (XANAX) 0.5 mg tablet 60 tablet 0 Sig: Take 1 tablet by mouth two times a day as needed for up to 30 days. Samina Berg APRN.CNP [facility] 05-21-2024 Miscellaneous Notes PDMP website checked and validated. All prescriptions have been APPROPRIATELY filled. No suspicious activity was identified. 05/21/2024 by Samina Berg APRN.CNP The following approved medication requests have been transmitted electronically. Requested Prescriptions Signed Prescriptions Disp Refills ALPRAZolam (XANAX) 0.5 mg tablet 60 tablet 0 Sig: Take 1 tablet by mouth two times a day as needed for up to 30 days. Samina Berg APRN.CNP Prescription Refill Information The patient has been identified by name and date of : Yes Caregiver verified no other encounters exist for this prescription request: Yes Caregiver confirmed with patient/requestor that no other refills are due, in the near future, with this provider at this time: Yes The last office visit in the department: Visit date not found Does the patient have a future office visit with this provider/department: No Requested Prescriptions No prescriptions requested or ordered in this encounter Davida Hu MA May 21, 2024 8:36 AM documented in this encounter [facility] 05-21-2024 Telephone encounter Note Prescription Refill Information The patient has been identified by name and date of : Yes Caregiver verified no other encounters exist for this prescription request: Yes Caregiver confirmed with patient/requestor that no other refills are due, in the near future, with this provider at this time: Yes The last office visit in the department: Visit date not found Does the patient have a future office visit with this provider/department: No Requested Prescriptions No prescriptions requested or ordered in this encounter Davida Hu MA May 21, 2024 8:36 AM [facility] 05-11-2024 Telephone encounter Note Workers comp will need current notes. Can someone make him an appt? Thanks [facility] 05-11-2024 Miscellaneous Notes Workers comp will need current notes. Can someone make him an appt? Thanks Images from the original note were not included. I see no record of orthotics being ordered in 2022, last available record of orthotics being submitted under [facility] claim is from 2021 (found through [facility] link in [email or web address]) through encounter on 05/29/21. I would assume [facility] would need another visit to approve orthotics since he has not been seen in over a year I do not see a previous C9 for the insoles that this pt is asking for in his media. We havent seen this pt since 2022. Should I send a C9 for these? If so, is there a code or some sort of description I should put on the C9? Name of caller: Sree Contact phone number: [phone] Relationship to Patient: patient Provider: Practice: Ortho Chief Complaint/Reason for Call: Patient states he had insoles for his shoes ordered by [facility] last time he saw him and would like to know if he can get a new order for those due to his wearing out. Please advise Best time of day caller can be reached: Any Patient advised that office/PCP has 24-48 business hours to return their call: Yes documented in this encounter [facility] 05-11-2024 Telephone encounter Note Images from the original note were not included. I see no record of orthotics being ordered in 2022, last available record of orthotics being submitted under [facility] claim is from 2021 (found through [facility] link in [email or web address]) through encounter on 05/29/21. I would assume [facility] would need another visit to approve orthotics since he has not been seen in over a year [facility] [employer] Work Phone: 05-10-2024 Telephone encounter Note I do not see a previous C9 for the insoles that this pt is asking for in his media. We havent seen this pt since 2022. Should I send a C9 for these? If so, is there a code or some sort of description I should put on the C9? [facility] 05-10-2024 Miscellaneous Notes I do not see a previous C9 for the insoles that this pt is asking for in his media. We havent seen this pt since 2022. Should I send a C9 for these? If so, is there a code or some sort of description I should put on the C9? Name of caller: Sree Contact phone number: [phone] Relationship to Patient: patient Provider: Practice: Ortho Chief Complaint/Reason for Call: Patient states he had insoles for his shoes ordered by [facility] last time he saw him and would like to know if he can get a new order for those due to his wearing out. Please advise Best time of day caller can be reached: Any Patient advised that office/PCP has 24-48 business hours to return their call: Yes documented in this encounter [facility] 05-09-2024 Telephone encounter Note Name of caller: Sree Contact phone number: [phone] Relationship to Patient: patient Provider: Practice: Ortho Chief Complaint/Reason for Call: Patient states he had insoles for his shoes ordered by [facility] last time he saw him and would like to know if he can get a new order for those due to his wearing out. Please advise Best time of day caller can be reached: Any Patient advised that office/PCP has 24-48 business hours to return their call: Yes [facility] 03-13-2024 Telephone encounter Note Noted, thank you. Stan Oropeza APRN.CNP [facility] 03-13-2024 Miscellaneous Notes Noted, thank you. Stan Oropeza APRN.CNP Fyi from pt. Anna Flower MA documented in this encounter [facility] 03-12-2024 Telephone encounter Note Called pt this was just refilled in [place] for 90 day supply with refill. Will delete refill. [facility] 03-12-2024 Miscellaneous Notes Called pt this was just refilled in [place] for 90 day supply with refill. Will delete refill. documented in this encounter [facility] 03-12-2024 Telephone encounter Note Fyi from pt. Anna Flower MA [facility] 02-27-2024 Note HNO ID: [id number] Author: ADALBERTO GOMEZ MD Service: ? Author Type: Physician Type: Progress Notes Filed: 03/19/2024 12:47 Note Text: Adalberto Gomez MD Department of Orthopaedics Orthopaedics [address] [facility] [address] Dept: [phone] Dept February 27, 2024 CHIEF COMPLAINT: Established Patient and Pain of the Left Knee HPI Patient here today for left knee pain. Pain started a couple of weeks ago. He denies recent injury. 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 The right shoulder continues to give him some troubles. ASSESSMENT: M25.819 Shoulder impingement (primary encounter diagnosis) M25.562 Acute pain of left knee PLAN: Based on his MRI findings for the knee, he has a couple of different issues with the knee, yet he does not feel the need or wish to pursue any kind of surgical intervention at this time. He like to try a cortisone injection which we will provide him today. In addition, he would like a cortisone injection for the right shoulder as well. His injections for the shoulder did seem to help him back in December will continue observation for now. Future discussions if needed. OBJECTIVE: Mr. Sree Torres is a pleasant 53 year old in no apparent distress. Gen:There were no vitals taken for this visit. nl development, non obese, no deformities ENT: Normocephalic, normal hearing, moist mucosa CV: Pulses:Radial= 2+ and symmetric, capillary refill < 2 secs, no peripheral edema/varicosities Skin: no rash, bruising or lesions. Good turgor. Psych: cooperative and appropriate, alert and oriented x 3, good mood and affect. Musculoskeletal: Stable exam for both issues Large Joint Arthro/Inj: L knee joint Informed Consent Consent Obtained: Verbal [place] Protocol A moment to CARE was completed. SIGN IN Sign in communication not applicable due to emergent procedure. Personnel directly involved with the procedure wore the appropriate PPE. Special Equipment: N/A Patient/Surrogate Stated/Verified: Patient name, Date of , Relevant allergies and Intended procedure TIME OUT Relevant labs, photos, and/or imaging studies have been reviewed. Intended patient and procedure match the source document(s). Consent documented and matches the intended procedure. Correct side/site marked and visible. Medications required for procedure verified. No fire risk assessment and interventions applicable. No implant(s) inserted.02/27/2024 10:19 AM The procedure site was prepped in the usual sterile fashion. Site: L knee joint Medications: 6 mg betamethasone acetate-betamethasone sodium phosphate 6 mg/mL Anesthetics: 5 mL lidocaine (PF) 10 mg/mL (1 %) Outcome: Tolerated well, no immediate complications Post-injection instructions were reviewed with the patient and the patient voiced understanding of these instructions. SIGN OUT No specimen collected. No instruments, equipment or retained foreign bodies applicable. Post-procedure follow-up management communicated and Plan of Care Visit completed when applicable Large Joint Arthro/Inj: R subacromial bursa Informed Consent Consent Obtained: Verbal [place] Protocol A moment to CARE was completed. SIGN IN Sign in communication not applicable due to emergent procedure. Personnel directly involved with the procedure wore the appropriate PPE. Special Equipment: N/A Patient/Surrogate Stated/Verified: Patient name, Date of , Relevant allergies and Intended procedure TIME OUT Relevant labs, photos, and/or imaging studies have been reviewed. Intended patient and procedure match the source document(s). Consent documented and matches the intended procedure. Correct side/site marked and visible. Medications required for procedure verified. No fire risk assessment and interventions applicable. No implant(s) inserted.02/27/2024 10:19 AM The procedure site was prepped in the usual sterile fashion. Site: R subacromial bursa Medications: 6 mg betamethasone acetate-betamethasone sodium phosphate 6 mg/mL Anesthetics: 5 mL lidocaine (PF) 10 mg/mL (1 %) Outcome: Tolerated well, no immediate complications Post-injection instructions were reviewed with the patient and the patient voiced understanding of these instructions. SIGN OUT No specimen collected. No instruments, equipment or retained foreign bodies applicable. Post-procedure follow-up management communicated and Plan of Care Visit completed when applicable Imaging: IMPRESSION: MEDIAL MENISCUS TEAR. MILD TO MODERATE DEGENERATIVE CHONDRAL CHANGES. REMOTE MCL AND ACL INJURIES. Rotary Cutter Feeder: FRANCES Transcribe Date/Time: Feb 23 2024 10:02A Dictated by : BALAJI MENDES MD This examination was interpreted and the report reviewed and electronically signed by: BALAJI MENDES MD on Feb 23 2024 10:13AM EST Results-Findings * * *Final Report* * * DATE OF EXAM: Feb 23 2024 8:35 (more content not included)... [facility] 02-27-2024 History of Present illness Narrative Associated Order(s): Large Joint Arthro/Inj: L knee joint; Large Joint Arthro/Inj: R subacromial bursa Post-Procedure Diagnose(s): Acute pain of left knee; Shoulder impingement Adalberto Gomez MD Department of Orthopaedics Orthopaedics [address] [facility] [address] Dept: [phone] Dept February 27, 2024 CHIEF COMPLAINT: Established Patient and Pain of the Left Knee HPI Patient here today for left knee pain. Pain started a couple of weeks ago. He denies recent injury. 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 The right shoulder continues to give him some troubles. ASSESSMENT: M25.819 Shoulder impingement (primary encounter diagnosis) M25.562 Acute pain of left knee PLAN: Based on his MRI findings for the knee, he has a couple of different issues with the knee, yet he does not feel the need or wish to pursue any kind of surgical intervention at this time. He like to try a cortisone injection which we will provide him today. In addition, he would like a cortisone injection for the right shoulder as well. His injections for the shoulder did seem to help him back in December will continue observation for now. Future discussions if needed. OBJECTIVE: Mr. Sree Torres is a pleasant 53 year old in no apparent distress. Gen:There were no vitals taken for this visit. nl development, non obese, no deformities ENT: Normocephalic, normal hearing, moist mucosa CV: Pulses:Radial= 2+ and symmetric, capillary refill < 2 secs, no peripheral edema/varicosities Skin: no rash, bruising or lesions. Good turgor. Psych: cooperative and appropriate, alert and oriented x 3, good mood and affect. Musculoskeletal: Stable exam for both issues Large Joint Arthro/Inj: L knee joint Informed Consent Consent Obtained: Verbal [place] Protocol A moment to CARE was completed. SIGN IN Sign in communication not applicable due to emergent procedure. Personnel directly involved with the procedure wore the appropriate PPE. Special Equipment: N/A Patient/Surrogate Stated/Verified: Patient name, Date of , Relevant allergies and Intended procedure TIME OUT Relevant labs, photos, and/or imaging studies have been reviewed. Intended patient and procedure match the source document(s). Consent documented and matches the intended procedure. Correct side/site marked and visible. Medications required for procedure verified. No fire risk assessment and interventions applicable. No implant(s) inserted.02/27/2024 10:19 AM The procedure site was prepped in the usual sterile fashion. Site: L knee joint Medications: 6 mg betamethasone acetate-betamethasone sodium phosphate 6 mg/mL Anesthetics: 5 mL lidocaine (PF) 10 mg/mL (1 %) Outcome: Tolerated well, no immediate complications Post-injection instructions were reviewed with the patient and the patient voiced understanding of these instructions. SIGN OUT No specimen collected. No instruments, equipment or retained foreign bodies applicable. Post-procedure follow-up management communicated and Plan of Care Visit completed when applicable Large Joint Arthro/Inj: R subacromial bursa Informed Consent Consent Obtained: Verbal [place] Protocol A moment to CARE was completed. SIGN IN Sign in communication not applicable due to emergent procedure. Personnel directly involved with the procedure wore the appropriate PPE. Special Equipment: N/A Patient/Surrogate Stated/Verified: Patient name, Date of , Relevant allergies and Intended procedure TIME OUT Relevant labs, photos, and/or imaging studies have been reviewed. Intended patient and procedure match the source document(s). Consent documented and matches the intended procedure. Correct side/site marked and visible. Medications required for procedure verified. No fire risk assessment and interventions applicable. No implant(s) inserted.02/27/2024 10:19 AM The procedure site was prepped in the usual sterile fashion. Site: R subacromial bursa Medications: 6 mg betamethasone acetate-betamethasone sodium phosphate 6 mg/mL Anesthetics: 5 mL lidocaine (PF) 10 mg/mL (1 %) Outcome: Tolerated well, no immediate complications Post-injection instructions were reviewed with the patient and the patient voiced understanding of these instructions. SIGN OUT No specimen collected. No instruments, equipment or retained foreign bodies applicable. Post-procedure follow-up management communicated and Plan of Care Visit completed when applicable Imaging: IMPRESSION: MEDIAL MENISCUS TEAR. MILD TO MODERATE DEGENERATIVE CHONDRAL CHANGES. REMOTE MCL AND ACL INJURIES. Rotary Cutter Feeder: PSCB Transcribe Date/Time: Feb 23 2024 10:02A Dictated by : BALAJI MENDES MD This examination was interpreted and the report reviewed and electronically signed by: BALAJI MENDES MD on Feb 23 2024 10:13AM EST Results-Findings * * *Final Report* * * DATE OF EXAM: Feb 23 2024 8:35AM [facility] 0212 - MRI KNEE WO IVCON LT / PROCEDURE REASON: Acute pain of left knee * * * * Physician Interpretation * * * * EXAMINATION: MRI LEFT KNEE WITHOUT CONTRAST CLINICAL HISTORY: Acute pain of left knee TECHNIQUE: Routine non-contrast MRI of the knee MQ: [id number] COMPARISON: None RESULT: MENISCI: Medial Meniscus: Tear complex but predominantly horizontal tearing in the posterior horn. Lateral Meniscus: Degenerative changes without a tear LIGAMENTS: ACL: Remote tear PCL: Intact MCL: Remote injury LCL Complex: Intact CARTILAGE: Medial Femoral Condyle: Moderate sized area(s) of predominantly low grade (less than 50% thickness) cartilage loss and or fissuring with smaller area(s) of high grade (greater than 50% thickness) cartilage loss and or fissuring Medial Tibial Plateau: Small area(s) of high grade (greater than 50% thickness) partial thickness cartilage loss and or fissuring Lateral Femoral Condyle: Small area(s) of low grade (less than 50% thickness) partial thickness cartilage loss and or fissuring Lateral Tibial Plateau: Moderate sized area(s) of predominantly low grade (less than 50% thickness) cartilage loss and or fissuring with smaller area(s) of high grade (greater than 50% thickness) cartilage loss and or fissuring Patella: Small area(s) of low grade (less than 50% thickness) partial thickness cartilage loss and or fissuring Trochlea: Small areas(s) of predominantly high grade (greater than 50% thickness) cartilage loss and or fissuring with smaller area(s) of full thickness cartilage loss and or fissuring TENDONS: The distal quadriceps and patellar tendons are intact. The popliteus tendon is intact. BONES AND MARROW: No evidence of fracture or bone marrow replacing process. MUSCLES: Muscle bulk and signal intensity are normal. JOINT FLUID AND SYNOVIUM: Moderate joint effusion. Mild synovitis. No Barbosa's cyst. OTHER: No other significant abnormality identified. Localizer images: Unremarkable. Supporting Subjective Information Below: Past Surgical History: PAST SURGICAL HISTORY Procedure Laterality Date BACK SURGERY HX micro discectomy L5-S1 COLONOSCOPY 09/04/2021 repeat in 3 years FECAL OCCULT BLOOD TEST 09/12/2019 negative FOOT SURGERY HX Right Medications: Current Outpatient Medications Medication Sig traZODone (DESYREL) 50 mg tablet Take 2-3 tablets as needed at bedtime. lisinopril (ZESTRIL) 20 mg tablet Take 1 tablet by mouth once daily. meloxicam (MOBIC) 15 mg tablet TAKE 1 TABLET BY MOUTH EVERY DAY omeprazole (PRILOSEC) 20 mg capsule Take 1 capsule by mouth once daily. TAKE 1 TABLET BY MOUTH DAILY BEFORE BREAKFAST. 1/2 HR BEFORE MEAL. Cholecalciferol, Vitamin D3, 50 mcg (2,000 unit) cap Take 1 capsule by mouth once daily. No current facility-administered medications for this visit. Allergies: Patient has no known allergies. ROS: General (negative for fatigue, malaise, weight loss/gain) HEENT (negative for headache, earache, recent vision changes, sinus pain, sore throat) Respiratory (no recent shortness of breath, hemoptysis) CV (negative for chest tightness, palpitations) Musculoskeletal (see HPI) Psych (no depression, anxiety) Adalberto Gomez MD documented in this encounter [facility] 02-27-2024 History of Present illness Narrative Radiology Service Progress Note PATIENT NAME: Sree Torres DATE OF SERVICE: February 27, 2024 TIME: 10:40 AM PATIENT IDENTITY VERIFICATION COMPLETED USING TWO (2) IDENTIFIERS: Name and Date of confirmed by patient verbally. FALL SCREENING: Has the patient had 2 falls in the last year or 1 fall with injury or currently using an Ambulatory Assistive Device (Walker, Cane, Wheelchair, Crutches, etc.)? No PATIENT GENDER DATA: Assigned male at PATIENT RELEVANT IMPLANT DATA REVIEWED: Not Applicable PATIENT PRESENTS WITH AN IMPLANTABLE OR ATTACHED INTERIOR DECORATOR PAPERHANGING: No RADIOLOGY DEPARTMENT: General X-ray: Exam(s) Completed: Lower Extremity X-Ray(s): Knee, AP / Lat / Tunne / Merchant Left and Wt. Bearing PERIPHERAL IV DATA: Not applicable SIGNED BY: RT Deneen(Jonathan) February 27, 2024 10:40 AM documented in this encounter [facility] 02-27-2024 Note HNO ID: [id number] Author: MAYLIN ROWLAND RT(R) Service: ? Author Type: Technologist Type: Progress Notes Filed: 02/27/2024 10:41 Note Text: Radiology Service Progress Note PATIENT NAME: Sree Torres DATE OF SERVICE: February 27, 2024 TIME: 10:40 AM PATIENT IDENTITY VERIFICATION COMPLETED USING TWO (2) IDENTIFIERS: Name and Date of confirmed by patient verbally. FALL SCREENING: Has the patient had 2 falls in the last year or 1 fall with injury or currently using an Ambulatory Assistive Device (Walker, Cane, Wheelchair, Crutches, etc.)? No PATIENT GENDER DATA: Assigned male at PATIENT RELEVANT IMPLANT DATA REVIEWED: Not Applicable PATIENT PRESENTS WITH AN IMPLANTABLE OR ATTACHED INTERIOR DECORATOR PAPERHANGING: No RADIOLOGY DEPARTMENT: General X-ray: Exam(s) Completed: Lower Extremity X-Ray(s): Knee, AP / Lat / Tunne / Merchant Left and Wt. Bearing PERIPHERAL IV DATA: Not applicable SIGNED BY: RT Deneen(R) February 27, 2024 10:40 AM [facility] 02-23-2024 Telephone encounter Note Spoke with pt gave information provided. Pt voices understanding. [facility] 02-23-2024 Miscellaneous Notes Spoke with pt gave information provided. Pt voices understanding. Please call patient and let him know that MRI of knee does show meniscus tear with ACL and MCL injury. I see he has appointment with Ortho on Tuesday. Make sure he keeps this to. Thank you, Samina Berg APRN.PHARMACIST AIDE documented in this encounter [facility] 02-23-2024 Telephone encounter Note Please call patient and let him know that MRI of knee does show meniscus tear with ACL and MCL injury. I see he has appointment with Ortho on Tuesday. Make sure he keeps this to. Thank you, Samina Berg APRN.PHARMACIST AIDE [facility] 02-23-2024 History of Present illness Narrative Radiology Service Progress Note PATIENT NAME: Sree Torres DATE OF SERVICE: February 23, 2024 TIME: 8:08 AM PATIENT IDENTITY VERIFICATION COMPLETED USING TWO (2) IDENTIFIERS: Name and Date of confirmed by patient verbally. FALL SCREENING: Has the patient had 2 falls in the last year or 1 fall with injury or currently using an Ambulatory Assistive Device (Walker, Cane, Wheelchair, Crutches, etc.)? No PATIENT GENDER DATA: Assigned male at PATIENT RELEVANT IMPLANT DATA REVIEWED: Yes PATIENT PRESENTS WITH AN IMPLANTABLE OR ATTACHED INTERIOR DECORATOR PAPERHANGING: No RADIOLOGY DEPARTMENT: MR; Exam(s) Completed: Lower MSK: Knee, left PERIPHERAL IV DATA: Not applicable SIGNED BY: RT Tarun(Jonathan) February 23, 2024 8:08 AM documented in this encounter [facility] 02-23-2024 Note HNO ID: [id number] Author: CHATA GIRON RT(R) Service: ? Author Type: Technologist Type: Progress Notes Filed: 02/23/2024 08:08 Note Text: Radiology Service Progress Note PATIENT NAME: Sree Torres DATE OF SERVICE: February 23, 2024 TIME: 8:08 AM PATIENT IDENTITY VERIFICATION COMPLETED USING TWO (2) IDENTIFIERS: Name and Date of confirmed by patient verbally. FALL SCREENING: Has the patient had 2 falls in the last year or 1 fall with injury or currently using an Ambulatory Assistive Device (Walker, Cane, Wheelchair, Crutches, etc.)? No PATIENT GENDER DATA: Assigned male at PATIENT RELEVANT IMPLANT DATA REVIEWED: Yes PATIENT PRESENTS WITH AN IMPLANTABLE OR ATTACHED INTERIOR DECORATOR PAPERHANGING: No RADIOLOGY DEPARTMENT: MR; Exam(s) Completed: Lower MSK: Knee, left PERIPHERAL IV DATA: Not applicable SIGNED BY: RT Tarun(Jonathan) February 23, 2024 8:08 AM [facility] 02-09-2024 Note HNO ID: [id number] Author: SAMINA BERG APRN.VICKEY Service: ? Author Type: Nurse Practitioner Type: Progress Notes Filed: 02/09/2024 10:44 Note Text: Chief Complaint Patient presents with: f/up meds HPI Sree Torres is a 53 year old male who presents here today for Above Complaints. Sree is an established patient of Arash Oropeza CNP. Concerns today... Sleep -- Was taking ambien for sleep disturbances but wanted to try to come off of this d/t it being a controlled substance and fear of getting addicted. Was started on trazodone 50 mg. Reports this does help some but not as well as ambien. Reports recently moved out and will be from her. Reports she was the one making him get off the ambien. Pt is hoping trazodone works but if not, willing to restart ambien if needed. Pt reports mood is stable despite big changes in relationship status. Not taking Cymbalta anymore -- feels good without this. Utilizing xanax prn as needed -- takes occasionally/rarely, does not need routinely or daily. Last refilled in November. Does report R knee pain restarting x 3 weeks. Gait instability intermittently. Reports hx of MCL/ACL tear back in his 20s. Had MRI and known tear but never had surgery to fix this d/t no insurance. Pain was minimal and bearable until recently. Asking to have this looked at again. No new injury or fall. No record of prior MRI of tear. Does not want to complete physical therapy, has done this in the past. No other concerns or complaints today. Past medical history, appointments, medications, allergies reviewed. Previous Medical History PAST MEDICAL HISTORY Diagnosis Date Dyslipidemia 03/19/2015 Elevated LFTs 04/14/2016 Essential hypertension with goal blood pressure less than 140/90 06/19/2015 Ex-smoker 03/06/2015 Started at age 23 up to 1 02/08 PPD. Quit smoking May 08 2016 Fatty liver 04/21/2016 GERD without esophagitis 04/14/2016 Hypogonadism in male 03/06/2015 Leukocytosis Muscle cramps 03/06/2015 TIMOTHY (obstructive sleep apnea) 03/31/2015 Sleep study 03/2015: sever. Not able to tolerate CPAP Situational mixed anxiety and depressive disorder 05/18/2019 secodary to Covid 19 Previous Surgical History PAST SURGICAL HISTORY Procedure Laterality Date BACK SURGERY HX micro discectomy L5-S1 COLONOSCOPY 09/04/2021 repeat in 3 years FECAL OCCULT BLOOD TEST 09/12/2019 negative FOOT SURGERY HX Right Family History FAMILY HISTORY Problem Relation Age of Onset Hypertension Mother Diabetes Mother Psychiatry Mother rash and anxiety Cancer Maternal Grandmother 60 ? Cancer Maternal Grandfather 60 ? Alzheimer's Disease No Family History Colon Cancer No Family History Prostate Cancer No Family History Breast Cancer No Family History Ovarian cancer No Family History Coronary Artery Disease No Family History Kidney Disease No Family History Seizures No Family History Stroke No Family History Thyroid No Family History Anesthesia Problems No Family History Patient Allergies ALLERGIES No Known Allergies Current Medications Current Outpatient Medications on File Prior to Visit Medication Sig traZODone (DESYREL) 50 mg tablet Take 1 tablet by mouth daily at bedtime. meloxicam (MOBIC) 15 mg tablet TAKE 1 TABLET BY MOUTH EVERY DAY omeprazole (PRILOSEC) 20 mg capsule Take 1 capsule by mouth once daily. TAKE 1 TABLET BY MOUTH DAILY BEFORE BREAKFAST. 1/2 HR BEFORE MEAL. Cholecalciferol, Vitamin D3, 50 mcg (2,000 unit) cap Take 1 capsule by mouth once daily. DULoxetine (CYMBALTA) 60 mg capsule Take 1 capsule by mouth once daily. zolpidem (AMBIEN) 10 mg Take 1 tablet by mouth at bedtime as needed (insomnia) for up to 120 days. lisinopril (ZESTRIL) 20 mg tablet Take 1 tablet by mouth once daily. No current facility-administered medications on file prior to visit. Social History Social History Tobacco Use Smoking status: Former Current packs/day: 0.00 Average packs/day: 1 pack/day for 20.0 years (20.0 ttl pk-yrs) Types: Cigarettes Start date: 05/08/1996 Quit date: 05/08/2016 Years since quittin.7 Smokeless tobacco: Never Tobacco comments: none x 4 years Vaping Use Vaping status: Never Used Substance Use Topics Alcohol use: No Drug use: No REVIEW OF SYSTEMS: as above Reviewed relevant PMHx, PSHx, Social Hx, current medications and allergies. Review of Symptoms REVIEW OF SYSTEMS See HPI EXAM: BP 122/64 (BP Site: Left Arm, BP Position: Sitting, BP Cuff Size: Large Adult) Pulse 64 Resp 14 Wt 122.1 kg (269 lb 3.2 oz) BMI 33.65 kg/m? General Appearance: Well appearing, alert, in no acute distress, well-hydrated, well nourished.. Skin: Skin color, texture, turgor normal, no suspicious rashes or lesions. Head: Normocephalic, no masses, lesions, tenderness or abnormalities. Lungs: Lungs clear to auscultation. No wheezing, rhonchi, rales.. Heart: RRR without murmur, gallop, or rubs. (more content not included)... [facility] 02-09-2024 History of Present illness Narrative Chief Complaint Patient presents with: f/up meds HPI Sree Torres is a 53 year old male who presents here today for Above Complaints. Sree is an established patient of Arash Oropeza CNP. Concerns today... Sleep -- Was taking ambien for sleep disturbances but wanted to try to come off of this d/t it being a controlled substance and fear of getting addicted. Was started on trazodone 50 mg. Reports this does help some but not as well as ambien. Reports recently moved out and will be from her. Reports she was the one making him get off the ambien. Pt is hoping trazodone works but if not, willing to restart ambien if needed. Pt reports mood is stable despite big changes in relationship status. Not taking Cymbalta anymore -- feels good without this. Utilizing xanax prn as needed -- takes occasionally/rarely, does not need routinely or daily. Last refilled in November. Does report R knee pain restarting x 3 weeks. Gait instability intermittently. Reports hx of MCL/ACL tear back in his 20s. Had MRI and known tear but never had surgery to fix this d/t no insurance. Pain was minimal and bearable until recently. Asking to have this looked at again. No new injury or fall. No record of prior MRI of tear. Does not want to complete physical therapy, has done this in the past. No other concerns or complaints today. Past medical history, appointments, medications, allergies reviewed. Previous Medical History PAST MEDICAL HISTORY Diagnosis Date Dyslipidemia 03/19/2015 Elevated LFTs 04/14/2016 Essential hypertension with goal blood pressure less than 140/90 06/19/2015 Ex-smoker 03/06/2015 Started at age 23 up to 1 02/08 PPD. Quit smoking May 08 2016 Fatty liver 04/21/2016 GERD without esophagitis 04/14/2016 Hypogonadism in male 03/06/2015 Leukocytosis Muscle cramps 03/06/2015 TIMOTHY (obstructive sleep apnea) 03/31/2015 Sleep study 03/2015: sever. Not able to tolerate CPAP Situational mixed anxiety and depressive disorder 05/18/2019 secodary to Covid 19 Previous Surgical History PAST SURGICAL HISTORY Procedure Laterality Date BACK SURGERY HX micro discectomy L5-S1 COLONOSCOPY 09/04/2021 repeat in 3 years FECAL OCCULT BLOOD TEST 09/12/2019 negative FOOT SURGERY HX Right Family History FAMILY HISTORY Problem Relation Age of Onset Hypertension Mother Diabetes Mother Psychiatry Mother rash and anxiety Cancer Maternal Grandmother 60 ? Cancer Maternal Grandfather 60 ? Alzheimer's Disease No Family History Colon Cancer No Family History Prostate Cancer No Family History Breast Cancer No Family History Ovarian cancer No Family History Coronary Artery Disease No Family History Kidney Disease No Family History Seizures No Family History Stroke No Family History Thyroid No Family History Anesthesia Problems No Family History Patient Allergies ALLERGIES No Known Allergies Current Medications Current Outpatient Medications on File Prior to Visit Medication Sig traZODone (DESYREL) 50 mg tablet Take 1 tablet by mouth daily at bedtime. meloxicam (MOBIC) 15 mg tablet TAKE 1 TABLET BY MOUTH EVERY DAY omeprazole (PRILOSEC) 20 mg capsule Take 1 capsule by mouth once daily. TAKE 1 TABLET BY MOUTH DAILY BEFORE BREAKFAST. 1/2 HR BEFORE MEAL. Cholecalciferol, Vitamin D3, 50 mcg (2,000 unit) cap Take 1 capsule by mouth once daily. DULoxetine (CYMBALTA) 60 mg capsule Take 1 capsule by mouth once daily. zolpidem (AMBIEN) 10 mg Take 1 tablet by mouth at bedtime as needed (insomnia) for up to 120 days. lisinopril (ZESTRIL) 20 mg tablet Take 1 tablet by mouth once daily. No current facility-administered medications on file prior to visit. Social History Social History Tobacco Use Smoking status: Former Current packs/day: 0.00 Average packs/day: 1 pack/day for 20.0 years (20.0 ttl pk-yrs) Types: Cigarettes Start date: 05/08/1996 Quit date: 05/08/2016 Years since quittin.7 Smokeless tobacco: Never Tobacco comments: none x 4 years Vaping Use Vaping status: Never Used Substance Use Topics Alcohol use: No Drug use: No REVIEW OF SYSTEMS: as above Reviewed relevant PMHx, PSHx, Social Hx, current medications and allergies. Review of Symptoms REVIEW OF SYSTEMS See HPI EXAM: BP 122/64 (BP Site: Left Arm, BP Position: Sitting, BP Cuff Size: Large Adult) Pulse 64 Resp 14 Wt 122.1 kg (269 lb 3.2 oz) BMI 33.65 kg/m General Appearance: Well appearing, alert, in no acute distress, well-hydrated, well nourished.. Skin: Skin color, texture, turgor normal, no suspicious rashes or lesions. Head: Normocephalic, no masses, lesions, tenderness or abnormalities. Lungs: Lungs clear to auscultation. No wheezing, rhonchi, rales.. Heart: RRR without murmur, gallop, or rubs. No ectopy. Extremities: Positive findings: joint location: on left knee pain and painful movement. Neurologic: Gait normal. Reflexes normal and symmetric. Sensation grossly intact.. Health Maintenance List BP Controlled (<130/80) Never done Lung Cancer Screening Never done Shingrix Vaccine(1 of 2) Never done Pneumococcal Vaccine: 50+(1 of 1 - PCV) Never done Hepatitis B Vaccine(1 of 3 - 19+ 3-dose series) due on 04/01/2024 HIV Screening due on 04/01/2024 Covid-19 Vaccine( season) due on 02/08/2025 Colorectal Cancer Screening due on 09/04/2024 Annual PCP Team Chronic Disease Visit due on 01/19/2025 DTaP,Tdap,Td Vaccine(2 - Td or Tdap) due on 03/06/2025 Lipid Screening due on 04/23/2026 Diabetes Screening due on 01/19/2027 Influenza Vaccine Completed Hepatitis C Screening Completed ASSESSMENT/PLAN: 1. Insomnia secondary to chronic pain - ICD9: 338.29, 327.01, ICD10: G89.29, G47.01 (primary diagnosis) Increase trazodone. Take 100 mg daily (2 tablets). Can increase to 150 mg on own if no improvement in 2 weeks. If still no improvement, needs VV to discontinue trazodone and go back onto ambien. Pt agreeable with this plan of care. - TRAZODONE 50 MG TABLET 2. HTN, goal below 130/80 - ICD9: 401.9, ICD10: I10 - Controlled - Continue current medications - Recommend home blood pressure monitoring, to bring results to next visit - Encouraged sodium restriction, DASH or Mediterranean diet - Recommend regular aerobic exercise - LISINOPRIL 20 MG TABLET 3. Acute pain of left knee - ICD9: 719.46, ICD10: M25.562 Pt reports prior hx of known MCL and ACL tear from 20 years ago without any intervention or treatment. MRI knee to investigate now and consult to ortho to discuss options. Pt aware may need to see ortho first to get MRI covered. Pt declines xrays or physical therapy at this time as this has been done in the past already without much relief. - CONSULT TO ORTHOPAEDICS - MRI KNEE WO IVCON LEFT 4. Situational mixed anxiety and depressive disorder - ICD9: 309.28, ICD10: F43.23 Stable. Discontinued cymbalta as patient has not been taking it. Continue to use prn xanax occasionally as needed. 5. Essential hypertension with goal blood pressure less than 140/90 - ICD9: 401.9, ICD10: I10 Stable, controlled. Med refill - LISINOPRIL 20 MG TABLET Prescription instructions reviewed with patient as applicable. Potential red flag symptoms discussed with the patient. Reviewed appropriate action plan to take if red flag symptoms occur. Patient agreeable to treatment plan. Samina Berg APRN.PHARMACIST AIDE [address] [place] [address] documented in this encounter [facility] 01-23-2024 Telephone encounter Note Patient notified of results. Patient verbalizes understanding. Maria Luz Pham RN [facility] 01-23-2024 Miscellaneous Notes Patient notified of results. Patient verbalizes understanding. Maria Luz Pham RN Left message to return call. Please call patient and let him know that lab work results look good. WBC is back to normal and kidney function is WNL. Thank you, Samina Berg APRN.PHARMACIST AIDE documented in this encounter [facility] 01-23-2024 Telephone encounter Note Left message to return call. [facility] 01-23-2024 Telephone encounter Note Please call patient and let him know that lab work results look good. WBC is back to normal and kidney function is WNL. Thank you, Samina Berg APRN.VICKEY [facility] 01-20-2024 Note HNO ID: [id number] Author: SAMINA BERG APRN.CNP Service: ? Author Type: Nurse Practitioner Type: Progress Notes Filed: 01/20/2024 08:48 Note Text: Chief Complaint Patient presents with: diverticulitis hospt, f/up HPI Sree Torres is a 53 year old male who presents here today for Above Complaints. Sree is an established patient of Arash Oropeza CNP. Concerns today... Hospital follow-up -- Was first seen in [facility] ER on 01/11 d/t L flank pain. CT had showed diverticulitis. Pt sent home on PO flagyl and cefdinir. Given percocet as needed for significant pain. A few days later, pt then went to [facility] ER on 01/15 d/t worsen LLQ pain, n/v, and bloody diarrhea. Lab work showed SANDIP. Repeat CT scan showed mild diverticulitis remained. Pt was then admitted for IV antibotic regimen d/t failed PO regimen. After one day on IV antibiotics, symptoms resolved. Pt was then discharged home on 01/17 with Cipro and Flagyl. WBC 21.6 while in the hospital. In office today... Pt reports feeling much better than ER visits. Very scared/nervous to eat much food d/t concern that pain is going to return. When he does eat, food goes right through him. Still having diarrhea with very bad odor. Taking antibiotic as prescribed, has 6 days left. Returning back to work on Tuesday. May need [place] paperwork filled out for the week he was having symptoms and hospitalized. Increase stressors d/t discussions with about her leaving him/moving out. Managing/handling this well for the time being. Past medical history, appointments, medications, allergies reviewed. Previous Medical History PAST MEDICAL HISTORY Diagnosis Date Dyslipidemia 03/19/2015 Elevated LFTs 04/14/2016 Essential hypertension with goal blood pressure less than 140/90 06/19/2015 Ex-smoker 03/06/2015 Started at age 23 up to 1 02/08 PPD. Quit smoking May 08 2016 Fatty liver 04/21/2016 GERD without esophagitis 04/14/2016 Hypogonadism in male 03/06/2015 Leukocytosis Muscle cramps 03/06/2015 TIMOTHY (obstructive sleep apnea) 03/31/2015 Sleep study 03/2015: sever. Not able to tolerate CPAP Situational mixed anxiety and depressive disorder 05/18/2019 secodary to Covid 19 Previous Surgical History PAST SURGICAL HISTORY Procedure Laterality Date BACK SURGERY HX micro discectomy L5-S1 COLONOSCOPY 09/04/2021 repeat in 3 years FECAL OCCULT BLOOD TEST 09/12/2019 negative FOOT SURGERY HX Right Family History FAMILY HISTORY Problem Relation Age of Onset Hypertension Mother Diabetes Mother Psychiatry Mother rash and anxiety Cancer Maternal Grandmother 60 ? Cancer Maternal Grandfather 60 ? Alzheimer's Disease No Family History Colon Cancer No Family History Prostate Cancer No Family History Breast Cancer No Family History Ovarian cancer No Family History Coronary Artery Disease No Family History Kidney Disease No Family History Seizures No Family History Stroke No Family History Thyroid No Family History Anesthesia Problems No Family History Patient Allergies ALLERGIES No Known Allergies Current Medications Current Outpatient Medications on File Prior to Visit Medication Sig traZODone (DESYREL) 50 mg tablet Take 1 tablet by mouth daily at bedtime. meloxicam (MOBIC) 15 mg tablet TAKE 1 TABLET BY MOUTH EVERY DAY DULoxetine (CYMBALTA) 60 mg capsule Take 1 capsule by mouth once daily. zolpidem (AMBIEN) 10 mg Take 1 tablet by mouth at bedtime as needed (insomnia) for up to 120 days. omeprazole (PRILOSEC) 20 mg capsule Take 1 capsule by mouth once daily. TAKE 1 TABLET BY MOUTH DAILY BEFORE BREAKFAST. 1/2 HR BEFORE MEAL. lisinopril (ZESTRIL) 20 mg tablet Take 1 tablet by mouth once daily. Cholecalciferol, Vitamin D3, 50 mcg (2,000 unit) cap Take 1 capsule by mouth once daily. No current facility-administered medications on file prior to visit. Social History Social History Tobacco Use Smoking status: Former Current packs/day: 0.00 Average packs/day: 1 pack/day for 20.0 years (20.0 ttl pk-yrs) Types: Cigarettes Start date: 05/08/1996 Quit date: 05/08/2016 Years since quittin.7 Smokeless tobacco: Never Tobacco comments: none x 4 years Vaping Use Vaping status: Never Used Substance Use Topics Alcohol use: No Drug use: No REVIEW OF SYSTEMS: as above Reviewed relevant PMHx, PSHx, Social Hx, current medications and allergies. Review of Symptoms REVIEW OF SYSTEMS See HPI. EXAM: BP 140/80 (BP Site: Left Arm, BP Position: Sitting, BP Cuff Size: Large Adult) Pulse 61 Wt 119.8 kg (264 lb 3.2 oz) SpO2 98% BMI 33.02 kg/m? General Appearance: Well appearing, alert, in no acute distress, well-hydrated, well nourished.. Skin: Skin color, texture, turgor normal, no suspicious rashes or lesions. Head: Normocephalic, no masses, lesions, tenderness or abnormalities. Lungs: Lungs clear to auscultation. No wheezing, rhonchi, rales.. Heart: RRR without murmur, gallop, o (more content not included)... [facility] 01-20-2024 History of Present illness Narrative Chief Complaint Patient presents with: diverticulitis hospt, f/up HPI Sree Torres is a 53 year old male who presents here today for Above Complaints. Sree is an established patient of Arash Oropeza CNP. Concerns today... Hospital follow-up -- Was first seen in [facility] ER on 01/11 d/t L flank pain. CT had showed diverticulitis. Pt sent home on PO flagyl and cefdinir. Given percocet as needed for significant pain. A few days later, pt then went to [facility] ER on 01/15 d/t worsen LLQ pain, n/v, and bloody diarrhea. Lab work showed SANDIP. Repeat CT scan showed mild diverticulitis remained. Pt was then admitted for IV antibotic regimen d/t failed PO regimen. After one day on IV antibiotics, symptoms resolved. Pt was then discharged home on 01/17 with Cipro and Flagyl. WBC 21.6 while in the hospital. In office today... Pt reports feeling much better than ER visits. Very scared/nervous to eat much food d/t concern that pain is going to return. When he does eat, food goes right through him. Still having diarrhea with very bad odor. Taking antibiotic as prescribed, has 6 days left. Returning back to work on Tuesday. May need FMLA paperwork filled out for the week he was having symptoms and hospitalized. Increase stressors d/t discussions with about her leaving him/moving out. Managing/handling this well for the time being. Past medical history, appointments, medications, allergies reviewed. Previous Medical History PAST MEDICAL HISTORY Diagnosis Date Dyslipidemia 03/19/2015 Elevated LFTs 04/14/2016 Essential hypertension with goal blood pressure less than 140/90 06/19/2015 Ex-smoker 03/06/2015 Started at age 23 up to 1 02/08 PPD. Quit smoking May 08 2016 Fatty liver 04/21/2016 GERD without esophagitis 04/14/2016 Hypogonadism in male 03/06/2015 Leukocytosis Muscle cramps 03/06/2015 TIMOTHY (obstructive sleep apnea) 03/31/2015 Sleep study 03/2015: sever. Not able to tolerate CPAP Situational mixed anxiety and depressive disorder 05/18/2019 secodary to Covid 19 Previous Surgical History PAST SURGICAL HISTORY Procedure Laterality Date BACK SURGERY HX micro discectomy L5-S1 COLONOSCOPY 09/04/2021 repeat in 3 years FECAL OCCULT BLOOD TEST 09/12/2019 negative FOOT SURGERY HX Right Family History FAMILY HISTORY Problem Relation Age of Onset Hypertension Mother Diabetes Mother Psychiatry Mother rash and anxiety Cancer Maternal Grandmother 60 ? Cancer Maternal Grandfather 60 ? Alzheimer's Disease No Family History Colon Cancer No Family History Prostate Cancer No Family History Breast Cancer No Family History Ovarian cancer No Family History Coronary Artery Disease No Family History Kidney Disease No Family History Seizures No Family History Stroke No Family History Thyroid No Family History Anesthesia Problems No Family History Patient Allergies ALLERGIES No Known Allergies Current Medications Current Outpatient Medications on File Prior to Visit Medication Sig traZODone (DESYREL) 50 mg tablet Take 1 tablet by mouth daily at bedtime. meloxicam (MOBIC) 15 mg tablet TAKE 1 TABLET BY MOUTH EVERY DAY DULoxetine (CYMBALTA) 60 mg capsule Take 1 capsule by mouth once daily. zolpidem (AMBIEN) 10 mg Take 1 tablet by mouth at bedtime as needed (insomnia) for up to 120 days. omeprazole (PRILOSEC) 20 mg capsule Take 1 capsule by mouth once daily. TAKE 1 TABLET BY MOUTH DAILY BEFORE BREAKFAST. 1/2 HR BEFORE MEAL. lisinopril (ZESTRIL) 20 mg tablet Take 1 tablet by mouth once daily. Cholecalciferol, Vitamin D3, 50 mcg (2,000 unit) cap Take 1 capsule by mouth once daily. No current facility-administered medications on file prior to visit. Social History Social History Tobacco Use Smoking status: Former Current packs/day: 0.00 Average packs/day: 1 pack/day for 20.0 years (20.0 ttl pk-yrs) Types: Cigarettes Start date: 05/08/1996 Quit date: 05/08/2016 Years since quittin.7 Smokeless tobacco: Never Tobacco comments: none x 4 years Vaping Use Vaping status: Never Used Substance Use Topics Alcohol use: No Drug use: No REVIEW OF SYSTEMS: as above Reviewed relevant PMHx, PSHx, Social Hx, current medications and allergies. Review of Symptoms REVIEW OF SYSTEMS See HPI. EXAM: BP 140/80 (BP Site: Left Arm, BP Position: Sitting, BP Cuff Size: Large Adult) Pulse 61 Wt 119.8 kg (264 lb 3.2 oz) SpO2 98% BMI 33.02 kg/m General Appearance: Well appearing, alert, in no acute distress, well-hydrated, well nourished.. Skin: Skin color, texture, turgor normal, no suspicious rashes or lesions. Head: Normocephalic, no masses, lesions, tenderness or abnormalities. Lungs: Lungs clear to auscultation. No wheezing, rhonchi, rales.. Heart: RRR without murmur, gallop, or rubs. No ectopy. Abdomen: Normal abdominal exam, Abdomen soft, non-tender. Bowel sounds normal. No masses, organomegaly. Health Maintenance List BP Controlled (<130/80) Never done Lung Cancer Screening Never done Shingrix Vaccine(1 of 2) Never done Covid-19 Vaccine( season) due on 10/09/2023 Hepatitis B Vaccine(1 of 3 - 19+ 3-dose series) due on 04/01/2024 HIV Screening due on 04/01/2024 Colorectal Cancer Screening due on 09/04/2024 Annual PCP Team Chronic Disease Visit due on 11/01/2024 DTaP,Tdap,Td Vaccine(2 - Td or Tdap) due on 03/06/2025 Lipid Screening due on 04/23/2026 Diabetes Screening due on 01/11/2027 Influenza Vaccine Completed Hepatitis C Screening Completed ASSESSMENT/PLAN: 1. Hospital discharge follow-up - ICD9: V67.59, ICD10: Z09 (primary diagnosis) Stable, improving. Clear liquid diet x 1 week if concerned with eating foods. Complete entire antibiotic regimen as prescribed. Repeat lab work as below to make sure WBC is down trending and SANDIP is resolving. CDiff testing if diarrhea continues after completion of antibiotics. Pt agreeable. - COMPLETE BLOOD COUNT AND DIFFERENTIAL - COMPREHENSIVE METABOLIC PANEL - C. DIFFICILE PCR 2. Diverticulitis - ICD9: 562.11, ICD10: K57.92 See above. - COMPLETE BLOOD COUNT AND DIFFERENTIAL - COMPREHENSIVE METABOLIC PANEL - C. DIFFICILE PCR 3. Diarrhea, unspecified type - ICD9: 787.91, ICD10: R19.7 See above. - COMPLETE BLOOD COUNT AND DIFFERENTIAL - COMPREHENSIVE METABOLIC PANEL - C. DIFFICILE PCR 4. Situational mixed anxiety and depressive disorder - ICD9: 309.28, ICD10: F43.23 Stable at this time. Continue to monitor closely d/t big life changing events/ stressors with . RTO as scheduled, sooner if needed. Prescription instructions reviewed with patient as applicable. Potential red flag symptoms discussed with the patient. Reviewed appropriate action plan to take if red flag symptoms occur. Patient agreeable to treatment plan. Samina Morales APRN.PHARMACIST AIDE [address] [place] [address] documented in this encounter [facility] 01-18-2024 Note [facility] Medical Records Department [address] [place] [address] Discharge Summary 01/18/24 0843 MR#: [id number] Acct: [id number] Name: SREE TORRES Rep #: [id number] : 1970 53 From: Anna Caputo DO PCP: MARGARET Bragg Status:ADM IN Location: [address] Date of Admission: 01/16/24 Date of Discharge: 01/18/24 Primary Care Physician: MARGARET Bragg Reason For Visit: ACUTE DIVERTICULITIS Diagnosis Discharge Diagnosis (1) Acute diverticulitis: Status: Acute Code(s): K57.92 - Diverticulitis of intestine, part unspecified, without perforation or abscess without bleeding (2) Failure of outpatient treatment: Status: Acute Code(s): Z78.9 - Other specified health status (3) Elevated serum creatinine: Status: Acute Code(s): R79.89 - Other specified abnormal findings of blood chemistry (4) Leukocytosis: Status: Acute Code(s): D72.829 - Elevated white blood cell count, unspecified (5) Erythrocytosis: Status: Acute Code(s): D75.1 - Secondary polycythemia Medications at Discharge Home Medications alprazolam 0.5 mg tablet 0.5 mg PO BID PRN PRN anxiety 08/18/23 duloxetine 30 mg capsule,delayed release 30 mg PO DAILY 08/18/23 omeprazole 20 mg capsule,delayed release 20 mg PO DAILY 08/18/23 lisinopril 20 mg tablet 20 mg PO DAILY 01/16/24 meloxicam 15 mg tablet 15 mg PO DAILY 01/16/24 oxycodone-acetaminophen 5 mg-325 mg tablet 1 tab PO Q6H PRN PRN pain 01/16/24 trazodone 50 mg tablet 50 mg PO QHS 01/16/24 ciprofloxacin HCl 500 mg tablet (Cipro) 500 mg PO BID #16 tabs 01/18/24 metronidazole 500 mg tablet 500 mg PO Q8 #24 tabs 01/18/24 Hospital Course Operations None Procedures - (CT abdomen pelvis) Summary of Care Provided Minutes Spent on Discharge: 30 Hospital Course: Mr. Torres is a 53 M who presented to the emergency department [facility] on 01/16/2024 with a chief complaint of left lower quadrant abdominal pain. Patient was seen 4 days ago at [facility] at which time he was diagnosed with uncomplicated descending colon diverticulitis and was placed on cefdinir and Flagyl. He has been compliant with his medication and using as needed Percocet for pain. 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 He denied chills but no fevers. He stated he would break out in sweats periodically. He had a colonoscopy done 1 to 2 years ago due to a positive Cologuard test and had 3 polypectomies. This is the first time he is ever had diverticulitis. Vital signs on presentation showed temperature of 98.4, heart rate 115, respiratory rate 18, blood pressure is 138/102 and pulse ox was 98% on room air. CBC showed a leukocytosis with a white count of 21.6, hemoglobin was elevated at 16.7 and platelet count was normal at this time. He had a marked left shift with a 91.8% neutrophilia. Coags were unremarkable. Chemistry panel consistent with SANDIP. Creatinine 1.46. He had mild hyperbilirubinemia with a bilirubin of 1.1 LFTs were otherwise unremarkable. CT of the abdomen pelvis showed scattered sigmoid diverticuli, inflammatory changes surrounding the distal portion of the descending colon suggestive of mild diverticulitis and fluid seen in the rectosigmoid colon as well as fatty infiltration. Since he had failed outpatient oral antibiotics admission was requested and he was started on IV antibiotics by the emergency department. He was admitted to the medical floor. Placed on clear liquid diet, IV fluids, antiemetics, as needed pain medication and Zosyn. 24 hours after admission he was feeling much better having decreased pain and resolution of his nausea and vomiting. He still reported he had some intermittent loose stool however it is different than previous. I suspect this may be antibiotic related. I do not have concern for C. difficile at this point. We advance his diet which he tolerated well and by the a.m. of 01/18/2024 he was feeling much better and anxious to go home. Given the fact he was having a significantly reduced pain with resolution of his nausea and vomiting and tolerating normal diet without difficulty we did discharge him. He will complete a total of a 10-day course of antibiotics and will be discharged on Cipro and Flagyl to complete antibiotic course. He already has a follow-up to schedule appointment with his primary care physician and encouraged him to keep this. No follow-up labs recommended at this point. Patient was able to be discharged home in stable condition on 01/18/2024. Prescription for antibiotics were sent to local pharmacy. Discharge diagnoses: Acute descending colon diverticulitis Failure of outpatient treatment Leukocytosis-resolved Erythrocytosis-resolved Elevated serum creatinine-resolved Essential hypertension GERD Anxiety Depressi (more content not included)... [facility] 12-19-2023 Note HNO ID: [id number] Author: ADALBERTO GOMEZ MD Service: ? Author Type: Physician Type: Progress Notes Filed: 12/19/2023 08:13 Note Text: Adalberto Gomez MD Department of Orthopaedics Orthopaedics [address] [facility] [address] Dept: [phone] Dept December 19, 2023 CHIEF COMPLAINT: Established Patient and Injections of the Right Shoulder HPI Patient here today for 5 weeks 6 days post visit right rotator cuff tear. Injection into right shoulder. ASSESSMENT: M25.819 Shoulder impingement (primary encounter diagnosis) M25.511 Acute pain of right shoulder PLAN: Pt presents today for cortisone injection(s) for the right shoulder after we reviewed his MRI findings on the phone last week. No surgical tear in the shoulder. Large Joint Arthro/Inj: R glenohumeral Informed Consent Consent Obtained: Verbal [place] Protocol A moment to CARE was completed. SIGN IN Personnel directly involved with the procedure wore the appropriate PPE. Special Equipment: N/A Patient/Surrogate Stated/Verified: Patient name, Date of , Relevant allergies and Intended procedure TIME OUT Intended patient and procedure match the source document(s). Consent documented and matches the intended procedure. Relevant labs, photos, and/or imaging studies have been reviewed. Correct side/site marked and visible. Medications required for procedure verified. No fire risk assessment and interventions applicable. No implant(s) inserted. 12/19/2023 8:12 AM The procedure site was prepped in the usual sterile fashion. Site: R glenohumeral Medications: 6 mg betamethasone acetate-betamethasone sodium phosphate 6 mg/mL Anesthetics: 4 mL lidocaine (PF) 10 mg/mL (1 %) Outcome: Tolerated well, no immediate complications Post-injection instructions were reviewed with the patient and the patient voiced understanding of these instructions. SIGN OUT No specimen collected. No instruments, equipment or retained foreign bodies applicable. Post-procedure follow-up management communicated and Plan of Care Visit completed when applicable Large Joint Arthro/Inj: R subacromial bursa Informed Consent Consent Obtained: Verbal [place] Protocol A moment to CARE was completed. SIGN IN Sign in communication not applicable due to emergent procedure. Personnel directly involved with the procedure wore the appropriate PPE. Special Equipment: N/A Patient/Surrogate Stated/Verified: Patient name, Date of , Relevant allergies and Intended procedure TIME OUT Intended patient and procedure match the source document(s). Consent documented and matches the intended procedure. Relevant labs, photos, and/or imaging studies have been reviewed. Correct side/site marked and visible. Medications required for procedure verified. No fire risk assessment and interventions applicable. No implant(s) inserted. 12/19/2023 8:12 AM The procedure site was prepped in the usual sterile fashion. Site: R subacromial bursa Medications: 6 mg betamethasone acetate-betamethasone sodium phosphate 6 mg/mL Anesthetics: 5 mL lidocaine (PF) 10 mg/mL (1 %) Outcome: Tolerated well, no immediate complications Post-injection instructions were reviewed with the patient and the patient voiced understanding of these instructions. SIGN OUT No specimen collected. No instruments, equipment or retained foreign bodies applicable. Post-procedure follow-up management communicated and Plan of Care Visit completed when applicable Supporting Subjective Information Below: Past Surgical History: PAST SURGICAL HISTORY Procedure Laterality Date BACK SURGERY HX micro discectomy L5-S1 COLONOSCOPY 09/04/2021 repeat in 3 years FECAL OCCULT BLOOD TEST 09/12/2019 negative FOOT SURGERY HX Right Medications: Current Outpatient Medications Medication Sig meloxicam (MOBIC) 15 mg tablet Take 1 tablet by mouth once daily. DULoxetine (CYMBALTA) 60 mg capsule Take 1 capsule by mouth once daily. zolpidem (AMBIEN) 10 mg Take 1 tablet by mouth at bedtime as needed (insomnia) for up to 120 days. omeprazole (PRILOSEC) 20 mg capsule Take 1 capsule by mouth once daily. TAKE 1 TABLET BY MOUTH DAILY BEFORE BREAKFAST. 1/2 HR BEFORE MEAL. lisinopril (ZESTRIL) 20 mg tablet Take 1 tablet by mouth once daily. Cholecalciferol, Vitamin D3, 50 mcg (2,000 unit) cap Take 1 capsule by mouth once daily. No current facility-administered medications for this visit. Allergies: Patient has no known allergies. ROS: General (negative for fatigue, malaise, weight loss/gain) HEENT (negative for headache, earache, recent vision changes, sinus pain, sore throat) Respiratory (no recent shortness of breath, hemoptysis) CV (negative for chest tightness, palpitations) Musculoskeletal (see HPI) Psych (no depression, anxiety) Adalberot Gomez MD [facility] 12-19-2023 History of Present illness Narrative Associated Order(s): Large Joint Arthro/Inj: R glenohumeral; Large Joint Arthro/Inj: R subacromial bursa Post-Procedure Diagnose(s): Acute pain of right shoulder; Shoulder impingement Adalberto Gomez MD Department of Orthopaedics Orthopaedics [facility] [address] [facility] [address] Dept: [phone] Dept December 19, 2023 CHIEF COMPLAINT: Established Patient and Injections of the Right Shoulder HPI Patient here today for 5 weeks 6 days post visit right rotator cuff tear. Injection into right shoulder. ASSESSMENT: M25.819 Shoulder impingement (primary encounter diagnosis) M25.511 Acute pain of right shoulder PLAN: Pt presents today for cortisone injection(s) for the right shoulder after we reviewed his MRI findings on the phone last week. No surgical tear in the shoulder. Large Joint Arthro/Inj: R glenohumeral Informed Consent Consent Obtained: Verbal [place] Protocol A moment to CARE was completed. SIGN IN Personnel directly involved with the procedure wore the appropriate PPE. Special Equipment: N/A Patient/Surrogate Stated/Verified: Patient name, Date of , Relevant allergies and Intended procedure TIME OUT Intended patient and procedure match the source document(s). Consent documented and matches the intended procedure. Relevant labs, photos, and/or imaging studies have been reviewed. Correct side/site marked and visible. Medications required for procedure verified. No fire risk assessment and interventions applicable. No implant(s) inserted. 12/19/2023 8:12 AM The procedure site was prepped in the usual sterile fashion. Site: R glenohumeral Medications: 6 mg betamethasone acetate-betamethasone sodium phosphate 6 mg/mL Anesthetics: 4 mL lidocaine (PF) 10 mg/mL (1 %) Outcome: Tolerated well, no immediate complications Post-injection instructions were reviewed with the patient and the patient voiced understanding of these instructions. SIGN OUT No specimen collected. No instruments, equipment or retained foreign bodies applicable. Post-procedure follow-up management communicated and Plan of Care Visit completed when applicable Large Joint Arthro/Inj: R subacromial bursa Informed Consent Consent Obtained: Verbal [place] Protocol A moment to CARE was completed. SIGN IN Sign in communication not applicable due to emergent procedure. Personnel directly involved with the procedure wore the appropriate PPE. Special Equipment: N/A Patient/Surrogate Stated/Verified: Patient name, Date of , Relevant allergies and Intended procedure TIME OUT Intended patient and procedure match the source document(s). Consent documented and matches the intended procedure. Relevant labs, photos, and/or imaging studies have been reviewed. Correct side/site marked and visible. Medications required for procedure verified. No fire risk assessment and interventions applicable. No implant(s) inserted. 12/19/2023 8:12 AM The procedure site was prepped in the usual sterile fashion. Site: R subacromial bursa Medications: 6 mg betamethasone acetate-betamethasone sodium phosphate 6 mg/mL Anesthetics: 5 mL lidocaine (PF) 10 mg/mL (1 %) Outcome: Tolerated well, no immediate complications Post-injection instructions were reviewed with the patient and the patient voiced understanding of these instructions. SIGN OUT No specimen collected. No instruments, equipment or retained foreign bodies applicable. Post-procedure follow-up management communicated and Plan of Care Visit completed when applicable Supporting Subjective Information Below: Past Surgical History: PAST SURGICAL HISTORY Procedure Laterality Date BACK SURGERY HX micro discectomy L5-S1 COLONOSCOPY 09/04/2021 repeat in 3 years FECAL OCCULT BLOOD TEST 09/12/2019 negative FOOT SURGERY HX Right Medications: Current Outpatient Medications Medication Sig meloxicam (MOBIC) 15 mg tablet Take 1 tablet by mouth once daily. DULoxetine (CYMBALTA) 60 mg capsule Take 1 capsule by mouth once daily. zolpidem (AMBIEN) 10 mg Take 1 tablet by mouth at bedtime as needed (insomnia) for up to 120 days. omeprazole (PRILOSEC) 20 mg capsule Take 1 capsule by mouth once daily. TAKE 1 TABLET BY MOUTH DAILY BEFORE BREAKFAST. 1/2 HR BEFORE MEAL. lisinopril (ZESTRIL) 20 mg tablet Take 1 tablet by mouth once daily. Cholecalciferol, Vitamin D3, 50 mcg (2,000 unit) cap Take 1 capsule by mouth once daily. No current facility-administered medications for this visit. Allergies: Patient has no known allergies. ROS: General (negative for fatigue, malaise, weight loss/gain) HEENT (negative for headache, earache, recent vision changes, sinus pain, sore throat) Respiratory (no recent shortness of breath, hemoptysis) CV (negative for chest tightness, palpitations) Musculoskeletal (see HPI) Psych (no depression, anxiety) Adalberto Gomez MD documented in this encounter [facility] 12-02-2023 Telephone encounter Note Patient called in to let you know he had the radiology report faxed over and if you need anything else feel free to call him. Gladis Olivares LPN [facility] 12-02-2023 Miscellaneous Notes Patient called in to let you know he had the radiology report faxed over and if you need anything else feel free to call him. Gladis Olivares LPN I called and left a detailed message for the patient with the message below. Patient did mention to me yesterday that he had a copy of the report so I asked him to drop that off in the office or fax a copy over for Dr. Gomez to review it. Images from the original note were not included. Adalberto Gomez MD You; [facility]23 minutes ago (12:46 PM) Yes, any correspondence can be done over the phone. A $50 copay for that is ridiculous. I'll call him to discuss things as soon as we get his radiology report. I am able to see the MRI now, so that is good. BP Patient called in asking if Dr. Gomez was able to review his MRI images of the right shoulder? Patient also concerned that he had to pay a $50 copay when he did virtual appointment with Dr. Gomez on 11/24/2023 and nothing really was done at the virtual appointment because the images could not be viewed. He is asking for a phone call so that he does not have to pay another $50 copay. Patient can be reached back at [phone]. documented in this encounter [facility] 11-30-2023 Telephone encounter Note I called and left a detailed message for the patient with the message below. Patient did mention to me yesterday that he had a copy of the report so I asked him to drop that off in the office or fax a copy over for Dr. Gomez to review it. [facility] 11-30-2023 Telephone encounter Note Images from the original note were not included. Adalberto Gomez MD You; [facility]23 minutes ago (12:46 PM) Yes, any correspondence can be done over the phone. A $50 copay for that is ridiculous. I'll call him to discuss things as soon as we get his radiology report. I am able to see the MRI now, so that is good. BP [facility] 11-29-2023 Telephone encounter Note Patient called in asking if Dr. Gomez was able to review his MRI images of the right shoulder? Patient also concerned that he had to pay a $50 copay when he did virtual appointment with Dr. Gomez on 11/24/2023 and nothing really was done at the virtual appointment because the images could not be viewed. He is asking for a phone call so that he does not have to pay another $50 copay. Patient can be reached back at [phone]. [facility] 11-24-2023 Note HNO ID: [id number] Author: ADALBERTO GOMEZ MD Service: ? Author Type: Physician Type: Progress Notes Filed: 11/24/2023 10:14 Note Text: Adalberto Gomez MD Department of Orthopaedics Orthopaedics [address] [facility] [address] Dept: [phone] Dept November 24, 2023 CHIEF COMPLAINT: HPI He is virtual today was to review his MRI. Unfortunately, I was not able to get it scanned to the computer in the office. Will get it onto the system directly through radiology and go from there. Have asked him to grab the report so we can just compare the report to what I am seeing on the images. ASSESSMENT: M25.511 Acute pain of right shoulder (primary encounter diagnosis) S46.011A Traumatic tear of right rotator cuff, unspecified tear extent, initial encounter SUMMARY/PLAN: As above Supporting Information Below: Medications: Current Outpatient Medications Medication Sig meloxicam (MOBIC) 15 mg tablet Take 1 tablet by mouth once daily. DULoxetine (CYMBALTA) 60 mg capsule Take 1 capsule by mouth once daily. zolpidem (AMBIEN) 10 mg Take 1 tablet by mouth at bedtime as needed (insomnia) for up to 120 days. omeprazole (PRILOSEC) 20 mg capsule Take 1 capsule by mouth once daily. TAKE 1 TABLET BY MOUTH DAILY BEFORE BREAKFAST. 1/2 HR BEFORE MEAL. lisinopril (ZESTRIL) 20 mg tablet Take 1 tablet by mouth once daily. Cholecalciferol, Vitamin D3, 50 mcg (2,000 unit) cap Take 1 capsule by mouth once daily. No current facility-administered medications for this visit. Allergies: Patient has no known allergies. Adalberto Gomez MD [facility] 11-24-2023 History of Present illness Narrative Adalberto Gomez MD Department of Orthopaedics Orthopaedics [address] [facility] [address] Dept: [phone] Dept November 24, 2023 CHIEF COMPLAINT: HPI He is virtual today was to review his MRI. Unfortunately, I was not able to get it scanned to the computer in the office. Will get it onto the system directly through radiology and go from there. Have asked him to grab the report so we can just compare the report to what I am seeing on the images. ASSESSMENT: M25.511 Acute pain of right shoulder (primary encounter diagnosis) S46.011A Traumatic tear of right rotator cuff, unspecified tear extent, initial encounter SUMMARY/PLAN: As above Supporting Information Below: Medications: Current Outpatient Medications Medication Sig meloxicam (MOBIC) 15 mg tablet Take 1 tablet by mouth once daily. DULoxetine (CYMBALTA) 60 mg capsule Take 1 capsule by mouth once daily. zolpidem (AMBIEN) 10 mg Take 1 tablet by mouth at bedtime as needed (insomnia) for up to 120 days. omeprazole (PRILOSEC) 20 mg capsule Take 1 capsule by mouth once daily. TAKE 1 TABLET BY MOUTH DAILY BEFORE BREAKFAST. 1/2 HR BEFORE MEAL. lisinopril (ZESTRIL) 20 mg tablet Take 1 tablet by mouth once daily. Cholecalciferol, Vitamin D3, 50 mcg (2,000 unit) cap Take 1 capsule by mouth once daily. No current facility-administered medications for this visit. Allergies: Patient has no known allergies. Adalberto Gomez MD documented in this encounter [facility] 11-23-2023 Telephone encounter Note Spoke with patient. Given message from provider's office. Patient verbalizes understanding. Alicia Garcia RN [facility] 11-23-2023 Miscellaneous Notes Spoke with patient. Given message from provider's office. Patient verbalizes understanding. Alicia Garcia RN Left message to return call Lenore Gaffney MA Patient had refilled on 10/06/23 for a 4 month supply. Should have refills through 02/03/24. Pilar Genao PA-C 11/23/2023 withPrescription Refill Information The patient has been identified by name and date of : Yes Caregiver verified no other encounters exist for this prescription request: Yes Caregiver confirmed with patient/requestor that no other refills are due, in the near future, with this provider at this time: Yes The last office visit in the department: 11/02/23 Does the patient have a future office visit with this provider/department: No Requested Prescriptions Pending Prescriptions Disp Refills zolpidem (AMBIEN) 10 mg 30 tablet 3 Sig: Take 1 tablet by mouth at bedtime as needed (insomnia) for up to 120 days. Lizbeth Bejarano LPN November 23, 2023 9:31 AM documented in this encounter [facility] 11-23-2023 Telephone encounter Note Left message to return call Lenore Gaffney MA [facility] 11-23-2023 Telephone encounter Note Patient had refilled on 10/06/23 for a 4 month supply. Should have refills through 02/03/24. Pilar Genao PA-C 11/23/2023 [facility] Work Phone: 11-23-2023 Telephone encounter Note withPrescription Refill Information The patient has been identified by name and date of : Yes Caregiver verified no other encounters exist for this prescription request: Yes Caregiver confirmed with patient/requestor that no other refills are due, in the near future, with this provider at this time: Yes The last office visit in the department: 11/02/23 Does the patient have a future office visit with this provider/department: No Requested Prescriptions Pending Prescriptions Disp Refills zolpidem (AMBIEN) 10 mg 30 tablet 3 Sig: Take 1 tablet by mouth at bedtime as needed (insomnia) for up to 120 days. Lizbeth Bejarano LPN November 23, 2023 9:31 AM [facility] 11-08-2023 Note HNO ID: [id number] Author: ADALBERTO GOMEZ MD Service: ? Author Type: Physician Type: Progress Notes Filed: 11/08/2023 10:03 Note Text: Adalberto Gomez MD Department of Orthopaedics Orthopaedics [facility] [address] [address] Dept: [phone] November 08, 2023 CHIEF COMPLAINT: New and Pain of the Right Shoulder and Referred by Stan Oropeza HPI Patient here for evaluation right shoulder pain. 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 Then 2 weeks ago he tripped over a cart and landed on his right shoulder. He is having difficulty raising his arm upward and behind his back. He sleeps with his arms above head and has been unable to due to the pain. 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 Taking Aspirin for the pain and does not help. He did have x-ray done at on 10/01/23. ASSESSMENT: S46.011A Traumatic tear of right rotator cuff, unspecified tear extent, initial encounter (primary encounter diagnosis) M25.511 Acute pain of right shoulder PLAN: With not 1 but 2 acute injuries to the right shoulder, functional weakness in the arm, pain not controlled by some prescription medications, I recommend an MRI to evaluate his rotator cuff. Certainly, physical therapy program would be indicated if no cuff damage, though with his young age and weakness in the arm, evaluation of the rotator cuff would be most appropriate at this time. FOLLOW UP INSTRUCTIONS: See him back after imaging and formulate further plan of care at that time. OBJECTIVE: Mr. Sree Torres is a pleasant 53 year old in no apparent distress. Gen:There were no vitals taken for this visit. nl development, non obese, no deformities ENT: Normocephalic, normal hearing, moist mucosa CV: Pulses:Radial= 2+ and symmetric, capillary refill < 2 secs, no peripheral edema/varicosities Skin: no rash, bruising or lesions. Good turgor. Psych: cooperative and appropriate, alert and oriented x 3, good mood and affect. Musculoskeletal: Supple range of motion of the cervical spine without pain. Spurling signs are negative. No atrophy of the deltoid and shoulder musculature. Right shoulder is nontender to palpation over the SC joint, clavicle and AC joint. No tenderness to palpation over the posterior shoulder, positive tenderness palpation over the anterior lateral corner of the shoulder and greater tuberosity. Nonpainful at the bicipital groove and coracoid. Active range of motion is 160 degrees of forward elevation with increased pain from 90-1 20, 50 degrees external rotation, and internal rotation to the low lumbar spine. Passive range of motion is symmetrical, limited by pain, respectively. No laxity with anterior and posterior stress. Positive Neer and Cooley impingement signs. 3+/5 strength with supraspinatus, 4/5 infraspinatus and 5/5 subscapularis. Sensation is intact in the axillary, radial, median and ulnar nerve distribution IMAGIN views right shoulder from an outside facility report no acute injury, no arthritic changes. Recommendation for MRI to evaluate for internal derangement if clinically correlated. Supporting Subjective Information Below: Past Medical History: PAST MEDICAL HISTORY Diagnosis Date Dyslipidemia 03/19/2015 Elevated LFTs 04/14/2016 Essential hypertension with goal blood pressure less than 140/90 06/19/2015 Ex-smoker 03/06/2015 Started at age 23 up to 1 02/08 PPD. Quit smoking May 08 2016 Fatty liver 04/21/2016 GERD without esophagitis 04/14/2016 Hypogonadism in male 03/06/2015 Leukocytosis Muscle cramps 03/06/2015 TIMOTHY (obstructive sleep apnea) 03/31/2015 Sleep study 03/2015: sever. Not able to tolerate CPAP Situational mixed anxiety and depressive disorder 05/18/2019 secodary to Covid 19 Past Surgical History: PAST SURGICAL HISTORY Procedure Laterality Date BACK SURGERY HX micro discectomy L5-S1 COLONOSCOPY 09/04/2021 repeat in 3 years FECAL OCCULT BLOOD TEST 09/12/2019 negative FOOT SURGERY HX Right Family History: FAMILY HISTORY Problem Relation Age of Onset Hypertension Mother Diabetes Mother Psychiatry Mother rash and anxiety Cancer Maternal Grandmother 60 ? Cancer Maternal Grandfather 60 ? Alzheimer's Disease No Family History Colon Cancer No Family History Prostate Cancer No Family History Breast Cancer No Family History Ovarian cancer No Family History Coronary Artery Disease No Family History Kidney Disease No Family History Seizures No Family History Stroke No Family History Thyroid No Family History Anesthesia Problems No Family History Social History: Social History Tobacco Use Smoking status: Former Current packs/day: 0.00 Average packs/day: 1 pack/day for 20.0 years (20.0 ttl pk-yrs) Types: Cigarettes Start date: 05/08/1996 Quit date: 05/08/2016 Years since quittin.5 Smokeless tobacco: Never T (more content not included)... [facility] 11-08-2023 History of Present illness Narrative Adalberto Gomez MD Department of Orthopaedics Orthopaedics [address] [place] [address] Dept: [phone] November 08, 2023 CHIEF COMPLAINT: New and Pain of the Right Shoulder and Referred by Stan Oropeza HPI Patient here for evaluation right shoulder pain. 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 Then 2 weeks ago he tripped over a cart and landed on his right shoulder. He is having difficulty raising his arm upward and behind his back. He sleeps with his arms above head and has been unable to due to the pain. 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 Taking Aspirin for the pain and does not help. He did have x-ray done at on 10/01/23. ASSESSMENT: S46.011A Traumatic tear of right rotator cuff, unspecified tear extent, initial encounter (primary encounter diagnosis) M25.511 Acute pain of right shoulder PLAN: With not 1 but 2 acute injuries to the right shoulder, functional weakness in the arm, pain not controlled by some prescription medications, I recommend an MRI to evaluate his rotator cuff. Certainly, physical therapy program would be indicated if no cuff damage, though with his young age and weakness in the arm, evaluation of the rotator cuff would be most appropriate at this time. FOLLOW UP INSTRUCTIONS: See him back after imaging and formulate further plan of care at that time. OBJECTIVE: Mr. Sree Torres is a pleasant 53 year old in no apparent distress. Gen:There were no vitals taken for this visit. nl development, non obese, no deformities ENT: Normocephalic, normal hearing, moist mucosa CV: Pulses:Radial= 2+ and symmetric, capillary refill < 2 secs, no peripheral edema/varicosities Skin: no rash, bruising or lesions. Good turgor. Psych: cooperative and appropriate, alert and oriented x 3, good mood and affect. Musculoskeletal: Supple range of motion of the cervical spine without pain. Spurling signs are negative. No atrophy of the deltoid and shoulder musculature. Right shoulder is nontender to palpation over the SC joint, clavicle and AC joint. No tenderness to palpation over the posterior shoulder, positive tenderness palpation over the anterior lateral corner of the shoulder and greater tuberosity. Nonpainful at the bicipital groove and coracoid. Active range of motion is 160 degrees of forward elevation with increased pain from 90-1 20, 50 degrees external rotation, and internal rotation to the low lumbar spine. Passive range of motion is symmetrical, limited by pain, respectively. No laxity with anterior and posterior stress. Positive Neer and Cooley impingement signs. 3+/5 strength with supraspinatus, 4/5 infraspinatus and 5/5 subscapularis. Sensation is intact in the axillary, radial, median and ulnar nerve distribution IMAGIN views right shoulder from an outside facility report no acute injury, no arthritic changes. Recommendation for MRI to evaluate for internal derangement if clinically correlated. Supporting Subjective Information Below: Past Medical History: PAST MEDICAL HISTORY Diagnosis Date Dyslipidemia 03/19/2015 Elevated LFTs 04/14/2016 Essential hypertension with goal blood pressure less than 140/90 06/19/2015 Ex-smoker 03/06/2015 Started at age 23 up to 1 02/08 PPD. Quit smoking May 08 2016 Fatty liver 04/21/2016 GERD without esophagitis 04/14/2016 Hypogonadism in male 03/06/2015 Leukocytosis Muscle cramps 03/06/2015 TIMOTHY (obstructive sleep apnea) 03/31/2015 Sleep study 03/2015: sever. Not able to tolerate CPAP Situational mixed anxiety and depressive disorder 05/18/2019 secodary to Covid 19 Past Surgical History: PAST SURGICAL HISTORY Procedure Laterality Date BACK SURGERY HX micro discectomy L5-S1 COLONOSCOPY 09/04/2021 repeat in 3 years FECAL OCCULT BLOOD TEST 09/12/2019 negative FOOT SURGERY HX Right Family History: FAMILY HISTORY Problem Relation Age of Onset Hypertension Mother Diabetes Mother Psychiatry Mother rash and anxiety Cancer Maternal Grandmother 60 ? Cancer Maternal Grandfather 60 ? Alzheimer's Disease No Family History Colon Cancer No Family History Prostate Cancer No Family History Breast Cancer No Family History Ovarian cancer No Family History Coronary Artery Disease No Family History Kidney Disease No Family History Seizures No Family History Stroke No Family History Thyroid No Family History Anesthesia Problems No Family History Social History: Social History Tobacco Use Smoking status: Former Current packs/day: 0.00 Average packs/day: 1 pack/day for 20.0 years (20.0 ttl pk-yrs) Types: Cigarettes Start date: 05/08/1996 Quit date: 05/08/2016 Years since quittin.5 Smokeless tobacco: Never Tobacco comments: none x 4 years Vaping Use Vaping status: Never Used Substance Use Topics Alcohol use: No Drug use: No Medications: Current Outpatient Medications Medication Sig DULoxetine (CYMBALTA) 60 mg capsule Take 1 capsule by mouth once daily. zolpidem (AMBIEN) 10 mg Take 1 tablet by mouth at bedtime as needed (insomnia) for up to 120 days. omeprazole (PRILOSEC) 20 mg capsule Take 1 capsule by mouth once daily. TAKE 1 TABLET BY MOUTH DAILY BEFORE BREAKFAST. 1/2 HR BEFORE MEAL. lisinopril (ZESTRIL) 20 mg tablet Take 1 tablet by mouth once daily. Cholecalciferol, Vitamin D3, 50 mcg (2,000 unit) cap Take 1 capsule by mouth once daily. No current facility-administered medications for this visit. Allergies: Patient has no known allergies. ROS: General (negative for fatigue, malaise, weight loss/gain) HEENT (negative for headache, earache, recent vision changes, sinus pain, sore throat) Respiratory (no recent shortness of breath, hemoptysis) CV (negative for chest tightness, palpitations) Musculoskeletal (see HPI) Psych (no depression, anxiety) REFERRING PHYSICIAN: Consultation requested by Stan Oropeza for an opinion regarding shoulder pain. My final recommendations will be communicated back to the requesting physician by way of shared Medical record or letter to requesting physician via US mail. Stan Oropeza [address] [facility] [place] [id number] Adalberto Gomez MD documented in this encounter [facility] 11-04-2023 Telephone encounter Note Please assist patient to schedule with Dr. Gomez for his shoulder. He was scheduled previously but unable to make the appointment. Stan Oropeza APRN.CNP [facility] 11-04-2023 Miscellaneous Notes Please assist patient to schedule with Dr. Gomez for his shoulder. He was scheduled previously but unable to make the appointment. Stan Oropeza APRN.CNP documented in this encounter [facility] 11-02-2023 Note HNO ID: [id number] Author: STAN OROPEZA APRN.CNP Service: ? Author Type: Nurse Practitioner Type: Progress Notes Filed: 11/04/2023 13:07 Note Text: Chief Complaint Patient presents with: Follow Up: Injury of right shoulder, Needs sooner appt with ortho, anxiety. HPI Sree Torres is a 53 year old male who presents here today for Above Complaints.. Right shoulder-needs to get in with ortho and having difficulty getting scheduled. Requesting some assistance. Fall at work on 10/26. [place] a little lightheaded, turned around and tripped over a skid, fell on his right side, hit his head, was knocked out-unknown how long. Was taken to [facility] via squad. Dx with concussion. Suspected dehydration. Is currently on a paid suspension from work due to + drug test for either the Xanax or [place]. Saw grandkids while he has been off work over the weekend and they've commented how much better he has been and available he's been. Knows things are going to get worse when he goes back. Past medical history, appointments, medications, allergies reviewed. Previous Medical History PAST MEDICAL HISTORY Diagnosis Date Dyslipidemia 03/19/2015 Elevated LFTs 04/14/2016 Essential hypertension with goal blood pressure less than 140/90 06/19/2015 Ex-smoker 03/06/2015 Started at age 23 up to 1 02/08 PPD. Quit smoking May 08 2016 Fatty liver 04/21/2016 GERD without esophagitis 04/14/2016 Hypogonadism in male 03/06/2015 Leukocytosis Muscle cramps 03/06/2015 TIMOTHY (obstructive sleep apnea) 03/31/2015 Sleep study 03/2015: sever. Not able to tolerate CPAP Situational mixed anxiety and depressive disorder 05/18/2019 secodary to Covid 19 Previous Surgical History PAST SURGICAL HISTORY Procedure Laterality Date BACK SURGERY HX micro discectomy L5-S1 COLONOSCOPY 09/04/2021 repeat in 3 years FECAL OCCULT BLOOD TEST 09/12/2019 negative FOOT SURGERY HX Right Family History FAMILY HISTORY Problem Relation Age of Onset Diabetes Mother Psychiatry Mother rash and anxiety Cancer Maternal Grandmother 60 ? Cancer Maternal Grandfather 60 ? Alzheimer's Disease No Family History Colon Cancer No Family History Prostate Cancer No Family History Breast Cancer No Family History Ovarian cancer No Family History Coronary Artery Disease No Family History Hypertension No Family History Hyperlipidemia No Family History Kidney Disease No Family History Seizures No Family History Stroke No Family History Thyroid No Family History Anesthesia Problems No Family History Patient Allergies ALLERGIES No Known Allergies Current Medications Current Outpatient Medications on File Prior to Visit Medication Sig ALPRAZolam (XANAX) 0.5 mg tablet Take 1 tablet by mouth two times a day as needed for up to 30 days. cyclobenzaprine (FLEXERIL) 10 mg tablet Take 1 tablet by mouth three times a day as needed for muscle spasm. DULoxetine (CYMBALTA) 60 mg capsule Take 1 capsule by mouth once daily. zolpidem (AMBIEN) 10 mg Take 1 tablet by mouth at bedtime as needed (insomnia) for up to 120 days. omeprazole (PRILOSEC) 20 mg capsule Take 1 capsule by mouth once daily. TAKE 1 TABLET BY MOUTH DAILY BEFORE BREAKFAST. 1/2 HR BEFORE MEAL. lisinopril (ZESTRIL) 20 mg tablet Take 1 tablet by mouth once daily. Cholecalciferol, Vitamin D3, 50 mcg (2,000 unit) cap Take 1 capsule by mouth once daily. No current facility-administered medications on file prior to visit. Social History Social History Tobacco Use Smoking status: Former Current packs/day: 0.00 Average packs/day: 1 pack/day for 20.0 years (20.0 ttl pk-yrs) Types: Cigarettes Start date: 05/08/1996 Quit date: 05/08/2016 Years since quittin.4 Smokeless tobacco: Never Tobacco comments: none x 4 years Vaping Use Vaping status: Never Used Substance Use Topics Alcohol use: No Drug use: No Review of Symptoms REVIEW OF SYSTEMS See HPI, otherwise negative EXAM: BP 126/80 (BP Site: Left Arm, BP Position: Sitting, BP Cuff Size: Regular Adult) Pulse 68 Resp 16 Wt 121.7 kg (268 lb 4.8 oz) SpO2 97% BMI 32.66 kg/m? General Appearance: Well appearing, alert, in no acute distress, well-hydrated, well nourished.. Lungs: Lungs clear to auscultation. No wheezing, rhonchi, rales.. Heart: RRR without murmur, gallop, or rubs. No ectopy. Psychiatric: pleasant, cooperative. Health Maintenance List Lung Cancer Screening Never done Shingrix Vaccine(1 of 2) Never done Covid-19 Vaccine(2023- season) due on 10/09/2023 Influenza Vaccine(1) due on 10/09/2023 Hepatitis B Vaccine(1 of 3 - 19+ 3-dose series) due on 04/01/2024 HIV Screening due on 04/01/2024 Colorectal Cancer Screening due on 09/04/2024 Annual PCP Team Chronic Disease Visit due on 10/05/2024 BP Controlled (<130/80) due on 10/05/2024 DTaP,Tdap,Td Vaccine(2 - Td or Tdap) due on 03/06/2025 Diabetes Screening due on 04/06/2026 Lipid Screening due on (more content not included)... [facility] 11-02-2023 History of Present illness Narrative Chief Complaint Patient presents with: Follow Up: Injury of right shoulder, Needs sooner appt with ortho, anxiety. HPI Sree Torres is a 53 year old male who presents here today for Above Complaints.. Right shoulder-needs to get in with ortho and having difficulty getting scheduled. Requesting some assistance. Fall at work on 10/26. [place] a little lightheaded, turned around and tripped over a skid, fell on his right side, hit his head, was knocked out-unknown how long. Was taken to [facility] via squad. Dx with concussion. Suspected dehydration. Is currently on a paid suspension from work due to + drug test for either the Xanax or [place]. Saw grandkids while he has been off work over the weekend and they've commented how much better he has been and available he's been. Knows things are going to get worse when he goes back. Past medical history, appointments, medications, allergies reviewed. Previous Medical History PAST MEDICAL HISTORY Diagnosis Date Dyslipidemia 03/19/2015 Elevated LFTs 04/14/2016 Essential hypertension with goal blood pressure less than 140/90 06/19/2015 Ex-smoker 03/06/2015 Started at age 23 up to 1 02/08 PPD. Quit smoking May 08 2016 Fatty liver 04/21/2016 GERD without esophagitis 04/14/2016 Hypogonadism in male 03/06/2015 Leukocytosis Muscle cramps 03/06/2015 TIMOTHY (obstructive sleep apnea) 03/31/2015 Sleep study 03/2015: sever. Not able to tolerate CPAP Situational mixed anxiety and depressive disorder 05/18/2019 secodary to Covid 19 Previous Surgical History PAST SURGICAL HISTORY Procedure Laterality Date BACK SURGERY HX micro discectomy L5-S1 COLONOSCOPY 09/04/2021 repeat in 3 years FECAL OCCULT BLOOD TEST 09/12/2019 negative FOOT SURGERY HX Right Family History FAMILY HISTORY Problem Relation Age of Onset Diabetes Mother Psychiatry Mother rash and anxiety Cancer Maternal Grandmother 60 ? Cancer Maternal Grandfather 60 ? Alzheimer's Disease No Family History Colon Cancer No Family History Prostate Cancer No Family History Breast Cancer No Family History Ovarian cancer No Family History Coronary Artery Disease No Family History Hypertension No Family History Hyperlipidemia No Family History Kidney Disease No Family History Seizures No Family History Stroke No Family History Thyroid No Family History Anesthesia Problems No Family History Patient Allergies ALLERGIES No Known Allergies Current Medications Current Outpatient Medications on File Prior to Visit Medication Sig ALPRAZolam (XANAX) 0.5 mg tablet Take 1 tablet by mouth two times a day as needed for up to 30 days. cyclobenzaprine (FLEXERIL) 10 mg tablet Take 1 tablet by mouth three times a day as needed for muscle spasm. DULoxetine (CYMBALTA) 60 mg capsule Take 1 capsule by mouth once daily. zolpidem (AMBIEN) 10 mg Take 1 tablet by mouth at bedtime as needed (insomnia) for up to 120 days. omeprazole (PRILOSEC) 20 mg capsule Take 1 capsule by mouth once daily. TAKE 1 TABLET BY MOUTH DAILY BEFORE BREAKFAST. 1/2 HR BEFORE MEAL. lisinopril (ZESTRIL) 20 mg tablet Take 1 tablet by mouth once daily. Cholecalciferol, Vitamin D3, 50 mcg (2,000 unit) cap Take 1 capsule by mouth once daily. No current facility-administered medications on file prior to visit. Social History Social History Tobacco Use Smoking status: Former Current packs/day: 0.00 Average packs/day: 1 pack/day for 20.0 years (20.0 ttl pk-yrs) Types: Cigarettes Start date: 05/08/1996 Quit date: 05/08/2016 Years since quittin.4 Smokeless tobacco: Never Tobacco comments: none x 4 years Vaping Use Vaping status: Never Used Substance Use Topics Alcohol use: No Drug use: No Review of Symptoms REVIEW OF SYSTEMS See HPI, otherwise negative EXAM: BP 126/80 (BP Site: Left Arm, BP Position: Sitting, BP Cuff Size: Regular Adult) Pulse 68 Resp 16 Wt 121.7 kg (268 lb 4.8 oz) SpO2 97% BMI 32.66 kg/m General Appearance: Well appearing, alert, in no acute distress, well-hydrated, well nourished.. Lungs: Lungs clear to auscultation. No wheezing, rhonchi, rales.. Heart: RRR without murmur, gallop, or rubs. No ectopy. Psychiatric: pleasant, cooperative. Health Maintenance List Lung Cancer Screening Never done Shingrix Vaccine(1 of 2) Never done Covid-19 Vaccine( season) due on 10/09/2023 Influenza Vaccine(1) due on 10/09/2023 Hepatitis B Vaccine(1 of 3 - 19+ 3-dose series) due on 04/01/2024 HIV Screening due on 04/01/2024 Colorectal Cancer Screening due on 09/04/2024 Annual PCP Team Chronic Disease Visit due on 10/05/2024 BP Controlled (<130/80) due on 10/05/2024 DTaP,Tdap,Td Vaccine(2 - Td or Tdap) due on 03/06/2025 Diabetes Screening due on 04/06/2026 Lipid Screening due on 04/23/2026 Hepatitis C Screening Completed Data reviewed Previous records, office notes ASSESSMENT/PLAN: 1. Situational mixed anxiety and depressive disorder - ICD9: 309.28, ICD10: F43.23 (primary diagnosis) Continue Cymbalta 60mg daily. Continue alprazolam 0.5mg prn. F/u in 3 months, sooner if necessary. 2. 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 Continue alprazolam 0.5mg prn. F/u in 3 months, sooner if necessary. 3. Moderate episode of recurrent major depressive disorder (HCC) - ICD9: 296.32, ICD10: [id number] Cymbalta 60mg daily. Continue alprazolam 0.5mg prn. F/u in 3 months, sooner if necessary..1 4. Injury of right shoulder, subsequent encounter - ICD9: V58.89, 959.2, ICD10: S49.91XD Reschedule with Dr. Gomez. Stan Oropeza APRN.CNP Greater than 50% of 50-minute visit spent face to face with patient in counseling and education. documented in this encounter [facility] 10-28-2023 Telephone encounter Note Noted, thank you. Stan Oropeza APRN.CNP [facility] 10-28-2023 Miscellaneous Notes Noted, thank you. Stan Oropeza APRN.VICKEY Patient calling in. ER Follow-Up appt made for patient for 11/03/23 with Stan, as patient prefers to see her only. 11/08/23 appt cancelled. Patient denies any current concerns, questions or needs. Will send this encounter to Stan for update. Ivette Yates RN Spouse calls to report that patient had an ER visit last night after getting dizzy at work and tripping over a skid. Patient was seen at [facility] ER. She reports he has a concussion. Spouse reports that she is concerned that patients depression is worsening. Patient has reported to her that he feels like he is in a very dark place. She is aware of recent appointment and medication changes and wanted to let Lydia know of her concerns since appointment she feels that patient is in an even darker place with work and home life. She reports that patient is currently sleeping but it was ok to leave a message for patient to call back and speak to a nurse for further information as he will get message when he wakes. Message left for patient to follow up on symptoms and medications as ordered at appointment. Patient scheduled to see Lydia on 11/08/2023 for 1 month follow up previously. Has sooner availability if patient desires. Zelda Macias RN documented in this encounter [facility] 10-28-2023 Telephone encounter Note Patient calling in. ER Follow-Up appt made for patient for 11/03/23 with Stan, as patient prefers to see her only. 11/08/23 appt cancelled. Patient denies any current concerns, questions or needs. Will send this encounter to Stan for update. Ivette Yates RN [facility] 10-28-2023 Telephone encounter Note Spouse calls to report that patient had an ER visit last night after getting dizzy at work and tripping over a skid. Patient was seen at [facility] ER. She reports he has a concussion. Spouse reports that she is concerned that patients depression is worsening. Patient has reported to her that he feels like he is in a very dark place. She is aware of recent appointment and medication changes and wanted to let Lydia know of her concerns since appointment she feels that patient is in an even darker place with work and home life. She reports that patient is currently sleeping but it was ok to leave a message for patient to call back and speak to a nurse for further information as he will get message when he wakes. Message left for patient to follow up on symptoms and medications as ordered at appointment. Patient scheduled to see Lydia on 11/08/2023 for 1 month follow up previously. Has sooner availability if patient desires. Zelda Macias RN [facility] 10-25-2023 Telephone encounter Note Patient canceled appointment and did not reschedule. T [facility] 10-25-2023 Miscellaneous Notes Patient canceled appointment and did not reschedule. T [facility] Patient has appointment with Dr. Gomez on Tuesday 10/24 at the [place] office. Patient had x-rays done at on 09/30. Left message for patient to get a copy of x-rays on a CD to bring to appointment. Patient is to call the office if any questions. documented in this encounter [facility] 10-20-2023 Telephone encounter Note Patient has appointment with Dr. Gomez on Tuesday 10/24 at the [place] office. Patient had x-rays done at on 09/30. Left message for patient to get a copy of x-rays on a CD to bring to appointment. Patient is to call the office if any questions. [facility] 10-06-2023 Instructions Stan Oropeza APRN.VICKEY - 10/06/2023 8:10 AM EDT Schedule with orthopedics-I recommended with Dr. Gomez or Yohana, his PA. I sent in more Xanax. As needed Flexeril for your shoulder pain. As needed [place] for your shoulder pain. Increase your Cymbalta to 60mg daily. documented in this encounter [facility] 10-06-2023 Note HNO ID: [id number] Author: STAN OROPEZA APRN.VICKEY Service: ? Author Type: Nurse Practitioner Type: Progress Notes Filed: 10/06/2023 16:19 Note Text: Chief Complaint Patient presents with: Depression: Discuss med options Pain (Shoulder Pain): R x 1 week due to injury. Was seen in ER 09/30 and was told to follow up with ortho for possible torn rotator cuff. HPI Sree Torres is a 53 year old male who presents here today for Above Complaints.. 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 Does have some occasional thoughts that things would be better of not being here-but more just frustrated and depressed, would never do anything about it. This is affecting his relationship with his . Has panic attacks when getting ready to go to work. Cymbalta-hasn't helped at all. 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 [place] the pain immediately, but over the next 2 days got pretty severe. Ended up going to [facility]-they did an xray-was told no bone issues. Was given shot of Toradol. Gave him an NSAID for pain. Pain is slightly better but still very painful. ROM is terrible, can't lift anything. Is left handed. Difficulty sleeping r/t the pain-already has some sleeping issues anyway-Ambien has been helping-is not dependent on it-but wondering if possibly could be increased. Past medical history, appointments, medications, allergies reviewed. Previous Medical History PAST MEDICAL HISTORY 03/19/2015: Dyslipidemia 04/14/2016: Elevated LFTs 06/19/2015: Essential hypertension with goal blood pressure less than 140/90 03/06/2015: Ex-smoker Comment: Started at age 23 up to 1 02/08 PPD. Quit smoking May 08 2016 04/21/2016: Fatty liver 04/14/2016: GERD without esophagitis 03/06/2015: Hypogonadism in male No date: Leukocytosis 03/06/2015: Muscle cramps 03/31/2015: TIMOTHY (obstructive sleep apnea) Comment: Sleep study 03/2015: sever. Not able to tolerate CPAP 05/18/2019: Situational mixed anxiety and depressive disorder Comment: secodary to Covid 19 Previous Surgical History PAST SURGICAL HISTORY No date: BACK SURGERY HX Comment: micro discectomy L5-S1 09/04/2021: COLONOSCOPY Comment: repeat in 3 years 09/12/2019: FECAL OCCULT BLOOD TEST Comment: negative No date: FOOT SURGERY HX; Right Family History FAMILY HISTORY Problem Relation Age of Onset Diabetes Mother Psychiatry Mother rash and anxiety Cancer Maternal Grandmother 60 ? Cancer Maternal Grandfather 60 ? Alzheimer's Disease No Family History Colon Cancer No Family History Prostate Cancer No Family History Breast Cancer No Family History Ovarian cancer No Family History Coronary Artery Disease No Family History Hypertension No Family History Hyperlipidemia No Family History Kidney Disease No Family History Seizures No Family History Stroke No Family History Thyroid No Family History Anesthesia Problems No Family History Patient Allergies ALLERGIES No Known Allergies Current Medications Current Outpatient Medications on File Prior to Visit Medication Sig omeprazole (PRILOSEC) 20 mg capsule Take 1 capsule by mouth once daily. TAKE 1 TABLET BY MOUTH DAILY BEFORE BREAKFAST. 1/2 HR BEFORE MEAL. lisinopril (ZESTRIL) 20 mg tablet Take 1 tablet by mouth once daily. zolpidem (AMBIEN) 10 mg Take 1 tablet by mouth at bedtime as needed (insomnia) for up to 120 days. Cholecalciferol, Vitamin D3, 50 mcg (2,000 unit) cap Take 1 capsule by mouth once daily. DULoxetine (CYMBALTA) 30 mg capsule Take 1 capsule by mouth once daily. No current facility-administered medications on file prior to visit. Social History Social History Tobacco Use Smoking status: Former Current packs/day: 0.00 Average packs/day: 1 pack/day for 20.0 years (20.0 ttl pk-yrs) Types: Cigarettes Start date: 05/08/1996 Quit date: 05/08/2016 Years since quittin.4 Smokeless tobacco: Never Tobacco comments: none x 4 years Vaping Use Vaping status: Never Used Substance Use Topics Alcohol use: No Drug use: No Review of Symptoms REVIEW OF SYSTEMS See HPI, otherwise negative EXAM: BP 122/78 (BP Site: Left Arm, BP Position: Sitting, BP Cuff Size: Regular Adult) Pulse 70 Resp 16 Wt 121.4 kg (267 lb 9.6 oz) SpO2 97% BMI 32.57 kg/m? General Appearance: Well appearing, alert, in no acute distress, well-hydrated, well nourished.. Lungs: Lungs clear to auscultation. No wheezing, rhonchi, rales.. Heart: RRR without murmur, gallop, or rubs. No ectopy. Musculoskeletal: right shoulder with decreased ROM, positive lift off test, weakness. Psychiatric: pleasant, cooperative, no SI/HI. Health Maintenance List BP Controlled (<130/80) Never done Lung Cancer Screening Never done Shingrix Vaccine(1 of 2) Never done Hepatitis B Vaccine(1 of 3 - 19+ (more content not included)... [facility] 10-06-2023 History of Present illness Narrative Chief Complaint Patient presents with: Depression: Discuss med options Pain (Shoulder Pain): R x 1 week due to injury. Was seen in ER 09/30 and was told to follow up with ortho for possible torn rotator cuff. HPI Sree Torres is a 53 year old male who presents here today for Above Complaints.. 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 Does have some occasional thoughts that things would be better of not being here-but more just frustrated and depressed, would never do anything about it. This is affecting his relationship with his . Has panic attacks when getting ready to go to work. Cymbalta-hasn't helped at all. 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 [place] the pain immediately, but over the next 2 days got pretty severe. Ended up going to [facility]-they did an xray-was told no bone issues. Was given shot of Toradol. Gave him an NSAID for pain. Pain is slightly better but still very painful. ROM is terrible, can't lift anything. Is left handed. Difficulty sleeping r/t the pain-already has some sleeping issues anyway-Ambien has been helping-is not dependent on it-but wondering if possibly could be increased. Past medical history, appointments, medications, allergies reviewed. Previous Medical History PAST MEDICAL HISTORY 03/19/2015: Dyslipidemia 04/14/2016: Elevated LFTs 06/19/2015: Essential hypertension with goal blood pressure less than 140/90 03/06/2015: Ex-smoker Comment: Started at age 23 up to 1 1/2 PPD. Quit smoking May 08 2016 04/21/2016: Fatty liver 04/14/2016: GERD without esophagitis 03/06/2015: Hypogonadism in male No date: Leukocytosis 03/06/2015: Muscle cramps 03/31/2015: TIMOTHY (obstructive sleep apnea) Comment: Sleep study 03/2015: sever. Not able to tolerate CPAP 05/18/2019: Situational mixed anxiety and depressive disorder Comment: secodary to Covid 19 Previous Surgical History PAST SURGICAL HISTORY No date: BACK SURGERY HX Comment: micro discectomy L5-S1 09/04/2021: COLONOSCOPY Comment: repeat in 3 years 09/12/2019: FECAL OCCULT BLOOD TEST Comment: negative No date: FOOT SURGERY HX; Right Family History FAMILY HISTORY Problem Relation Age of Onset Diabetes Mother Psychiatry Mother rash and anxiety Cancer Maternal Grandmother 60 ? Cancer Maternal Grandfather 60 ? Alzheimer's Disease No Family History Colon Cancer No Family History Prostate Cancer No Family History Breast Cancer No Family History Ovarian cancer No Family History Coronary Artery Disease No Family History Hypertension No Family History Hyperlipidemia No Family History Kidney Disease No Family History Seizures No Family History Stroke No Family History Thyroid No Family History Anesthesia Problems No Family History Patient Allergies ALLERGIES No Known Allergies Current Medications Current Outpatient Medications on File Prior to Visit Medication Sig omeprazole (PRILOSEC) 20 mg capsule Take 1 capsule by mouth once daily. TAKE 1 TABLET BY MOUTH DAILY BEFORE BREAKFAST. 1/2 HR BEFORE MEAL. lisinopril (ZESTRIL) 20 mg tablet Take 1 tablet by mouth once daily. zolpidem (AMBIEN) 10 mg Take 1 tablet by mouth at bedtime as needed (insomnia) for up to 120 days. Cholecalciferol, Vitamin D3, 50 mcg (2,000 unit) cap Take 1 capsule by mouth once daily. DULoxetine (CYMBALTA) 30 mg capsule Take 1 capsule by mouth once daily. No current facility-administered medications on file prior to visit. Social History Social History Tobacco Use Smoking status: Former Current packs/day: 0.00 Average packs/day: 1 pack/day for 20.0 years (20.0 ttl pk-yrs) Types: Cigarettes Start date: 05/08/1996 Quit date: 05/08/2016 Years since quittin.4 Smokeless tobacco: Never Tobacco comments: none x 4 years Vaping Use Vaping status: Never Used Substance Use Topics Alcohol use: No Drug use: No Review of Symptoms REVIEW OF SYSTEMS See HPI, otherwise negative EXAM: BP 122/78 (BP Site: Left Arm, BP Position: Sitting, BP Cuff Size: Regular Adult) Pulse 70 Resp 16 Wt 121.4 kg (267 lb 9.6 oz) SpO2 97% BMI 32.57 kg/m General Appearance: Well appearing, alert, in no acute distress, well-hydrated, well nourished.. Lungs: Lungs clear to auscultation. No wheezing, rhonchi, rales.. Heart: RRR without murmur, gallop, or rubs. No ectopy. Musculoskeletal: right shoulder with decreased ROM, positive lift off test, weakness. Psychiatric: pleasant, cooperative, no SI/HI. Health Maintenance List BP Controlled (<130/80) Never done Lung Cancer Screening Never done Shingrix Vaccine(1 of 2) Never done Hepatitis B Vaccine(1 of 3 - 19+ 3-dose series) due on 04/01/2024 HIV Screening due on 04/01/2024 Covid-19 Vaccine(4 - season) due on 04/01/2024 Influenza Vaccine(1) due on 10/09/2023 Annual PCP Team Chronic Disease Visit due on 04/01/2024 Colorectal Cancer Screening due on 09/04/2024 DTaP,Tdap,Td Vaccine(2 - Td or Tdap) due on 03/06/2025 Diabetes Screening due on 04/06/2026 Lipid Screening due on 04/23/2026 Hepatitis C Screening Completed Data reviewed Previous records, office notes, [place]AR[place] report PDMP website checked and validated. All prescriptions have been APPROPRIATELY filled. No suspicious activity was identified. 10/06/2023 by Stan Oropeza CNP. ASSESSMENT/PLAN: 1. Injury of right shoulder, subsequent encounter - ICD9: V58.89, 959.2, ICD10: S49.91XD (primary diagnosis) - CONSULT TO ORTHOPAEDICS - HYDROCODONE 7.5 MG-ACETAMINOPHEN 325 MG TABLET - CYCLOBENZAPRINE 10 MG TABLET 2. Acute pain of right shoulder - ICD9: 719.41, ICD10: M25.511 - CONSULT TO ORTHOPAEDICS - HYDROCODONE 7.5 MG-ACETAMINOPHEN 325 MG TABLET - CYCLOBENZAPRINE 10 MG TABLET 3. Situational mixed anxiety and depressive disorder - ICD9: 309.28, ICD10: F43.23 - ALPRAZOLAM 0.5 MG TABLET - DULOXETINE 60 MG CAPSULE,DELAYED RELEASE 4. Agoraphobia with panic attacks - ICD9: 300.21, ICD10: F40.01 - ALPRAZOLAM 0.5 MG TABLET - DULOXETINE 60 MG CAPSULE,DELAYED RELEASE 5. Moderate episode of recurrent major depressive disorder (HCC) - ICD9: 296.32, ICD10: F33.1 - DULOXETINE 60 MG CAPSULE,DELAYED RELEASE 6. Insomnia secondary to chronic pain - ICD9: 338.29, 327.01, ICD10: G89.29, G47.01 - ZOLPIDEM 10 MG TABLET Stan Oropeza APRN.PHARMACIST AIDE documented in this encounter [facility] 10-01-2023 Emergency department Note HPI Chief Complaint Patient presents with Shoulder Injury Right shoulder pain starting yesterday, pt states he lifted something heavy yesterday and felt something tear + numbness in fingertips Patient presents to the emergency department secondary to right shoulder pain. He states that this was provoked when attempting to lift a lawnmower and a box onto a wheeled cart at a hardware store. Took Aleve to help with his pain. Worse with range of motion. No history of direct trauma History provided by: Patient mental tester used: No Patient History Past Medical History: Diagnosis Date Hypertension History reviewed. No pertinent surgical history. No family history on file. Social History Tobacco Use Smoking status: Never Smokeless tobacco: Not on file Substance Use Topics Alcohol use: Not on file Drug use: Never Physical Exam ED Triage Vitals [10/01/23 0944] Temperature Heart Rate Respirations BP 36.2 C (97.2 F) 68 20 142/67 Pulse Ox Temp src Heart Rate Source Patient Position 98 % -- -- -- BP Location FiO2 (%) -- -- Physical Exam Vitals and nursing note reviewed. Constitutional: General: He is not in acute distress. Appearance: Normal appearance. He is normal weight. He is not ill-appearing, toxic-appearing or diaphoretic. Comments: Sitting up in bed drinking an iced coffee. Not in any acute distress and appears well HENT: Head: Normocephalic and atraumatic. Nose: Nose normal. No rhinorrhea. Neck: Comments: Trachea is midline Cardiovascular: Rate and Rhythm: Normal rate and regular rhythm. Pulses: Normal pulses. Pulmonary: Breath sounds: Normal breath sounds. Musculoskeletal: General: Tenderness present. No swelling, deformity or signs of injury. Cervical back: Normal range of motion. Left lower leg: No edema. Comments: There is no gross abnormality to the right upper extremity. Range of motion at the shoulder is limited secondary to pain. There is no point tenderness over the AC joint. He can abduct to about 45 degrees. Film Processing Shift Supervisor strengths are equal. Skin: General: Skin is warm and dry. Findings: No rash. Neurological: General: No focal deficit present. Mental Status: He is alert and oriented to person, place, and time. Mental status is at baseline. Sensory: No sensory deficit. Psychiatric: Mood and Affect: Mood normal. Behavior: Behavior normal. Thought Content: Thought content normal. Judgment: Judgment normal. ED Course & MDM No data recorded Taft Coma Scale Score: 15 (10/01/23 0946 : Joann Villegas RN) Medical Decision Making It is noted that before the patient's x-ray results had resulted the patient apparently left the emergency room without telling myself or the staff. The patient called back into the emergency room requesting the results of his x-ray and I took this phone call. The patient felt that his wait time was too long and at the time of our phone conversation it is noted that his triage time was 1 hour and 38 minutes ago. I explained to the patient by phone that his x-ray showed no acute bony abnormality and I will print discharge papers for him referring him to orthopedics and provide a prescription for NSAIDs. He will be instructed to ice the affected area and he can return to the emergency room at any time if he wishes to be further evaluated. His discharge paperwork was left at the front registration desk and he could pick this up at his convenience Procedure Procedures Bryce Yao DO 10/01/23 1117 documented in this encounter [facility] Work Phone: 10-01-2023 Physician Emergency department Note HPI Chief Complaint Patient presents with Shoulder Injury Right shoulder pain starting yesterday, pt states he lifted something heavy yesterday and felt something tear + numbness in fingertips Patient presents to the emergency department secondary to right shoulder pain. He states that this was provoked when attempting to lift a lawnmower and a box onto a wheeled cart at a hardware store. Took Aleve to help with his pain. Worse with range of motion. No history of direct trauma History provided by: Patient mental tester used: No Patient History Past Medical History: Diagnosis Date Hypertension History reviewed. No pertinent surgical history. No family history on file. Social History Tobacco Use Smoking status: Never Smokeless tobacco: Not on file Substance Use Topics Alcohol use: Not on file Drug use: Never Physical Exam ED Triage Vitals [10/01/23 0944] Temperature Heart Rate Respirations BP 36.2 C (97.2 F) 68 20 142/67 Pulse Ox Temp src Heart Rate Source Patient Position 98 % -- -- -- BP Location FiO2 (%) -- -- Physical Exam Vitals and nursing note reviewed. Constitutional: General: He is not in acute distress. Appearance: Normal appearance. He is normal weight. He is not ill-appearing, toxic-appearing or diaphoretic. Comments: Sitting up in bed drinking an iced coffee. Not in any acute distress and appears well HENT: Head: Normocephalic and atraumatic. Nose: Nose normal. No rhinorrhea. Neck: Comments: Trachea is midline Cardiovascular: Rate and Rhythm: Normal rate and regular rhythm. Pulses: Normal pulses. Pulmonary: Breath sounds: Normal breath sounds. Musculoskeletal: General: Tenderness present. No swelling, deformity or signs of injury. Cervical back: Normal range of motion. Left lower leg: No edema. Comments: There is no gross abnormality to the right upper extremity. Range of motion at the shoulder is limited secondary to pain. There is no point tenderness over the AC joint. He can abduct to about 45 degrees. Film Processing Shift Supervisor strengths are equal. Skin: General: Skin is warm and dry. Findings: No rash. Neurological: General: No focal deficit present. Mental Status: He is alert and oriented to person, place, and time. Mental status is at baseline. Sensory: No sensory deficit. Psychiatric: Mood and Affect: Mood normal. Behavior: Behavior normal. Thought Content: Thought content normal. Judgment: Judgment normal. ED Course & MDM No data recorded Taft Coma Scale Score: 15 (10/01/23 0946 : Joann Villegas RN) Medical Decision Making It is noted that before the patient's x-ray results had resulted the patient apparently left the emergency room without telling myself or the staff. The patient called back into the emergency room requesting the results of his x-ray and I took this phone call. The patient felt that his wait time was too long and at the time of our phone conversation it is noted that his triage time was 1 hour and 38 minutes ago. I explained to the patient by phone that his x-ray showed no acute bony abnormality and I will print discharge papers for him referring him to orthopedics and provide a prescription for NSAIDs. He will be instructed to ice the affected area and he can return to the emergency room at any time if he wishes to be further evaluated. His discharge paperwork was left at the front registration desk and he could pick this up at his convenience Procedure Procedures Bryce Yao DO 10/01/23 1117 [facility] Work Phone: 08-16-2023 Telephone encounter Note Prescription Refill Information The patient has been identified by name and date of : Yes Caregiver verified no other encounters exist for this prescription request: Yes Caregiver confirmed with patient/requestor that no other refills are due, in the near future, with this provider at this time: Yes The last office visit in the department: 04/01/2023 Does the patient have a future office visit with this provider/department: No Requested Prescriptions Pending Prescriptions Disp Refills omeprazole (PRILOSEC) 20 mg capsule 90 capsule 1 Sig: Take 1 capsule by mouth once daily. TAKE 1 TABLET BY MOUTH DAILY BEFORE BREAKFAST. 1/2 HR BEFORE MEAL. Fanny Lassiter LPN August 16, 2023 11:47 AM [facility] 08-16-2023 Miscellaneous Notes Prescription Refill Information The patient has been identified by name and date of : Yes Caregiver verified no other encounters exist for this prescription request: Yes Caregiver confirmed with patient/requestor that no other refills are due, in the near future, with this provider at this time: Yes The last office visit in the department: 04/01/2023 Does the patient have a future office visit with this provider/department: No Requested Prescriptions Pending Prescriptions Disp Refills omeprazole (PRILOSEC) 20 mg capsule 90 capsule 1 Sig: Take 1 capsule by mouth once daily. TAKE 1 TABLET BY MOUTH DAILY BEFORE BREAKFAST. 1/2 HR BEFORE MEAL. Fanny Lassiter LPN August 16, 2023 11:47 AM documented in this encounter [facility] 07-15-2023 Telephone encounter Note [facility] website checked and validated. All prescriptions have been APPROPRIATELY filled. No suspicious activity was identified. 07/15/2023 by Samina Berg APRN.CNP The following approved medication requests have been transmitted electronically. Requested Prescriptions Signed Prescriptions Disp Refills lisinopril (ZESTRIL) 20 mg tablet 90 tablet 1 Sig: Take 1 tablet by mouth once daily. Authorizing Provider: SAMINA BERG zolpidem (AMBIEN) 10 mg 30 tablet 3 Sig: Take 1 tablet by mouth at bedtime as needed (insomnia) for up to 120 days. Authorizing Provider: SAMINA BERG APRN.CNP [facility] 07-15-2023 Miscellaneous Notes [facility] website checked and validated. All prescriptions have been APPROPRIATELY filled. No suspicious activity was identified. 07/15/2023 by Samina Berg APRN.CNP The following approved medication requests have been transmitted electronically. Requested Prescriptions Signed Prescriptions Disp Refills lisinopril (ZESTRIL) 20 mg tablet 90 tablet 1 Sig: Take 1 tablet by mouth once daily. Authorizing Provider: SAMINA BERG zolpidem (AMBIEN) 10 mg 30 tablet 3 Sig: Take 1 tablet by mouth at bedtime as needed (insomnia) for up to 120 days. Authorizing Provider: SAMINA BERG APRN.CNP Patient MyChart message requesting the following refill Refill(s) Requested: Requested Prescriptions Pending Prescriptions Disp Refills lisinopril (ZESTRIL) 20 mg tablet 90 tablet 1 Sig: Take 1 tablet by mouth once daily. zolpidem (AMBIEN) 10 mg 30 tablet 3 Sig: Take 1 tablet by mouth at bedtime as needed (insomnia) for up to 30 days. ALLERGIES No Known Allergies (home) [phone] (cell) Last Office Visit Date: 04/01/2023 Last Distance Health Visit: Visit date not found Future Appointment: Visit date not found The patients preferred pharmacy has been captured for this encounter? yes Request is for script(s) to be escript to pharmacy. Do Chowdhury LPN documented in this encounter [facility] 07-15-2023 Telephone encounter Note Patient [employer] message requesting the following refill Refill(s) Requested: Requested Prescriptions Pending Prescriptions Disp Refills lisinopril (ZESTRIL) 20 mg tablet 90 tablet 1 Sig: Take 1 tablet by mouth once daily. zolpidem (AMBIEN) 10 mg 30 tablet 3 Sig: Take 1 tablet by mouth at bedtime as needed (insomnia) for up to 30 days. ALLERGIES No Known Allergies (home) [phone] (cell) Last Office Visit Date: 04/01/2023 Last Distance Health Visit: Visit date not found Future Appointment: Visit date not found The patients preferred pharmacy has been captured for this encounter? yes Request is for script(s) to be escript to pharmacy. Do Chowdhury LPN [facility] 05-09-2023 Miscellaneous Notes Information was faxed to number and person provided. Completed and in the outbox in our office. Stan Oropeza APRN.PHARMACIST AIDE Previous and new FMLA placed in RS inbox. Lenore Gaffney MA documented in this encounter [facility] 04-22-2023 Instructions Josi Blas APRN.VICKEY - 04/22/2023 8:44 AM EDT PATIENT PREOPERATIVE INSTRUCTIONS Brian Elias MD has scheduled you for your procedure at this surgery center: [facility]: [phone] --[id number] [facility], [place] [address] Location is near [facility]. Please read below carefully for your personalized instructions. Arrival Time for Surgery: - The Surgery Center or hospital where you are having surgery will call the afternoon before surgery (or Tuesday for Tuesday surgery) with a scheduled arrival time. - If you have not heard by 4 pm, please contact the surgery center above. Please be aware that emergency situations arise, which may delay or change your surgical time. If this happens, we will notify you as soon as possible and regret any inconvenience. Dietary Restrictions: - No solid food after midnight. - You may have 12 ounces of clear liquids (water, clear juices such as apple juice or gatorade, carbonated beverages (sprite/dania akhil), clear tea, black coffee, jello) until 2 hours before scheduled arrival at facility. - Do not drink any alcohol after midnight the night before your surgery. Medications: Unless instructed differently below, stay on all of your medications until your surgery. Pre-Surgery Med Instructions Medication Instructions lisinopril (ZESTRIL) 20 mg tablet Do not take the morning of or evening before surgery zolpidem (AMBIEN) 10 mg Take the night before surgery DULoxetine (CYMBALTA) 30 mg capsule Take the day of surgery with a small sip of water omeprazole (PRILOSEC) 20 mg capsule Take the day of surgery with a small sip of water If you take any medications for erectile dysfunction-Cialis (Tadalafil), Levitra, Staxyn (Vardenafil) Viagra (Sildenenafil please do not take these for 48 hours before surgery. If you start any new medications after today's visit, please contact the surgeon's office. Blood Thinning Medications: - Stop NSAIDS (Ibuprofen, Advil, Aleve, Motrin, Celebrex, Mobic, etc.) 7 days before surgery, as directed by your surgeon. - Stop Aspirin 7 days before surgery, as directed by your surgeon. - Stop Vitamin E, ALL multi-vitamins, herbals and dietary supplements 14 days before surgery. - You may take Tylenol (Acetaminophen) or any of your pain medications that do not contain aspirin or NSAIDS as needed. Important Reminders: - Candy, mints, and tobacco products are NOT permitted the morning of surgery. - Hearing aids, dentures and glasses may be worn the morning of surgery. - NO jewelry, body piercings, makeup, hairpins or contacts are to be worn the day of surgery. If you develop symptoms such as a fever, cold, or flu, or have other changes to your health within TWO DAYS of scheduled surgery or the morning of surgery, please contact the surgery center above. Personal Belongings: -Please have photo ID and insurance cards. -If you do not have a copy of advance directives on file with us, please bring a copy with you on the day of surgery. - Leave ALL valuables and money at home or with family members. For Outpatient Procedures: - YOU MUST HAVE A RESPONSIBLE BOOKS BINDER TAKE YOU HOME. A END WORKER OR RELIEF MANAGER CANNOT BE MADE A RESPONSIBLE BOOKS BINDER. - We recommend that a responsible person stays with you overnight to take care of you. - You cannot stay in a hotel alone after outpatient surgery. You will not be permitted to have your surgery, if you do not have someone to take care of you. If you already have an Advance Directive, please fax a copy to [phone] or email to for it to be added to your chart. If you do not have an Advance Directive, you can find the appropriate form and more information at [email or web address]. We recommend that you complete the Advance Directive form found on the website and bring it with you the day of your surgery. It can be witnessed and scanned into your chart that day. Josi Blas APRN.VICKEY documented in this encounter [facility] 04-22-2023 History and physical note HISTORY AND PHYSICAL EXAMINATION SERVICE DATE: 04/22/2023 SERVICE TIME: 8:33 AM PRIMARY CARE PHYSICIAN: Stan Oropeza APRN.PHARMACIST AIDE Assessment Patient has the following medical conditions which may affect mabel-operative course: TIMOTHY (obstructive sleep apnea) Assessment: Severe TIMOTHY on 03/2023 sleep study. Unable to tolerate CPAP. Scheduled for sleep evaluation to determine if candidate for INSPIRE. Essential hypertension with goal blood pressure less than 140/90 Assessment: Compliant with Rx. 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 Last 3 Encounter BP Readings: Date: BP: 04/22/2023 152/94 04/01/2023 140/86 01/05/2023 144/86 GERD without esophagitis Assessment: Symptoms currently stable on Rx. Fatty liver Assessment: Noted on previous ultrasound, LFTs WNL 03/2023. Leukocytosis Assessment: Chronic, per chart patient saw hematology in 2016 and was thought to be benign. WBC Date Value Ref Range Status 04/06/2023 15.02 (H) 3.70 - 11.00 k/uL Final Situational mixed anxiety and depressive disorder Assessment: Currently stable on Rx, following with PCP. Dyslipidemia Assessment: No current Rx, following with PCP. Obese Assessment: Body mass index is 32.38 kg/m . Umana Activity Status Index: METS: Climb a flight of stairs or walk up a hill (5.50 METs) DASI Score: 5.5 Patient denies any chest pain or undue shortness of breath with the above physical activity. Clinical Frailty Scale: 3. Well, with treated comorbid disease STOP-Bang Score: STOP-Bang Score: (TIMOTHY not using CPAP) ANESTHESIA FINDINGS: Intubation History: No history of difficult intubation. No abnormal airway history Significant Anesthesia Considerations: none Airway History: No history of difficult airway No abnormal airway history I - PHYSICAL EVALUATION AIRWAY Patient intubated: No. Tracheostomy tube not present Mallampati: II. TM distance: >3 FB. Neck ROM: full ROM without neurological symptoms. Mouth opening: adequate. Short neck: no. Thick neck: no Chaudhary present: yes Lip Bite Test: I Microretrognathia/Micronagthia/Rec essed Chin: No DENTAL Dental findings: chipped. Additional comments: Crowns. II - ANESTHESIA PLAN Beta Sidney Monitoring Plan Post Procedure Analgesic Plan Prepared for Surgery: optimally prepared for surgery. CONSULTS: Patient does not require consults for optimization at this time Planned Anesthetic: anesthesia choice The Following Tests/Procedures Have Been Initiated: No orders of the defined types were placed in this encounter. REASON FOR VISIT: Sree Torres is a 52 year old male who is scheduled for DISE DYN EVAL SLEEP DISORDERED BREATHING FLX DX at the request of Dr. Brian Elias for consultation. My final recommendation will be communicated back to the requesting physician by way of shared medical record or letter. Subjective The patient has the following: ACTIVE PROBLEM LIST Hypogonadism in Male Ex-Smoker Muscle Cramps Dyslipidemia Leukocytosis Timothy (Obstructive Sleep Apnea) Essential Hypertension With Goal Blood Pressure Less Than 140/90 Hematuria Gerd Without Esophagitis Fatty Liver Atypical Nevi Encounter for Screening for Diabetes Mellitus Situational Mixed Anxiety and Depressive Disorder Obese COVID-19 Immunization Status Postponed - Covid-19 Vaccine () Postponed until 04/01/2024 04/01/2023 Postponed until 04/01/2024 by Lenore Gaffney (Declined at this time) 09/20/2022 Postponed until 09/21/2023 by Lizbeth Bejarano LPN (Declined at this time) 02/25/2021 Imm Admin: COVID-19 original vaccine, age 12+ yr, monovalent (MST - PURPLE TOP) Only the first 3 history entries have been loaded, but more history exists. CHIEF COMPLAINT: Anesthesia Consult HPI: 52 year old male presents with TIMOTHY. Patient has been diagnosed with severe sleep apnea but he is unable to tolerate CPAP. He states he has tried several different masks but moves too much in his sleep and cannot wear one. He is interested in the INSPIRE implant for treatment and is scheduled for evaluation to determine if he is a candidate. REVIEW OF SYSTEMS: General: No weight loss, malaise or fevers. Neurological: No history of TIA's, stroke, RESPIRATORY THERAPIST tumor, impaired sensorium, hemiplegia, paraplegia or quadraplegia. No neurological symptoms or problems. Respiratory: Positive for: obstructive sleep apnea. Negative for: asthma, bronchitis, COPD, current cough, dyspnea, home oxygen, orthopnea, pneumonia within 6 weeks and tobacco use. Cardiovascular: Positive for: hyperlipidemia and hypertension Negative for: arrhythmia, atrial fibrillation, CAD, chest pain, CHF, DVT/PE, recent [place] and murmur/valvular heart disease. GI: Positive for: GERD and liver disease Negative for: abdominal pain, dysphagia, diverticulitis, GI bleed <30 days, hepatitis, irritable bowel syndrome, inflammatory bowel disease, nausea, vomiting and ETOH >2 drinks/day. : Negative for: dysuria, hematuria, nephrolithiasis and renal failure. Endocrine: No history of diabetes. Has not taken steroids within the past 30 days. No history of endocrinological symptoms or problems. Hematology: (+) Leukocytosis Negative for: anemia, bruises/bleeds easily, factor V Leiden, thrombocytopenia, von Willebrand disease and chronic anti-coagulation/platelet meds. Oncology: No history of CA metastasis, chemo within 30 days, or radiotherapy within 90 days. No history of oncological symptoms or problems. Psych: Positive for: anxiety and depression. Musculoskeletal: Positive for: joint pain. Negative for: back pain and swelling. Skin: Negative for lesions, rash and itching. PAST MEDICAL HISTORY Diagnosis Date Dyslipidemia 03/19/2015 Elevated LFTs 04/14/2016 Essential hypertension with goal blood pressure less than 140/90 06/19/2015 Ex-smoker 03/06/2015 Started at age 23 up to 1 02/08 PPD. Quit smoking May 08 2016 Fatty liver 04/21/2016 GERD without esophagitis 04/14/2016 Hypogonadism in male 03/06/2015 Leukocytosis Muscle cramps 03/06/2015 TIMOTHY (obstructive sleep apnea) 03/31/2015 Sleep study 03/2015: sever. Not able to tolerate CPAP Situational mixed anxiety and depressive disorder 05/18/2019 secodary to Covid 19 PAST SURGICAL HISTORY Procedure Laterality Date BACK SURGERY HX micro discectomy L5-S1 COLONOSCOPY 09/04/2021 repeat in 3 years FECAL OCCULT BLOOD TEST 09/12/2019 negative FOOT SURGERY HX Right FAMILY HISTORY Problem Relation Age of Onset Diabetes Mother Psychiatry Mother rash and anxiety Cancer Maternal Grandmother 60 ? Cancer Maternal Grandfather 60 ? Alzheimer's Disease No Family History Colon Cancer No Family History Prostate Cancer No Family History Breast Cancer No Family History Ovarian cancer No Family History Coronary Artery Disease No Family History Hypertension No Family History Hyperlipidemia No Family History Kidney Disease No Family History Seizures No Family History Stroke No Family History Thyroid No Family History Anesthesia Problems No Family History Social History Tobacco Use Smoking status: Former Packs/day: 1.00 Years: 20.00 Additional pack years: 0.00 Total pack years: 20.00 Types: Cigarettes Quit date: 05/08/2016 Years since quittin.9 Smokeless tobacco: Never Tobacco comments: none x 4 years Vaping Use Vaping Use: Never used Substance Use Topics Alcohol use: No Drug use: No Prior to Admission medications as of 04/22/23 0843 Medication Sig Last Dose Taking lisinopril (ZESTRIL) 20 mg tablet Take 1 tablet by mouth once daily. Taking Yes zolpidem (AMBIEN) 10 mg Take 1 tablet by mouth at bedtime as needed (insomnia) for up to 30 days. Taking Yes DULoxetine (CYMBALTA) 30 mg capsule Take 1 capsule by mouth once daily. Taking Yes omeprazole (PRILOSEC) 20 mg capsule Take 1 capsule by mouth once daily. TAKE 1 TABLET BY MOUTH DAILY BEFORE BREAKFAST. 1/2 HR BEFORE MEAL. Taking Yes Cholecalciferol, Vitamin D3, 50 mcg (2,000 unit) cap Take 1 capsule by mouth once daily. No medication comments found. ALLERGIES No Known Allergies Objective PHYSICAL EXAM: General: alert and oriented and obese. Pertinent negatives noted - not distressed. Skin: normal color, no rash or lesions. HEENT: pupils equal round and pupils reactive to light. Pertinent negatives noted - no carotid bruit. Cardiovascular: regular rate and rhythm, normal S1 and S2, no rub, murmurs, or gallop. Respiratory: normal breath sounds, no wheezes or crackles. No chest wall deformity or tenderness. Abdomen: soft. Pertinent negatives noted - no hernia, no mass, not rigid and not tender. Extremities: no deformity, no edema or tenderness, no joint swelling or clubbing. Neurological: normal cognition and motor skills. Gait normal. No weakness or sensory deficit. PAIN ASSESSMENT: VITALS: BP 152/94 Pulse 100 Temp (Src) 96.8 (Temporal) Resp 16 Ht 6' 4 (1.93m) Wt 266 lb (120.7kg) SpO2 100% BMI 32.39 kg/(m^2). Diagnostic tests reviewed for today's visit: Lab Value Units Date High Low HB 15.4 g/dL 04/06/2023 17.0 13.0 HCT 46.3 % 04/06/2023 51.0 39.0 WBC 15.02 k/uL 04/06/2023 11.00 3.70 PLT 306 k/uL 04/06/2023 400 150 NA 140 mmol/L 04/06/2023 144 136 K 4.2 mmol/L 04/06/2023 5.1 3.7 GLUC 113 mg/dL 04/06/2023 99 74 BUN 23 mg/dL 04/06/2023 24 9 CREAT 1.32 mg/dL 04/06/2023 1.22 0.73 PTSEC No results within date range. INR No results within date range. APTT No results within date range. ALT 47 U/L 04/06/2023 54 10 AST 38 U/L 04/06/2023 40 14 TBILI 0.5 mg/dL 04/06/2023 1.3 0.2 TSH No results within date range. Lab Value Units Date High Low HCGQT No results within date range. UHCG No results within date range. HCG, BODY* No results within date range. Lab Value Units Date High Low ABORHD No results within date range. ABSCREEN No results within date range. Hemoglobin A1C (%) Date Value 04/06/2023 5.6 08/13/2020 5.5 03/13/2019 5.5 No results found for this or any previous visit (from the past 8760 hour(s)). No results found for this or any previous visit (from the past 17325 hour(s)). Instructions Given to Patient: Instructions located in the after visit summary. Patient given verbal and written preop instructions and voices comprehension and compliance. SIGNATURE: Josi Blas APRN.CNP PATIENT NAME: Sree Torres DATE: April 22, 2023 TIME: 8:33 AM PAGER/CONTACT #: documented in this encounter [facility] 04-07-2023 Miscellaneous Notes Spoke with patient. Given message from provider's office. Patient verbalizes understanding. Alicia Garcia RN Left message to return call Lenore Gaffney Please let him know I received his lab results. His vitamin D level is low. I'm sending in a daily supplement for him to begin taking. His WBC count is elevated, but is stable. The following approved medication requests have been transmitted electronically. Requested Prescriptions Signed Prescriptions Disp Refills Cholecalciferol, Vitamin D3, 50 mcg (2,000 unit) cap 90 capsule 3 Sig: Take 1 capsule by mouth once daily. Authorizing Provider: STAN OROPEZA APRN.CNP documented in this encounter [facility] 04-01-2023 Instructions Stan Oropeza APRN.VICKEY - 04/01/2023 8:35 AM EST Have your labs drawn fasting when you're able. The Lung Cancer screening department will call you to get you scheduled. Bring your BP cuff along in 6 months. documented in this encounter [facility] 04-01-2023 History of Present illness Narrative Chief Complaint Patient presents with: Physical: Neck pain HPI Sree Torres is a 52 year old male who presents here today for Above Complaints. Currently: Continues with his chronic neck pain. Saw pain management who wanted him to do PT but he is unable to do PT due to his schedule. Does PT and stretching at home. Hasn't worsened, but hasn't improved either. Is trying to get the Inspire placed-has severe TIMOTHY. Insomnia-takes Ambien and this does work well for him. 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 Cymbalta-mood is good, working well. Xanax-uses prn. This is a good dose. Takes it 3-4x per week. BP-at little elevated this morning but hasn't taken his medication yet. Does check it at home. On average SBP is 130 or a little lower. Continues to take Prilosec daily, this works well for him. If he misses a day can really feel it. Past medical history, appointments, medications, allergies reviewed. Previous Medical History PAST MEDICAL HISTORY Diagnosis Date Dyslipidemia 03/19/2015 Elevated LFTs 04/14/2016 Essential hypertension with goal blood pressure less than 140/90 06/19/2015 Ex-smoker 03/06/2015 Started at age 23 up to 1 02/08 PPD. Quit smoking May 08 2016 Fatty liver 04/21/2016 GERD without esophagitis 04/14/2016 Hypogonadism in male 03/06/2015 Leukocytosis Muscle cramps 03/06/2015 TIMOTHY (obstructive sleep apnea) 03/31/2015 Sleep study 03/2015: sever. Not able to tolerate CPAP Situational mixed anxiety and depressive disorder 05/18/2019 secodary to Covid 19 Previous Surgical History PAST SURGICAL HISTORY Procedure Laterality Date COLONOSCOPY 09/04/2021 repeat in 3 years FECAL OCCULT BLOOD TEST 09/12/2019 negative PAST SURGICAL HISTORY OF micro discectomy L5-S1 Family History FAMILY HISTORY Problem Relation Age of Onset Diabetes Mother Psychiatry Mother rash and anxiety Cancer Maternal Grandmother 60 ? Cancer Maternal Grandfather 60 ? Alzheimer's Disease No Family History Colon Cancer No Family History Prostate Cancer No Family History Breast Cancer No Family History Ovarian cancer No Family History Coronary Artery Disease No Family History Hypertension No Family History Hyperlipidemia No Family History Kidney Disease No Family History Seizures No Family History Stroke No Family History Thyroid No Family History Patient Allergies ALLERGIES No Known Allergies Current Medications Current Outpatient Medications on File Prior to Visit Medication Sig zolpidem (AMBIEN) 10 mg Take 1 tablet by mouth at bedtime as needed (insomnia) for up to 30 days. lisinopril (ZESTRIL) 20 mg tablet Take 1 tablet by mouth once daily. omeprazole (PRILOSEC) 20 mg capsule Take 1 capsule by mouth once daily. TAKE 1 TABLET BY MOUTH DAILY BEFORE BREAKFAST. 1/2 HR BEFORE MEAL. DULoxetine (CYMBALTA) 30 mg capsule Take 1 capsule by mouth once daily. No current facility-administered medications on file prior to visit. Social History Social History Tobacco Use Smoking status: Former Packs/day: 1.00 Years: 20.00 Additional pack years: 0.00 Total pack years: 20.00 Types: Cigarettes Quit date: 05/08/2016 Years since quittin.9 Smokeless tobacco: Never Tobacco comments: none x 4 years Vaping Use Vaping Use: Never used Substance Use Topics Alcohol use: No Drug use: No Review of Symptoms REVIEW OF SYSTEMS See HPI, otherwise negative EXAM: BP 140/86 (BP Site: Left Arm, BP Position: Sitting, BP Cuff Size: Regular Adult) Pulse 89 Resp 16 Ht 190 cm (6' 2.8) Wt 120.9 kg (266 lb 9.6 oz) SpO2 95% BMI 33.50 kg/m General Appearance: Well appearing, alert, in no acute distress, well-hydrated, well nourished. and Obese. Skin: Skin color, texture, turgor normal, no suspicious rashes or lesions. Head: Normocephalic, no masses, lesions, tenderness or abnormalities. Eyes: Anicteric sclera. Pupils are equally round and reactive to light. Extraocular movements are intact. . Ears: External ears normal, canals clear. Nose/Sinuses: Nares normal, septum midline, mucosa normal, no drainage or sinus tenderness. Oropharynx: Lips, mucosa, and tongue normal, teeth and gums normal, oropharynx normal. Neck: Supple, no adenopathy; thyroid symmetric, normal size, no bruits. Back:no pain to palpation of vertebrae, good flexion and extension, good range of motion, no muscle tenderness, motor and sensory appear to be normal Lungs: Lungs clear to auscultation. No wheezing, rhonchi, rales.. Heart: RRR without murmur, gallop, or rubs. No ectopy. Abdomen: Normal abdominal exam, Abdomen soft, non-tender. Bowel sounds normal. No masses, organomegaly. Extremities: No deformities, edema, skin discoloration, clubbing or cyanosis. Good capillary refill. . Musculoskeletal: No joint swelling, deformity, or tenderness. Peripheral Pulses: Normal. Neurologic: Gait normal. Reflexes normal and symmetric. Sensation grossly intact.. Lymph Nodes: No cervical lymphadenopathy and No supraclavicular lymphadenopathy. Psychiatric: pleasant, cooperative. Health Maintenance List HIV Screening Never done BP Controlled (<130/80) Never done Lung Cancer Screening Never done Shingrix Vaccine(1 of 2) due on 09/21/2023 Hepatitis B Vaccine(1 of 3 - 3-dose series) due on 04/01/2024 Covid-19 Vaccine( season) due on 04/01/2024 Annual PCP Team Chronic Disease Visit due on 01/06/2024 Colorectal Cancer Screening due on 09/04/2024 Diabetes Screening due on 10/05/2024 DTaP,Tdap,Td Vaccine(2 - Td or Tdap) due on 03/06/2025 Lipid Screening due on 04/23/2026 Influenza Vaccine Completed Hepatitis C Screening Completed Data reviewed Previous records, office notes, OAR[facility] report PDMP website checked and validated. All prescriptions have been APPROPRIATELY filled. No suspicious activity was identified. 04/01/2022 by Stan Oropeza CNP. ASSESSMENT/PLAN: 1. Well adult exam - ICD9: V70.0, ICD10: Z00.00 (primary diagnosis) - Counseled on healthy diet and regular exercise - Discussed need for and benefit of weight loss. BMI 33.50 kg/(m^2) - Lung cancer screening recommended - CBC - COMP METABOLIC PANEL - HGB A1C - VITAMIN D 25 HYDROXY 2. HTN, goal below 130/80 - ICD9: 401.9, ICD10: I10 - Controlled - Home blood pressure readings controlled - Recommend home blood pressure monitoring, to bring results to next visit - Encouraged sodium restriction, DASH or Mediterranean diet - Recommend regular aerobic exercise - LISINOPRIL 20 MG TABLET - CBC - COMP METABOLIC PANEL 3. Insomnia secondary to chronic pain - ICD9: 338.29, 327.01, ICD10: G89.29, G47.01 - ZOLPIDEM 10 MG TABLET 4. Situational mixed anxiety and depressive disorder - ICD9: 309.28, ICD10: F43.23 - DULOXETINE 30 MG CAPSULE,DELAYED RELEASE 5. 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 GERD without esophagitis - ICD9: 530.81, ICD10: K21.9 - OMEPRAZOLE 20 MG CAPSULE,DELAYED RELEASE 7. Screening for diabetes mellitus - ICD9: V77.1, ICD10: Z13.1 - CBC - COMP METABOLIC PANEL - HGB A1C 8. Vitamin D deficiency - ICD9: 268.9, ICD10: E55.9 - VITAMIN D 25 HYDROXY 9. Encounter for screening for lung cancer - ICD9: V76.0, ICD10: Z12.2 - CONSULT LUNG CANCER SCREENING CLINIC Stan Oropeza APRN.PHARMACIST AIDE documented in this encounter [facility] 03-31-2023 Miscellaneous Notes Physical scheduled for 04-01-23. Ira Schulz LPN Pt denies appointment to refill d/t > 6 months and this is controlled substance. Thank you, Samina Berg APRN.PHARMACIST AIDE MICHELLE-09/20/22 Labs-04/23/21 NOV-none Alpa Jensen LPN Message sent for Pt to schedule Yearly Exam documented in this encounter [facility] 03-29-2023 Miscellaneous Notes Addended by: BRIAN ELIAS on: 03/29/2023 09:18 AM Modules accepted: Orders documented in this encounter [facility] 03-29-2023 History of Present illness Narrative IMPRESSION 52-year-old male with optional sleep apnea unable tolerate CPAP. RECOMMENDATION/PLAN I discussed with patient regarding his options which include continue with CPAP versus possible inspire. Patient is interested in proceeding with inspire evaluation. Therefore we will proceed with drug-induced sleep endoscopy. I discussed with the patient regarding the risk, benefit, and alternative procedure and informed consent was obtained. We will get him scheduled for surgery in the near future. He understand risk include but not limited to anesthesia and bleeding. Chief Complaint Follow-up for obstructive sleep apnea History of Present Illness Sree A Six is a 52 year old male present for follow-up of obstructive sleep apnea unable tolerate CPAP. Since patient was last seen, he has obtained a new sleep study which showed AHI of 47.8. There was minimal central apneic episode. His BMI today is 33.25. Patient still interested in inspire hypoglossal nerve stimulator. PAST MEDICAL HISTORY Diagnosis Date Dyslipidemia 03/19/2015 Elevated LFTs 04/14/2016 Essential hypertension with goal blood pressure less than 140/90 06/19/2015 Ex-smoker 03/06/2015 Started at age 23 up to 1 02/08 PPD. Quit smoking May 08 2016 Fatty liver 04/21/2016 GERD without esophagitis 04/14/2016 Hypogonadism in male 03/06/2015 Leukocytosis Muscle cramps 03/06/2015 TIMOTHY (obstructive sleep apnea) 03/31/2015 Sleep study 03/2015: sever. Not able to tolerate CPAP Situational mixed anxiety and depressive disorder 05/18/2019 secodary to Covid 19 PAST SURGICAL HISTORY Procedure Laterality Date COLONOSCOPY 09/04/2021 repeat in 3 years FECAL OCCULT BLOOD TEST 09/12/2019 negative PAST SURGICAL HISTORY OF micro discectomy L5-S1 FAMILY HISTORY Problem Relation Age of Onset Diabetes Mother Psychiatry Mother rash and anxiety Cancer Maternal Grandmother 60 ? Cancer Maternal Grandfather 60 ? Alzheimer's Disease No Family History Colon Cancer No Family History Prostate Cancer No Family History Breast Cancer No Family History Ovarian cancer No Family History Coronary Artery Disease No Family History Hypertension No Family History Hyperlipidemia No Family History Kidney Disease No Family History Seizures No Family History Stroke No Family History Thyroid No Family History CURRENT OUTPATIENT MEDICATIONS Current Outpatient Medications on File Prior to Visit Medication Sig zolpidem (AMBIEN) 10 mg Take 1 tablet by mouth at bedtime as needed (insomnia) for up to 30 days. lisinopril (ZESTRIL) 20 mg tablet Take 1 tablet by mouth once daily. omeprazole (PRILOSEC) 20 mg capsule Take 1 capsule by mouth once daily. TAKE 1 TABLET BY MOUTH DAILY BEFORE BREAKFAST. 1/2 HR BEFORE MEAL. DULoxetine (CYMBALTA) 30 mg capsule Take 1 capsule by mouth once daily. No current facility-administered medications on file prior to visit. ALLERGIES ALLERGIES No Known Allergies The remainder of the patient's history and review of systems is on the outpatient questionaire which was reviewed by me and placed in the outpatient chart. PHYSICAL EXAMINATION Appearance: General examination of the patient's external face, head and neck reveals no abnormalities. The patient is not retrognathic The patient's voice is strong and clear and they communicate easily. Brian Elias MD documented in this encounter [facility] 03-22-2023 Miscellaneous Notes I called Patient and left a voicemail. I also sent him [employer] message letting him know to call an schedule ----- Message from Brian Elias MD sent at 03/22/2023 10:57 AM EST ----- Please call this patient to schedule him for follow up with me for inspire discussion. Thanks Brian Elias MD documented in this encounter [facility] 01-05-2023 History of Present illness Narrative Radiology Service Progress Note PATIENT NAME: Sree Torres DATE OF SERVICE: January 05, 2023 TIME: 9:07 AM PATIENT IDENTITY VERIFICATION COMPLETED USING TWO (2) IDENTIFIERS: Name and Date of confirmed by patient verbally. FALL SCREENING: Has the patient had 2 falls in the last year or 1 fall with injury or currently using an Ambulatory Assistive Device (Walker, Cane, Wheelchair, Crutches, etc.)? No PATIENT GENDER DATA: Male PATIENT RELEVANT IMPLANT DATA REVIEWED: Yes RADIOLOGY DEPARTMENT: General X-ray: Exam(s) Completed: Spine X-Ray(s): Cervical AP / LAT / OBL PERIPHERAL IV DATA: Not applicable SIGNED BY: RT Lino(R) January 05, 2023 9:07 AM documented in this encounter [facility] 01-05-2023 History of Present illness Narrative Chief Complaint Patient presents with: Neck Pain: X 9 weeks HPI Sree Torres is a 52 year old male who presents here today for Above Complaints. Today: Neck has been hurting for about 9 weeks. Out of nowhere right side of his neck started hurting. Thought maybe slept wrong. Keeping him up at night. Has only gotten worse. Pain is almost unbearable. Did have xray done of it by posting specialist-was told everything looks normal. Certain movements cause worse pain. Radiates up into head somewhat-causes headaches, radiates into shoulder and down into upper right arm somewhat. Denies illness. Was given voltaren gel for it-hasn't done anything for it. Zanaflex hasn't helped at all either. Has hx of CPAP, but has not tolerated at all. Cannot tolerate. Wondering if he may be a candidate for the Inspire device. Past medical history, appointments, medications, allergies reviewed. Previous Medical History PAST MEDICAL HISTORY Diagnosis Date Dyslipidemia 03/19/2015 Elevated LFTs 04/14/2016 Essential hypertension with goal blood pressure less than 140/90 06/19/2015 Ex-smoker 03/06/2015 Started at age 23 up to 1 1/2 PPD. Quit smoking May 08 2016 Fatty liver 04/21/2016 GERD without esophagitis 04/14/2016 Hypogonadism in male 03/06/2015 Leukocytosis Muscle cramps 03/06/2015 TIMOTHY (obstructive sleep apnea) 03/31/2015 Sleep study 03/2015: sever. Not able to tolerate CPAP Situational mixed anxiety and depressive disorder 05/18/2019 secodary to Covid 19 Previous Surgical History PAST SURGICAL HISTORY Procedure Laterality Date COLONOSCOPY 09/04/2021 repeat in 3 years FECAL OCCULT BLOOD TEST 09/12/2019 negative PAST SURGICAL HISTORY OF micro discectomy L5-S1 Family History FAMILY HISTORY Problem Relation Age of Onset Diabetes Mother Psychiatry Mother rash and anxiety Cancer Maternal Grandmother 60 ? Cancer Maternal Grandfather 60 ? Alzheimer's Disease No Family History Colon Cancer No Family History Prostate Cancer No Family History Breast Cancer No Family History Ovarian cancer No Family History Coronary Artery Disease No Family History Hypertension No Family History Hyperlipidemia No Family History Kidney Disease No Family History Seizures No Family History Stroke No Family History Thyroid No Family History Patient Allergies ALLERGIES No Known Allergies Current Medications Current Outpatient Medications on File Prior to Visit Medication Sig lisinopril (ZESTRIL) 20 mg tablet Take 1 tablet by mouth once daily. omeprazole (PRILOSEC) 20 mg capsule Take 1 capsule by mouth once daily. TAKE 1 TABLET BY MOUTH DAILY BEFORE BREAKFAST. 1/2 HR BEFORE MEAL. DULoxetine (CYMBALTA) 30 mg capsule Take 1 capsule by mouth once daily. No current facility-administered medications on file prior to visit. Social History Social History Tobacco Use Smoking status: Former Packs/day: 1.00 Years: 20.00 Additional pack years: 0.00 Total pack years: 20.00 Types: Cigarettes Quit date: 05/08/2016 Years since quittin.6 Smokeless tobacco: Never Tobacco comments: none x 4 years Vaping Use Vaping Use: Never used Substance Use Topics Alcohol use: No Drug use: No Review of Symptoms REVIEW OF SYSTEMS See HPI, otherwise negative EXAM: BP 144/86 (BP Site: Left Arm, BP Position: Sitting, BP Cuff Size: Regular Adult) Pulse 75 Resp 16 Wt 124.6 kg (274 lb 9.6 oz) SpO2 97% BMI 34.32 kg/m General Appearance: Well appearing, alert, in no acute distress, well-hydrated, well nourished.. Head: Normocephalic, no masses, lesions, tenderness or abnormalities. Ears: External ears normal, canals clear. Oropharynx: Lips, mucosa, and tongue normal, teeth and gums normal, oropharynx normal. Neck: Positive for pain to right neck with turning to the left, no abnormalities appreciated with palpation Lungs: Lungs clear to auscultation. No wheezing, rhonchi, rales.. Heart: RRR without murmur, gallop, or rubs. No ectopy. Neurologic: Gait normal. Reflexes normal and symmetric. Sensation grossly intact.. Psychiatric: pleasant, cooperative. Health Maintenance List Hepatitis B Vaccine(1 of 3 - 3-dose series) Never done HIV Screening Never done Lung Cancer Screening Never done Influenza Vaccine(1) due on 10/08/2022 Covid-19 Vaccine( season) due on 10/08/2022 Shingrix Vaccine(1 of 2) due on 09/21/2023 Annual PCP Team Chronic Disease Visit due on 09/21/2023 BP Controlled (<130/80) due on 09/21/2023 Diabetes Screening due on 04/23/2024 Colorectal Cancer Screening due on 09/04/2024 DTaP,Tdap,Td Vaccine(2 - Td or Tdap) due on 03/06/2025 Lipid Screening due on 04/23/2026 Hepatitis C Screening Completed Data reviewed Previous records, office notes, [facility] report PDMP website checked and validated. All prescriptions have been APPROPRIATELY filled. No suspicious activity was identified. 01/05/2023 by Stan Oropeza CNP. ASSESSMENT/PLAN: 1. Neck pain on right side - ICD9: 723.1, ICD10: M54.2 (primary diagnosis) States was told by posting specialist at [facility] that his neck xray was normal and no concerns with disc height. Per report given to me, states severe degenerative changes. Repeating this xray today at [facility] to have our radiologists read. [place] prn. Kenalog injection today, begin prednisone taper. States does not have time for PT. Has been doing stretches that he was given by [facility] provider. Consult to pain management for further evaluation. - HYDROCODONE 7.5 MG-ACETAMINOPHEN 325 MG TABLET - TRIAMCINOLONE ACETONIDE 40 MG/ML SUSPENSION FOR INJECTION - PREDNISONE 10 MG TABLET - XR CERV OTHER 4V AP/LAT/OBL - CONSULT TO PAIN MGT 2. Cervical radiculopathy - ICD9: 723.4, ICD10: M54.12 States was told by posting specialist at [facility] that his neck xray was normal and no concerns with disc height. Per report given to me, states severe degenerative changes. Repeating this xray today at [facility] to have our radiologists read. [place] prn. Kenalog injection today, begin prednisone taper. States does not have time for PT. Has been doing stretches that he was given by [facility] provider. Consult to pain management for further evaluation. - HYDROCODONE 7.5 MG-ACETAMINOPHEN 325 MG TABLET - TRIAMCINOLONE ACETONIDE 40 MG/ML SUSPENSION FOR INJECTION - PREDNISONE 10 MG TABLET - XR CERV OTHER 4V AP/LAT/OBL - CONSULT TO PAIN MGT 3. Insomnia secondary to chronic pain - ICD9: 338.29, 327.01, ICD10: G89.29, G47.01 States was told by posting specialist at [facility] that his neck xray was normal and no concerns with disc height. Per report given to me, states severe degenerative changes. Repeating this xray today at [facility] to have our radiologists read. [place] prn. Kenalog injection today, begin prednisone taper. States does not have time for PT. Has been doing stretches that he was given by [facility] provider. Consult to pain management for further evaluation. - HYDROCODONE 7.5 MG-ACETAMINOPHEN 325 MG TABLET - TRIAMCINOLONE ACETONIDE 40 MG/ML SUSPENSION FOR INJECTION - PREDNISONE 10 MG TABLET - XR CERV OTHER 4V AP/LAT/OBL - CONSULT TO PAIN MGT 4. 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 Situational mixed anxiety and depressive disorder - ICD9: 309.28, ICD10: F43.23 Refill given - ALPRAZOLAM 0.5 MG TABLET 6. TIMOTHY (obstructive sleep apnea) - ICD9: 327.23, ICD10: G47.33 Consult for consideration for Inspire device due to not tolerating CPAP treatment. - CONSULT TO SLEEP SURGERY-ADULT Stan Oropeza APRN.PHARMACIST AIDE documented in this encounter [facility] 12-14-2022 Telephone encounter Note Faxed requested last visit notes to [facility] today [facility] 12-14-2022 Miscellaneous Notes Faxed requested last visit notes to [facility] today Prescription signed Name of caller: Sree Torres Contact phone number: [phone] Relationship to Patient: patient Provider: Dr. Barajas Practice: Ortho Chief Complaint/Reason for Call: Pt stated that Dr. Barajas was going to prescribe a prescription for pt's low vitamin D. Pt confirmed [facility] [address] in [place]. Please advise. Best time of day caller can be reached: any Patient advised that office/PCP has 24-48 business hours to return their call: No documented in this encounter [facility] 12-06-2022 Telephone encounter Note Prescription signed [facility] 12-06-2022 Miscellaneous Notes Prescription signed Name of caller: Sree Torres Contact phone number: [phone] Relationship to Patient: patient Provider: Dr. Barajas Practice: Ortho Chief Complaint/Reason for Call: Pt stated that Dr. Barajas was going to prescribe a prescription for pt's low vitamin D. Pt confirmed [facility] [address] in [place]. Please advise. Best time of day caller can be reached: any Patient advised that office/PCP has 24-48 business hours to return their call: No documented in this encounter [facility] 12-06-2022 Telephone encounter Note Name of caller: Sree Torres Contact phone number: [phone] Relationship to Patient: patient Provider: Dr. Barajas Practice: Ortho Chief Complaint/Reason for Call: Pt stated that Dr. Barajas was going to prescribe a prescription for pt's low vitamin D. Pt [facility] [address] in [place]. Please advise. Best time of day caller can be reached: any Patient advised that office/PCP has 24-48 business hours to return their call: No [facility] 12-06-2022 History of Present illness Narrative Images from the original note were not included. [facility] [address] [place] [address] Dept: [phone] Dept Chief Complaint Patient presents with New Patient Neck pain Subjective History of Present Illness: Sree Torres is a 52 y.o. left hand dominant male who presents today for evaluation of neck pain. 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 Physical Exam: General: Alert, well appearing, no acute distress. Respiratory: Breathing comfortably on room air. No respiratory distress. Skin: Warm, dry, intact. No visible rashes or erythema overlying area of focused exam. Back Exam Tenderness The patient is experiencing tenderness in the cervical. Range of Motion The patient has normal back ROM. Extension: normal Flexion: normal Lateral bend right: normal Lateral bend left: normal Rotation right: normal Rotation left: normal Muscle Strength The patient has normal back strength. Other Gait: normal Erythema: no back redness Right Hand Exam Range of Motion The patient has normal right wrist ROM. Muscle Strength The patient has normal right wrist strength. Tests Phalen s Sign: negative Tinel's sign (median nerve): negative Lisa's test: negative Other Sensation: normal Pulse: present Right Elbow Exam Range of Motion The patient has normal right elbow ROM. Muscle Strength The patient has normal right elbow strength. Right Shoulder Exam Range of Motion The patient has normal right shoulder ROM. Muscle Strength The patient has normal right shoulder strength. External Notes None available Labs No results found for: HGBA1C Lab Results Component Value Date CREATININE 1.22 10/05/2021 Imaging Images reviewed with patient today X-rays of the cervical spine were reviewed with the patient. The x-rays showed 5 weightbearing lumbar vertebrae significant degenerative changes noted. Scant vascular calcifications noted on the AP of the C-spine. EMG/NCT N/A Procedure No procedures completed today Assessment 1. Right cervical radiculopathy 2. Cervical paraspinal muscle spasm Plan Right cervical radiculitis with paraspinal spasms. We discussed his clinical evaluation, diagnosis, and shared medical decision treatment plan. Recommend a short course of low-dose tizanidine to help with his muscular spasms along with diclofenac gel. Also recommend stretching of the cervical spine with home exercises and can consider physical therapy if he is not improving. Follow-up with a phone call update a DivvyDown message and 2 to 3 weeks or sooner if needed for physical therapy. Follow up if symptoms worsen or fail to improve. Alexandre Borjas MD 12/06/2022 9:22 AM Please note that portions of this note may have been completed with voice recognition software. Documentation reviewed prior to signing but minor errors in fruit dryer may have occurred. documented in this encounter [facility] 12-06-2022 Instructions Alexandre Borjas MD - 12/06/2022 10:15 AM EDT ADDITIONAL INFORMATION ([employer]) SPINE: [email or web address]://[email or web address].aaos.org/globala [email or web address]/[email or web address]-[email or web address].pdf documented in this encounter [facility] 12-06-2022 History of Present illness Narrative Images from the original note were not included. [facility] [address] [facility] [address] Dept: [phone] Dept Sree Torres 1970 [id number] 12/06/2022 HISTORY OF PRESENT ILLNESS: Sree returns for re-evaluation of his right 2nd metatarsal(s) stress fracture. He has been back to work full duty since last visit. Sree reports that his pain has decreased since the last visit Sree reports that his swelling has decreased since the last visit Sree denies calf pain and shortness of breath Sree has been weight bearing as tolerated on the right lower extremity in a shoe. In general Sree feels that he is doing better than the his last visit Other complaints or issues: None Review of Systems Surgical Risk Factors: Allergies to Metals or Latex: NO Have you been treated for a blood clot: NO Have you had a history of bleeding disorder: NO Have you had a history of Anesthetic problems: NO Do you have tendency to bruise easily: NO Do you experience prolonged or excessive bleeding from cuts or after surgery: NO General/Constitutional: General: no Cancer: NO Acute/Chronic Infections: NO HEENT/Neck: Problems with theThroat: NO Problems with the Eyes: NO Problems with the Ears: NO Problems with the Nose and Sinuses: NO Endocrine: Problems with Diabetes: NO Problems with Thyroid Disorder: NO Thorax: Problems with the Heart: NO Problems with the Lung: no Cardiovascular: Problems with Circulation: NO Problems with High Blood pressure: yes Gastrointestinal: Problems with Ulcers: NO Problems with the Liver: no Problems with Bowel Habits: NO Genitourinary: Problems with the Genitals: NO Urinary problems: NO Kidney disease or stones: NO Skin: Any general problems: NO Neurologic: Dizziness, blurred vision, headaches, problems with balance : NO Seizures or Stroke: NO Psychiatric: Emotional or Psychological disorders: NO Depression or Anxiety: no PAST MEDICAL HISTORY: Past Medical History: Diagnosis Date Foot pain, right GERD (gastroesophageal reflux disease) Hypertension Tarsal tunnel syndrome of right side foot No Known Allergies PHYSICAL EXAM: Ht 6' 3 (1.905 m) Wt 265 lb (120 kg) BMI 33.12 kg/m This is an age appropriate appearing male who is alert and oriented x 3. The patient appears well nourished. Psychiatric: The patient is able to verbalize normally and seems to have a good understanding of his situation. The right lower extremity is examined. Skin: Skin is warm and dry Lymphatic: No lymphadenopathy Minimal swelling of the forefoot Vascular: Capillary refill in the foot/toes is less than 3 seconds. Neurologic: Sensation is intact to light touch throughout the foot and the ankle . Musculoskeletal: The calf is nontender to palpation. 5/5 strength in the lower extremity ROM: Full ROM of the foot and ankle Alignment: No obvious deformity Areas of Tenderness: Nontender to palpation overlying the second metatarsal - RADIOGRAPHIC INTERPRETATION: 3 weight bearing views of the right foot were obtained and the following is my interpretation of the findings present of the X-rays: Interval bone healing is noted at the second metatarsal stress fracture site. Slight shortening of the second metatarsal is noted in comparison to the third. REVIEW OF RELATED PREVIOUS DOCUMENTATION: No documents related to the current problem(s) were reviewed or no documents were available for review. LABORATORY RESULT INTERPRETATION: No labs were reviewed/No labs available for review DIAGNOSIS: Diagnosis Plan 1. Right foot pain XR foot 3+ views right MEDICAL DECISION MAKING: I had a discussion with Sere to make sure he has a good understanding of the diagnoses/issues that I think are present today and understands the plan moving forward. Sree is doing well at this point and I think it is reasonable for him to start to resume more normal activities. I explained to Sree that as he begins to resume his normal activities he should start slowly and gradually in order to avoid injury and/or pain. If Sree has any problems or setbacks as he tries to resume his normal activities he is free to call me to discuss. If Sree has any problems or concerns in the future he will call the office. Follow up if symptoms worsen or fail to improve. Electronically signed by Contreras Barajas MD [facility] Department of Orthopedic surgery 12/06/2022 9:37 AM Voice recognition was used for portions of this note and although it was reviewed prior to signing some incorrect words or phrases could be present. documented in this encounter [facility] 12-06-2022 Miscellaneous Notes Addended by: MORE ESPOSITO on: 12/06/2022 09:52 AM Modules accepted: Orders documented in this encounter [facility] 12-06-2022 Note Addended by: MORE PEREZ on: 12/06/2022 09:52 AM Modules accepted: Orders [facility] 12-06-2022 Note Addended by: MORE PEREZ on: 12/06/2022 09:52 AM Modules accepted: Orders [facility] 11-24-2022 Telephone encounter Note Faxed Corrected C9 for MRI today [facility] 11-24-2022 Miscellaneous Notes Faxed Corrected C9 for MRI today Name of caller: Rabia Contact phone number: [phone] Relationship to Patient: [facility] Pt Accounts Provider: [facility] Practice: ortho Chief Complaint/Reason for Call: Rabia called stating the Dx code for the pt's C9 (G57.51) was not approved for the C9 or MRI. Rabia says the code needs to be changed to either S96.911A, M67.01, or M72.2 and faxed back to [phone]. Please advise. Thank you. Best time of day caller can be reached: Any Patient advised that office/PCP has 24-48 business hours to return their call: No documented in this encounter [facility] 11-24-2022 Telephone encounter Note Name of caller: Rabia Contact phone number: [phone] Relationship to Patient: [facility] Pt Accounts Provider: [facility] Practice: ortho Chief Complaint/Reason for Call: Rabia called stating the Dx code for the pt's C9 (G57.51) was not approved for the C9 or MRI. Rabia says the code needs to be changed to either S96.911A, M67.01, or M72.2 and faxed back to [phone]. Please advise. Thank you. Best time of day caller can be reached: Any Patient advised that office/PCP has 24-48 business hours to return their call: No [facility] 10-25-2022 History of Present illness Narrative [facility] [address] [facility] [address] Dept: [phone] Dept Sree Torres 1970 [id number] 10/25/2022 HISTORY OF PRESENT ILLNESS: Sree is a 52 y.o. male here today for re- evaluation of his right foot he is about 13 months s/p Right tarsal tunnel release DOS: 10.13.21. Sree returns for follow up regarding his perisistent foot pain and MRI results Sree states the problem started gradually Sree has persistent pain that is unchanged since his last visit. He states that he continues to have pain and some swelling on the top part of the foot. Sree has no new issues or concerns Review of Systems Surgical Risk Factors: Allergies to Metals or Latex: NO Have you been treated for a blood clot: NO Have you had a history of bleeding disorder: NO Have you had a history of Anesthetic problems: NO Do you have tendency to bruise easily: NO Do you experience prolonged or excessive bleeding from cuts or after surgery: NO General/Constitutional: General: no Cancer: NO Acute/Chronic Infections: NO HEENT/Neck: Problems with theThroat: NO Problems with the Eyes: NO Problems with the Ears: NO Problems with the Nose and Sinuses: NO Endocrine: Problems with Diabetes: NO Problems with Thyroid Disorder: NO Thorax: Problems with the Heart: NO Problems with the Lung: no Cardiovascular: Problems with Circulation: NO Problems with High Blood pressure: NO Gastrointestinal: Problems with Ulcers: NO Problems with the Liver: no Problems with Bowel Habits: NO Genitourinary: Problems with the Genitals: NO Urinary problems: NO Kidney disease or stones: NO Skin: Any general problems: NO Neurologic: Dizziness, blurred vision, headaches, problems with balance : NO Seizures or Stroke: NO Psychiatric: Emotional or Psychological disorders: NO Depression or Anxiety: no PAST MEDICAL HISTORY: Past Medical History: Diagnosis Date Foot pain, right GERD (gastroesophageal reflux disease) Hypertension Tarsal tunnel syndrome of right side foot No Known Allergies PHYSICAL EXAM: BP (!) 152/92 Pulse 65 Ht 6' 3 (1.905 m) Wt 265 lb (120 kg) BMI 33.12 kg/m This is an age appropriate appearing male who is alert and oriented x 3. The patient appears well nourished. Psychiatric: The patient is able to verbalize normally and seems to have a good understanding of his situation. right lower extremity examination Lymphatic System: Dorsal forefoot and midfoot swelling Vascular: Dorsalis pedis pulse: 2+ Posterior tibial pulse: 2+ Capillary refill is less than 3 seconds Skin/nails: Normal appearance, warm and dry Hair growth present on foot and toes Neurologic: Sensation intact to light touch throughout the foot and the ankle Muscle: Muscle strength testing: Anterior tibialis: 5/5 Posterior tibialis: 5/5 Peroneus brevis: 5/5 Peroneus longus: 5/5 Gastrocsoleus: 5/5 Tender to palpation overlying the second metatarsal Gait and Station: Sree is able to ambulate with a limp Sree is able to stand unassisted and maintains balance RADIOGRAPHIC INTERPRETATION: 3 weightbearing views of the right foot were obtained in the office today. A healing stress fracture is noted through the metatarsal shaft area. MRI 9.6.23 IMPRESSION: Impression: Minimally displaced second metatarsal mid shaft fracture REVIEW OF RELATED PREVIOUS DOCUMENTATION: No documents related to the current problem(s) were reviewed or no documents were available for review. LABORATORY RESULT INTERPRETATION: No labs were reviewed/No labs available for review DIAGNOSIS: Diagnosis Plan 1. Closed displaced fracture of second metatarsal bone of right foot with routine healing, subsequent encounter 2. Tarsal tunnel syndrome of right side XR foot 3+ views right MEDICAL DECISION MAKING: I had a discussion with Sree to make sure he has a good understanding of the diagnoses/issues that I think are present today and understands the plan moving forward. I explained to Sree that his fracture of the right second metatarsal(s) can be treated with closed management without the need for manipulation. I explained that another treatment option is surgical reduction and fixation of the injury, however surgery carries risks that non-surgical care does not. I explained that there are times where this type of injury fails to heal or its alignment can become unaccepted even with proper closed management and I could at some point recommend surgical intervention in the future. This type of scenario happens infrequently but I made it clear that it can happen. I also explained that closed management will only work if he follows all instructions regarding care of the injury which was discussed in detail at today's visit. I also explained that his type of injury can take 12-18 months for full recovery of function and some individuals can have some long-term issues even after the injury is clinically healed. After considering both surgical and non-surgical options Sree chose to pursue non-surgical management. Sree will be allowed to transition to a regular shoe if his swelling will allow. If his swelling makes a shoe uncomfortable then he needs to restart the Aircast boot. Sree was instructed to be weight bearing as tolerated on the right lower extremity in a regular shoe. If Sree has any problems maintaining this weight bearing status he was instructed to call me so that appropriate instructions can be given. Sree was instructed to elevate the right lower extremity for comfort. I explained that elevation means keeping the toes at the level of his nose. If his leg is not elevated to that height then it is not truly elevated. I want to see Sree back in approximately 6 weeks for revaluation and he will need xrays consisting of 3 weight bearing views of the right foot If Sree feels that the above plan of treatment is going poorly or if he is having problems with the above plan he was instructed to call my office to determine if the plan of care needs to be changed or if he needs to be seen sooner than noted above. [facility] Plan Current work status: may return to work on 10.26.22 . C9 request: Follow up with imaging in 6 weeks No follow-ups on file. Electronically signed by Contreras Barajas MD [facility] Department of Orthopedic surgery 10/25/2022 10:23 AM Voice recognition was used for portions of this note and although it was reviewed prior to signing some incorrect words or phrases could be present. documented in this encounter [facility] 10-04-2022 Telephone encounter Note Received approval for MRI. Ok to schedule pt for MRI. Scanned Approved Fax into pt media [facility] 10-04-2022 Telephone encounter Note ----- Message from Alverto Vines MA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 regarding taking the narcotic medication and other medications that you are currently on please call the office. You cannot drive or operate machinery while taking the narcotic medication. You should not drink alcohol or use recreational drugs while taking the narcotic medication.[facility] restricts the amount of pain pills that can be legally prescribed and no more than one prescription in a week can be given. If you require a refill of the pain medication it requires that someone come to the office in person as it cannot be called in to the pharmacy or E-prescribed. Please understand that there is a limit to the total amount of pain medication that can be prescribed so make every effort to take it only when needed. Unless otherwise instructed by Dr Barajas you can take an over the counter anti-inflammatory to help with your pain as well. This includes but is not limited to Ibuprofen, Advil, Motrin, Alleve, etc. A prescription for baby aspirin was sent to your pharmacy and Dr. Barajas wants you to take one tablet once a day. If you have any issues with the medication call Dr. Barajas. WEIGHTBEARING INSTRUCTIONS Dr Barajas wants you to be nonweight bearing on the Right lower extremity. You will continue this weight bearing restriction until your 2 week followup and then your ability to put weight on the operative extremity will be updated. If you have any problems maintaining this weight bearing status please call the office so that appropriate instructions can be given. FREQUENTLY ASKED QUESTIONS FREQUENTLY ASKED QUESTIONS If I am supposed to be non-weight bearing on the operative foot/ankle can I still rest the foot on the ground when I am sitting? Yes, it is OK to rest your operative foot on the ground when you are sitting. Is it normal to feel a pappas of fluid or pressure in my foot/ankle when I put it down? Yes, after most foot, ankle or leg surgeries it is very common to feel immediate swelling or pressure in your foot, ankle and leg. Is it OK to put ice on my foot/ankle to help with the swelling and pain? After foot/ankle surgery elevating the foot/ankle is much better at relieving pain and swelling than ice. In many cases you bandage prevents the cold from getting to your skin. At your 2 week visit when your bandage is removed, icing the foot/ankle works much better and you can start it then. If I received a nerve block before surgery, how long will it last? A single shot nerve block can last anywhere from 8 hours to 36 hours on average, some patients' single shot blocks stop sooner and some can go a little longer. A catheter block (pain ball) lasts longer when you have it dialed down and it runs out faster if you have it dialed up. For most patients it lasts for a day and a half to 3 days. Can I shower or bathe after surgery? Yes, you can shower or bathe after surgery but you have to put a plastic bag over your splint/dressing to keep the splint/bandage absolutely dry. The splint/bandage is like a sponge and any water that gets in can damage your skin or cause your incision/incisions to open up and get infected. If your splint/bandage gets water in it, call Dr. Barajas's office ([phone]) immediately and you will be instructed which office can see your the quickest to change your splint/bandage. EDDIE Baez - 10/13/2021 2:43 PM EDT Weight-bearing and post-operative activity Dr Barajas wants you to be nonweight bearing on the Right lower extremity. You will continue this weight bearing restriction until your 2 week followup and then your ability to put weight on the operative extremity will be updated. If you have any problems maintaining this weight bearing status please call the office so that appropriate instructions can be given. Dr. Barajas wants you to get up once per hour during the day to move around for a few minutes while following the above weight bearing orders. He does not want you to be in bed or on a couch all day not getting up. Getting up and moving once per hour helps to promote blood flow and is one way of trying to prevent a blood clot. Remember that when you get up it is normal for your foot/toes to change color and for you to feel fluid, pressure or throbbing (your heart beat) in your foot or toes. When you return to sitting down or laying down elevate your foot as it will lessen your swelling and be more comfortable. If you are having a hard time moving around during the day, let Dr Barajas know. EDDIE Baez - 10/13/2021 2:43 PM EDT Good nutrition is important when healing from an illness, injury, or surgery. Follow any nutrition recommendations given to you during your hospital stay. If you were given an oral nutrition supplement while in the hospital, continue to take this supplement at home. You can take it with meals, in-between meals, and/or before bedtime. These supplements can be purchased at most local grocery stores, pharmacies, and chain [employer]-stores. If you have any questions about your diet or nutrition, call the hospital and ask for the dietitian. documented in this encounter [facility] [employer] Phone: 10-05-2021 Hospital Discharge instructions Christina Bonilla RN - 10/05/2021 9:52 AM EDT TAKE the following medications the morning of your surgery: omeprazole You may take your prescription pain medication. You may take Tylenol for pain. NO Motrin, ibuprofen or Advil for 24 hours prior to surgery or longer if instructed by your surgeon. NO Aleve or Naprosyn for 3 days prior to surgery or longer if instructed by your surgeon. DO NOT take aspirin or aspirin containing products for 5 days before surgery, or longer if instructed by your surgeon. Follow any instructions given to you by Dr. Frederick Galvan with the Hibiclens product given to you in Pre-Admission Testing. Follow the instructions and wear clean clothes to bed and clean linen on the bed the night before surgery. Follow the instructions and shower the morning of surgery and wear clean, comfortable clothes to the hospital. No lotion, powder, deodorant or body spays. No hair products. Remove all jewelry and leave it at home. Wear loose comfortable clothing to go home in. You may brush your teeth morning of surgery. Do not wear contacts day of surgery. Please arrange for a responsible adult to drive you home after your surgery and that there is a responsible adult with you for 24 hours post discharge. If you have specific questions, please call your surgeon. You will receive a call the day before your surgery to verify your arrival time and date. You will be asked to arrive at least two hours prior to your scheduled surgery time. Please bring your [facility] folder and medication list with you day of surgery. We encourage you to write down any questions you may have for the surgeon, anesthesiologist, or other members of the surgical team and bring it with you the day of surgery. Please bring photo ID and insurance information. You may use the parking in the Main deck. Take the level one bridge to the building and follow the signs for same day surgery. Check in at the desk. You may use the business management associate parking located at the main entrance on [address] [place] [address] and take the H elevator to the first floor for same day surgery. Take a left after exiting the elevator and check in at the desk. documented in this encounter [employer] Phone: 09-08-2021 Miscellaneous Notes Cruz Balbuena via telephone call pathology from colonoscopy on 09/04/2021 FINAL DIAGNOSIS A. Colon, descending polyp, biopsy: -Tubular adenoma. B. Colon, sigmoid polyp at 20 cm, biopsy: -Sessile serrated polyp. C. Rectum, polyp, biopsy: -Hyperplastic polyp with prolapse related change. I have recommended surveillance colonoscopy for history of colon polyps in three years. HM updated and recall letter generated. Patient acknowledges above. documented in this encounter [facility] 09-04-2021 History and physical note UPDATED PROCEDURAL SEDATION HISTORY AND PHYSICAL EXAMINATION SERVICE DATE: 09/04/2021 SERVICE TIME: 7:10 AM PHYSICAL EXAM MUST BE COMPLETED ON ADMISSION PROCEDURE: Procedure Indications: The History and Physical (completed in the past 30 days) has been reviewed and the patient has been examined. The contents accurately reflect the patient's condition with the following additions or revisions since the H&P was completed. ASA Class: ASA Class:: Patient with mild systemic disease Examination indicates no changes. AIRWAY: Airway Visualization of Uvula: Yes Mouth opening greater than 2 fingerbreadths: Yes Neck Full Range of Motion: Yes LUNGS: Lungs clear to auscultation CARDIAC: Regular rhythm,Regular rate Provisional Diagnosis/Treatment Plan: positive cologuard test - colonoscopy SEDATION GOAL: Moderate This H&P can be found in the attached. SIGNATURE: Kamaljit Teran MD PATIENT NAME: Sree Torres DATE: September 04, 2021 TIME: 7:09 AM Images from the original note were not included. HISTORY AND PHYSICAL Sree Torres 1970 REFERRING PHYSICIAN: Stan Oropeza APRN* CHIEF COMPLAINT: Consult (Colonoscopy, Positive Cologuard) HPI: The patient is a 51 year old male referred for endoscopy. Sree is found to be Cologard positive.. Sree has not undergone prior endoscopy. Patient notes no colon cancer in his immediate family The patient denies blood in his stools; he denies changes in bowel habits; he denies abdominal pain. He has known hemorrhoids. He notes occasional bright red blood on toilet paper. He states that he had hemorrhoid surgery about 8-9 years ago. PAST MEDICAL HISTORY Diagnosis Date Dyslipidemia 03/19/2015 Elevated LFTs 04/14/2016 Essential hypertension with goal blood pressure less than 140/90 06/19/2015 Ex-smoker 03/06/2015 Started at age 23 up to 1 1/2 PPD. Quit smoking May 08 2016 Fatty liver 04/21/2016 GERD without esophagitis 04/14/2016 Hypogonadism in male 03/06/2015 Leukocytosis Muscle cramps 03/06/2015 TIMOTHY (obstructive sleep apnea) 03/31/2015 Sleep study 03/2015: sever. Not able to tolerate CPAP Situational mixed anxiety and depressive disorder 05/18/2019 secodary to Covid 19 PAST SURGICAL HISTORY Procedure Laterality Date FECAL OCCULT BLOOD TEST 09/12/2019 negative PAST SURGICAL HISTORY OF micro discectomy L5-S1 Current Outpatient Medications Medication Sig lisinopril (ZESTRIL, PRINIVIL) 20 mg tablet TAKE 1 TABLET BY MOUTH EVERY DAY DULoxetine (CYMBALTA) 30 mg capsule Take 1 capsule by mouth once daily. omeprazole (PRILOSEC) 20 mg capsule TAKE 1 TABLET BY MOUTH DAILY BEFORE BREAKFAST. 1/2 HR BEFORE MEAL. CLENPIQ 10 mg-3.5 gram -12 gram/160 mL soln Refer to instructions given by your provider. sildenafil (REVATIO) 20 mg tablet Take 3 tablets by mouth one hour prior to sex as needed. ALLERGIES: Patient has no known allergies. PERSONAL HISTORY: Social History Tobacco Use Smoking status: Former Smoker Packs/day: 1.00 Years: 20.00 Pack years: 20.00 Types: Cigarettes Quit date: 05/08/2016 Years since quittin.2 Smokeless tobacco: Never Used Tobacco comment: none x 4 years Vaping Use Vaping Use: Never used Substance Use Topics Alcohol use: No Drug use: No FAMILY HISTORY Problem Relation Age of Onset Diabetes Mother Psychiatry Mother rash and anxiety Cancer Maternal Grandmother 60 ? Cancer Maternal Grandfather 60 ? Alzheimer's Disease No Family History Colon Cancer No Family History Prostate Cancer No Family History Breast Cancer No Family History Ovarian cancer No Family History Coronary Artery Disease No Family History Hypertension No Family History Hyperlipidemia No Family History Kidney Disease No Family History Seizures No Family History Stroke No Family History Thyroid No Family History \ The review of systems data was entered by the nurse and reviewed by il Nursing Notes: Shanika Bustamante 08/17/2021 8:04 AM Signed REVIEW OF SYSTEMS: General: The patient denies fatigue, denies weight loss, denies weight gain, denies feeling hot, and denies feelings of cold. Eyes: The patient denies glaucoma, denies eye injury/surgery, does not wear glasses or contacts. Ear/Nose/Throat: The patient denies allergies, denies hayfever, denies ear infections, and denies bloody noses. Cardiovascular: The patient denies chest pain, denies heart disease, NOTES high blood pressure,denies cardiac stent, denies prior heart attack, denies irregular heart beat, denies high cholesterol, denies poor circulation, denies heart failure, other cardiac issues, denies claudication, denies cold feet, denies peripheral arterial stent. Respiratory: The patient denies tuberculosis, denies pneumonia, denies frequent cough, denies pulmonary embolism, denies shortness of breath, and denies coughing up blood. Gastrointestinal: The patient denies difficulty swallowing, denies acid reflux, denies ulcers, denies vomiting, denies jaundice/hepatitis, denies gallbladder problems, denies black or tarry stools, denies hemorrhoids, denies bleeding from rectum, denies diverticulitis, denies constipation, denies diarrhea, denies loss of stool control, and denies hernias. Kidney/Bladder: The patient denies kidney stones, denies urine infections, and denies bloody urine. Skin: The patient denies a history of skin cancer, denies bleeding/changing moles, and denies a history of skin rash. Neurologic: The patient denies a history of epilepsy/convulsions, denies headaches, denies head/spinal injuries, and denies stroke/TIA. Psychiatric: The patient denies psychiatric medications, denies depression, and denies voices, denies substance abuse. Endocrine: The patient denies thyroid disorders, denies diabetes, and denies hormonal problems. Hematologic: The patient denies a history of bruising, denies bleeding, and denies anemia, denies blood clots. Infections: The patient denies a history of measles and mumps, denies rheumatic fever, and denies sexually transmitted diseases. Musculoskeletal: The patient denies back pain/injury, NOTES back problems, denies sciatica, NOTES knee/foot trouble, denies arthritis, or denies gout. When was patient's last Mammogram screening? N/A Last Colonoscopy: None Shanika Dianna PHYSICAL EXAMINATION: General: The patient is 51 year old male, well nourished, well hydrated in no acute distress. The patient is oriented to time, place, and person. VITALS: Blood pressure 145/86, pulse 66, temperature 36.2 C (97.2 F), height 190.5 cm (6' 3), weight 120.2 kg (265 lb), SpO2 96 %. Body mass index is 33.12 kg/m . Head: Normal cephalic, atraumatic Eyes: pupils are equally round, sclera are clear/anicteric Neck is supple with no tracheal deviation Respiratory: Normal respiratory excursion and pattern. Abdominal exam: benign Extremities: no clubbing, cyanosis or edema. Neuro: non focal Psych: normal mood Assessment IMPRESSION: Cologard positive PLAN: I have discussed the above with the patient. I have offered colonoscopy , possible biopsies I have explained the procedure to the patient. I have counseled the patient as to the risks of the procedure, including but not limited to: infection, bleeding, injury to any intrabdominal organs such as liver/spleen, perforation of the GI tract, inability to complete the procedure, complications of anesthesia, etc. the patient understands. The patient was offered a surgery/procedure at a [facility] facility. The provider and patient have discussed in detail the risk of exposure to and/or potential harm posed by the COVID-19 virus with having a surgery/procedure at this time versus the risk of delaying the surgery/procedure. It is not possible to know either the risk of delaying the surgery or procedure or chance of getting an infection with perfect accuracy, but a joint decision was made between the patient and the provider to proceed at this time with the scheduled surgery/procedure. I have explained to the patient the difference between IV conscious sedation and MAC anesthesia - and I have offered either, according to the patient's wishes. I have explained that with IV conscious sedation there is no anesthesia provider available and therefore there is a limitation of the amount of IV medications that can be given and that the patient may wake up in the middle of the procedure and/or experience pain/discomfort during the procedure. Further discussion was done and the patient was given the opportunity to ask questions and all questions were answered. The patient chooses MAC anesthesia. Patient was counseled that if there are changes in his/her medical condition, to let the office know if surgery should proceed. If there are changes in patient's medical condition from time of this encounter to the day of the procedure that preclude anesthesia, patient may have procedure cancelled for patient's safety. The patient wishes to proceed. I have answered all questions to the patient s satisfaction and the patient has no further questions. Diagnoses: (R19.5) Positive colorectal cancer screening using Cologuard test (primary encounter diagnosis) I have confirmed and edited as necessary, the PFSH and ROS obtained by others. Consultation requested by Stan Oropeza for an opinion regarding patient's Cologard positivity. My final recommendations will be communicated back to the requesting physician by way of shared Medical record or letter to requesting physician via US mail. Return to Clinic: The patient is to be scheduled for colonoscopy with MAC at [facility] Medical Decision Making: Data: Unique test result(s) reviewed: 1 Risk: Low: Low risk from testing/treatment Medical Decision Making Level: 2 - Straightforward Lizbeth Ng MD documented in this encounter [facility] 08-18-2021 Miscellaneous Notes Last office visit: 07/01/21 F/u scheduled: 01/01/22 Anna Flower Ma documented in this encounter [facility] 08-17-2021 Miscellaneous Notes 09/04/[address] Jeffry Hooks documented in this encounter [facility] 08-17-2021 History of Present illness Narrative HISTORY AND PHYSICAL Sree Collins Six 1970 REFERRING PHYSICIAN: Stan Oropeza APRN* CHIEF COMPLAINT: Consult (Colonoscopy, Positive Cologuard) HPI: The patient is a 51 year old male referred for endoscopy. Sree is found to be Cologard positive.. Sree has not undergone prior endoscopy. Patient notes no colon cancer in his immediate family The patient denies blood in his stools; he denies changes in bowel habits; he denies abdominal pain. He has known hemorrhoids. He notes occasional bright red blood on toilet paper. He states that he had hemorrhoid surgery about 8-9 years ago. PAST MEDICAL HISTORY Diagnosis Date Dyslipidemia 03/19/2015 Elevated LFTs 04/14/2016 Essential hypertension with goal blood pressure less than 140/90 06/19/2015 Ex-smoker 03/06/2015 Started at age 23 up to 1 02/08 PPD. Quit smoking May 08 2016 Fatty liver 04/21/2016 GERD without esophagitis 04/14/2016 Hypogonadism in male 03/06/2015 Leukocytosis Muscle cramps 03/06/2015 TIMOTHY (obstructive sleep apnea) 03/31/2015 Sleep study 03/2015: sever. Not able to tolerate CPAP Situational mixed anxiety and depressive disorder 05/18/2019 secodary to Covid 19 PAST SURGICAL HISTORY Procedure Laterality Date FECAL OCCULT BLOOD TEST 09/12/2019 negative PAST SURGICAL HISTORY OF micro discectomy L5-S1 Current Outpatient Medications Medication Sig lisinopril (ZESTRIL, PRINIVIL) 20 mg tablet TAKE 1 TABLET BY MOUTH EVERY DAY DULoxetine (CYMBALTA) 30 mg capsule Take 1 capsule by mouth once daily. omeprazole (PRILOSEC) 20 mg capsule TAKE 1 TABLET BY MOUTH DAILY BEFORE BREAKFAST. 1/2 HR BEFORE MEAL. CLENPIQ 10 mg-3.5 gram -12 gram/160 mL soln Refer to instructions given by your provider. sildenafil (REVATIO) 20 mg tablet Take 3 tablets by mouth one hour prior to sex as needed. ALLERGIES: Patient has no known allergies. PERSONAL HISTORY: Social History Tobacco Use Smoking status: Former Smoker Packs/day: 1.00 Years: 20.00 Pack years: 20.00 Types: Cigarettes Quit date: 05/08/2016 Years since quittin.2 Smokeless tobacco: Never Used Tobacco comment: none x 4 years Vaping Use Vaping Use: Never used Substance Use Topics Alcohol use: No Drug use: No FAMILY HISTORY Problem Relation Age of Onset Diabetes Mother Psychiatry Mother rash and anxiety Cancer Maternal Grandmother 60 ? Cancer Maternal Grandfather 60 ? Alzheimer's Disease No Family History Colon Cancer No Family History Prostate Cancer No Family History Breast Cancer No Family History Ovarian cancer No Family History Coronary Artery Disease No Family History Hypertension No Family History Hyperlipidemia No Family History Kidney Disease No Family History Seizures No Family History Stroke No Family History Thyroid No Family History \ The review of systems data was entered by the nurse and reviewed by il Nursing Notes: Shanika Bustamante 08/17/2021 8:04 AM Signed REVIEW OF SYSTEMS: General: The patient denies fatigue, denies weight loss, denies weight gain, denies feeling hot, and denies feelings of cold. Eyes: The patient denies glaucoma, denies eye injury/surgery, does not wear glasses or contacts. Ear/Nose/Throat: The patient denies allergies, denies hayfever, denies ear infections, and denies bloody noses. Cardiovascular: The patient denies chest pain, denies heart disease, NOTES high blood pressure,denies cardiac stent, denies prior heart attack, denies irregular heart beat, denies high cholesterol, denies poor circulation, denies heart failure, other cardiac issues, denies claudication, denies cold feet, denies peripheral arterial stent. Respiratory: The patient denies tuberculosis, denies pneumonia, denies frequent cough, denies pulmonary embolism, denies shortness of breath, and denies coughing up blood. Gastrointestinal: The patient denies difficulty swallowing, denies acid reflux, denies ulcers, denies vomiting, denies jaundice/hepatitis, denies gallbladder problems, denies black or tarry stools, denies hemorrhoids, denies bleeding from rectum, denies diverticulitis, denies constipation, denies diarrhea, denies loss of stool control, and denies hernias. Kidney/Bladder: The patient denies kidney stones, denies urine infections, and denies bloody urine. Skin: The patient denies a history of skin cancer, denies bleeding/changing moles, and denies a history of skin rash. Neurologic: The patient denies a history of epilepsy/convulsions, denies headaches, denies head/spinal injuries, and denies stroke/TIA. Psychiatric: The patient denies psychiatric medications, denies depression, and denies voices, denies substance abuse. Endocrine: The patient denies thyroid disorders, denies diabetes, and denies hormonal problems. Hematologic: The patient denies a history of bruising, denies bleeding, and denies anemia, denies blood clots. Infections: The patient denies a history of measles and mumps, denies rheumatic fever, and denies sexually transmitted diseases. Musculoskeletal: The patient denies back pain/injury, NOTES back problems, denies sciatica, NOTES knee/foot trouble, denies arthritis, or denies gout. When was patient's last Mammogram screening? N/A Last Colonoscopy: None Shanika Bustamante PHYSICAL EXAMINATION: General: The patient is 51 year old male, well nourished, well hydrated in no acute distress. The patient is oriented to time, place, and person. VITALS: Blood pressure 145/86, pulse 66, temperature 36.2 C (97.2 F), height 190.5 cm (6' 3), weight 120.2 kg (265 lb), SpO2 96 %. Body mass index is 33.12 kg/m . Head: Normal cephalic, atraumatic Eyes: pupils are equally round, sclera are clear/anicteric Neck is supple with no tracheal deviation Respiratory: Normal respiratory excursion and pattern. Abdominal exam: benign Extremities: no clubbing, cyanosis or edema. Neuro: non focal Psych: normal mood Assessment IMPRESSION: Cologard positive PLAN: I have discussed the above with the patient. I have offered colonoscopy , possible biopsies I have explained the procedure to the patient. I have counseled the patient as to the risks of the procedure, including but not limited to: infection, bleeding, injury to any intrabdominal organs such as liver/spleen, perforation of the GI tract, inability to complete the procedure, complications of anesthesia, etc. the patient understands. The patient was offered a surgery/procedure at a [facility] facility. The provider and patient have discussed in detail the risk of exposure to and/or potential harm posed by the COVID-19 virus with having a surgery/procedure at this time versus the risk of delaying the surgery/procedure. It is not possible to know either the risk of delaying the surgery or procedure or chance of getting an infection with perfect accuracy, but a joint decision was made between the patient and the provider to proceed at this time with the scheduled surgery/procedure. I have explained to the patient the difference between IV conscious sedation and MAC anesthesia - and I have offered either, according to the patient's wishes. I have explained that with IV conscious sedation there is no anesthesia provider available and therefore there is a limitation of the amount of IV medications that can be given and that the patient may wake up in the middle of the procedure and/or experience pain/discomfort during the procedure. Further discussion was done and the patient was given the opportunity to ask questions and all questions were answered. The patient chooses MAC anesthesia. Patient was counseled that if there are changes in his/her medical condition, to let the office know if surgery should proceed. If there are changes in patient's medical condition from time of this encounter to the day of the procedure that preclude anesthesia, patient may have procedure cancelled for patient's safety. The patient wishes to proceed. I have answered all questions to the patient s satisfaction and the patient has no further questions. Diagnoses: (R19.5) Positive colorectal cancer screening using Cologuard test (primary encounter diagnosis) I have confirmed and edited as necessary, the PFSH and ROS obtained by others. Consultation requested by Stan Oropeza for an opinion regarding patient's Cologard positivity. My final recommendations will be communicated back to the requesting physician by way of shared Medical record or letter to requesting physician via [place] mail. Return to Clinic: The patient is to be scheduled for colonoscopy with MAC at [facility] Medical Decision Making: Data: Unique test result(s) reviewed: 1 Risk: Low: Low risk from testing/treatment Medical Decision Making Level: 2 - Straightforward Lizbeth Ng MD documented in this encounter [facility] 08-17-2021 Instructions Lizbeth Ng MD - 08/17/2021 8:13 AM EDT Images from the original note were not included. Bowel Preparation Instructions for: CLENPIQ IF YOU DO NOT FOLLOW THESE DIRECTIONS, YOUR COLONOSCOPY WILL BE CANCELLED. [place] Instructions: Your bowel must be empty so that your doctor can clearly view your colon. Follow all of the instructions in this handout EXACTLY as they are written. Do NOT eat any solid food the ENTIRE day before your colonoscopy. Buy your bowel preparation at least 5 days before your colonoscopy. TRANSPORTATION on the Day of Your Exam A responsible adult MUST be present with you at Check In prior to your colonoscopy and REMAIN in the endoscopy area until you are discharged. You are NOT ALLOWED to drive, take a taxi or bus, or leave the Endoscopy Center ALONE. If you do not have a responsible hammer driver (family member or friend) with you to take you home, your exam cannot be done with sedation and will be cancelled. Please bring a list of all of your current medications, including any Over-the Counter medications with you. Medications If you take insulin, diabetic medications or blood thinners such as Coumadin (warfarin), Plavix (clopidogrel), Ticlid (ticlopidine hydrochloride), Agrylin (anagrelide), Xarelto (Rivaroxaban), Pradaxa (Dabigatran), Eliquis (Apixaban), and Effient (Prasugrel). You MUST call the doctors who orders those medicines for instructions on altering the dosage before your colonoscopy. All other medications should be taken the day of the exam with a sip of water including ASPIRIN. Five (5) Days Before Your Colonoscopy Do NOT take medicines that stop diarrhea - such as Imodium, Kaopectate, or Pepto Bismol. Do NOT take fiber supplements - such as Metamucil, Citrucel, or Perdiem. Do NOT take products that contain iron - such as multi-vitamins (the label lists what is in the products). Three (3) Days Before Your Colonoscopy Do NOT eat high-fiber foods - such as popcorn, beans, seeds (flax, sunflower, quinoa), multigrain bread, nuts, salad/vegetables, or fresh and dried fruit. 2 01/2019 Bowel Preparation Instructions for: CLENPIQ One (1) Day Before Your Colonoscopy Only drink clear liquids the ENTIRE DAY before your colonoscopy. Do NOT eat any solid foods. Drink at least 8 ounces of clear liquids every hour after waking up. The clear liquids you can drink include: Clear Liquid (NO RED LIQUIDS) DO NOT DRINK Gatorade, Pedialyte or Powerade Clear broth or bouillon Coffee or tea (no milk or non-dairy creamer) Carbonated and non-carbonated soft drinks Hira-Aid or other fruit flavored drinks Strained fruit juices (no pulp) Jell-O, popsicles, hard candy Water Alcohol Milk or non-dairy creamers Noodles or vegetables in soup Juice with pulp Liquid you cannot see through The bowel preparation solution will be consumed in two parts. Part 1 6 PM - Evening before your colonoscopy Drink one bottle of CLENPIQ. Over the next 5 hours, drink at least 5 cups (8 oz. Each) of clear liquid, at your own pace. You may continue to drink clear liquids until midnight. Part 2 4 1/2 hours before your colonoscopy Drink the bottle of CLENPIQ, then drink one cup (8 oz. Each) of clear liquid, every 15 minutes for at least 4 cups. You may continue to drink clear liquids up to (three) 3 hours before your exam. 2 01/2019 documented in this encounter [facility] 08-17-2021 Nurse Note REVIEW OF SYSTEMS: General: The patient denies fatigue, denies weight loss, denies weight gain, denies feeling hot, and denies feelings of cold. Eyes: The patient denies glaucoma, denies eye injury/surgery, does not wear glasses or contacts. Ear/Nose/Throat: The patient denies allergies, denies hayfever, denies ear infections, and denies bloody noses. Cardiovascular: The patient denies chest pain, denies heart disease, NOTES high blood pressure,denies cardiac stent, denies prior heart attack, denies irregular heart beat, denies high cholesterol, denies poor circulation, denies heart failure, other cardiac issues, denies claudication, denies cold feet, denies peripheral arterial stent. Respiratory: The patient denies tuberculosis, denies pneumonia, denies frequent cough, denies pulmonary embolism, denies shortness of breath, and denies coughing up blood. Gastrointestinal: The patient denies difficulty swallowing, denies acid reflux, denies ulcers, denies vomiting, denies jaundice/hepatitis, denies gallbladder problems, denies black or tarry stools, denies hemorrhoids, denies bleeding from rectum, denies diverticulitis, denies constipation, denies diarrhea, denies loss of stool control, and denies hernias. Kidney/Bladder: The patient denies kidney stones, denies urine infections, and denies bloody urine. Skin: The patient denies a history of skin cancer, denies bleeding/changing moles, and denies a history of skin rash. Neurologic: The patient denies a history of epilepsy/convulsions, denies headaches, denies head/spinal injuries, and denies stroke/TIA. Psychiatric: The patient denies psychiatric medications, denies depression, and denies voices, denies substance abuse. Endocrine: The patient denies thyroid disorders, denies diabetes, and denies hormonal problems. Hematologic: The patient denies a history of bruising, denies bleeding, and denies anemia, denies blood clots. Infections: The patient denies a history of measles and mumps, denies rheumatic fever, and denies sexually transmitted diseases. Musculoskeletal: The patient denies back pain/injury, NOTES back problems, denies sciatica, NOTES knee/foot trouble, denies arthritis, or denies gout. When was patient's last Mammogram screening? N/A Last Colonoscopy: None Shanika Bustamante documented in this encounter [facility] 07-22-2021 Miscellaneous Notes Spoke with patient. Given message from provider's office. Patient verbalizes understanding. 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 Alicia Garcia RN Left a message for pt to call the office and ask to speak to a nurse. Ira Schulz LPN Left message to return call. Please call patient and let him know that his cologuard did come back positive. With a positive reading, a colonoscopy is the next step to investigate why. This can be positive with any small polyp. See if patient is agreeable to have this done. Gi consult placed if so. Please assist in scheduling. Thank you, Samina Morales APRN.VICKEY documented in this encounter [facility] 07-14-2021 Miscellaneous Notes Patient calls and notified of results and providers instructions. Patient verbalizes understanding. Zelda Macias RN Second attempt to contact patient by phone with no answer. Left message to return call. My Chart message with providers message sent as well. LYNN Jasso left with patient to contact office for results Lenore Herrera Ma Please let Sree know that the ultrasound of his right upper quadrant/liver does show a fatty liver. To improve this, I recommend cutting back on fatty foods, exercise, weight loss, and decreasing alcohol intake. Stan Oropeza APRN.VICKEY documented in this encounter [facility] 07-02-2021 Miscellaneous Notes Patient notified of results, verbalizes understanding of instructions. Please assist pt in scheduling Ultrasound of liver. Order is in. Alpa Jensen LPN Please let Sree know that his liver enzymes are still elevated, and increased just a bit from previous. I'd like him to have an ultrasound of his liver. Typically we will see a fatty liver, which can be improved with diet and exercise. However, I want to confirm this with the ultrasound. Please assist him to schedule this appointment. Stan Oropeza APRN.CNP documented in this encounter [facility] 07-01-2021 Instructions Stan Oropeza APRN.CNP - 07/01/2021 8:42 AM EDT Schedule with hematology to discuss your elevated white blood cells. Have your liver enzyme blood work completed when able. documented in this encounter [facility] 07-01-2021 History of Present illness Narrative Chief Complaint Patient presents with: F/U 3 months HPI Sree Torres is a 51 year old male who presents here today for Above Complaints.. Per appointment with myself on 04/03/2021: Takes his lisinopril in the mornings, after he gets home from working 3rd shift. Cymbalta-working well. Alprazolam-takes prn. Helps very much when he takes it. Considering going to a place that helps with ED. Wondering if this would be something safe/worthwhile. 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 Anxiety has skyrocketed. Before work, after work, at work. Does like this position, but difficult to feel this way. Is working 3rd shift. Past medical history, appointments, medications, allergies reviewed. Previous Medical History PAST MEDICAL HISTORY Diagnosis Date Dyslipidemia 03/19/2015 Elevated LFTs 04/14/2016 Essential hypertension with goal blood pressure less than 140/90 06/19/2015 Ex-smoker 03/06/2015 Started at age 23 up to 1 02/08 PPD. Quit smoking May 08 2016 Fatty liver 04/21/2016 GERD without esophagitis 04/14/2016 Hypogonadism in male 03/06/2015 Leukocytosis Muscle cramps 03/06/2015 TIMOTHY (obstructive sleep apnea) 03/31/2015 Sleep study 03/2015: sever. Not able to tolerate CPAP Situational mixed anxiety and depressive disorder 05/18/2019 secodary to Covid 19 Previous Surgical History PAST SURGICAL HISTORY Procedure Laterality Date FECAL OCCULT BLOOD TEST 09/12/2019 negative PAST SURGICAL HISTORY OF micro discectomy L5-S1 Family History FAMILY HISTORY Problem Relation Age of Onset Diabetes Mother Psychiatry Mother rash and anxiety Cancer Maternal Grandmother 60 ? Cancer Maternal Grandfather 60 ? Alzheimer's Disease No Family History Colon Cancer No Family History Prostate Cancer No Family History Breast Cancer No Family History Ovarian cancer No Family History Coronary Artery Disease No Family History Hypertension No Family History Hyperlipidemia No Family History Kidney Disease No Family History Seizures No Family History Stroke No Family History Thyroid No Family History Patient Allergies ALLERGIES No Known Allergies Current Medications Current Outpatient Medications on File Prior to Visit Medication Sig lisinopril (ZESTRIL, PRINIVIL) 20 mg tablet TAKE 1 TABLET BY MOUTH EVERY DAY DULoxetine (CYMBALTA) 30 mg capsule Take 1 capsule by mouth once daily. sildenafil (REVATIO) 20 mg tablet Take 3 tablets by mouth one hour prior to sex as needed. omeprazole (PRILOSEC) 20 mg capsule TAKE 1 TABLET BY MOUTH DAILY BEFORE BREAKFAST. 1/2 HR BEFORE MEAL. COMPOUNDED PRESCRIPTION cpap supplies: mask, tubing, hoses COMPOUNDED PRESCRIPTION CPAP unit and supplies at 15 cm H2O with humidification. Dx: G47.33 No current facility-administered medications on file prior to visit. Social History Social History Tobacco Use Smoking status: Former Smoker Packs/day: 1.00 Years: 20.00 Pack years: 20.00 Types: Cigarettes Quit date: 05/08/2016 Years since quittin.1 Smokeless tobacco: Never Used Tobacco comment: none x 3 yrs Vaping Use Vaping Use: Never used Substance Use Topics Alcohol use: No Drug use: No Review of Symptoms REVIEW OF SYSTEMS See HPI, otherwise negative EXAM: BP 140/92 (BP Site: Left Arm, BP Position: Sitting, BP Cuff Size: Regular Adult) Pulse 67 Resp 16 Wt 120.2 kg (265 lb) SpO2 97% BMI 33.57 kg/m General Appearance: Well appearing, alert, in no acute distress, well-hydrated, well nourished.. Skin: Skin color, texture, turgor normal, no suspicious rashes or lesions. Head: Normocephalic, no masses, lesions, tenderness or abnormalities. Lungs: Lungs clear to auscultation. No wheezing, rhonchi, rales.. Heart: RRR without murmur, gallop, or rubs. No ectopy, No carotid bruits. Lymph Nodes: No cervical lymphadenopathy and No supraclavicular lymphadenopathy. Health Maintenance List HIV SCREENING Never done BP CONTROLLED (<130/80) Never done LUNG CANCER SCREENING Never done SHINGRIX VACCINE(1 of 2) Never done COLORECTAL CANCER SCREENING due on 10/17/2020 COVID-19 VACCINE(4 - Booster for Pfizer series) due on 06/25/2021 INFLUENZA(Season Ended) due on 10/08/2021 ANNUAL PCP TEAM CHRONIC DISEASE VISIT due on 04/03/2022 DIABETES SCREEN due on 04/23/2024 DTAP,TDAP,TD(2 - Td or Tdap) due on 03/06/2025 LIPID SCREEN due on 04/23/2026 HEPATITIS C SCREENING Completed Data reviewed Previous records, office notes, [facility] report. ASSESSMENT/PLAN: 1. Situational mixed anxiety and depressive disorder - ICD9: 309.28, ICD10: F43.23 (primary diagnosis) Working well, continue prn. Refill given. - ALPRAZOLAM 0.5 MG TABLET 2. Leukocytosis, unspecified type - ICD9: 288.60, ICD10: D72.829 Chronic, but never had work up. Suggest he do so. - CONSULT TO HEMATOLOGY 3. Elevated LFTs - ICD9: 790.6, ICD10: R79.89 Previously elevated. Recheck today. If remain elevated, will likely consider ultrasound. - HEPATIC FUNCTION PNL 4. Screening for colon cancer - ICD9: V76.51, ICD10: Z12.11 - COLOGUARD Stan Oropeza APRN.CNP PDMP website checked and validated. All prescriptions have been APPROPRIATELY filled. No suspicious activity was identified. 07/01/2021 by Stan Oropeza CNP. documented in this encounter [facility] 06-29-2021 Miscellaneous Notes Patient phones requesting refills as follows: Pending Prescriptions Disp Refills LISINOPRIL 20 MG TABLET 90 tablet 0 Sig: TAKE 1 TABLET BY MOUTH EVERY DAY JEREMY: Yes MICHELLE-04/03/21 Labs-04/23/21 NOV-07/01/21 med filled 04/03/21 Please review and advise. Alpa Jensen LPN documented in this encounter [facility] 04-14-2016 History of Past i llness Narrative Problem Noted Date Diagnosed Date Resolved Date Elevated LFTs 04/14/2016 04/22/2023 Well adult exam 03/06/2015 04/22/2023 Overview: Last done: 03/14/2019 documented as of this encounter (statuses as of 04/22/2023) [facility] History of Past illness Narrative* Problem Noted Date Diagnosed Date Resolved Date Elevated LFTs 04/14/2016 04/22/2023 Well adult exam 03/06/2015 04/22/2023 Overview: Last done: 03/14/2019 documented as of this encounter (statuses as of 05/10/2023) [facility] Diagnosis Essential hypertension with goal blood pressure less than 140/90 [facility] Diagnosis Situational mixed anxiety and depressive disorder- Primary Adjustment disorder with mixed anxiety and depressed mood Leukocytosis, unspecified type Elevated LFTs Other abnormal blood chemistry Screening for colon cancer Special screening for malignant neoplasms, colon [facility] Diagnosis Elevated LFTs- Primary Other abnormal blood chemistry [facility] Diagnosis Elevated LFTs Other abnormal blood chemistry [facility] Diagnosis Screening for colon cancer- Primary Special screening for malignant neoplasms, colon [facility] Diagnosis Positive colorectal cancer screening using Cologuard test- Primary [facility] Diagnosis Essential hypertension with goal blood pressure less than 140/90 [facility] Diagnosis Positive colorectal cancer screening using Cologuard test [facility] Diagnosis Onset Date Resolution Status Pharyngitis acute [facility] Work Phone: Evaluation note* Diagnosis Tarsal tunnel syndrome of right side- Primary Tarsal tunnel syndrome documented in this encounter [facility]* Diagnosis Essential hypertension with goal blood pressure less than 140/90 documented in this encounter [facility] note* Diagnosis Chronic foot pain, right- Primary documented in this encounter [facility] note* Diagnosis Situational mixed anxiety and depressive disorder- Primary Adjustment disorder with mixed anxiety and depressed mood 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 Essential hypertension with goal blood pressure less than 140/90 GERD without esophagitis Esophageal reflux documented in this encounter [facility] note* Diagnosis Tarsal tunnel syndrome of right side documented in this encounter [facility] note* Diagnosis Closed displaced fracture of second metatarsal bone of right foot with routine healing, subsequent encounter- Primary Tarsal tunnel syndrome of right side documented in this encounter [facility] note* Diagnosis Right foot pain Pain in soft tissues of limb Vitamin D deficiency documented in this encounter [facility] note* Diagnosis Right cervical radiculopathy- Primary Cervical paraspinal muscle spasm Spasm of muscle documented in this encounter [facility] note* Diagnosis Vitamin D deficiency- Primary [facility] Diagnosis Vitamin D deficiency- Primary documented in this encounter [facility] note* Diagnosis Neck pain on right side- Primary Cervicalgia Cervical radiculopathy Brachial neuritis or radiculitis nos Insomnia secondary to chronic pain Other chronic pain 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 Situational mixed anxiety and depressive disorder Adjustment disorder with mixed anxiety and depressed mood TIMOTHY (obstructive sleep apnea) Obstructive sleep apnea (adult) (pediatric) documented in this encounter [facility] note* Diagnosis TIMOTHY (obstructive sleep apnea)- Primary Obstructive sleep apnea (adult) (pediatric) [facility] Diagnosis Insomnia secondary to chronic pain Other chronic pain [facility]* Diagnosis Well adult exam- Primary Routine general medical examination at a health care facility HTN, goal below 130/80 Unspecified essential hypertension Insomnia secondary to chronic pain Other chronic pain Situational mixed anxiety and depressive disorder Adjustment disorder with mixed anxiety and depressed mood 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 GERD without esophagitis Esophageal reflux Screening for diabetes mellitus Vitamin D deficiency Unspecified vitamin D deficiency Encounter for screening for lung cancer TIMOTHY (obstructive sleep apnea) Obstructive sleep apnea (adult) (pediatric) documented [facility] Diagnosis Vitamin D deficiency- Primary Unspecified vitamin D deficiency TIMOTHY (obstructive sleep apnea) Obstructive sleep apnea (adult) (pediatric) documented in this [facility] Diagnosis Preoperative examination- Primary Preoperative examination, unspecified TIMOTHY (obstructive sleep apnea) Obstructive sleep apnea (adult) (pediatric) Essential hypertension with goal blood pressure less than 140/90 GERD without esophagitis Esophageal reflux Fatty liver Other chronic nonalcoholic liver disease Leukocytosis, unspecified type Situational mixed anxiety and depressive disorder Adjustment disorder with mixed anxiety and depressed mood Dyslipidemia Other and unspecified hyperlipidemia Class 1 obesity with serious comorbidity and body mass index (BMI) of 32.0 to 32.9 in adult, unspecified obesity type TIMOTHY (obstructive sleep apnea) Obstructive sleep apnea (adult) (pediatric) documented in this encounter [facility] note* Diagnosis HTN, goal below 130/80 Unspecified essential hypertension Insomnia secondary to chronic pain Other chronic pain documented in this encounter [facility] note* Diagnosis GERD without esophagitis Esophageal reflux [facility] Diagnosis Preoperative examination- Primary Preoperative examination, unspecified TIMOTHY (obstructive sleep apnea) Obstructive sleep apnea (adult) (pediatric) Essential hypertension with goal blood pressure less than 140/90 GERD without esophagitis Esophageal reflux Fatty liver Other chronic nonalcoholic liver disease Leukocytosis, unspecified type Situational mixed anxiety and depressive disorder Adjustment disorder with mixed anxiety and depressed mood Dyslipidemia Other and unspecified hyperlipidemia Class 1 obesity with serious comorbidity and body mass index (BMI) of 32.0 to 32.9 in adult, unspecified obesity type GERD without esophagitis Esophageal reflux documented in this encounter [facility] note* Diagnosis Preoperative examination- Primary Preoperative examination, unspecified TIMOTHY (obstructive sleep apnea) Obstructive sleep apnea (adult) (pediatric) Essential hypertension with goal blood pressure less than 140/90 GERD without esophagitis Esophageal reflux Fatty liver Other chronic nonalcoholic liver disease Leukocytosis, unspecified type Situational mixed anxiety and depressive disorder Adjustment disorder with mixed anxiety and depressed mood Dyslipidemia Other and unspecified hyperlipidemia Class 1 obesity with serious comorbidity and body mass index (BMI) of 32.0 to 32.9 in adult, unspecified obesity type HTN, goal below 130/80 Unspecified essential hypertension Insomnia secondary to chronic pain Other chronic pain [facility] Diagnosis Preoperative examination- Primary Preoperative examination, unspecified TIMOTHY (obstructive sleep apnea) Obstructive sleep apnea (adult) (pediatric) Essential hypertension with goal blood pressure less than 140/90 GERD without esophagitis Esophageal reflux Fatty liver Other chronic nonalcoholic liver disease Leukocytosis, unspecified type Situational mixed anxiety and depressive disorder Adjustment disorder with mixed anxiety and depressed mood Dyslipidemia Other and unspecified hyperlipidemia Class 1 obesity with serious comorbidity and body mass index (BMI) of 32.0 to 32.9 in adult, unspecified obesity type Injury of right shoulder, subsequent encounter- Primary Acute pain of right shoulder Situational mixed anxiety and depressive disorder Adjustment disorder with mixed anxiety and depressed mood 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 Moderate episode of recurrent major depressive disorder (HCC) Insomnia secondary to chronic pain Other chronic pain [facility] Diagnosis Neck pain on right side Cervicalgia Cervical radiculopathy Brachial neuritis or radiculitis nos Insomnia secondary to chronic pain Other chronic pain Preoperative examination- Primary Preoperative examination, unspecified TIMOTHY (obstructive sleep apnea) Obstructive sleep apnea (adult) (pediatric) Essential hypertension with goal blood pressure less than 140/90 GERD without esophagitis Esophageal reflux Fatty liver Other chronic nonalcoholic liver disease Leukocytosis, unspecified type Situational mixed anxiety and depressive disorder Adjustment disorder with mixed anxiety and depressed mood Dyslipidemia Other and unspecified hyperlipidemia Class 1 obesity with serious comorbidity and body mass index (BMI) of 32.0 to 32.9 in adult, unspecified obesity type [facility] Diagnosis Preoperative examination- Primary Preoperative examination, unspecified TIMOTHY (obstructive sleep apnea) Obstructive sleep apnea (adult) (pediatric) Essential hypertension with goal blood pressure less than 140/90 GERD without esophagitis Esophageal reflux Fatty liver Other chronic nonalcoholic liver disease Leukocytosis, unspecified type Situational mixed anxiety and depressive disorder Adjustment disorder with mixed anxiety and depressed mood Dyslipidemia Other and unspecified hyperlipidemia Class 1 obesity with serious comorbidity and body mass index (BMI) of 32.0 to 32.9 in adult, unspecified obesity type Situational mixed anxiety and depressive disorder Adjustment disorder with mixed anxiety and depressed mood 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 Moderate episode of recurrent major depressive disorder (HCC) documented in this encounter [facility] Diagnosis Preoperative examination- Primary Preoperative examination, unspecified TIMOTHY (obstructive sleep apnea) Obstructive sleep apnea (adult) (pediatric) Essential hypertension with goal blood pressure less than 140/90 GERD without esophagitis Esophageal reflux Fatty liver Other chronic nonalcoholic liver disease Leukocytosis, unspecified type Situational mixed anxiety and depressive disorder Adjustment disorder with mixed anxiety and depressed mood Dyslipidemia Other and unspecified hyperlipidemia Class 1 obesity with serious comorbidity and body mass index (BMI) of 32.0 to 32.9 in adult, unspecified obesity type Situational mixed anxiety and depressive disorder- Primary Adjustment disorder with mixed anxiety and depressed mood 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 Moderate episode of recurrent major depressive disorder (HCC) Injury of right shoulder, subsequent encounter [facility] Diagnosis Preoperative examination- Primary Preoperative examination, unspecified TIMOTHY (obstructive sleep apnea) Obstructive sleep apnea (adult) (pediatric) Essential hypertension with goal blood pressure less than 140/90 GERD without esophagitis Esophageal reflux Fatty liver Other chronic nonalcoholic liver disease Leukocytosis, unspecified type Situational mixed anxiety and depressive disorder Adjustment disorder with mixed anxiety and depressed mood Dyslipidemia Other and unspecified hyperlipidemia Class 1 obesity with serious comorbidity and body mass index (BMI) of 32.0 to 32.9 in adult, unspecified obesity type Traumatic tear of right rotator cuff, unspecified tear extent, initial encounter- Primary Acute pain of right [facility] Diagnosis Preoperative examination- Primary Preoperative examination, unspecified TIMOTHY (obstructive sleep apnea) Obstructive sleep apnea (adult) (pediatric) Essential hypertension with goal blood pressure less than 140/90 GERD without esophagitis Esophageal reflux Fatty liver Other chronic nonalcoholic liver disease Leukocytosis, unspecified type Situational mixed anxiety and depressive disorder Adjustment disorder with mixed anxiety and depressed mood Dyslipidemia Other and unspecified hyperlipidemia Class 1 obesity with serious comorbidity and body mass index (BMI) of 32.0 to 32.9 in adult, unspecified obesity type Insomnia secondary to chronic pain Other chronic pain [facility] Diagnosis Preoperative examination- Primary Preoperative examination, unspecified TIMOTHY (obstructive sleep apnea) Obstructive sleep apnea (adult) (pediatric) Essential hypertension with goal blood pressure less than 140/90 GERD without esophagitis Esophageal reflux Fatty liver Other chronic nonalcoholic liver disease Leukocytosis, unspecified type Situational mixed anxiety and depressive disorder Adjustment disorder with mixed anxiety and depressed mood Dyslipidemia Other and unspecified hyperlipidemia Class 1 obesity with serious comorbidity and body mass index (BMI) of 32.0 to 32.9 in adult, unspecified obesity type Acute pain of right shoulder- Primary Traumatic tear of right rotator cuff, unspecified tear extent, initial encounter [facility] Diagnosis Preoperative examination- Primary Preoperative examination, unspecified TIMOTHY (obstructive sleep apnea) Obstructive sleep apnea (adult) (pediatric) Essential hypertension with goal blood pressure less than 140/90 GERD without esophagitis Esophageal reflux Fatty liver Other chronic nonalcoholic liver disease Leukocytosis, unspecified type Situational mixed anxiety and depressive disorder Adjustment disorder with mixed anxiety and depressed mood Dyslipidemia Other and unspecified hyperlipidemia Class 1 obesity with serious comorbidity and body mass index (BMI) of 32.0 to 32.9 in adult, unspecified obesity type Shoulder impingement- Primary Other affections of shoulder region, not elsewhere classified Acute pain of right shoulder [facility] Diagnosis Preoperative examination- Primary Preoperative examination, unspecified TIMOTHY (obstructive sleep apnea) Obstructive sleep apnea (adult) (pediatric) Essential hypertension with goal blood pressure less than 140/90 GERD without esophagitis Esophageal reflux Fatty liver Other chronic nonalcoholic liver disease Leukocytosis, unspecified type Situational mixed anxiety and depressive disorder Adjustment disorder with mixed anxiety and depressed mood Dyslipidemia Other and unspecified hyperlipidemia Class 1 obesity with serious comorbidity and body mass index (BMI) of 32.0 to 32.9 in adult, unspecified obesity type HTN, goal below 130/80 Unspecified essential hypertension [facility] Diagnosis Preoperative examination- Primary Preoperative examination, unspecified TIMOTHY (obstructive sleep apnea) Obstructive sleep apnea (adult) (pediatric) Essential hypertension with goal blood pressure less than 140/90 GERD without esophagitis Esophageal reflux Fatty liver Other chronic nonalcoholic liver disease Leukocytosis, unspecified type Situational mixed anxiety and depressive disorder Adjustment disorder with mixed anxiety and depressed mood Dyslipidemia Other and unspecified hyperlipidemia Class 1 obesity with serious comorbidity and body mass index (BMI) of 32.0 to 32.9 in adult, unspecified obesity type Hospital discharge follow-up- Primary Other follow-up examination Diverticulitis Diverticulitis of colon (without mention of hemorrhage) Diarrhea, unspecified type Situational mixed anxiety and depressive disorder Adjustment disorder with mixed anxiety and depressed mood [facility] Diagnosis Shoulder injury, right, initial encounter- Primary documented in this encounter [facility] Work Phone: Evaluation note* Diagnosis Preoperative examination- Primary Preoperative examination, unspecified TIMOTHY (obstructive sleep apnea) Obstructive sleep apnea (adult) (pediatric) Essential hypertension with goal blood pressure less than 140/90 GERD without esophagitis Esophageal reflux Fatty liver Other chronic nonalcoholic liver disease Leukocytosis, unspecified type Situational mixed anxiety and depressive disorder Adjustment disorder with mixed anxiety and depressed mood Dyslipidemia Other and unspecified hyperlipidemia Class 1 obesity with serious comorbidity and body mass index (BMI) of 32.0 to 32.9 in adult, unspecified obesity type Insomnia secondary to chronic pain- Primary Other chronic pain HTN, goal below 130/80 Unspecified essential hypertension Acute pain of left knee Situational mixed anxiety and depressive disorder Adjustment disorder with mixed anxiety and depressed mood Essential hypertension with goal blood pressure less than 140/90 [facility] Diagnosis Preoperative examination- Primary Preoperative examination, unspecified TIMOTHY (obstructive sleep apnea) Obstructive sleep apnea (adult) (pediatric) Essential hypertension with goal blood pressure less than 140/90 GERD without esophagitis Esophageal reflux Fatty liver Other chronic nonalcoholic liver disease Leukocytosis, unspecified type Situational mixed anxiety and depressive disorder Adjustment disorder with mixed anxiety and depressed mood Dyslipidemia Other and unspecified hyperlipidemia Class 1 obesity with serious comorbidity and body mass index (BMI) of 32.0 to 32.9 in adult, unspecified obesity type Left knee pain, unspecified chronicity- Primary [facility]* Diagnosis Preoperative examination- Primary Preoperative examination, unspecified TIMOTHY (obstructive sleep apnea) Obstructive sleep apnea (adult) (pediatric) Essential hypertension with goal blood pressure less than 140/90 GERD without esophagitis Esophageal reflux Fatty liver Other chronic nonalcoholic liver disease Leukocytosis, unspecified type Situational mixed anxiety and depressive disorder Adjustment disorder with mixed anxiety and depressed mood Dyslipidemia Other and unspecified hyperlipidemia Class 1 obesity with serious comorbidity and body mass index (BMI) of 32.0 to 32.9 in adult, unspecified obesity type Acute pain of left knee [facility]* Diagnosis Preoperative examination- Primary Preoperative examination, unspecified TIMOTHY (obstructive sleep apnea) Obstructive sleep apnea (adult) (pediatric) Essential hypertension with goal blood pressure less than 140/90 GERD without esophagitis Esophageal reflux Fatty liver Other chronic nonalcoholic liver disease Leukocytosis, unspecified type Situational mixed anxiety and depressive disorder Adjustment disorder with mixed anxiety and depressed mood Dyslipidemia Other and unspecified hyperlipidemia Class 1 obesity with serious comorbidity and body mass index (BMI) of 32.0 to 32.9 in adult, unspecified obesity type Left knee pain, unspecified chronicity [facility] Diagnosis Preoperative examination- Primary Preoperative examination, unspecified TIMOTHY (obstructive sleep apnea) Obstructive sleep apnea (adult) (pediatric) Essential hypertension with goal blood pressure less than 140/90 GERD without esophagitis Esophageal reflux Fatty liver Other chronic nonalcoholic liver disease Leukocytosis, unspecified type Situational mixed anxiety and depressive disorder Adjustment disorder with mixed anxiety and depressed mood Dyslipidemia Other and unspecified hyperlipidemia Class 1 obesity with serious comorbidity and body mass index (BMI) of 32.0 to 32.9 in adult, unspecified obesity type Insomnia secondary to chronic pain Other chronic pain [facility] Diagnosis Preoperative examination- Primary Preoperative examination, unspecified TIMOTHY (obstructive sleep apnea) Obstructive sleep apnea (adult) (pediatric) Essential hypertension with goal blood pressure less than 140/90 GERD without esophagitis Esophageal reflux Fatty liver Other chronic nonalcoholic liver disease Leukocytosis, unspecified type Situational mixed anxiety and depressive disorder Adjustment disorder with mixed anxiety and depressed mood Dyslipidemia Other and unspecified hyperlipidemia Class 1 obesity with serious comorbidity and body mass index (BMI) of 32.0 to 32.9 in adult, unspecified obesity type Shoulder impingement- Primary Other affections of shoulder region, not elsewhere classified Acute pain of left knee [facility] Diagnosis Preoperative examination- Primary Preoperative examination, unspecified TIMOTHY (obstructive sleep apnea) Obstructive sleep apnea (adult) (pediatric) Essential hypertension with goal blood pressure less than 140/90 GERD without esophagitis Esophageal reflux Fatty liver Other chronic nonalcoholic liver disease Leukocytosis, unspecified type Situational mixed anxiety and depressive disorder Adjustment disorder with mixed anxiety and depressed mood Dyslipidemia Other and unspecified hyperlipidemia Class 1 obesity with serious comorbidity and body mass index (BMI) of 32.0 to 32.9 in adult, unspecified obesity type Situational mixed anxiety and depressive disorder Adjustment disorder with mixed anxiety and depressed mood 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 [facility] Diagnosis Preoperative examination- Primary Preoperative examination, unspecified TIMOTHY (obstructive sleep apnea) Obstructive sleep apnea (adult) (pediatric) Essential hypertension with goal blood pressure less than 140/90 GERD without esophagitis Esophageal reflux Fatty liver Other chronic nonalcoholic liver disease Leukocytosis, unspecified type Situational mixed anxiety and depressive disorder Adjustment disorder with mixed anxiety and depressed mood Dyslipidemia Other and unspecified hyperlipidemia Class 1 obesity with serious comorbidity and body mass index (BMI) of 32.0 to 32.9 in adult, unspecified obesity type Post-traumatic osteoarthritis of left knee- Primary Secondary localized osteoarthrosis, lower leg documented in this encounter [facility]* Diagnosis Preoperative examination- Primary Preoperative examination, unspecified TIMOTHY (obstructive sleep apnea) Obstructive sleep apnea (adult) (pediatric) Essential hypertension with goal blood pressure less than 140/90 GERD without esophagitis Esophageal reflux Fatty liver Other chronic nonalcoholic liver disease Leukocytosis, unspecified type Situational mixed anxiety and depressive disorder Adjustment disorder with mixed anxiety and depressed mood Dyslipidemia Other and unspecified hyperlipidemia Class 1 obesity with serious comorbidity and body mass index (BMI) of 32.0 to 32.9 in adult, unspecified obesity type Situational mixed anxiety and depressive disorder- Primary Adjustment disorder with mixed anxiety and depressed mood 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 GERD without esophagitis Esophageal reflux Insomnia secondary to chronic pain Other chronic pain Chronic pain of left knee Pain in joint, lower leg [facility]* Diagnosis Preoperative examination- Primary Preoperative examination, unspecified TIMOTHY (obstructive sleep apnea) Obstructive sleep apnea (adult) (pediatric) Essential hypertension with goal blood pressure less than 140/90 GERD without esophagitis Esophageal reflux Fatty liver Other chronic nonalcoholic liver disease Leukocytosis, unspecified type Situational mixed anxiety and depressive disorder Adjustment disorder with mixed anxiety and depressed mood Dyslipidemia Other and unspecified hyperlipidemia Class 1 obesity with serious comorbidity and body mass index (BMI) of 32.0 to 32.9 in adult, unspecified obesity type Insomnia secondary to chronic pain Other chronic pain [facility]* Diagnosis Preoperative examination- Primary Preoperative examination, unspecified TIMOTHY (obstructive sleep apnea) Obstructive sleep apnea (adult) (pediatric) Essential hypertension with goal blood pressure less than 140/90 GERD without esophagitis Esophageal reflux Fatty liver Other chronic nonalcoholic liver disease Leukocytosis, unspecified type Situational mixed anxiety and depressive disorder Adjustment disorder with mixed anxiety and depressed mood Dyslipidemia Other and unspecified hyperlipidemia Class 1 obesity with serious comorbidity and body mass index (BMI) of 32.0 to 32.9 in adult, unspecified obesity type Insomnia secondary to chronic pain Other chronic pain documented in this encounter [facility]* Diagnosis Preoperative examination- Primary Preoperative examination, unspecified TIMOTHY (obstructive sleep apnea) Obstructive sleep apnea (adult) (pediatric) Essential hypertension with goal blood pressure less than 140/90 GERD without esophagitis Esophageal reflux Fatty liver Other chronic nonalcoholic liver disease Leukocytosis, unspecified type Situational mixed anxiety and depressive disorder Adjustment disorder with mixed anxiety and depressed mood Dyslipidemia Other and unspecified hyperlipidemia Class 1 obesity with serious comorbidity and body mass index (BMI) of 32.0 to 32.9 in adult, unspecified obesity type Insomnia secondary to chronic pain Other chronic pain [facility]* Diagnosis Preoperative examination- Primary Preoperative examination, unspecified TIMOTHY (obstructive sleep apnea) Obstructive sleep apnea (adult) (pediatric) Essential hypertension with goal blood pressure less than 140/90 GERD without esophagitis Esophageal reflux Fatty liver Other chronic nonalcoholic liver disease Leukocytosis, unspecified type Situational mixed anxiety and depressive disorder Adjustment disorder with mixed anxiety and depressed mood Dyslipidemia Other and unspecified hyperlipidemia Class 1 obesity with serious comorbidity and body mass index (BMI) of 32.0 to 32.9 in adult, unspecified obesity type Traumatic tear of right rotator cuff, unspecified tear extent, initial encounter- Primary Post-traumatic osteoarthritis of left knee Secondary localized osteoarthrosis, lower leg documented in this encounter [facility]* Diagnosis Preoperative examination- Primary Preoperative examination, unspecified TIMOTHY (obstructive sleep apnea) Obstructive sleep apnea (adult) (pediatric) Essential hypertension with goal blood pressure less than 140/90 GERD without esophagitis Esophageal reflux Fatty liver Other chronic nonalcoholic liver disease Leukocytosis, unspecified type Situational mixed anxiety and depressive disorder Adjustment disorder with mixed anxiety and depressed mood Dyslipidemia Other and unspecified hyperlipidemia Class 1 obesity with serious comorbidity and body mass index (BMI) of 32.0 to 32.9 in adult, unspecified obesity type Post-traumatic osteoarthritis of left knee- Primary Secondary localized osteoarthrosis, lower leg documented in this encounter [facility]* Diagnosis Preoperative examination- Primary Preoperative examination, unspecified TIMOTHY (obstructive sleep apnea) Obstructive sleep apnea (adult) (pediatric) Essential hypertension with goal blood pressure less than 140/90 GERD without esophagitis Esophageal reflux Fatty liver Other chronic nonalcoholic liver disease Leukocytosis, unspecified type Situational mixed anxiety and depressive disorder Adjustment disorder with mixed anxiety and depressed mood Dyslipidemia Other and unspecified hyperlipidemia Class 1 obesity with serious comorbidity and body mass index (BMI) of 32.0 to 32.9 in adult, unspecified obesity type Post-traumatic osteoarthritis of left knee- Primary Secondary localized osteoarthrosis, lower leg documented in this encounter [facility] Discharge instructions* Attachments The following attachments cannot be sent through Care Everywhere. * Muscle and Bone Pain [facility] (Romansh[facility] Attachments The following attachments cannot be sent through Care Everywhere. * [facility] Diagnostic Procedure Only (Routine) - Pending Review Specialty Diagnoses / Procedures Referred By Coreyac t Referred To Contact US IMAGING Diagnoses Elevated LFTs Procedures US ABD RT UPPER QUADRANT US ABDOMINAL REAL TIME W/IMAGE LIMITED Stan Oropeza APRN.PHARMACIST AIDE [address] [place] [address] Us Imaging Referral ID Status Reason Start Date Expiration Date Visits Requested Visits Authorized [id number] Pending Review Auto-Generat ed Referral 07/02/2021 08/01/2022 1 1 [facility] for referral (narrative)* Diagnostic Procedure Only (Routine) - Closed Specialty Diagnoses / Procedures Referred By Memo t Referred To Contact US IMAGING Diagnoses Elevated LFTs Procedures US ABD RT UPPER QUADRANT US ABDOMINAL REAL TIME W/IMAGE LIMITED Stan Oropeza APRN.PHARMACIST AIDE [address] [place] [address] Us Imaging Referral ID Status Reason Start Date Expiration Date V isits Requested Visits Authorized [id number] Closed Auto-Generate d Referral 07/02/2021 08/01/2022 1 1 [facility] for referral (narrative)* Outpatient Procedure (Routine) - Pending Review Specialty Diagnoses / Procedures Referred By Contac t Referred To Contact [facility] Diagnoses Positive colorectal cancer screening using Cologuard test Procedures COLONOSCOPY DIAGNOSTIC COLONOSCOPY FLX DX W/COLLJ SPEC WHEN Lizbeth Mary MD [address] [facility] [place] [address] [facility] [place] [address] [place] [address] Referral ID Status Reason Start Date Expiration Date Visits Requested Visits Authorized [id number] Pending Review Auto-Generat ed Referral 08/17/2021 08/17/2022 1 1 [facility] for referral (narrative)* Outpatient Procedure (Routine) - Closed Specialty Diagnoses / Procedures [facility] To Contact Diagnoses Positive colorectal cancer screening using Cologuard test Procedures COLONOSCOPY DIAGNOSTIC COLONOSCOPY FLX DX W/COLLJ SPEC WHEN Lizbeth Mary MD [address] [place] [place] [address] [facility] [address] [place] [id number] Referral ID Status Reason Start Date Expiration Date V isits Requested Visits Authorized [id number] Closed Auto-Generate d Referral 08/17/2021 02/06/2022 1 1 T [facility] for referral (narrative)* Diagnostic Procedure Only (Routine) - Closed Specialty Diagnoses / Procedures [facility] To Contact XR IMAGING Diagnoses Neck pain on right side Cervical radiculopathy Insomnia secondary to chronic pain Procedures XR CERV OTHER 4V AP/LAT/OBL RADEX SPINE CERVICAL 4 OR 5 VIEWS Stan Oropeza, SURGICAL [employer]ODUCT SALES CONSULTANT.PHARMACIST AIDE [address] [place] [address] [place] [id number] Referral ID Status Reason Start Date Expiration Date V isits Requested Visits Authorized [id number] Closed Auto-Generate d Referral 01/05/2023 02/04/[address] [facility] for referral (narrative)* Diagnostic Procedure Only (Routine) - New Request Specialty Diagnoses / Procedures [facility] Referred To Contact XR IMAGING Diagnoses Left knee pain, unspecified chronicity Procedures XR KNEE GENERAL 4V AP BOTH/PA BOTH/LAT/MERC LEFT RADIOLOGIC EXAM KNEE COMPLETE 4/MORE VIEWS Adalberto Gomez MD [address] [facility] [place] [address] [place] [address] Referral ID Status Reason Start Date Expiration Date Visits Requested Visits Authorized [id number] New Request Auto-Generat ed Referral 02/21/2024 03/22/[address] [facility] for visit Narrative* Diagnostic Procedure Only (Routine) - Closed Specialty Diagnoses / Procedures [facility] Referred To Contact US IMAGING Diagnoses Elevated LFTs Procedures US ABD RT UPPER QUADRANT US ABDOMINAL REAL TIME W/IMAGE LIMITED Stan Oropeza, KVNG.PHARMACIST AIDE [address] [place] [address] Us Imaging Referral ID Status Reason Start Date Expiration Date V isits Requested Visits Authorized [id number] Closed Auto-Generate d Referral 07/02/2021 08/01/2022 1 1 [facility] for visit Narrative* Outpatient Procedure (Routine) - Closed Specialty Diagnoses / Procedures [facility] Referred To Contact Diagnoses Positive colorectal cancer screening using Cologuard test Procedures COLONOSCOPY DIAGNOSTIC COLONOSCOPY FLX DX W/COLLJ SPEC WHEN PFRMLizbeth Cervantes MD [address] [place] [place] [address] [facility] [address] [place] [id number] Referral ID Status Reason Start Date Expiration Date V isits Requested Visits Authorized [id number] Closed Auto-Generate d Referral 08/17/2021 02/06/2022 1 1 [facility] for visit Narrative* Diagnostic Procedure Only (Routine) - Closed Specialty Diagnoses / Procedures Referred By Contac t Referred To Contact XR IMAGING Diagnoses Neck pain on right side Cervical radiculopathy Insomnia secondary to chronic pain Procedures XR CERV OTHER 4V AP/LAT/OBL RADEX SPINE CERVICAL 4 OR 5 VIEWS Stan Oropeza APRN.PHARMACIST AIDE [address] [place] [address] [place] [address] Referral ID Status Reason Start Date Expiration Date V isits Requested Visits Authorized [id number] Closed Auto-Generate d Referral 01/05/2023 02/04/2024 1 1 [facility] for visit Narrative* Diagnostic Procedure Only (Routine) - Closed Specialty Diagnoses / Procedures Referred By Contac t Referred To Contact XR IMAGING Diagnoses Left knee pain, unspecified chronicity Procedures XR KNEE GENERAL 4V AP BOTH/PA BOTH/LAT/MERC LEFT RADIOLOGIC EXAM KNEE COMPLETE 4/MORE VIEWS Adalberto Gomez MD [address] [place] [address] [place] [address] Referral ID Status Reason Start Date Expiration Date V isits Requested Visits Authorized [id number] Closed Auto-Generate d Referral 02/21/2024 03/22/2025 1 1 [facility] Summary Purpose Family History No Family History Records FoundNo Family History Records FoundNo Family History Records FoundNo Family History Records FoundNo Family History Records FoundNo Family History Records FoundNo Family History Records FoundNo Family History Records Found Advance Directives No Advanced Directives Records FoundDocuments on File Type Date Recorded 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 Advance Directive(s) 08/18/2021 8:37 AM Advance Directive(s) 08/18/2021 8:48 AM Documents on File Type Date Recorded 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 Advance Directive(s) 08/18/2021 8:37 AM Advance Directive(s) 08/18/2021 8:48 AM Advance Directive Response Recorded Date/ Time Living Will No February 01 019 5:10pm Power of Lead Technical Architect No February 01, 2019 5:10pm Latest Code Status on File Code Status Date Activated Date Inactivated Comments Full Code 10/13/2021 1:01 PM Reason for Referral Specialty Diagnoses / Procedures Referred By Contac t Referred To Contact Hematology Diagnoses Leukocytosis, unspecified type Procedures CONSULT TO HEMATOLOGY OFFICE/OUTPATIENT NEW HIGH MDM 60-74 MINUTES Stan Oropeza APRN.PHARMACIST AIDE [address] [place] [address] Referral ID Status Reason Start Date Expiration Date Visits Requested Visits Authorized [id number] Authorized PCP Requested Referral 07/01/2021 07/01/2022 1 1 Specialty Diagnoses / Procedures Referred By Contac t Referred To Contact Gastroenterology Diagnoses Screening for colon cancer Procedures CONSULT TO GASTROENTEROLOGY OFFICE/OUTPATIENT [facility] MDM 60-74 MINUTES Samina Morales, SURGICAL PRODUCT SALES CONSULTANT.PHARMACIST AIDE [address] [place] [address] Referral ID Status Reason Start Date Expiration Date Visits Requested Visits Authorized [id number] Authorized PCP Requested Referral 07/22/2021 07/22/2022 1 1 Specialty Diagnoses / Procedures Referred By Contac t Referred To Contact Radiology Diagnoses Tarsal tunnel syndrome of right side Procedures MR foot right wo IV contrast Contreras Barajas MD [address] [facility] [address] [place] [address] Referral ID Status Reason Start Date Expiration Date Visits Re quested Visits Authorized [id number] Closed 09/27/2022 03/26/2023 1 1 Specialty Diagnoses / Procedures Referred By Contac t Referred To Contact Ent - Otolaryngology Diagnoses TIMOTHY (obstructive sleep apnea) Procedures CONSULT TO SLEEP SURGERY-ADULT Stan Oropeza, SURGICAL PRODUCT SALES CONSULTANT.PHARMACIST AIDE [address] [place] [address] Referral ID Status Reason Start Date Expiration Date Visits Requested Visits Authorized [id number] Ref Not Required PCP Requested Referral 3 12/27/2023 1 1 Specialty Diagnoses / Procedures Referred By Contac t Referred To Contact Pain Management Diagnoses Neck pain on right side Cervical radiculopathy Insomnia secondary to chronic pain Procedures CONSULT TO PAIN MGT OFFICE/OUTPATIENT [facility] MDM 60-74 MINUTES Stan Oropeza, SURGICAL PRODUCT SALES CONSULTANT.PHARMACIST AIDE [address] [place] [address] Referral ID Status Reason Start Date Expiration Date Visits Requested Visits Authorized [id number] Authorized PCP Requested Referral 01/05/2024 1 1 Specialty Diagnoses / Procedures Referred By Contac t Referred To Contact XR IMAGING Diagnoses Neck pain on right side Cervical radiculopathy Insomnia secondary to chronic pain Procedures XR CERV OTHER 4V AP/LAT/OBL RADEX SPINE CERVICAL 4 OR 5 VIEWS Stan Oropeza APRN.PHARMACIST AIDE [address] [place] [address] [place] [address] Referral ID Status Reason Start Date Expiration Date V isits Requested Visits Authorized [id number] Closed Auto-Generate d Referral 01/05/2023 02/04/2024 1 1 Specialty Diagnoses / Procedures Referred By Contac t Referred To Contact Diagnoses Neck pain on right side Cervical radiculopathy Insomnia secondary to chronic pain Stan Oropeza, SURGICAL PRODUCT SALES CONSULTANT.PHARMACIST AIDE [address] [place] [address] Referral ID Status Reason Start Date Expiration Date Visits Re quested Visits Authorized [id number] Closed 1 1 Specialty Diagnoses / Procedures Referred By Contac t Referred To Contact Diagnoses Encounter for screening for lung cancer Procedures CONSULT LUNG CANCER SCREENING CLINIC Stan Oropeza APRN.PHARMACIST AIDE [address] [place] [address] Referral ID Status Reason Start Date Expiration Date Visits Requested Visits Authorized [id number] Ref Not Required PCP Requested Referral 04/01/2023 06/30/2023 1 1 Specialty Diagnoses / Procedures Referred By Contac t Referred To Contact Diagnoses Injury of right shoulder, subsequent encounter Acute pain of right shoulder Stan Oropeza APRN.PHARMACIST AIDE [address] [place] [address] Referral ID Status Reason Start Date Expiration Date Visits Re quested Visits Authorized [id number] Closed 1 1 Specialty Diagnoses / Procedures Referred By Contac t Referred To Contact Orthopedics Diagnoses Injury of right shoulder, subsequent encounter Acute pain of right shoulder Procedures CONSULT TO ORTHOPAEDICS OFFICE/OUTPATIENT [facility] 60 MINUTES Stan Oropeza APRN.PHARMACIST AIDE [address] [place] [address] Referral ID Status Reason Start Date Expiration Date Visits Requested Visits Authorized [id number] Authorized PCP Requested Referral 10/06/2023 10/05/2024 1 1 Specialty Diagnoses / Procedures Referred By Contac t Referred To Contact MR IMAGING Diagnoses Traumatic tear of right rotator cuff, unspecified tear extent, initial encounter Acute pain of right shoulder Procedures MRI SHOULDER WO IVCON RIGHT MRI ANY JT UPPER EXTREMITY W/O CONTRAST Adalberto Dolan MD [address] [place] [address] [place] [address] Referral ID Status Reason Start Date Expiration Date Visits Requested Visits Authorized [id number] New Request Auto-Generat ed Referral 11/08/2023 12/07/2024 1 1 Specialty Diagnoses / Procedures Referred By Contac t Referred To Contact MR IMAGING Diagnoses Acute pain of left knee Procedures MRI KNEE WO IVCON LEFT MRI ANY JT LOWER EXTREM W/O CONTRAST Samina Vigil, SURGICAL PRODUCT SALES CONSULTANT.PHARMACIST AIDE [address] [place] [address] [place] [address] Referral ID Status Reason Start Date Expiration Date Visits Requested Visits Authorized [id number] Pending Review Auto-Generat ed Referral 02/09/2024 03/10/2025 1 1 Specialty Diagnoses / Procedures Referred By Contac t Referred To Contact Orthopedics Diagnoses Acute pain of left knee Procedures CONSULT TO ORTHOPAEDICS OFFICE/OUTPATIENT NEW HIGH MDM 60 MINUTES Samina Berg, SURGICAL PRODUCT SALES CONSULTANT.PHARMACIST AIDE [address] [place] [address] Referral ID Status Reason Start Date Expiration Date Visits Requested Visits Authorized [id number] Authorized PCP Requested Referral 02/09/2024 02/08/2025 1 1 Referral ID Status Reason Start Date Expiration Date V isits Requested Visits Authorized [id number] Closed Auto-Generate d Referral 02/13/2024 03/14/2024 1 1 Medications Administered Section Inactive Administered Medications - up to 3 most recent administrations Medication Order MAR Action Action Date Dose Rate Site lactated ringers iv infusion 30 mL/hr, INTRAVENOUS, CONTINUOUS, Starting on Tue09/04/21 at 0700, Until Tue09/04/21 at 0747, Preprocedure Restarted 09/04/2021 7:44 AM EDT Continued by Anesthesia 09/04/2021 7:18 AM EDT 30 mL/hr New Bag/Syringe/Bottle 09/04/2021 6:56 AM EDT 30 mL/hr 3 0 mL/hr sodium chloride 0.9 % (flush) 2-10 mL (BD POSIFLUSH) 2-10 mL, INTRAVENOUS, EVERY 12 HOURS, First dose on Tue09/04/21 at 0700, Until Discontinued, Preprocedure Given 09/04/2021 6:56 AM EDT 5 mL Inactive Administered Medications - up to 3 most recent administrations Medication Order MAR Action Action Date Dose Rate Site triamcinolone acetonide 40 mg injection (KeNALog 40) 40 mg, INTRAMUSCULAR, ONCE, 1 dose, On Tue01/05/23 at 0900 Given 01/05/2023 9:16 AM EST 40 mg Buttocks, Right Chief Complaint and Reason for Visit Chief Complaint FLU SX'S Reason for Visit Pharyngitis Additional Source Comments (unrecognized sect ion and content) No Status Records FoundNo Status Records FoundNo Status Records FoundNo Status Records FoundNo Status Records FoundNo Status Records FoundNo Status Records FoundNo Status Records Found INFORMATION SOURCE (unrecogn ized section and content) DATE CREATED AUTHOR 08/05/2017 [facility] DATE CREATED AUTHOR AUTHOR'S ORGANIZ ATION 04/22/2021 [facility] DATE CREATED AUTHOR AUTHOR'S ORGANIZ ATION 09/07/[address] [facility] DATE CREATED AUTHOR AUTHOR'S ORGANIZ ATION 10/19/2021 [facility] DATE CREATED AUTHOR AUTHOR'S ORGANIZ ATION 10/04/2023 [facility] DATE CREATED AUTHOR AUTHOR'S ORGANIZ ATION 01/27/2024 [facility] DATE CREATED AUTHOR AUTHOR'S ORGANIZ ATION 05/25/2024 [facility] DATE CREATED AUTHOR AUTHOR'S ORGANIZ ATION 08/07/2024 [facility] Source Comments (unrecognize d section and content) In the event this informatio n is protected by the Federal Confidentiality of Alcohol and Drug Abuse Patient Records regulations: The Federal rules restrict any use of the information to criminally investigate or prosecute any alcohol or drug abuse patient.[facility] the event this information is protected by the Federal Confidentiality of Alcohol and Drug Abuse Patient Records regulations: The Federal rules restrict any use of the information to criminally investigate or prosecute any alcohol or drug abuse patient.[facility] HospitalIn the event this information is protected by the Federal Confidentiality of Alcohol and Drug Abuse Patient Records regulations: The Federal rules restrict any use of the information to criminally investigate or prosecute any alcohol or drug abuse patient.[facility] HospitalIn the event this information is protected by the Federal Confidentiality of Alcohol and Drug Abuse Patient Records regulations: The Federal rules restrict any use of the information to criminally investigate or prosecute any alcohol or drug abuse patient.[facility] HospitalIn the event this information is protected by the Federal Confidentiality of Alcohol and Drug Abuse Patient Records regulations: The Federal rules restrict any use of the information to criminally investigate or prosecute any alcohol or drug abuse patient.[facility] HospitalIn the event this information is protected by the Federal Confidentiality of Alcohol and Drug Abuse Patient Records regulations: The Federal rules restrict any use of the information to criminally investigate or prosecute any alcohol or drug abuse patient.[facility] HospitalIn the event this information is protected by the Federal Confidentiality of Alcohol and Drug Abuse Patient Records regulations: The Federal rules restrict any use of the information to criminally investigate or prosecute any alcohol or drug abuse patient.[facility] HospitalIn the event this information is protected by the Federal Confidentiality of Alcohol and Drug Abuse Patient Records regulations: The Federal rules restrict any use of the information to criminally investigate or prosecute any alcohol or drug abuse patient.[facility] HospitalIn the event this information is protected by the Federal Confidentiality of Alcohol and Drug Abuse Patient Records regulations: The Federal rules restrict any use of the information to criminally investigate or prosecute any alcohol or drug abuse patient.[facility] HospitalIn the event this information is protected by the Federal Confidentiality of Alcohol and Drug Abuse Patient Records regulations: The Federal rules restrict any use of the information to criminally investigate or prosecute any alcohol or drug abuse patient.[facility] HospitalIn the event this information is protected by the Federal Confidentiality of Alcohol and Drug Abuse Patient Records regulations: The Federal rules restrict any use of the information to criminally investigate or prosecute any alcohol or drug abuse patient.[facility] HospitalIn the event this information is protected by the Federal Confidentiality of Alcohol and Drug Abuse Patient Records regulations: The Federal rules restrict any use of the information to criminally investigate or prosecute any alcohol or drug abuse patient.[facility] HospitalIn the event this information is protected by the Federal Confidentiality of Alcohol and Drug Abuse Patient Records regulations: The Federal rules restrict any use of the information to criminally investigate or prosecute any alcohol or drug abuse patient.[facility] HospitalIn the event this information is protected by the Federal Confidentiality of Alcohol and Drug Abuse Patient Records regulations: The Federal rules restrict any use of the information to criminally investigate or prosecute any alcohol or drug abuse patient.[facility] HospitalIn the event this information is protected by the Federal Confidentiality of Alcohol and Drug Abuse Patient Records regulations: The Federal rules restrict any use of the information to criminally investigate or prosecute any alcohol or drug abuse patient.[facility] HospitalIn the event this information is protected by the Federal Confidentiality of Alcohol and Drug Abuse Patient Records regulations: The Federal rules restrict any use of the information to criminally investigate or prosecute any alcohol or drug abuse patient.[facility] HospitalIn the event this information is protected by the Federal Confidentiality of Alcohol and Drug Abuse Patient Records regulations: The Federal rules restrict any use of the information to criminally investigate or prosecute any alcohol or drug abuse patient.[facility] HospitalIn the event this information is protected by the Federal Confidentiality of Alcohol and Drug Abuse Patient Records regulations: The Federal rules restrict any use of the information to criminally investigate or prosecute any alcohol or drug abuse patient.[facility] HospitalIn the event this information is protected by the Federal Confidentiality of Alcohol and Drug Abuse Patient Records regulations: The Federal rules restrict any use of the information to criminally investigate or prosecute any alcohol or drug abuse patient.[facility] HospitalIn the event this information is protected by the Federal Confidentiality of Alcohol and Drug Abuse Patient Records regulations: The Federal rules restrict any use of the information to criminally investigate or prosecute any alcohol or drug abuse patient.[facility] HospitalIn the event this information is protected by the Federal Confidentiality of Alcohol and Drug Abuse Patient Records regulations: The Federal rules restrict any use of the information to criminally investigate or prosecute any alcohol or drug abuse patient.[facility] HospitalIn the event this information is protected by the Federal Confidentiality of Alcohol and Drug Abuse Patient Records regulations: The Federal rules restrict any use of the information to criminally investigate or prosecute any alcohol or drug abuse patient.[facility] HospitalIn the event this information is protected by the Federal Confidentiality of Alcohol and Drug Abuse Patient Records regulations: The Federal rules restrict any use of the information to criminally investigate or prosecute any alcohol or drug abuse patient.[facility] HospitalIn the event this information is protected by the Federal Confidentiality of Alcohol and Drug Abuse Patient Records regulations: The Federal rules restrict any use of the information to criminally investigate or prosecute any alcohol or drug abuse patient.[facility] HospitalIn the event this information is protected by the Federal Confidentiality of Alcohol and Drug Abuse Patient Records regulations: The Federal rules restrict any use of the information to criminally investigate or prosecute any alcohol or drug abuse patient.[facility] HospitalIn the event this information is protected by the Federal Confidentiality of Alcohol and Drug Abuse Patient Records regulations: The Federal rules restrict any use of the information to criminally investigate or prosecute any alcohol or drug abuse patient.[facility] HospitalIn the event this information is protected by the Federal Confidentiality of Alcohol and Drug Abuse Patient Records regulations: The Federal rules restrict any use of the information to criminally investigate or prosecute any alcohol or drug abuse patient.[facility] HospitalIn the event this information is protected by the Federal Confidentiality of Alcohol and Drug Abuse Patient Records regulations: The Federal rules restrict any use of the information to criminally investigate or prosecute any alcohol or drug abuse patient.[facility] HospitalIn the event this information is protected by the Federal Confidentiality of Alcohol and Drug Abuse Patient Records regulations: The Federal rules restrict any use of the information to criminally investigate or prosecute any alcohol or drug abuse patient.[facility] HospitalIn the event this information is protected by the Federal Confidentiality of Alcohol and Drug Abuse Patient Records regulations: The Federal rules restrict any use of the information to criminally investigate or prosecute any alcohol or drug abuse patient.[facility] HospitalIn the event this information is protected by the Federal Confidentiality of Alcohol and Drug Abuse Patient Records regulations: The Federal rules restrict any use of the information to criminally investigate or prosecute any alcohol or drug abuse patient.[facility] HospitalIn the event this information is protected by the Federal Confidentiality of Alcohol and Drug Abuse Patient Records regulations: The Federal rules restrict any use of the information to criminally investigate or prosecute any alcohol or drug abuse patient.[facility] HospitalIn the event this information is protected by the Federal Confidentiality of Alcohol and Drug Abuse Patient Records regulations: The Federal rules restrict any use of the information to criminally investigate or prosecute any alcohol or drug abuse patient.[facility] HospitalIn the event this information is protected by the Federal Confidentiality of Alcohol and Drug Abuse Patient Records regulations: The Federal rules restrict any use of the information to criminally investigate or prosecute any alcohol or drug abuse patient.[facility] HospitalIn the event this information is protected by the Federal Confidentiality of Alcohol and Drug Abuse Patient Records regulations: The Federal rules restrict any use of the information to criminally investigate or prosecute any alcohol or drug abuse patient.[facility] HospitalIn the event this information is protected by the Federal Confidentiality of Alcohol and Drug Abuse Patient Records regulations: The Federal rules restrict any use of the information to criminally investigate or prosecute any alcohol or drug abuse patient.[facility] HospitalIn the event this information is protected by the Federal Confidentiality of Alcohol and Drug Abuse Patient Records regulations: The Federal rules restrict any use of the information to criminally investigate or prosecute any alcohol or drug abuse patient.[facility] HospitalIn the event this information is protected by the Federal Confidentiality of Alcohol and Drug Abuse Patient Records regulations: The Federal rules restrict any use of the information to criminally investigate or prosecute any alcohol or drug abuse patient.[facility] HospitalIn the event this information is protected by the Federal Confidentiality of Alcohol and Drug Abuse Patient Records regulations: The Federal rules restrict any use of the information to criminally investigate or prosecute any alcohol or drug abuse patient.[facility] HospitalIn the event this information is protected by the Federal Confidentiality of Alcohol and Drug Abuse Patient Records regulations: The Federal rules restrict any use of the information to criminally investigate or prosecute any alcohol or drug abuse patient.[facility] HospitalIn the event this information is protected by the Federal Confidentiality of Alcohol and Drug Abuse Patient Records regulations: The Federal rules restrict any use of the information to criminally investigate or prosecute any alcohol or drug abuse patient.[facility] HospitalIn the event this information is protected by the Federal Confidentiality of Alcohol and Drug Abuse Patient Records regulations: The Federal rules restrict any use of the information to criminally investigate or prosecute any alcohol or drug abuse patient.[facility] HospitalIn the event this information is protected by the Federal Confidentiality of Alcohol and Drug Abuse Patient Records regulations: The Federal rules restrict any use of the information to criminally investigate or prosecute any alcohol or drug abuse patient.[facility] HospitalIn the event this information is protected by the Federal Confidentiality of Alcohol and Drug Abuse Patient Records regulations: The Federal rules restrict any use of the information to criminally investigate or prosecute any alcohol or drug abuse patient.[facility] HospitalIn the event this information is protected by the Federal Confidentiality of Alcohol and Drug Abuse Patient Records regulations: The Federal rules restrict any use of the information to criminally investigate or prosecute any alcohol or drug abuse patient.[facility] HospitalIn the event this information is protected by the Federal Confidentiality of Alcohol and Drug Abuse Patient Records regulations: The Federal rules restrict any use of the information to criminally investigate or prosecute any alcohol or drug abuse patient.[facility] HospitalIn the event this information is protected by the Federal Confidentiality of Alcohol and Drug Abuse Patient Records regulations: The Federal rules restrict any use of the information to criminally investigate or prosecute any alcohol or drug abuse patient.[facility] HospitalIn the event this information is protected by the Federal Confidentiality of Alcohol and Drug Abuse Patient Records regulations: The Federal rules restrict any use of the information to criminally investigate or prosecute any alcohol or drug abuse patient.[facility] HospitalIn the event this information is protected by the Federal Confidentiality of Alcohol and Drug Abuse Patient Records regulations: The Federal rules restrict any use of the information to criminally investigate or prosecute any alcohol or drug abuse patient.[facility] HospitalIn the event this information is protected by the Federal Confidentiality of Alcohol and Drug Abuse Patient Records regulations: The Federal rules restrict any use of the information to criminally investigate or prosecute any alcohol or drug abuse patient.[facility] HospitalIn the event this information is protected by the Federal Confidentiality of Alcohol and Drug Abuse Patient Records regulations: The Federal rules restrict any use of the information to criminally investigate or prosecute any alcohol or drug abuse patient.[facility] HospitalIn the event this information is protected by the Federal Confidentiality of Alcohol and Drug Abuse Patient Records regulations: The Federal rules restrict any use of the information to criminally investigate or prosecute any alcohol or drug abuse patient.[facility] HospitalIn the event this information is protected by the Federal Confidentiality of Alcohol and Drug Abuse Patient Records regulations: The Federal rules restrict any use of the information to criminally investigate or prosecute any alcohol or drug abuse patient.[facility] HospitalIn the event this information is protected by the Federal Confidentiality of Alcohol and Drug Abuse Patient Records regulations: The Federal rules restrict any use of the information to criminally investigate or prosecute any alcohol or drug abuse patient.[facility] HospitalIn the event this information is protected by the Federal Confidentiality of Alcohol and Drug Abuse Patient Records regulations: The Federal rules restrict any use of the information to criminally investigate or prosecute any alcohol or drug abuse patient.[facility] HospitalIn the event this information is protected by the Federal Confidentiality of Alcohol and Drug Abuse Patient Records regulations: The Federal rules restrict any use of the information to criminally investigate or prosecute any alcohol or drug abuse patient.[facility] HospitalIn the event this information is protected by the Federal Confidentiality of Alcohol and Drug Abuse Patient Records regulations: The Federal rules restrict any use of the information to criminally investigate or prosecute any alcohol or drug abuse patient.[facility] HospitalIn the event this information is protected by the Federal Confidentiality of Alcohol and Drug Abuse Patient Records regulations: The Federal rules restrict any use of the information to criminally investigate or prosecute any alcohol or drug abuse patient.[facility] HospitalIn the event this information is protected by the Federal Confidentiality of Alcohol and Drug Abuse Patient Records regulations: The Federal rules restrict any use of the information to criminally investigate or prosecute any alcohol or drug abuse patient.[facility] HospitalIn the event this information is protected by the Federal Confidentiality of Alcohol and Drug Abuse Patient Records regulations: The Federal rules restrict any use of the information to criminally investigate or prosecute any alcohol or drug abuse patient.[facility] HospitalIn the event this information is protected by the Federal Confidentiality of Alcohol and Drug Abuse Patient Records regulations: The Federal rules restrict any use of the information to criminally investigate or prosecute any alcohol or drug abuse patient.[facility] HospitalIn the event this information is protected by the Federal Confidentiality of Alcohol and Drug Abuse Patient Records regulations: The Federal rules restrict any use of the information to criminally investigate or prosecute any alcohol or drug abuse patient.[facility] HospitalIn the event this information is protected by the Federal Confidentiality of Alcohol and Drug Abuse Patient Records regulations: The Federal rules restrict any use of the information to criminally investigate or prosecute any alcohol or drug abuse patient.[facility] HospitalIn the event this information is protected by the Federal Confidentiality of Alcohol and Drug Abuse Patient Records regulations: The Federal rules restrict any use of the information to criminally investigate or prosecute any alcohol or drug abuse patient.[facility] HospitalIn the event this information is protected by the Federal Confidentiality of Alcohol and Drug Abuse Patient Records regulations: The Federal rules restrict any use of the information to criminally investigate or prosecute any alcohol or drug abuse patient.[facility] HospitalIn the event this information is protected by the Federal Confidentiality of Alcohol and Drug Abuse Patient Records regulations: The Federal rules restrict any use of the information to criminally investigate or prosecute any alcohol or drug abuse patient.[facility] HospitalIn the event this information is protected by the Federal Confidentiality of Alcohol and Drug Abuse Patient Records regulations: The Federal rules restrict any use of the information to criminally investigate or prosecute any alcohol or drug abuse patient.[facility] HospitalIn the event this information is protected by the Federal Confidentiality of Alcohol and Drug Abuse Patient Records regulations: The Federal rules restrict any use of the information to criminally investigate or prosecute any alcohol or drug abuse patient.[facility] HospitalIn the event this information is protected by the Federal Confidentiality of Alcohol and Drug Abuse Patient Records regulations: The Federal rules restrict any use of the information to criminally investigate or prosecute any alcohol or drug abuse patient.[facility] HospitalIn the event this information is protected by the Federal Confidentiality of Alcohol and Drug Abuse Patient Records regulations: The Federal rules restrict any use of the information to criminally investigate or prosecute any alcohol or drug abuse patient.[facility] HospitalIn the event this information is protected by the Federal Confidentiality of Alcohol and Drug Abuse Patient Records regulations: The Federal rules restrict any use of the information to criminally investigate or prosecute any alcohol or drug abuse patient.[facility] HospitalIn the event this information is protected by the Federal Confidentiality of Alcohol and Drug Abuse Patient Records regulations: The Federal rules restrict any use of the information to criminally investigate or prosecute any alcohol or drug abuse patient.[facility] Reason for Visit (unrecogniz ed section and content) Reason Comments Injections Euflexxa injection # 3 left knee Specialty Diagnoses / Procedures Referred By Memo t Referred To Contact ORTHOPAEDIC SURGERY Diagnoses Unilateral primary osteoarthritis, left knee Procedures EUFLEXXA INJ PER DOSE EUFLEXXA OR PAYOR PREFERRED Yohana Crews PA-C [address] [place] [address] Phone: tel: Orthopaedics [address] [place] [address] Phone: tel: fax: Referral ID Status Reason Start Date Expiration Date Visits Requested Visits Authorized [id number] Authorized Clearance not met - patient not scheduled & unable to contact patient 07/06/2024 01/06/2025 99 99 Reason Comments Injections Reason Comments Refill Request Reason Comments F/U 3 months Reason Comments Results Reason Comments Results Reason Comments Consult Colonoscopy, Positiv e Cologuard Reason Onset Date Comments Refill Request 12/27/2021 Reason Comments 09/04/[address] Teran Reason Comments Foot Pain Reason Comments refills Reason Comments bh consult Specialty Diagnoses / Procedures Referred By Memo booth Referred To Contact Radiology Diagnoses Tarsal tunnel syndrome of right side Procedures MR foot right wo IV contrast Contreras Barajas MD [address] [facility] [address] [place] [address] Referral ID Status Reason Start Date Expiration Date Visits Re quested Visits Authorized [id number] Closed 09/27/2022 03/26/2023 1 1 Reason Comments Results MRI Reason Onset Date Comments Dx Code 11/24/2022 Reason Comments Follow-up 2nd MT stress fractu re Reason Comments New Patient Neck pain Reason Onset Date Comments Medication Problem 12/06/2022 Reason Comments Med Refill Reason Comments Neck Pain X 9 weeks Reason Comments Sleep Apnea Est. TIMOTHY. Inspire fo llow up. Reason Onset Date Comments Refill Request 03/24/2023 Reason Comments Physical Neck pain Reason Comments Consult Reason Onset Date Comments Refill Request 07/15/2023 Reason Onset Date Comments Refill Request 08/15/2023 Reason Onset Date Comments Refill Request 09/24/2023 Reason Comments Depression Discuss med options Pain (Shoulder Pain) R x 1 week due to i angelury. Was seen in ER 09/30 and was told to follow up with ortho for possible torn rotator cuff. Reason Comments Chart prep - X-rays Reason Comments Patient Update Reason Comments Med Change Request Reason Comments Follow Up Injury of right shou lder, Needs sooner appt with ortho, anxiety. Reason Comments New Pain Referred by Stan Oropeza Specialty Diagnoses / Procedures Referred By Memo booth Referred To Contact Orthopedics Diagnoses Injury of right shoulder, subsequent encounter Acute pain of right shoulder Procedures CONSULT TO ORTHOPAEDICS OFFICE/OUTPATIENT NEW HIGH MDM 60 MINUTES Stan Oropeza, SURGICAL PRODUCT SALES CONSULTANT.PHARMACIST AIDE [address] [place] [address] Referral ID Status Reason Start Date Expiration Date V isits Requested Visits Authorized [id number] Closed PCP Requested Referral 10/06/2023 10/05/2024 1 1 Reason Comments Appointment Reason Onset Date Comments Refill Request 11/22/2023 Reason Comments Pain Reason Comments Results - Mri Reason Comments Established Patient Injections Reason Comments diverticulitis hospt, f/up Reason Comments Shoulder Injury Right shoulder pain starting yesterday, pt states he lifted something heavy yesterday and felt something tear + numbness in fingertips Reason Comments f/up meds Specialty Diagnoses / Procedures Referred By Contac t Referred To Contact MR IMAGING Diagnoses Acute pain of left knee Procedures MRI KNEE WO IVCON LEFT MRI ANY JT LOWER EXTREM W/O CONTRAST MATRL Samina Berg, SURGICAL PRODUCT SALES CONSULTANT.PHARMACIST AIDE [address] [place] [address] [place] [address] Referral ID Status Reason Start Date Expiration Date V isits Requested Visits Authorized [id number] Closed Auto-Generate d Referral 02/13/2024 03/14/2024 1 1 Reason Comments Established Patient Pain Specialty Diagnoses / Procedures Referred By Contac t Referred To Contact Orthopedics Diagnoses Acute pain of left knee Procedures CONSULT TO ORTHOPAEDICS OFFICE/OUTPATIENT [facility] 60 MINUTES Samina Berg, SURGICAL PRODUCT SALES CONSULTANT.PHARMACIST AIDE [address] [place] [address] Phone: tel: fax: Referral ID Status Reason Start Date Expiration Date V isits Requested Visits Authorized [id number] Closed PCP Requested Referral 02/09/2024 02/08/2025 1 1 Reason Onset Date Comments Orders 05/09/2024 Reason Comments Insurance Authorization Prior Auth Denie d: NonCovered Benefit (Drug Name) Reason Comments Medication Follow-up Reason Comments Injections Euflexxa injection l eft knee and wants injection Right shoulder Care Teams (unrecognized sec tion and content) Manager Social Services Relationship Specialty Start Date End Date Dayton Gaona APRN-PHARMACIST AIDE [address] [facility] [address] [address] PCP - General 10/01/23 Manager Social Services Relationship Specialty Start Date End Date Stan Oropeza [address] [place] [address] PCP - General 04/17/21 Manager Social Services Relationship Specialty Start Date End Date Nury OropezaekahKVNG.PHARMACIST AIDE [address] [facility] [place] [id number] PCP - General Family Medicine 04/03/21 Manager Social Services Relationship Specialty Start Date End Date Nury OropezaekahKVNG.PHARMACIST AIDE [address] [facility] [address] PCP - General Family Practice 04/03/21 Goals (unrecognized section and content) Goals may be documented in a n alternate section Ordered Prescriptions (unrec ognized section and content) Prescription Sig Dispensed Refills Start Date End Da te ondansetron (ZOFRAN-ODT) 4 MG disintegrating tabletIndications:Tarsal tunnel syndrome of right side Take 1 tablet by mouth 3 times daily as needed for Nausea or Vomiting 21 tablet 0 10/13/2021 aspirin EC 81 MG EC tabletIndications:Tarsal tunnel syndrome of right side Take 1 tablet by mouth daily 30 tablet 0 10/13/2021 oxyCODONE-acetaminophen (PERCOCET) 5-325 MG per tabletIndications:Tarsal tunnel syndrome of right side Take 1 tablet by mouth every 6 hours as needed for Pain for up to 7 days. Intended supply: 7 days. Take lowest dose possible to manage pain 28 tablet 0 10/13/2021 10/20/2021 Scheduled Active and Recently Administ ered Medications (unrecognized section and content) Medication Order 10/11/2021 10/12/2021 10/13/2021 acetaminophen (TYLENOL) tablet 1,000 mg (COMPLETED) 1,000 mg, Oral, ONCE, 1 dose, On Tue10/13/21 at 1330, Maximum dose of acetaminophen is 4000 mg from all sources in 24 hours. Do not administer if patient has taken tylenol <4 hours earlier. Do not give if contraindicated ie. patient has active liver disease or cirrhosis., Pre-op (day of surgery) 1315 (Given - Provid er: Slime Aviels RN) ceFAZolin (ANCEF) 2000 mg in dextrose 4 % 100 mL IVPB (premix) (COMPLETED) 2,000 mg, IntraVENous, DIRECTOR OF HEMOPHILIA TO O.R., 1 dose, On Tue10/13/21 at 1330, Antimicrobial Indications: Surgical Prophylaxis, Administer within 1 hour prior to incision. Recommend to repeat in 3-4 hours after initial dose if still intra-op., Pre-op (day of surgery) 1500 (Given by Other Clinician - Provider: Alpa Hou RN - Comment: given in OR per MARBLE MASON) celecoxib (CELEBREX) capsule 400 mg (COMPLETED) 400 mg, Oral, ONCE, 1 dose, On Tue10/13/21 at 1330, Pre-op (day of surgery) 1315 (Given - Provid er: Slime Aviles RN) famotidine (PEPCID) tablet 20 mg (COMPLETED) 20 mg, Oral, ONCE, 1 dose, On Tue10/13/21 at 1330, Pre-op (day of surgery) 1315 (Given - Provid er: Slime Aviles RN) sodium chloride flush 0.9 % injection 5-40 mL 5-40 mL, IntraVENous, EVERY 12 HOURS SCHEDULED (2 times per day), First dose on Tue10/13/21 at 2100, Until Discontinued, For Line Patency: Peripheral IV = 5 mL; Midline or Central Line = 10 mL/lumen. If following IV push medication, administer flush at same rate as the IV push. Flush volume is determined by type of infusion therapy being given. For non-viscous solutions use: Peripheral IV = 5 mL Midline or Central Line = 10 mL/lumen For viscous solutions (i.e. blood components, parenteral nutrition, contrast media, or after obtaining blood sample) use: Peripheral IV = 10 mL Midline or Central Line = 20 mL/lumen, Pre-op (day of surgery) 2100 (Due) sodium chloride flush 0.9 % injection 5-40 mL 5-40 mL, IntraVENous, EVERY 12 HOURS SCHEDULED (2 times per day), First dose on Tue10/13/21 at 2100, Until Discontinued, For Line Patency: Peripheral IV = 5 mL; Midline or Central Line = 10 mL/lumen. If following IV push medication, administer flush at same rate as the IV push. Flush volume is determined by type of infusion therapy being given. For non-viscous solutions use: Peripheral IV = 5 mL Midline or Central Line = 10 mL/lumen For viscous solutions (i.e. blood components, parenteral nutrition, contrast media, or after obtaining blood sample) use: Peripheral IV = 10 mL Midline or Central Line = 20 mL/lumen, PACU only 2100 (Due) Continuous Medication Order 10/11/2021 10/12/2021 10/13/2021 lactated ringers infusion IntraVENous, at 50 mL/hr, CONTINUOUS, Starting on Tue10/13/21 at 1330, Upon admission to sameday - please start iv if patient does not have iv access. Use 500ml NS for patients on dialysis., Pre-op (day of surgery) 1316 (New Bag - Prov ider: Slime Aviles RN) lactated ringers infusion IntraVENous, at 50 mL/hr, CONTINUOUS, Starting on Tue10/13/21 at 1645, PACU only 1645 (Due) PRN Medication Order 10/11/2021 10/12/2021 10/13/2021 0.9 % sodium chloride bolus 500 mL (4.26 mL/kg), IntraVENous, at 1,000 mL/hr, Administer over 0.5 Hours, PRN, Anti-nausea, Starting on Tue10/13/21 at 1618, PACU only 0.9 % sodium chloride infusion IntraVENous, at 5-250 mL/hr, PRN, if patient receiving piggyback infusions and maintenance fluids are not ordered OR KVO fluids to protect IV site / prevent frequent line interruptions/ long duration, Starting on Tue10/13/21 at 1301, For piggyback infusion, administer at same rate as piggyback for a total of 25 mL. Enter 25 mL into dose field and piggyback rate into rate field of order. If piggyback is infusing at a rate less than 100 mL/hr, enter 25 mL into dose field and 100 mL/hr into rate field of order. For KVO fluids, enter rate of 20 mL/hr or less into rate field of order., Pre-op (day of surgery) ALPRAZolam (NIRAVAM) dissolvable tablet 0.25 mg 0.25 mg, Oral, PRN, Starting on Tue10/13/21 at 1301, Until Discontinued, Anxiety, Pre-op (day of surgery) diphenhydrAMINE (BENADRYL) injection 12.5 mg 12.5 mg, IntraVENous, ONCE PRN, 1 dose, Starting on Tue10/13/21 at 1618, Until Tue10/13/21 at 2359, Itching, for use Sameday and, PACU only fentaNYL (SUBLIMAZE) injection 25 mcg 25 mcg, IntraVENous, EVERY 5 MIN PRN, 3 doses, Starting on Tue10/13/21 at 1618, Until Discontinued, Pain Moderate (4-6), Phase I and Phase II- Initial therapy for moderate pain (4-6). Restricted to a 90 minute time frame starting when the patient can verbally state their pain score. If after 2 doses the pain score does not decrease by more than one point, then call the provider. If oral meds are utilized, do not return to initial therapy medications. SDS and, PACU only fentaNYL (SUBLIMAZE) injection 50 mcg 50 mcg, IntraVENous, EVERY 5 MIN PRN, 3 doses, Starting on Tue10/13/21 at 1618, Until Discontinued, Pain Severe (7-10), Phase I or Phase II- Initial therapy for severe pain (7-10). Restricted to a 90 minute time frame starting when the patient can verbally state their pain score. If after 2 doses the pain score does not decrease by more than one point, then call the provider. If oral meds are utilized, do not return to initial therapy medications. SDS and, PACU only 1652 (Given - Provid er: Alpa Hou RN) hydrALAZINE (APRESOLINE) injection 5 mg(Linked Group 1) 5 mg, IntraVENous, EVERY 10 MIN PRN, 2 doses, Starting on Tue10/13/21 at 1618, Until Discontinued, High Blood Pressure, PRN for SBP > 160 for 2 consecutive measurements, and if one of the following conditions is met: 1) If IV labetolol is ineffective. 2) If HR is under 60. 3) If patient has heart block, COPD or asthma. If both labetalol and hydralazine ineffective, notify anesthesiologist. for use Sameday and, PACU only labetalol (NORMODYNE;TRANDATE) injection 5 mg(Linked Group 1) 5 mg, IntraVENous, EVERY 10 MIN PRN, 2 doses, Starting on Tue10/13/21 at 1618, Until Discontinued, High Blood Pressure, PRN for SBP >160 for 2 consecutive measurements, if HR is 60 or greater. If beta sidney is contraindicated (HR less than 60, heart block, COPD or asthma) use hydralazine IV order. for use Sameday and, PACU only lidocaine 1 % injection 1 mL 1 mL, IntraDERmal, ONCE PRN, 1 dose, Starting on Tue10/13/21 at 1301, Until Tue10/13/21 at 2359, IV start, Pre-op (day of surgery) LORazepam (ATIVAN) injection 0.5 mg 0.5 mg, IntraVENous, ONCE PRN, 1 dose, Starting on Tue10/13/21 at 1618, Until Tue10/13/21 at 2359, for anxiety or muscle spasm., PACU only meperidine (DEMEROL) injection 12.5 mg 12.5 mg, IntraVENous, EVERY 5 MIN PRN, 4 doses, Starting on Tue10/13/21 at 1618, Until Discontinued, Shivering, , May give every 5 minutes to max of 50mg. for use Sameday and, PACU only ondansetron (ZOFRAN) injection 4 mg 4 mg, IntraVENous, ONCE PRN, 1 dose, Starting on Tue10/13/21 at 1618, Until Tue10/13/21 at 2359, Nausea, Initial antiemetic therapy. For use sameday and, PACU only oxyCODONE (ROXICODONE) immediate release tablet 10 mg (COMPLETED) 10 mg, Oral, PRN, 1 dose, Starting on Tue10/13/21 at 1618, Until Tue10/13/21 at 2359, Pain Severe (7-10), PHASE II, PACU only 1755 (Given - Provid er: Alpa Hou RN) sodium chloride flush 0.9 % injection 5-40 mL 5-40 mL, IntraVENous, PRN, Starting on Tue10/13/21 at 1301, Until Discontinued, Line Care, After every IV line use, For Line Patency: Peripheral IV = 5 mL; Midline or Central Line = 10 mL/lumen. If following IV push medication, administer flush at same rate as the IV push. Flush volume is determined by type of infusion therapy being given. For non-viscous solutions use: Peripheral IV = 5 mL Midline or Central Line = 10 mL/lumen For viscous solutions (i.e. blood components, parenteral nutrition, contrast media, or after obtaining blood sample) use: Peripheral IV = 10 mL Midline or Central Line = 20 mL/lumen, Pre-op (day of surgery) sodium chloride flush 0.9 % injection 5-40 mL 5-40 mL, IntraVENous, PRN, Starting on Tue10/13/21 at 1618, Until Discontinued, Line Care, After every IV line use, For Line Patency: Peripheral IV = 5 mL; Midline or Central Line = 10 mL/lumen. If following IV push medication, administer flush at same rate as the IV push. Flush volume is determined by type of infusion therapy being given. For non-viscous solutions use: Peripheral IV = 5 mL Midline or Central Line = 10 mL/lumen For viscous solutions (i.e. blood components, parenteral nutrition, contrast media, or after obtaining blood sample) use: Peripheral IV = 10 mL Midline or Central Line = 20 mL/lumen, PACU only Linked Groups Order Group 1: labetalol (NORMODYNE;TRANDATE) injection 5 mgJump to med 5 mg, IntraVENous, EVERY 10 MIN PRN, 2 doses, Starting on Tue10/13/21 at 1618, Until Discontinued, High Blood Pressure
PRN for SBP >160 for 2 consecutive measurements, if HR is 60 or greater. If beta sidney is contraindicated (HR less than 60, heart block, COPD or asthma) use hydralazine IV order. for use Sameday and
PACU only Or hydrALAZINE (APRESOLINE) injection 5 mgJump to med 5 mg, IntraVENous, EVERY 10 MIN PRN, 2 doses, Starting on Tue10/13/21 at 1618, Until Discontinued, High Blood Pressure
PRN for SBP > 160 for 2 consecutive measurements, and if one of the following conditions is met: 1) If IV labetolol is ineffective. 2) If HR is under 60. 3) If patient has heart block, COPD or asthma. If both labetalol and hydralazine ineffective, notify anesthesiologist. for use Sameday and
PACU only Scheduled Medication Order 09/18/2022 09/19/2022 09/20/2022 acetaminophen (Tylenol) tablet 1,000 mg (COMPLETED) 1,000 mg, Oral, Once, On 09/19/22 at 2335, For 1 dose, Maximum dose of acetaminophen is 4000 mg from all sources in 24 hours. 0015 (Given - Provid er: Josi Waterman RN) ketorolac (Toradol) injection 30 mg (COMPLETED) 30 mg, IntraMUSCular, Once, On 09/19/22 at 2335, For 1 dose 0015 (Given - Provid er: Josi Waterman RN) Lidocaine 4 % patch 1 patch 1 patch, TransDERmal, Administer over 12 Hours, Daily, First dose (after last modification) on 09/19/22 at 2340, Apply patch to dorsum of r foot. Patch may remain in place for up to 12 hours in any 24 hour period. 0013 (Medication Suellen lied - Provider: Josi Waterman RN - Comment: right foot)0025 (Due: Medication Removed - Provider: Automatic Discharge Provider - Comment: Time automatically adjusted from order being discontinued) Scheduled Medication Order 09/29/2023 09/30/2023 10/01/2023 ketorolac (Toradol) injection 15 mg (COMPLETED) 15 mg, intramuscular, Once, On 10/01/23 at 1000, For 1 dose 1025 (Given - Provid er: Joann Villegas RN) FOR RECORDS PERTAINING TO PATIENTS WHO ARE OR HAVE BEEN ENROLLED IN A CHEMICAL DEPENDENCY/SUBSTANCEABUSE PROGRAM, SOME INFORMATION MAY BE OMITTED. This clinical summary was aggregated from multiple sources. Caution should be exercised in using it in the provision of clinical care. This summary normalizes information from multiple sources, and as a consequence, information in this document may materially change the coding, format and clinical context of patient data. In addition, data may be omitted in some cases. CLINICAL DECISIONS SHOULD BE BASED ON THE PRIMARY CLINICAL RECORDS. [employer] provides no warranty or guarantee of the accuracy or completeness of information in this document.
--- NOTE | 2024-09-18 23:03 | CT_ITS ---
PROCEDURE: ABDOMEN/PELVIS W IV CONT ONLY 09/18/2024 REASON FOR EXAM: RLQ PAIN TECHNIQUE: ABDOMEN/PELVIS W IV CONT ONLY Coronal and Sagittal reconstruction series were provided. CONTRAST: Isovue 370 VOLUME: 96 mL One or more dose reduction techniques were used (e.g., Automated exposure control, adjustment of the mA and/or kV according to patient size, use of iterative reconstruction technique. RADIATION DOSE SUMMARY: CTDlvol: 40 mGy DLP: 1363 mGycm COMPARISON: 01/16/2024 FINDINGS: Dependent atelectasis. Normal heart size. Hepatic steatosis. Normal gallbladder, pancreas, spleen, adrenal glands, kidneys. No hydronephrosis. Normal bladder. Slightly enlarged prostate. No retroperitoneal or pelvic adenopathy. No free air. Nondistended bowel. Normal appendix. Diverticulosis. There is sigmoid diverticulitis without abscess. No acute abdominal wall findings. Lumbar spine degeneration, mainly L5-S1. CT/Abdomen/Pelvis W IV Cont ONLY IMPRESSION: Sigmoid diverticulitis without abscess. Reading Location: [place] [address]
[2024-09-18] MEDS: Ketorolac 30 MG/ML Syringe IV (23:19)
[2024-09-18] MEDS: 0.9% Normal Saline (1000mL) 1,000 ML 999 ML IV (23:19)
[2024-09-18 23:30] VITALS: BP 130/69; PULSE 83; RESP 14; TEMP 37.1; O2SAT 95
[2024-09-18 23:34] LABS: Hematocrit 44.2 % (40-54); Hemoglobin 14.7 g/dL (13.0-16.5); Immature Granulocytes Count 0.190 X10^3/uL (0.0-0.0); Mean Corp Hgb Conc 33.3 g/dL (32-36); Mean Corpuscular Volume 81.4 fL (80-94); Mean Platelet Vol. 9.7 fl (6.2-12.0); NRBC Flagged by Analyzer 0 % (0-5); POSITIVE DIFFERENTIAL YES; Platelet Count 283 K/mm3 (150-450); RBC Distribution Width CV 14.1 % (11.6-14.6); RBC Distribution Width SD 40.7 fl (35.1-43.9); Red Blood Count 5.43 M/mm3 (4.6-6.2); White Blood Count 27.1 K/mm3 (4.4-11.0)
[2024-09-18 23:39] LABS: Differential Indicated SCAN CRITERIA MET
[2024-09-19] VITALS: BP 130/69; PULSE 80; RESP 14; TEMP 37.2; O2SAT 99
[2024-09-19 00:03] LABS: AST(SGOT) 28 U/L (<=37); Alanine Aminotransfer ALT/SGPT 45 U/L (<=46); Albumin, Serum 4.2 g/dL (3.5-5.0); Alkaline Phosphatase 46 U/L (40-129); Anion Gap 13 (5-15); BUN 22 mg/dL (4-19); BUN/Creat Ratio 17.3 RATIO (10-20); Bilirubin, Direct 0.43 mg/dL (0.00-0.30); Calcium,Total 9.0 mg/dL (7.6-11.0); Carbon Dioxide 22.6 mmol/L (21.0-32.0); Chloride 102 mmol/L (98-108); Estimated Creatinine Clearance 92.35 ml/min (50-250); Globulin 3.0 g/dL (2.2-4.2); Glucose 105 mg/dL (70-99); Lipase 17 U/L (13-75); Potassium 3.9 mmol/L (3.3-5.1)
[2024-09-19] MEDS: Piperacil/Tazobactam 3.375 GM in 0.9% Normal Saline (50mL MB+) 50 ML IV (00:24)
[2024-09-19 00:29] LABS: Differential Comment SCANNED; Red Cell Morphology NORM C+C NORMAL (NORM C&C)
--- NOTE | 2024-09-19 00:53 | EX.ED.DYSGE1 ---
HPI History of Present Illness Chief Complaint: Abd Pain Informant: patient Narrative Narrative: Patient is a 54-year-old male with past medical history of hypertension as well as anxiety and depression. He reports a previous episode of sigmoid diverticulitis roughly 8 to 10 months ago. He states he was at work this evening and developed generalized upper abdominal discomfort. He states that started around 6 PM. He states since that time the pain has persistently worsened. He denies any nausea vomiting diarrhea dysuria or constipation. However he has concern he is developing an infection once again based on his pain and therefore comes in for evaluation [facility] Medical History (Updated 09/19/24 @ 01:[address] Jame Dowell DO) Depression Anxiety Diverticulitis Contusion of right elbow Contusion of right shoulder Shoulder pain Arthritis Hypertension Home Medications ?Medication ?Instructions ?Recorded ?Last Taken ?Type alprazolam 0.5 mg tablet 0.5 mg PO BID PRN PRN anxiety 08/18/23 01/15/24 History duloxetine 30 mg capsule,delayed 30 mg PO DAILY 08/18/23 01/15/24 History release omeprazole 20 mg capsule,delayed 20 mg PO DAILY 08/18/23 01/15/24 History release lisinopril 20 mg tablet 20 mg PO DAILY 01/16/24 01/15/24 History trazodone 50 mg tablet 50 mg PO QHS 01/16/24 01/12/24 History amoxicillin 875 mg-potassium 1 tab PO BID 10 days #20 tabs 09/19/24 Unknown Rx clavulanate 125 mg tablet oxycodone-acetaminophen 5 mg-325 1 tab PO Q6H PRN pain 3 days #12 09/19/24 Unknown Rx mg tablet (Endocet) tabs Allergy/AdvReac Type Severity Reaction Status Date / Time No Known Allergies Allergy Verified 09/18/24 22:30 Surgical History History of back surgery Social History (Updated 01/16/24 @ 18:[address] Anna Caputo DO) household members: spouse housing: house current occupational status: employed Smoking Status: Former smoker alcohol intake: never substance use type: does not use ROS ROS ED Constitutional Constitutional ED: Denies chills or fever(s) ENT ENT ED: Denies sore throat Cardiovascular Cardiovascular: Denies chest pain Respiratory/Chest Respiratory/Chest: Denies cough or dyspnea Gastrointestinal Gastrointestinal: Reports abdominal pain; Denies constipation, diarrhea, nausea or vomiting Genitourinary Genitourinary ED: Denies dysuria Musculoskeletal Musculoskeletal: Denies myalgias Integumentary Denies rash Neurologic Neurologic: Denies headache(s) Hematologic/Lymphatic Hematologic/Lymphatic: Denies easy bleeding or easy bruising EXAM Physical Exam Const Vital Signs: 09/18/24 22:28 09/18/24 22:46 09/18/24 23:30 Temperature 99.3 F H 98.8 F 98.8 F Temperature Source Oral Oral Oral Pulse Rate 85 85 83 Respiratory Rate 16 14 14 Blood Pressure 128/114 H 134/65 H 130/69 H Blood Pressure Mean 118 88 89 Pulse Ox 95 94 95 Oxygen Delivery Method Room Air Room Air Room Air 09/19/24 00:00 Temperature 98.9 F Temperature Source Oral Pulse Rate 80 Respiratory Rate 14 Blood Pressure 130/69 H Blood Pressure Mean 89 Pulse Ox 99 Oxygen Delivery Method Room Air Positive well nourished and well developed General Appearance ED: well developed; Negative for pallor HEENT HEENT Narrative: Normocephalic atraumatic No tongue or lip swelling no oral lesions no airway edema or compromise; no signs of infection noted in the posterior pharynx Eyes PERRL and EOMs intact bilaterally General Eye ED: Negative for scleral icterus Neck supple Neck Narrative: No nuchal rigidity or meningeal signs Resp normal respiratory effort and clear to auscultation bilaterally Cardio regular rate and regular rhythm GI non-distended and no masses GI Narrative: Abdomen is soft and nondistended with normal active bowel sounds. There is pain with palpation in the midepigastric and right lower quadrant. There is voluntary guarding in the right lower quadrant. No rebound tenderness. No pulsatile mass or fluid wave No peritoneal signs Auscultation: normoactive bowel sounds Palpation: soft Back/Spine no CVA tenderness Extremity normal to inspection Neuro oriented x3, CN's II-XII intact bilaterally and no sensory deficits noted Sensorium / Orientation: alert Motor Exam: strength 5/5 throughout Psych mental status grossly normal Skin no rashes or lesions noted and no wounds General Skin Exam: Negative for jaundice or pallor MDM MDM MDM Narrative Medical decision making narrative: Patient arrived to the ER mildly hypertensive but has a past medical history of this. With his development of abdominal pain there is concern for pancreatitis versus gastritis versus biliary colic versus acute cholecystitis versus appendicitis versus diverticulitis. Therefore basic labs were obtained as well as a CT scan with IV contrast. Labs showed leukocytosis at 27 with left shift as his neutrophil count is 24. However his lactic acid is normal. He also is not hypotensive or tachycardic going against sepsis. CT scan showed changes consistent with sigmoid diverticulitis but there was no reported perforation or abscess formation and even though on exam he had pain in the right lower quadrant the radiologist felt the appendix was normal. Therefore this time is pain could be related to the diverticulitis with referral to those sections of his abdomen. The patient has remained hemodynamically stable in the ER. Therefore as he is not showing hypotension or tachycardia or fever I have low concern for systemic infection/sepsis. He was given IV Zosyn in the ER secondary to his diverticulitis. However as his vitals remained stable and CT scan confirms simple diverticulitis not complicated with perforation or abscess there is no need for emergent surgical evaluation or admission. Patient be placed on antibiotics and pain control and is otherwise safe for discharge History & Record Review Discussion w/independent historian: Patient Lab Data Attestation: I reviewed the patient's lab results. Labs: Laboratory Results - last 24 hr 09/18/24 09/18/24 22:44 23:20 WBC 27.1 H RBC 5.43 Hgb 14.7 Hct 44.2 MCV 81.4 MCH 27.1 MCHC 33.3 RDW Std Deviation 40.7 RDW Coeff of Liz 14.1 Plt Count 283 MPV 9.7 Immature Gran % (Auto) 0.700 Neut % (Auto) 87.3 H Lymph % (Auto) 5.7 L [place] % (Auto) 5.8 Eos % (Auto) 0.2 Baso % (Auto) 0.3 Absolute Neuts (auto) 23.7 H Absolute Lymphs (auto) 1.54 Nucleated RBC % 0 Differential Comment SCANNED Platelet Estimate ADEQUATE RBC Morphology NORM C+C Sodium 138 Potassium 3.9 Chloride 102 Carbon Dioxide 22.6 Anion Gap 13 BUN 22 H Creatinine 1.26 H Estim Creat Clear Calc 92.35 Est GFR (MDRD) Non-Af 67 BUN/Creatinine Ratio 17.3 Glucose 105 H Lactic Acid < 1.0 Calcium 9.0 Total Bilirubin 0.97 Direct Bilirubin 0.43 H AST 28 ALT 45 Alkaline Phosphatase 46 Total Protein 7.2 Albumin 4.2 Globulin 3.0 Lipase 17 Radiography Diagnostic Testing: Clinical Impression(s) from Imaging Studies Abdomen/Pelvis CT 09/18/24 23:03 IMPRESSION: Sigmoid diverticulitis without abscess. Reading Location: [place] [address] Discharge Plan Triage Chief Complaint: Abd Pain ED Provider: Jame Dowell Dx/Rx/DC Orders Clinical Impression: Sigmoid diverticulitis, Hypertension, Anxiety and depression Instructions: Diverticulitis Dc Prescriptions: New amoxicillin-pot clavulanate 875-125 mg tablet 1 tab PO BID 10 Days Qty: 20 0RF oxycodone-acetaminophen [Endocet] 5-325 mg tablet 1 tab PO Q6H PRN (Reason: pain) 3 Days Qty: 12 0RF No Action omeprazole 20 mg capsule,delayed release(DR/EC) 20 mg PO DAILY alprazolam 0.5 mg tablet 0.5 mg PO BID PRN PRN (Reason: anxiety) duloxetine 30 mg capsule,delayed release(DR/EC) 30 mg PO DAILY trazodone 50 mg tablet 50 mg PO QHS lisinopril 20 mg tablet 20 mg PO DAILY Stand Alone Forms: ED Work / School Excuse Primary Care Provider: Allie Shields NP Referrals: Allie Shields NP, REWRITER-C [Primary Care Provider] - Activity Restrictions/Additional Instructions: Your CT scan showed sigmoid diverticulitis without abscess or perforation. The radiologist noted your appendix is normal without signs of infection. Please take your antibiotic as directed to resolve the infection which would then resolve the pain. If you develop a fever while on the antibiotic or your pain worsens despite taking your medication it could indicate you now have an abscess or perforation and please return to the ER for repeat evaluation. Print Language: Bel[place]ian Disposition Disposition: Home, Self Care
[2024-09-19 01:05] VITALS: BP 148/72; PULSE 71; RESP 18; TEMP 36.8; O2SAT 100
== END 2024-09-19 01:06 | disposition home or self-care (01) ==
PROVIDERS: Emergency Provider Emergency Medicine; PCP Nurse Practitioner Family; Visit Provider Emergency Medicine
DX: K57.32 Diverticulitis of large intestine without perforation or abscess without bleeding (principal); Z87.891 Personal history of nicotine dependence; I10 Essential (primary) hypertension; F41.9 Anxiety disorder, unspecified; F32.A Depression, unspecified; R10.84 Generalized abdominal pain; Z79.899 Other long term (current) drug therapy
CPT/HCPCS: 74177; 80048; 80076; 83605; 83690; 85025; 96361; 96365; 96375; 99283; Q9967; A4216